=== PATIENT | male | born 1955 | race Caucasian/White ===

== ENCOUNTER 2019-04-15 09:45 | Outpatient (CLI) | payer MEDICARE, MEDICAID ==
--- NOTE | 2019-04-15 09:56 | RAD ---
XR Chest Pa Lat STANDARD HISTORY: COPD COMPARISON: 09/12/2016 FINDINGS: The heart size is normal. The lungs are well expanded without focal areas of consolidation, pneumothorax or pleural effusions. There are degenerative changes in spine.. IMPRESSION: No radiographic evidence of acute cardiopulmonary process.
== END 2019-04-15 09:46 | disposition home or self-care (01) ==
LOC: BICRAD 09:45
PROVIDERS: ATTEND Internal Medicine
DX: J44.9 Chronic obstructive pulmonary disease, unspecified (principal)
CPT/HCPCS: 71046

== ENCOUNTER 2019-10-28 10:36 | Outpatient (CLI) | payer MEDICARE, MEDICAID ==
[2019-10-28] MEDS ORDERED: Iopamidol-370 76% 500 ML 1 ML ONE (10:37)
--- NOTE | 2019-10-28 11:21 | CT ---
CT Abdomen W Con HISTORY: Abdominal pain COMPARISON: None. FINDINGS: There are dependent changes at the lung bases. No calcified gallstones is noted. The liver, spleen, p ancreas, adrenal glands and left kidney are normal. There are small cysts in the right kidney. No free air, free fluid or lymphadenopathy seen in the abdomen. There are vascular calcifications withou t evidence of aneurysmal dilatation of the abdominal aorta. There are degenerative changes spine. IMPRESSION: No acute process.
== END 2019-10-28 10:37 | disposition home or self-care (01) ==
LOC: BICCT 10:36
PROVIDERS: ATTEND Nurse Practitioner Family
DX: R14.0 Abdominal distension (gaseous) (principal)
CPT/HCPCS: 74160; 82565

== ENCOUNTER 2019-12-02 20:44 | Inpatient (IN) | payer MEDICARE, MEDICAID, OTHER ==
[2019-12-02 21:12] LABS: #Eosinphils 0.2 thou/uL (0.0-0.7); #Monocytes 0.6 thou/uL (0.11-0.59); #Neutrophils 11.8 thou/uL (1.40-6.50); %Basophils 0.1 % (0.0-1.0); %Eosinophils 1.3 % (0.0-10.0); %Lymphocytes 7.2 % (21.0-51.0); %Monocytes 4.6 % (0.0-10.0); %Neutrophils 86.7 % (42.0-75.0); Hemoglobin 13.8 g/dL (14.0-18.0); Mean Corpuscular HGB CONC 33.7 g/dL (32.0-36.0); Mean Corpuscular Hemoglobin 33.3 pg (27.0-31.0); Mean Corpuscular Volume 98.9 fL (78.0-98.0); Mean Platelet Volume 6.7 fL (7.4-10.4); Platelet Count 184 thou/uL (130-400); RBC Distribution Width 11.9 % (11.5-14.5); Red Blood Cell (RBC) Count 4.12 mill/uL (4.70-6.10); White Blood Cell (WBC) Count 13.6 thou/uL (4.8-10.8)
[2019-12-02 21:18] LABS: Prothrombin Time 13.2 sec (12.0-14.7)
[2019-12-02 21:40] LABS: PTT 124.9 sec (22.9-36.1)
--- NOTE | 2019-12-02 21:41 | RAD ---
PORTABLE CHEST: History: Chest pain FINDINGS: Lungs appear clear. No infiltrate. Heart and mediastinum unremarkable. Vasculature normal. IMPRESSION: No acute finding. POS: AGW
[2019-12-02 21:55] LABS: ALT (SGPT) 23 U/L (8-55); AST (SGOT) 23 U/L (5-34); Albumin 3.3 g/dL (3.4-4.8); Alkaline Phosphatase 75 U/L (40-110); Anion Gap 11 mmol/L (10-20); BUN (Urea Nitrogen) 19 mg/dL (8.4-25.7); Bilirubin, Total 0.5 mg/dL (0.2-1.2); Calc. Creatinine Clearance 0 mL/min (70-130); Calcium 7.8 mg/dL (7.8-10.44); Carbon Dioxide 27 mmol/L (23-31); Chloride 106 mmol/L (98-107); Estimated GFR-MDRD 49; Globulin 2.1 g/dL (2.4-3.5); Glucose 111 mg/dL (80-115); Potassium 4.2 mmol/L (3.5-5.1); Protein, Total 5.4 g/dL (5.8-8.1); Sodium 140 mmol/L (136-145)
[2019-12-02 22:04] LABS: CKMB 13.9 ng/mL (0-6.6)
[2019-12-02] MEDS ORDERED: Heparin 25,000 units/D5W 500 ML ONE (22:20)
[2019-12-02] MEDS ORDERED: Ondansetron ODT 4 MG TAB PO PRN (23:00)
[2019-12-02] MEDS ORDERED: Ondansetron PF 4 MG/2 ML Vial IVP PRN (23:00)
[2019-12-02] MEDS ORDERED: Morphine 2 MG/ML VIAL SLOW IVP PRN (23:00)
[2019-12-02] MEDS ORDERED: Heparin 25,000 units/D5W 500 ML IVPB SCH (23:00)
[2019-12-02] MEDS ORDERED: Heparin 10,000 UNITS/ 10 ML VIAL SLOW IVP SCH (23:00)
[2019-12-02] MEDS ORDERED: Nitroglycerin 0.4 MG TAB (25 Tab Bottle) SL PRN (23:00)
[2019-12-02 23:29] LABS: Hemoglobin 14.3 g/dL (14.0-18.0); Platelet Count 172 thou/uL (130-400)
--- NOTE | 2019-12-03 00:03 | PDOC.HHP ---
Hospitalist HPI - History of Present Illness chest pain History of Present Illness: Case of an 64y/o male with pmhx of copd, ckd stage 3, and hypertension who comes to hospital due to chest pain. patient refers he was on his usual state of health until today when while watching tv he started with epigastric pain and vomiting. pain kept progressing and pain moved to the chest 10/10 radiating to both arm with associated sob. patient denies any palpitation or diaphoresis. patient refers he had chest pain until reaching the ED and been treated with nitro drip. initial ekg showed ST elevatation on lateral leads. after tx with heparin and nitro ekg was repeated and showed normalization of the st changes. Dr sanchez was called and cancel the st protocol. during my evaluation patient was chest pain free w/o nitro drip with stable v/s Hospitalist ROS - Review of Systems All other systems reviewed; all pertinent +/- noted in HPI/Subj Hospitalist History - Past Surgical History Past Surgical History: reports: no pertinent history - Social History Smoking Status: Current some day smoker Alcohol: reports: Occassional Drugs: reports: none Living Situation: With Family - Exam General Appearance: NAD, awake alert Eye: PERRL, anicteric sclera ENT: normocephalic atraumatic, no oropharyngeal lesions Neck: supple, symmetric, no JVD Heart: RRR, no murmur, no gallops Respiratory: CTAB, no wheezes, no rales Gastrointestinal: soft, non-tender, non-distended Extremities: no cyanosis, no clubbing, no edema Skin: normal turgor, no lesions, no rashes Neurological: cranial nerve grossly intact, normal sensation to touch Musculoskeletal: normal tone, normal strength Psychiatric: normal affect, normal behavior, A&O x 3 Hospitalist Results - Labs Result Diagrams: 12/02/19 23:22 12/02/19 21:03 Lab results: WBC 13.6 thou/uL (4.8-10.8) H 12/02/19 21:03 Hgb 14.3 g/dL (14.0-18.0) 12/02/19 23:22 Hct 42.1 % (42.0-52.0) 12/02/19 23:22 MCV 98.9 fL (78.0-98.0) H 12/02/19 21:03 Plt Count 172 thou/uL (130-400) 12/02/19 23:22 Neutrophils % 86.7 % (42.0-75.0) H 12/02/19 21:03 Sodium 140 mmol/L (136-145) 12/02/19 21:03 Potassium 4.2 mmol/L (3.5-5.1) 12/02/19 21:03 Chloride 106 mmol/L (98-107) 12/02/19 21:03 Carbon Dioxide 27 mmol/L (23-31) 12/02/19 21:03 BUN 19 mg/dL (8.4-25.7) 12/02/19 21:03 Creatinine 1.44 mg/dL (0.7-1.3) H 12/02/19 21:03 Glucose 111 mg/dL (80-115) 12/02/19 21:03 Calcium 7.8 mg/dL (7.8-10.44) 12/02/19 21:03 Total Bilirubin 0.5 mg/dL (0.2-1.2) 12/02/19 21:03 AST 23 U/L (5-34) 12/02/19 21:03 ALT 23 U/L (8-55) 12/02/19 21:03 Alkaline Phosphatase 75 U/L (40-110) 12/02/19 21:03 CK-MB (CK-2) 13.9 ng/mL (0-6.6) H* 12/02/19 21:03 Troponin I 0.651 ng/mL (< 0.028) H* 12/02/19 21:03 B-Natriuretic Peptide 15.3 pg/mL (0-100) 12/02/19 21:03 Serum Total Protein 5.4 g/dL (5.8-8.1) L 12/02/19 21:03 Albumin 3.3 g/dL (3.4-4.8) L 12/02/19 21:03 Hospitalist H&P A/P - Problem (1) NSTEMI (non-ST elevated myocardial infarction) Code(s): I21.4 - NON-ST ELEVATION (NSTEMI) MYOCARDIAL INFARCTION Status: Acute (2) CKD (chronic kidney disease) stage 3, GFR 30-59 ml/min Code(s): N18.30 - CHRONIC KIDNEY DISEASE, STAGE 3 UNSPECIFIED Status: Acute (3) Hypertension Code(s): I10 - ESSENTIAL (PRIMARY) HYPERTENSION Status: Acute (4) Tobacco use Code(s): Z72.0 - TOBACCO USE Status: Acute (5) COPD (chronic obstructive pulmonary disease) Status: Chronic - Plan Plan: 64y/o male that arrived with st elevation that improved after nitro and heparin administration, Dr sanchez consulted nstemi - cxr w/o cardiomegaly or vascular congestion - started on heart protective medication with beta milvia, statin, asa and heparin drip. 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
[2019-12-03] MEDS ORDERED: Ipratropium Bromide 2.5 ml Neb NEB PRN (00:14)
[2019-12-03] MEDS: Sodium Chloride 0.9% 1,000 ML IV SCH ×3 (01:48→16:00)
[2019-12-03 04:36] LABS: Anion Gap 13 mmol/L (10-20); BUN (Urea Nitrogen) 18 mg/dL (8.4-25.7); Calc. Creatinine Clearance 62 mL/min (70-130); Calcium 8.5 mg/dL (7.8-10.44); Carbon Dioxide 22 mmol/L (23-31); Chloride 109 mmol/L (98-107); Cholesterol 143 mg/dl (< 200 Desired); Estimated GFR-MDRD 54; Glucose 101 mg/dL (80-115); HDL Cholesterol 47 mg/dL (>60 Neg Risk); LDL Cholesterol, Calculated 85 mg/dL; Magnesium 2.1 mg/dL (1.6-2.6); Potassium 4.5 mmol/L (3.5-5.1); Sodium 139 mmol/L (136-145); Triglycerides 54 mg/dL (Less than 150)
[2019-12-03 05:08] LABS: Band 10 % (5-11); Eosinophils 3 % (0-10); Lymphocytes 17 % (21-51); MDiff Complete? YES; Mean Corpuscular Hemoglobin 33.3 pg (27.0-31.0); Mean Corpuscular Volume 98.1 fL (78.0-98.0); Mean Platelet Volume 7.1 fL (7.4-10.4); Monocytes 3 % (0-10); Neutrophil 67 % (42-75); Platelet Count 183 thou/uL (130-400); Red Blood Cell (RBC) Count 4.21 mill/uL (4.70-6.10)
[2019-12-03 05:38] LABS: Troponin I 29.499 ng/mL (< 0.028)
[2019-12-03] MEDS: Metoprolol Tartrate 25 MG TAB PO SCH ×2 (09:29→20:23)
[2019-12-03] MEDS: Aspirin 325 mg Enteric Coated Tablet PO SCH (09:29)
[2019-12-03] MEDS ORDERED: Iopamidol 370 76% 100 ML VIAL ONE (09:38)
--- NOTE | 2019-12-03 09:49 | PDOC.HOSPP ---
- Subjective Encounter Date: 12/03/19 Encounter Time: 09:47 Subjective: Mr. Quintana was seen today in follow-up of NSTEMI. He says he feels fine now. He denies chest pain or epigastric pain. He denies any nausea or vomiting. - Objective Vital Signs & Weight: Vital Signs (12 hours) Temp Pulse Ox 12/03/19 08:19 98 12/03/19 08:00 98 12/03/19 07:43 99.0 F 12/03/19 05:44 98.1 F 12/02/19 23:29 97.8 F 100 Weight Weight 173 lb 6.4 oz Most Recent Monitor Data Heart Rate from ECG 66 NIBP 129/70 NIBP BP-Mean 89 Respiration from ECG 17 SpO2 99 I&O: 12/02/19 12/03/19 12/04/19 06:59 06:59 06:59 Intake Total 623 Output Total 750 Balance -127 Result Diagrams: 12/03/19 03:08 12/03/19 03:08 Hospitalist ROS - Medication Medications: Active Medications Generic Name Dose Route Start Last Admin Trade Name Freq PRN Reason Stop Dose Admin Sodium Chloride 1,000 mls @ 80 mls/hr 12/02/19 23:00 12/03/19 01:48 Normal Saline 0.9% IV 1,000 mls .[id number] RENZO Administration - Exam Eye: PERRL, anicteric sclera Heart: RRR (Widely split S1), no murmur, no gallops, no rubs, normal peripheral pulses Respiratory: CTAB, no wheezes, no rales, no ronchi, normal chest expansion Gastrointestinal: soft, non-tender, non-distended, normal bowel sounds, no palpable masses, no hepatomegaly Extremities: no cyanosis, no edema Skin: normal turgor Skin - other findings: + raised pearly area on the left upper chest approx. 2 cm irregular borders Hosp A/P (1) Hypertension Code(s): I10 - ESSENTIAL (PRIMARY) HYPERTENSION Status: Acute (2) NSTEMI (non-ST elevated myocardial infarction) Code(s): I21.4 - NON-ST ELEVATION (NSTEMI) MYOCARDIAL INFARCTION Status: Acute (3) Tobacco use Code(s): Z72.0 - TOBACCO USE Status: Acute (4) COPD (chronic obstructive pulmonary disease) Status: Chronic - Plan * NSTEMI- continue Nitrates, aspirin, and Heparin drip, Metoprolol, and Lipitor * Await Cardiology evaluation * HTN- blood pressure is marginal * COPD- stable- continue Duonebs as needed
[2019-12-03] MEDS ORDERED: Nitroglycerin 100MG/250ML BOT 250 ML ONE (14:51)
[2019-12-03] MEDS ORDERED: Verapamil 5 MG/2 ML VIAL ONE (14:51)
[2019-12-03] MEDS ORDERED: Heparin 10,000 UNITS/ 10 ML VIAL ONE (14:51)
--- NOTE | 2019-12-03 15:19 | CON ---
DATE OF CONSULTATION: REASON FOR CONSULTATION: Non-Q-wave myocardial infarction. PRIMARY FRUIT PEELER: None. HISTORY OF PRESENT ILLNESS: Mr. Whitten is a 64-year-old gentleman, who recently was transferred for a chest pain. It began yesterday evening. It was continued for several hours. Once he proceeded to the emergency room and received therapy, his symptoms improved. Initially did have ST-segment elevation that resolved. He has been chest pain-free since arrival to the emergency room. He has no previous history of underlying coronary artery disease. PAST MEDICAL HISTORY: 1. COPD. 2. Chronic kidney disease. 3. Hypertension. 4. Tobacco abuse. PAST SURGICAL HISTORY: None. SOCIAL HISTORY: Positive tobacco use. Occasional alcohol use. HOME MEDICATIONS: Include; 1. Symbicort. 2. Zestril. 3. Gabapentin. 4. Ventolin inhaler. 5. Flomax. REVIEW OF SYSTEMS: A 10-point review of systems is reviewed as above, otherwise negative. PHYSICAL EXAMINATION: VITAL SIGNS: Blood pressure 115/65, pulse 58, temperature afebrile. GENERAL: Patient is a pleasant male, who is in no acute distress. The patient appears older than stated age. NEUROLOGIC: The patient is alert and oriented x3 with no focal neurologic deficits. HEENT: Sclerae without icterus. Mouth has moist mucous membranes with normal pallor. NECK: No JVD. Carotid upstroke brisk. No bruits bilaterally. LUNGS: Clear to auscultation with unlabored respirations. BACK: No scoliosis or kyphosis. CARDIAC: Regular rate and rhythm with normal S1 and S2. No S3 or S4 noted. No significant rubs, murmurs, thrills, or gallops noted throughout the precordium. PMI is not displaced. There is no parasternal heave. ABDOMEN: Soft, nontender, nondistended. No peritoneal signs present. No hepatosplenomegaly. No abnormal striae. EXTREMITIES: 2+ femoral and 2+ dorsalis pedis pulses. No cyanosis, clubbing, or edema. SKIN: No gross abnormalities. PERTINENT LABORATORY DATA: Hemoglobin 14.0, hematocrit 41.3. Creatinine 1.33 this morning, peak troponin 29. EKG, normal sinus rhythm with nonspecific ST-T wave changes. IMPRESSION: 1. Non-Q-wave myocardial infarction. 2. Tobacco abuse. 3. Chronic kidney disease. RECOMMENDATIONS: Mr. Whitten's troponin is markedly elevated at 29. The patient has been pain free. He has received fluids since arrival to the emergency room. At this point, I discussed coronary angiography versus medical therapy. We would recommend coronary angiography given his presentation. I discussed procedure in full detail with Mr. Whitten. Risks included, not limited to the following: I discussed the procedure in full detail with the patient. The risks of the procedure were also discussed. The risks of the procedure include but are not limited to the following: , stroke, [place], need for emergency surgery, loss of limb, bleeding, and infection, as well as a reaction to the dye causing kidney failure and needing long-term dialysis. I also discussed the risks of PCI to include all of the above including coronary dissection and perforation in addition to acute stent thrombosis and restenosis. All questions about the procedure were answered. Given the above, the patient agreed to proceed with coronary angiography and possible PCI. All questions were answered. Given the above, the patient agreed to proceed with above procedure. Also, discussed drug coated with nondrug coated stent placement. There were no contraindications. We will proceed if needed. Further recommendations pending the above. Job ID: [id number]
[2019-12-03] MEDS ORDERED: Adenosine 6 MG/2 ML VIAL ONE (15:25)
[2019-12-03] MEDS ORDERED: Nitroglycerin 0.4 MG TAB (25 Tab Bottle) SL PRN (15:31)
[2019-12-03] MEDS ORDERED: Acetaminophen/Codeine 30-300mg Tablet PO PRN (15:31)
[2019-12-03] MEDS ORDERED: Sodium Chloride 0.9% 200 ML IV PRN (15:31)
[2019-12-03] MEDS ORDERED: Communication Order-Pharmacy FS SCH (17:18)
[2019-12-03] MEDS ORDERED: Diazepam 5 MG TAB PO PRN (17:18)
[2019-12-03] MEDS: Budesonide 0.5 MG/2 ML NEB NEB SCH (18:46)
[2019-12-03] MEDS: Atorvastatin Calcium 40 MG TAB PO SCH (20:23)
[2019-12-03] MEDS: Acetaminophen/Codeine 30-300mg Tablet PO PRN (20:27)
[2019-12-03] MEDS ORDERED: Heparin 10,000 UNITS/ 10 ML VIAL SLOW IVP SCH (20:30)
[2019-12-03] MEDS ORDERED: Heparin 25,000 units/D5W 500 ML IVPB SCH (20:30)
--- NOTE | 2019-12-03 23:44 | CON ---
DATE OF CONSULTATION: 12/03/2019 REASON FOR CONSULTATION: Evaluate the patient for coronary artery bypass grafting. HISTORY OF PRESENT ILLNESS: Mr. Whitten is a 64-year-old gentleman, who presented with chest pain and shortness of breath. He has a long tobacco abuse history, smoking up to two packs of cigarettes a day. He has diagnosis of COPD and uses two separate inhalers at home. He was brought into the hospital, was found to have positive troponins. 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 The LAD and diagonal were both exceedingly small and will require on-pump revascularization. PAST MEDICAL HISTORY: 1. Hypertension. 2. COPD. 3. Chronic renal insufficiency. 4. Tobacco abuse. 5. Coronary artery disease. PAST SURGICAL HISTORY: 1. Appendectomy. 2. Knee surgery. SOCIAL HISTORY: He smokes up to two packs of cigarettes a day. He does not use alcohol, he quit 10 years ago. ALLERGIES: NONE. HOME MEDICATIONS: 1. Lisinopril 2.5 mg daily. 2. Gabapentin 600 mg t.i.d. 3. Flomax 0.4 mg daily. 4. Symbicort 160/4.5 two puffs q.4 p.r.n. 5. Ventolin 2 puffs b.i.d. REVIEW OF SYSTEMS: A 10-point review of systems is performed, is negative except as above. PHYSICAL EXAMINATION: GENERAL: This is a well-developed, well-nourished male, resting comfortably in bed. VITAL SIGNS: Height 5 feet 8 inches and weight is 173 pounds. BSA is 1.94. Heart rate is 60 and regular. Blood pressure is 140/72. HEENT: Sclerae nonicteric. Pupils are equal and round bilaterally. NECK: Supple without adenopathy. He has no carotid bruits. CHEST: Clear to auscultation and percussion bilaterally. HEART: Rhythm is regular without murmur. ABDOMEN: Soft and nontender. There are no masses. EXTREMITIES: No cyanosis, clubbing, or edema. VASCULAR: He has palpable carotid, radial, femoral, dorsalis pedis, and posterior tibial pulses bilaterally. VENOUS: There are no venous varicosities or venous stasis changes. PSYCHIATRIC: He is awake, alert, and oriented to person, place, and time. LABORATORY DATA: Of note, his hemoglobin is 14.0, platelet count is 183,000. Creatinine is 1.33. Peak troponin is 29.5. ASSESSMENT AND PLAN: This is a very pleasant 64-year-old gentleman with long-standing tobacco abuse, chronic obstructive pulmonary disease. He does not use oxygen at home, but he does use two separate inhalers. He has presented with unstable angina. He is undergoing cardiac catheterization revealing LAD-diagonal bifurcation disease. Both these should be bypassable, although small. Risks, benefits, and options to bypass have been discussed with the patient. We will make plans for for surgery. Job ID: [id number]
[2019-12-04] MEDS: Sodium Chloride 0.9% 1,000 ML IV SCH ×6 (02:57→22:44)
[2019-12-04] MEDS: Acetaminophen/Codeine 30-300mg Tablet PO PRN ×2 (05:25→09:50)
[2019-12-04] MEDS: Budesonide 0.5 MG/2 ML NEB NEB SCH ×2 (08:28→18:43)
[2019-12-04] MEDS ORDERED: Tamsulosin HCl 0.4 MG CAP PO SCH (09:00)
--- NOTE | 2019-12-04 09:35 | PDOC.HOSPP ---
- Subjective Encounter Date: 12/04/19 Encounter Time: 09:34 Subjective: Mr. Quintana was seen today in follow-up of NSTEMI. He denies any abdominal pain. He has decided to proceed with Bypass surgery. - Objective Vital Signs & Weight: Vital Signs (12 hours) Temp Pulse Ox 12/04/19 07:00 98.4 F 12/04/19 03:38 98.0 F 12/04/19 01:50 98 12/03/19 23:44 97.8 F Weight Weight 173 lb 6.4 oz Most Recent Monitor Data Heart Rate from ECG 61 NIBP 129/85 NIBP BP-Mean 99 Respiration from ECG 15 SpO2 96 I&O: 12/03/19 12/04/19 12/05/19 06:59 06:59 06:59 Intake Total 623 2946 Output Total 750 2170 Balance -127 776 Result Diagrams: 12/03/19 03:08 12/03/19 03:08 Hospitalist ROS - Medication Medications: Active Medications Generic Name Dose Route Start Last Admin Trade Name Freq PRN Reason Stop Dose Admin Acetaminophen/Codeine Phosphate 2 tab 12/03/19 15:31 12/04/19 05:25 Acetaminophen/Codeine 30-300mg Tablet PO 12/05/19 08:00 2 tab Q4H PRN Administration Moderate Pain (4-6) Albuterol/Ipratropium 3 ml 12/03/19 19:00 12/04/19 08:28 Ipratropium/Albuterol Sulfate 3 Ml Neb IPPB 12/05/19 08:00 Not Given [id number] RENZO Aspirin 325 mg 12/03/19 09:00 12/03/19 09:29 Aspirin 325 Mg Enteric Coated Tablet PO 12/05/19 08:00 325 mg DAILY RENZO Administration Atorvastatin Calcium 40 mg 12/03/19 21:00 12/03/19 20:23 Atorvastatin Calcium 40 Mg Tab PO 12/05/19 08:00 40 mg HS RENZO Administration Budesonide 0.5 mg 12/03/19 18:30 12/04/19 08:28 Budesonide 0.5 Mg/2 Ml Neb NEB 12/05/19 08:00 Not Given BID-RT RENZO Sodium Chloride 1,000 mls @ 80 mls/hr 12/02/19 23:00 12/04/19 02:57 Normal Saline 0.9% IV 12/05/19 08:00 1,000 mls .[id number] RENZO Administration Sodium Chloride 1,000 mls @ 100 mls/hr 12/03/19 15:45 12/04/19 03:04 Normal Saline 0.9% IV 12/05/19 08:00 Not Given .Q10H RENZO Heparin Sodium/Dextrose 500 mls @ 0 mls/hr 12/03/19 20:30 12/04/19 02:58 Heparin 25,000 Units/D5w IVPB 12/05/19 00:05 500 mls INF RENZO Administration Protocol Per Protocol Metoprolol Tartrate 12.5 mg 12/03/19 09:00 12/03/19 20:23 Metoprolol Tartrate 25 Mg Tab PO 12.5 mg BID RENZO Administration Morphine Sulfate 2 mg 12/02/19 23:00 12/03/19 09:30 Morphine 2 Mg/Ml Vial SLOW IVP 12/05/19 08:00 2 mg Q5MIN PRN Administration Chest Pain - Exam Eye: PERRL, anicteric sclera Heart: RRR, no murmur, no gallops, no rubs, normal peripheral pulses Respiratory: CTAB, no wheezes, no rales, normal chest expansion Gastrointestinal: soft, non-tender, non-distended, normal bowel sounds, no pal pable masses, no hepatomegaly Extremities: no cyanosis, no edema Hosp A/P (1) Hypertension Code(s): I10 - ESSENTIAL (PRIMARY) HYPERTENSION Status: Acute (2) NSTEMI (non-ST elevated myocardial infarction) Code(s): I21.4 - NON-ST ELEVATION (NSTEMI) MYOCARDIAL INFARCTION Status: Acute (3) Tobacco use Code(s): Z72.0 - TOBACCO USE Status: Acute (4) COPD (chronic obstructive pulmonary disease) Status: Chronic - Plan * NSTEMI- continue Nitrates, aspirin, and Heparin drip, Metoprolol, and Lipitor * Case discussed with Cardiology- He has 2 vessel CAD. He initially said he did not want surgery, but now he has changed his mind. * HTN- blood pressure isstable * COPD- stable- continue Duonebs as needed
[2019-12-04] MEDS: Aspirin 325 mg Enteric Coated Tablet PO SCH (09:44)
[2019-12-04] MEDS: Metoprolol Tartrate 25 MG TAB PO SCH ×2 (09:45→20:14)
[2019-12-04] MEDS: Gabapentin 300 MG CAP PO SCH ×2 (18:06→20:13)
[2019-12-04] MEDS: Mometasone 200 MCG/Formoterol 5 MCG 120 PUFF INHALER INH SCH (18:44)
--- NOTE | 2019-12-04 18:49 | PRG ---
DATE OF SERVICE: 12/04/2019 SUBJECTIVE: Mr. Whitten is doing well. No current complaints. No recurrent episodes of chest pain. OBJECTIVE: VITAL SIGNS: Blood pressure 120/70, pulse 80, and respirations 20. LUNGS: Clear to auscultation. HEART: Regular rate and rhythm. ABDOMEN: Soft, nontender, and nondistended. EXTREMITIES: No edema. LABORATORY DATA: Echo Doppler shows LVEF 30% to 35%, hypokinesis along the lateral wall and apex in addition to the mid and distal anterior wall, apex and distal inferior wall. IMPRESSION: 1. Non-Q-wave myocardial infarction. 2. Tobacco abuse. RECOMMENDATIONS: Patient is planning on proceeding with bypass surgery tomorrow. He is currently doing well from a clinical standpoint. No further recommendations. Job ID: [id number]
[2019-12-04 19:16] LABS: SARS-CoV-2 NAA Rapid Test Not Detected (NotDetected)
[2019-12-04] MEDS: Atorvastatin Calcium 40 MG TAB PO SCH (20:14)
[2019-12-04 23:28] LABS: Platelet Count 165 thou/uL (130-400)
[2019-12-05] MEDS: Metoprolol Tartrate 25 MG TAB PO SCH (06:04)
[2019-12-05] MEDS ORDERED: Midazolam HCl 5 mg/5 ml Vial ONE (06:24)
[2019-12-05] MEDS ORDERED: Midazolam HCl 2 mg/2 ml Vial ONE (06:24)
[2019-12-05] MEDS ORDERED: Fentanyl 100 MCG/2 ML VIAL ONE (06:24)
[2019-12-05] MEDS ORDERED: Vecuronium 10 MG VIAL ONE ×3 (06:25→11:41)
[2019-12-05] MEDS ORDERED: Dexmedetomidine 200 MCG/2 ML VIAL ONE (06:25)
[2019-12-05] MEDS ORDERED: Bupivacaine/Epinephrine 0.25% 30 ML VIAL ONE (06:31)
[2019-12-05] MEDS ORDERED: Albumin 5% 500 ML ONE ×2 (06:31→10:34)
[2019-12-05] MEDS ORDERED: Dexamethasone 4 mg/ml Vial ONE (06:31)
[2019-12-05] MEDS ORDERED: Heparin 10,000 UNITS/1 ML VIAL 30,000 UNITS in Sodium Chloride 0.9% 1,000 ML FS SCH (06:45)
[2019-12-05] MEDS ORDERED: CEFAZOLIN 2 GM in Premix Bag 1 BAG IVPB SCH (07:30)
[2019-12-05] MEDS: Budesonide 0.5 MG/2 ML NEB NEB SCH (07:38)
[2019-12-05] MEDS: Mometasone 200 MCG/Formoterol 5 MCG 120 PUFF INHALER INH SCH ×2 (07:39→18:46)
[2019-12-05] MEDS ORDERED: Hetastarch 6% 500 ML 500 ML IVPB PRN (10:16)
[2019-12-05] MEDS ORDERED: Fentanyl 100 MCG/2 ML VIAL SLOW IVP PRN (10:16)
[2019-12-05] MEDS ORDERED: Magnesium 2 GM/50 ML 2 GM in Premix Bag 1 BAG IVPB SCH (10:16)
[2019-12-05] MEDS ORDERED: Guaifenesin DM 100-10/5 ML UDCUP PO PRN (10:16)
[2019-12-05] MEDS ORDERED: Morphine 2 MG/ML VIAL SLOW IVP PRN (10:16)
[2019-12-05] MEDS ORDERED: D5 1/2 NS w/20 mEq KCL 1,000 ML IV SCH (10:16)
[2019-12-05] MEDS ORDERED: Bisacodyl 10 MG SUPP PR PRN (10:16)
[2019-12-05] MEDS ORDERED: Potassium Chloride 20 MEQ/100 ML PREMIX BAG IVPB PRN (10:16)
[2019-12-05] MEDS ORDERED: Mag-Al 1200 mg/1200 mg/30 ML UDCUP PO PRN (10:16)
[2019-12-05] MEDS ORDERED: niCARdipine 25 MG in Sodium Chloride 0.9% 250 ML 240 ML IVPB PRN (10:16)
[2019-12-05] MEDS ORDERED: Bisacodyl 5 MG TAB PO PRN (10:16)
[2019-12-05] MEDS ORDERED: Phenylephrine 40 MG in Sodium Chloride 0.9% 250 ML 250 ML IVPB PRN (10:16)
[2019-12-05] MEDS ORDERED: Ondansetron PF 4 MG/2 ML Vial IVP PRN (10:16)
[2019-12-05] MEDS ORDERED: Nitroglycerin 50 MG/250 ML BOT 250 ML IVPB PRN (10:16)
[2019-12-05 10:53] LABS: Hemoglobin 11.8 g/dL (14.0-18.0); Mean Corpuscular HGB CONC 34.2 g/dL (32.0-36.0); Mean Corpuscular Hemoglobin 33.6 pg (27.0-31.0); Mean Corpuscular Volume 98.2 fL (78.0-98.0); Mean Platelet Volume 6.8 fL (7.4-10.4); Platelet Count 121 thou/uL (130-400); RBC Distribution Width 11.6 % (11.5-14.5); Red Blood Cell (RBC) Count 3.51 mill/uL (4.70-6.10); White Blood Cell (WBC) Count 28.2 thou/uL (4.8-10.8)
[2019-12-05 10:59] LABS: INR-International Normal Ratio 1.2; Prothrombin Time 15.9 sec (12.0-14.7)
[2019-12-05 11:00] LABS: PTT 35.2 sec (22.9-36.1)
--- NOTE | 2019-12-05 11:13 | OP ---
DATE OF PROCEDURE: 12/05/2019 PREOPERATIVE DIAGNOSIS: Coronary artery disease/status post [id number] myocardial infarction/hypertension. POSTOPERATIVE DIAGNOSIS: Coronary artery disease/status post [id number] myocardial infarction/hypertension. PROCEDURES PERFORMED: 1. Coronary artery bypass grafting x2 - left internal mammary artery to 1.0 mm mid LAD - good conduit, small target. 2. Reverse saphenous vein to 1.5 mm diagonal - good conduit and target. DIGITAL PRODUCER: Dr. Gamal Badillo. ANESTHESIA: General endotracheal - Dr. Flavio Reed. PUMP TIME: 36 minutes. CROSSCLAMP TIME: 23 minutes. LOW-CORE TEMPERATURE: 34 degrees Celsius. DOWEL PIN MAN: Moni Bolanos. DRAINS: 24-[place] chest tubes x2. DRIPS: None. TRANSFUSIONS: None. DESCRIPTION OF PROCEDURE: After consent was obtained, the patient was brought to the operating room and placed in supine position on the operating table. Appropriate central line was placed and general endotracheal anesthesia was induced. Chest, abdomen, and legs were prepped and draped in usual sterile fashion. Greater saphenous vein was harvested from left thigh. Wounds were irrigated and closed in layers. Median sternotomy was performed. Left internal mammary artery was harvested as a pedicle graft. The patient was systemically heparinized. Distal pedicle was divided and infused with papaverine. Thymic fat and pericardium were divided with electrocautery. Pericardial stay sutures were placed. Aortic and atrial cannulation were performed. After adequate heparinization, retrograde prime was performed. The patient was placed on cardiopulmonary bypass. Distal targets were marked. Aortic cross-clamp was applied and antegrade sanguineous cardioplegic arrest was obtained. 1 L of antegrade cold [place] cardioplegia was given. Topical cold solution was used. Reverse saphenous vein was anastomosed to diagonal in end-to-side fashion with running 7-0 Prolene suture. Anastomosis was tested and was hemostatic. Mammary artery was brought through a window in the pericardium and anastomosed to LAD in end-to-side fashion with running 7-0 Prolene suture. On release of mammary clamps, good hooding of the anastomosis and good distal flow. Pedicle was secured with interrupted 6-0 Prolene suture. Cross-clamp was removed and partial occluding clamp placed. Saphenous vein was anastomosed to a punch site in the aorta with running 6-0 Prolene suture. Partial occluding clamp was removed and graft was deaired. Anastomoses were inspected for hemostasis, which was good. The patient was warmed and weaned from cardiopulmonary bypass. After resumption of sinus rhythm, good hemodynamics, temperature greater than 36.5, bypass was discontinued. Transfusions were given. Protamine was administered. Decannulation was performed and pursestring suture secured. A 24-[place] chest tubes were placed in mediastinum. Vancomycin paste was placed on the sternal edges. After good hemostasis been obtained, the sternum was closed with #7 wire. Sternum was treated with platelet rich plasma. Wires were buried. Presternal blocks performed with 0.5% Marcaine mixed with Decadron. Wounds were irrigated and treated with platelet-poor plasma and closed in multiple layers. Needle, sponge, and instrument counts were all reported as correct at the end of the procedure. The patient tolerated the procedure well, was awakened, extubated, and transferred to the intensive care unit in stable condition. Job ID: [id number]
[2019-12-05 11:14] LABS: Anion Gap 10 mmol/L (10-20); BUN (Urea Nitrogen) 19 mg/dL (8.4-25.7); Calc. Creatinine Clearance 65 mL/min (70-130); Calcium 7.7 mg/dL (7.8-10.44); Carbon Dioxide 22 mmol/L (23-31); Chloride 113 mmol/L (98-107); Estimated GFR-MDRD 57; Glucose 172 mg/dL (80-115); Potassium 4.8 mmol/L (3.5-5.1); Sodium 140 mmol/L (136-145)
[2019-12-05 11:18] LABS: Band 29 % (5-11); Lymphocytes 1 % (21-51); MDiff Complete? YES; Monocytes 1 % (0-10); Neutrophil 69 % (42-75); Platelet Morphology Comment Appears Decreased; RBC Morphology Normal
--- NOTE | 2019-12-05 11:24 | RAD ---
Chest AP view INDICATION: Status post open-heart surgery COMPARISON: December 02, 2019 FINDINGS: Lungs: There is increasing hazy opacity mass within the right middle lobe which may reflect some sub segmental volume loss from poor inspiration. No carly consolidation is evident. Cardiac silhouette: There is mild cardiomegaly is stable. Pulmonary vasculature: Normal Pleural spaces: No pleural effusion or pneumothorax is demonstrated. Upper abdomen: No abnormality seen. Osseous structures: No acute osseous abnormality. Additional findings: There is been interval postsurgical change of a prior CABG. There is a right jacques bclavian central venous catheter. There is a left-sided thoracostomy tube in place. There is a midline mediastinal drain. IMPRESSION: Postoperative chest. Mild subsegmental volume loss in the right lung base.
[2019-12-05] MEDS ORDERED: Lidocaine 2% PF 100 mg/5 ml Syringe ONE (11:41)
[2019-12-05] MEDS ORDERED: Potassium Chloride 60 MEQ/30 ML VIAL ONE (11:41)
[2019-12-05] MEDS ORDERED: Papaverine 60 MG/2 ML VIAL ONE (11:41)
[2019-12-05] MEDS ORDERED: Thrombin 5000 UNITS/5 ML VIAL ONE (11:41)
[2019-12-05] MEDS ORDERED: Ondansetron PF 4 MG/2 ML Vial ONE (11:41)
[2019-12-05] MEDS ORDERED: Heparin 5,000 UNITS/ML VIAL ONE (11:41)
[2019-12-05] MEDS ORDERED: Sodium Bicarb 50 MEQ/50 ML Abboject 8.4% SYRINGE ONE (11:41)
[2019-12-05] MEDS ORDERED: Lidocaine 1% PF 5 ML VIAL ONE (11:41)
[2019-12-05] MEDS ORDERED: Ketorolac Tromethamine 30 MG/ML VIAL ONE (11:41)
[2019-12-05] MEDS ORDERED: Glycopyrrolate 0.2 MG/ML 5 ML SYRINGE ONE (11:41)
[2019-12-05] MEDS ORDERED: EPHEDRINE 25 MG/5 ML SYRINGE ONE (11:41)
[2019-12-05] MEDS ORDERED: Calcium Chloride 1 GM/10 ML Abboject SYRINGE ONE (11:41)
[2019-12-05] MEDS ORDERED: PHENYLEPHRINE-NS 100 MCG/ML 10 ML SYRINGE ONE (11:41)
[2019-12-05] MEDS ORDERED: Dextrose 50% Abboject 50 ML SYRINGE ONE (11:41)
[2019-12-05] MEDS ORDERED: Magnesium Sulfate 1 GM/2 ML VIAL ONE (11:41)
[2019-12-05] MEDS ORDERED: Dexamethasone 20 MG/5 ML VIAL ONE (11:41)
[2019-12-05] MEDS ORDERED: Cardioplegic Soln 1,000 ML BAG ONE (11:41)
[2019-12-05] MEDS ORDERED: Nitroglycerin 50 MG/250 ML BOT ONE (11:41)
[2019-12-05] MEDS ORDERED: Aminocaproic Acid 5 GM/20 ML VIAL ONE (11:41)
[2019-12-05] MEDS ORDERED: Heparin 30,000 units/30 ml VIAL ONE (11:41)
[2019-12-05] MEDS ORDERED: Mannitol 12.5 GM/50 ML ONE (11:41)
[2019-12-05] MEDS: Ketorolac Tromethamine 30 MG/ML VIAL IVP SCH ×3 (12:15→23:55)
[2019-12-05] MEDS: Sodium Chloride 0.9% 1,000 ML IV SCH (12:15)
[2019-12-05] MEDS: Gabapentin 300 MG CAP PO SCH (12:16)
[2019-12-05] MEDS: CEFAZOLIN 2 GM in Premix Bag 1 BAG IVPB SCH ×2 (13:34→21:27)
--- NOTE | 2019-12-05 14:05 | PDOC.HOSPP ---
- Subjective Encounter Date: 12/05/19 Encounter Time: 14:03 Subjective: Mr. Quintana was seen today in follow-up of CAD post CABG. He notes a little chest pain. He denies dyspnea. He is confused, and did not know he was in the hospital, and does not remember having surgery. - Objective Vital Signs & Weight: Vital Signs (12 hours) Temp Pulse Resp Pulse Ox 12/05/19 13:19 93 L 12/05/19 13:15 73 20 92 L 12/05/19 13:00 97.2 F L 12/05/19 10:40 95 12/05/19 04:01 97.8 F Weight Weight 173 lb 6.4 oz Most Recent Monitor Data Heart Rate from ECG 73 NIBP 95/49 NIBP BP-Mean 64 Respiration from ECG 19 SpO2 95 I&O: 12/04/19 12/05/19 12/06/19 06:59 06:59 06:59 Intake Total 2946 600 Output Total 1690 671 850 Balance 821 -476 -555 Result Diagrams: 12/05/19 10:38 12/05/19 10:38 Hospitalist ROS - Medication Medications: Active Medications Generic Name Dose Route Start Last Admin Trade Name Freq PRN Reason Stop Dose Admin Albumin Human 25 gm 12/05/19 10:16 12/05/19 10:40 Albumin 5% 12.5 Gm/250 Ml Bot IVPB 12/06/19 10:17 25 gm Q6H PRN Administration To Maintain SBP > 90 mmHG Albuterol/Ipratropium 3 ml 12/05/19 13:00 12/05/19 13:15 Ipratropium/Albuterol Sulfate 3 Ml Neb NEB 3 ml [id number] RENZO Administration Fentanyl 25 mcg 12/05/19 10:16 12/05/19 13:48 Fentanyl 100 Mcg/2 Ml Vial SLOW IVP 12/07/19 10:09 25 mcg Q2H PRN Administration Moderate Pain (4-6) Hetastarch/Sodium Chloride 500 mls @ 0 mls/hr 12/05/19 10:16 12/05/19 13:26 Hespan IVPB 12/06/19 10:09 500 mls PRN PRN Administration To Maintain SBP > 90mmHg As Directed Potassium Chloride/Dextrose/Sod Cl 1,000 mls @ 40 mls/hr 12/05/19 10:16 12/05/19 11:09 D5 1/2 Ns W/20 Meq Kcl IV 1,000 mls .Q24H RENZO Administration Cefazolin Sodium/Dextrose 2 gm 50 mls @ 100 mls/hr 12/05/19 14:00 12/05/19 13:34 / Device IVPB 12/06/19 06:29 50 mls Q8HR RENZO Administration Magnesium Sulfate 2 gm/ Device 50 mls @ 50 mls/hr 12/05/19 10:16 12/05/19 11:08 IVPB 12/05/19 15:00 50 mls NOW RENZO Administration Ketorolac Tromethamine 30 mg 12/05/19 12:00 12/05/19 12:15 Ketorolac Tromethamine 30 Mg/Ml Vial IVP 12/08/19 12:01 Not Given Q6HR RENZO Mometasone Furoate/Formoterol Fumar 2 puff 12/04/19 18:30 12/05/19 07:39 Mometasone 200 Mcg/Formoterol 5 Mcg 120 Puff Inhaler INH Not Given BID-RT RENZO - Exam Eye: PERRL, anicteric sclera Heart: RRR, no murmur Respiratory: CTAB, no wheezes, no rales, no ronchi, normal chest expansion, no tachypnea Gastrointestinal: soft, non-tender, non-distended, normal bowel sounds, no palpable masses, no hepatomegaly Extremities: no cyanosis, no edema Hosp A/P (1) Hypertension Code(s): I10 - ESSENTIAL (PRIMARY) HYPERTENSION Status: Acute (2) NSTEMI (non-ST elevated myocardial infarction) Code(s): I21.4 - NON-ST ELEVATION (NSTEMI) MYOCARDIAL INFARCTION Status: Acute (3) Tobacco use Code(s): Z72.0 - TOBACCO USE Status: Acute (4) COPD (chronic obstructive pulmonary disease) Status: Chronic - Plan * NSTEMI- He is s/p 2 vessel CABG * Post-op- delirium- likely due to anesthesia - will monitor- hopefully this will improve over the course of the next day or 2 * Will re-start Gabapentin in a stepwise fashion * Re-start Flomax * Blood pressure is stable * COPD- stable- continue Duonebs as needed
[2019-12-05] MEDS: Fentanyl 100 MCG/2 ML VIAL SLOW IVP PRN ×2 (15:43→18:31)
[2019-12-05] MEDS: Gabapentin 100 MG CAP PO SCH ×2 (16:30→21:24)
[2019-12-05 16:38] LABS: Hemoglobin 11.4 g/dL (14.0-18.0)
[2019-12-05 16:49] LABS: Potassium 4.8 mmol/L (3.5-5.1)
[2019-12-05] MEDS ORDERED: Famotidine/PF 20 mg/2ml Vial SLOW IVP SCH (21:00)
[2019-12-05] MEDS: Acetaminophen 325 MG TAB PO PRN (21:24)
[2019-12-05] MEDS: traMADol HCl 50 MG TAB PO PRN (21:25)
[2019-12-05] MEDS: Tamsulosin HCl 0.4 MG CAP PO SCH (21:25)
[2019-12-06 04:50] LABS: #Lymphocytes 0.6 thou/uL (1.20-3.40); #Monocytes 0.5 thou/uL (0.11-0.59); #Neutrophils 15.2 thou/uL (1.40-6.50); %Basophils 0.1 % (0.0-1.0); %Eosinophils 0.1 % (0.0-10.0); %Lymphocytes 3.6 % (21.0-51.0); %Monocytes 2.8 % (0.0-10.0); %Neutrophils 93.5 % (42.0-75.0); Hemoglobin 10.1 g/dL (14.0-18.0); Mean Corpuscular HGB CONC 34.5 g/dL (32.0-36.0); Mean Corpuscular Hemoglobin 33.8 pg (27.0-31.0); Mean Corpuscular Volume 97.9 fL (78.0-98.0); Mean Platelet Volume 7.4 fL (7.4-10.4); Platelet Count 125 thou/uL (130-400); RBC Distribution Width 11.6 % (11.5-14.5); Red Blood Cell (RBC) Count 2.98 mill/uL (4.70-6.10); White Blood Cell (WBC) Count 16.2 thou/uL (4.8-10.8)
[2019-12-06 05:05] LABS: Anion Gap 11 mmol/L (10-20); BUN (Urea Nitrogen) 23 mg/dL (8.4-25.7); Calc. Creatinine Clearance 53 mL/min (70-130); Calcium 7.5 mg/dL (7.8-10.44); Carbon Dioxide 18 mmol/L (23-31); Chloride 111 mmol/L (98-107); Estimated GFR-MDRD 46; Glucose 167 mg/dL (80-115); Potassium 4.6 mmol/L (3.5-5.1); Sodium 135 mmol/L (136-145)
[2019-12-06] MEDS: Ketorolac Tromethamine 30 MG/ML VIAL IVP SCH (06:22)
[2019-12-06] MEDS: CEFAZOLIN 2 GM in Premix Bag 1 BAG IVPB SCH (06:23)
[2019-12-06] MEDS: Mometasone 200 MCG/Formoterol 5 MCG 120 PUFF INHALER INH SCH ×3 (07:26→19:54)
[2019-12-06] MEDS ORDERED: Nitroglycerin 0.4 MG TAB (25 Tab Bottle) SL PRN (07:34)
[2019-12-06] MEDS ORDERED: Bisacodyl 10 MG SUPP PR PRN (07:34)
[2019-12-06] MEDS ORDERED: Mineral Oil ENEMA PR PRN (07:34)
[2019-12-06] MEDS ORDERED: Mag-Al 1200 mg/1200 mg/30 ML UDCUP PO PRN (07:34)
[2019-12-06] MEDS ORDERED: Milk Of Magnesia 30 ML UDCUP PO PRN (07:34)
[2019-12-06] MEDS ORDERED: Guaifenesin DM 100-10/5 ML UDCUP PO PRN (07:34)
--- NOTE | 2019-12-06 07:49 | RAD ---
XR Chest 1 View Portable History: Open-heart surgery Comparison: Radiograph prior day Findings: Right subclavian central venous catheter tip projects over the inferior SVC. Heart size is enlarged. Small effusions. No pneumothorax. Chest tube is similar. Multiple midline sternotomy wires. No acute osseous abnormality. Impression: No acute intrathoracic abnormality. Expected postoperative changes.
--- NOTE | 2019-12-06 08:57 | PRG ---
DATE OF SERVICE: 12/06/2019 SUBJECTIVE: Mr. Whitten is complaining of hallucinations. This began this morning. He states he had about 1 hour of sleep last evening. He underwent bypass surgery yesterday. Otherwise, no chest pain or pressure. He does appear to be alert and oriented. OBJECTIVE: VITAL SIGNS: Blood pressure 109/57, pulse 84, respirations 20. LUNGS: Clear to auscultation. HEART: Regular rate and rhythm. ABDOMEN: Soft, nontender, nondistended. EXTREMITIES: No edema. IMPRESSION: 1. Non-Q-wave myocardial infarction. 2. Delirium. 3. Tobacco abuse. RECOMMENDATIONS: I will continue to monitor closely. Delirium likely related to lack of sleep in addition to recent surgery and anesthesia. There are no focal deficits present. I will hold off on beta-milvia therapy until tomorrow. Blood pressure continued to be marginal. Blood pressure currently is 109 systolic but has been as low as 96 systolic. I would recommend adding a statin therapy. Job ID: [id number]
[2019-12-06] MEDS ORDERED: Aspirin 325 MG TAB PO SCH (09:00)
[2019-12-06] MEDS ORDERED: Aspirin 325 mg Enteric Coated Tablet PO SCH (09:00)
[2019-12-06] MEDS ORDERED: Aspirin 81 mg Enteric Coated Tablet PO SCH (09:00)
[2019-12-06] MEDS: Magnesium 2 GM/50 ML 2 GM in Premix Bag 1 BAG IVPB SCH (09:51)
[2019-12-06] MEDS: Furosemide 20 MG TAB PO SCH (09:52)
[2019-12-06] MEDS: Gabapentin 100 MG CAP PO SCH ×3 (09:52→21:05)
[2019-12-06] MEDS: Aspirin 81 mg Enteric Coated Tablet PO SCH (09:52)
[2019-12-06] MEDS: Clopidogrel Bisulfate 75 MG TAB PO SCH (09:52)
[2019-12-06] MEDS: traMADol HCl 50 MG TAB PO PRN (14:44)
--- NOTE | 2019-12-06 17:14 | PDOC.HOSPP ---
- Subjective Encounter Date: 12/06/19 Encounter Time: 17:12 Subjective: Mr. Quintana was seen today in follow-up post CABG. He does not have any complaints. He is much more oriented today, however he had some confusion last night. He denies chest pain. - Objective Vital Signs & Weight: Vital Signs (12 hours) Temp Pulse Pulse Pulse Resp BP BP 12/06/19 16:25 97.7 F 88 20 12/06/19 13:02 87 85 130/68 99/52 L 12/06/19 12:43 94 19 12/06/19 09:52 97 F L 12/06/19 09:47 94 92 105/85 112/69 12/06/19 08:00 79 20 12/06/19 07:26 77 18 12/06/19 07:00 97.7 F Pulse Ox Pulse Ox Pulse Ox 12/06/19 16:25 12/06/19 13:02 95 96 12/06/19 12:43 96 12/06/19 09:52 12/06/19 09:47 96 96 12/06/19 08:00 95 12/06/19 07:26 98 12/06/19 07:00 Weight Weight 182 lb 12.211 oz Most Recent Monitor Data Heart Rate from ECG 89 NIBP 116/72 NIBP BP-Mean 86 Respiration from ECG 21 SpO2 94 I&O: 12/05/19 12/06/19 12/07/19 06:59 06:59 06:59 Intake Total 3585 1463 Output Total 450 2265 1125 Balance -450 1320 338 Result Diagrams: 12/06/19 04:10 12/06/19 04:10 Hospitalist ROS - Medication Medications: Active Medications Generic Name Dose Route Start Last Admin Trade Name Freq PRN Reason Stop Dose Admin Acetaminophen 650 mg 12/05/19 10:16 12/05/19 21:24 Acetaminophen 325 Mg Tab PO 650 mg Q6H PRN Administration Headache/Fever Or Mild Pain Albuterol/Ipratropium 3 ml 12/05/19 13:00 12/06/19 12:43 Ipratropium/Albuterol Sulfate 3 Ml Neb NEB 3 ml [id number] RENZO Administration Aspirin 81 mg 12/06/19 09:00 12/06/19 09:52 Aspirin 81 Mg Enteric Coated Tablet PO 81 mg DAILY RENZO Administration Clopidogrel Bisulfate 75 mg 12/06/19 09:00 12/06/19 09:52 Clopidogrel Bisulfate 75 Mg Tab PO 75 mg DAILY RENZO Administration Fentanyl 25 mcg 12/05/19 10:16 12/05/19 13:48 Fentanyl 100 Mcg/2 Ml Vial SLOW IVP 12/07/19 10:09 25 mcg Q2H PRN Administration Moderate Pain (4-6) Fentanyl 50 mcg 12/05/19 10:16 12/05/19 18:31 Fentanyl 100 Mcg/2 Ml Vial SLOW IVP 12/07/19 10:09 50 mcg Q2H PRN Administration Severe Pain (7-10) Furosemide 20 mg 12/06/19 09:00 12/06/19 09:52 Furosemide 20 Mg Tab PO 20 mg DAILY RENZO Administration Gabapentin 200 mg 12/05/19 15:00 12/06/19 16:19 Gabapentin 100 Mg Cap PO 200 mg TID RENZO Administration Magnesium Sulfate 2 gm/ Device 50 mls @ 50 mls/hr 12/06/19 09:00 12/06/19 09:51 IVPB 12/07/19 09:59 50 mls QAM RENZO Administration Mometasone Furoate/Formoterol Fumar 2 puff 12/04/19 18:30 12/06/19 07:26 Mometasone 200 Mcg/Formoterol 5 Mcg 120 Puff Inhaler INH 2 puff BID-RT RENZO Administration Pantoprazole Sodium 40 mg 12/06/19 09:00 12/06/19 09:53 Pantoprazole 40 Mg Tab PO 40 mg DAILY RENZO Administration Tamsulosin HCl 0.4 mg 12/05/19 21:00 12/05/19 21:25 Tamsulosin Hcl 0.4 Mg Cap PO 0.4 mg HS RENZO Administration Tramadol HCl 50 mg 12/05/19 10:16 12/05/19 21:25 Tramadol Hcl 50 Mg Tab PO 50 mg Q12H PRN Administration Pain Tramadol HCl 100 mg 12/05/19 10:16 12/06/19 14:44 Tramadol Hcl 50 Mg Tab PO 100 mg Q12H PRN Administration Pain - Exam Eye: PERRL, anicteric sclera Heart: RRR, no murmur, no gallops, no rubs, normal peripheral pulses Respiratory: CTAB, no wheezes, no rales, no ronchi, normal chest expansion, no tachypnea Gastrointestinal: soft, non-tender, non-distended, normal bowel sounds, no palpable masses, no hepatomegaly Extremities: no cyanosis, no edema Hosp A/P (1) Hypertension Code(s): I10 - ESSENTIAL (PRIMARY) HYPERTENSION Status: Acute (2) NSTEMI (non-ST elevated myocardial infarction) Code(s): I21.4 - NON-ST ELEVATION (NSTEMI) MYOCARDIAL INFARCTION Status: Acute (3) Tobacco use Code(s): Z72.0 - TOBACCO USE Status: Acute (4) COPD (chronic obstructive pulmonary disease) Status: Chronic - Plan * NSTEMI- He is s/p 2 vessel CABG * Post-op- delirium- due to anesthesia- improving * Continue Gabapentin at 200mg TID and slowly titrate back to his home dose over the next few days * BPH- continue Flomax * HTN- Blood pressure is stable * COPD- stable- continue Duonebs as needed * Continue management as per Cardiology and CV surgery
[2019-12-06] MEDS: Fentanyl 100 MCG/2 ML VIAL SLOW IVP PRN (19:56)
[2019-12-06] MEDS: Atorvastatin Calcium 40 MG TAB PO SCH (21:05)
[2019-12-06] MEDS: Tamsulosin HCl 0.4 MG CAP PO SCH (21:06)
[2019-12-07] MEDS ORDERED: Sodium Chloride 0.9% 250 ML IV SCH ×2 (05:15→06:30)
[2019-12-07 05:20] LABS: Anion Gap 12 mmol/L (10-20); BUN (Urea Nitrogen) 28 mg/dL (8.4-25.7); Calc. Creatinine Clearance 46 mL/min (70-130); Calcium 7.7 mg/dL (7.8-10.44); Carbon Dioxide 22 mmol/L (23-31); Chloride 110 mmol/L (98-107); Estimated GFR-MDRD 36; Glucose 101 mg/dL (80-115); Potassium 4.7 mmol/L (3.5-5.1); Sodium 139 mmol/L (136-145)
--- NOTE | 2019-12-07 06:42 | PRG ---
DATE OF SERVICE: 12/07/2019 SUBJECTIVE: Patient postop day #2 from coronary artery bypass grafting x2. OBJECTIVE: VITAL SIGNS: The patient has had low-grade fever about 99.5. His blood pressure dipped to about 82 systolic this morning, asymptomatic, and he did receive an order for a fluid bolus, which is ongoing at the present time. He complains of some back and right leg pain during the day yesterday, but otherwise no complaints. On examination, he has bilateral rhonchi and expiratory wheezes when listening to his lungs. He has a small amount of spotting on his gown from probably the lower part of his sternal incision, although the incision looks intact. Dressings are dry on the left thigh. LABORATORY VALUES: This morning show a potassium of 4.7. His creatinine has increased slightly to 1.89, compared to 1.5 yesterday. PLAN: At this time is to continue his inhalers and nebulizer treatments. Resume his cardiac rehab, and in regard to his ventricular tachycardia, decision will have to be made regarding the need for a LifeVest as an outpatient since his ejection fraction is diminished. Job ID: [id number]
[2019-12-07] MEDS: Mometasone 200 MCG/Formoterol 5 MCG 120 PUFF INHALER INH SCH ×2 (08:15→18:26)
[2019-12-07] MEDS: Acetaminophen 325 MG TAB PO PRN (08:42)
[2019-12-07] MEDS: Gabapentin 100 MG CAP PO SCH ×3 (08:42→20:32)
[2019-12-07] MEDS: Furosemide 20 MG TAB PO SCH (08:42)
[2019-12-07] MEDS: Clopidogrel Bisulfate 75 MG TAB PO SCH (08:42)
[2019-12-07] MEDS: Aspirin 81 mg Enteric Coated Tablet PO SCH (08:42)
[2019-12-07] MEDS: traMADol HCl 50 MG TAB PO PRN (08:43)
[2019-12-07] MEDS: Magnesium 2 GM/50 ML 2 GM in Premix Bag 1 BAG IVPB SCH (08:43)
[2019-12-07 09:30] LABS: #Eosinphils 0.1 thou/uL (0.0-0.7); #Lymphocytes 1.2 thou/uL (1.20-3.40); #Monocytes 0.7 thou/uL (0.11-0.59); #Neutrophils 11.9 thou/uL (1.40-6.50); %Basophils 0.1 % (0.0-1.0); %Eosinophils 0.6 % (0.0-10.0); %Lymphocytes 8.4 % (21.0-51.0); %Monocytes 5.1 % (0.0-10.0); %Neutrophils 85.9 % (42.0-75.0); Hemoglobin 10.8 g/dL (14.0-18.0); Mean Corpuscular HGB CONC 34.4 g/dL (32.0-36.0); Mean Corpuscular Volume 98.8 fL (78.0-98.0); Mean Platelet Volume 7.3 fL (7.4-10.4); Platelet Count 113 thou/uL (130-400); RBC Distribution Width 11.9 % (11.5-14.5); Red Blood Cell (RBC) Count 3.17 mill/uL (4.70-6.10); White Blood Cell (WBC) Count 13.9 thou/uL (4.8-10.8)
[2019-12-07] MEDS: Amiodarone 450 MG, Admixture Fee 1 EACH in Dextrose 5% in Water 250 ML IVPB SCH (10:25)
[2019-12-07] MEDS: Tamsulosin HCl 0.4 MG CAP PO SCH (20:32)
[2019-12-07] MEDS: Atorvastatin Calcium 40 MG TAB PO SCH (20:33)
[2019-12-08] MEDS: traMADol HCl 50 MG TAB PO PRN (04:17)
[2019-12-08] MEDS: Amiodarone 450 MG, Admixture Fee 1 EACH in Dextrose 5% in Water 250 ML IVPB SCH (04:20)
[2019-12-08 05:11] LABS: Anion Gap 12 mmol/L (10-20); BUN (Urea Nitrogen) 22 mg/dL (8.4-25.7); Calc. Creatinine Clearance 55 mL/min (70-130); Calcium 8.1 mg/dL (7.8-10.44); Carbon Dioxide 22 mmol/L (23-31); Chloride 106 mmol/L (98-107); Estimated GFR-MDRD 45; Glucose 99 mg/dL (80-115); Potassium 4.7 mmol/L (3.5-5.1); Sodium 135 mmol/L (136-145)
[2019-12-08] MEDS: Mometasone 200 MCG/Formoterol 5 MCG 120 PUFF INHALER INH SCH ×2 (07:03→19:08)
[2019-12-08] MEDS ORDERED: Furosemide 40 MG/4 ML VIAL SLOW IVP SCH (08:15)
[2019-12-08] MEDS: Aspirin 81 mg Enteric Coated Tablet PO SCH (09:22)
[2019-12-08] MEDS: Clopidogrel Bisulfate 75 MG TAB PO SCH (09:22)
[2019-12-08] MEDS: Furosemide 20 MG TAB PO SCH (09:22)
[2019-12-08] MEDS: Gabapentin 100 MG CAP PO SCH ×3 (09:22→20:36)
--- NOTE | 2019-12-08 09:44 | PDOC.HOSPP ---
- Subjective Encounter Date: 12/07/19 - Objective Vital Signs & Weight: Vital Signs (12 hours) Temp Pulse Resp BP Pulse Ox 12/08/19 07:30 98.3 F 90 19 115/60 96 12/08/19 06:57 96 12/08/19 06:56 91 23 H 12/08/19 04:13 99.1 F 91 18 122/63 96 12/07/19 23:57 95 24 H 97 Weight Weight 184 lb Most Recent Monitor Data Heart Rate from ECG 89 NIBP 116/72 NIBP BP-Mean 86 Respiration from ECG 21 SpO2 94 I&O: 12/07/19 12/08/19 12/09/19 07:59 06:59 06:59 Intake Total Output Total Balance Result Diagrams: 12/07/19 09:08 12/08/19 04:30 Hospitalist ROS - Medication Medications: Active Medications Generic Name Dose Route Start Last Admin Trade Name Freq PRN Reason Stop Dose Admin Acetaminophen 650 mg 12/05/19 10:16 12/07/19 08:42 Acetaminophen 325 Mg Tab PO 650 mg Q6H PRN Administration Headache/Fever Or Mild Pain Albuterol/Ipratropium 3 ml 12/05/19 13:00 12/08/19 06:56 Ipratropium/Albuterol Sulfate 3 Ml Neb NEB 3 ml [id number] RENZO Administration Aspirin 81 mg 12/06/19 09:00 12/08/19 09:22 Aspirin 81 Mg Enteric Coated Tablet PO 81 mg DAILY RENZO Administration Atorvastatin Calcium 40 mg 12/06/19 21:00 12/07/19 20:33 Atorvastatin Calcium 40 Mg Tab PO 40 mg HS RENZO Administration Clopidogrel Bisulfate 75 mg 12/06/19 09:00 12/08/19 09:22 Clopidogrel Bisulfate 75 Mg Tab PO 75 mg DAILY RENZO Administration Furosemide 20 mg 12/06/19 09:00 12/08/19 09:22 Furosemide 20 Mg Tab PO 20 mg DAILY RENZO Administration Furosemide 40 mg 12/08/19 08:15 12/08/19 09:23 Furosemide 40 Mg/4 Ml Vial SLOW IVP 12/08/19 11:15 40 mg NOW RENZO Administration Gabapentin 200 mg 12/05/19 15:00 12/08/19 09:22 Gabapentin 100 Mg Cap PO 200 mg TID RENZO Administration Amiodarone HCl 450 mg/ 259 mls @ 0 mls/hr 12/07/19 10:00 12/08/19 04:20 Miscellaneous Medication 1 IVPB 259 mls each/ Dextrose/Water INF RENZO Administration Protocol As Directed Mometasone Furoate/Formoterol Fumar 2 puff 12/04/19 18:30 12/08/19 07:03 Mometasone 200 Mcg/Formoterol 5 Mcg 120 Puff Inhaler INH 2 puff BID-RT RENZO Administration Pantoprazole Sodium 40 mg 12/06/19 09:00 12/08/19 09:23 Pantoprazole 40 Mg Tab PO 40 mg DAILY RENZO Administration Tamsulosin HCl 0.4 mg 12/05/19 21:00 12/07/19 20:32 Tamsulosin Hcl 0.4 Mg Cap PO 0.4 mg HS RENZO Administration Tramadol HCl 50 mg 12/05/19 10:16 12/05/19 21:25 Tramadol Hcl 50 Mg Tab PO 50 mg Q12H PRN Administration Pain Tramadol HCl 100 mg 12/05/19 10:16 12/08/19 04:17 Tramadol Hcl 50 Mg Tab PO 100 mg Q12H PRN Administration Pain - Exam General Appearance: awake alert ENT: normocephalic atraumatic Neck: supple, no JVD Heart: RRR Respiratory: normal chest expansion, no tachypnea Gastrointestinal: soft Neurological: cranial nerve grossly intact, no focal deficits Hosp A/P - Plan Hosp A/P (1) Hypertension Code(s): I10 - ESSENTIAL (PRIMARY) HYPERTENSION Status: Acute (2) NSTEMI (non-ST elevated myocardial infarction) Code(s): I21.4 - NON-ST ELEVATION (NSTEMI) MYOCARDIAL INFARCTION Status: Acute (3) Tobacco use Code(s): Z72.0 - TOBACCO USE Status: Acute (4) COPD (chronic obstructive pulmonary disease) Status: Chronic - Plan NSTEMI- He is s/p 2 vessel CABG Continue current medical management with dual antiplatelet therapy. Post-op- delirium- due to anesthesia- improving Continue Gabapentin at 200mg TID and slowly titrate back to his home dose over the next few days BPH- continue Flomax HTN- Blood pressure is stable COPD- stable- continue Duonebs as needed Continue management as per Cardiology and CV surgery
--- NOTE | 2019-12-08 09:59 | PDOC.HOSPP ---
- Subjective Encounter Date: 12/08/19 Subjective: The patient is complaining of shortness of breath today - Objective Vital Signs & Weight: Vital Signs (12 hours) Temp Pulse Resp BP Pulse Ox 12/08/19 07:30 98.3 F 90 19 115/60 96 12/08/19 06:57 96 12/08/19 06:56 91 23 H 12/08/19 04:13 99.1 F 91 18 122/63 96 12/07/19 23:57 95 24 H 97 Weight Weight 184 lb Most Recent Monitor Data Heart Rate from ECG 89 NIBP 116/72 NIBP BP-Mean 86 Respiration from ECG 21 SpO2 94 I&O: 12/07/19 12/08/19 12/09/19 07:59 06:59 06:59 Intake Total Output Total Balance Result Diagrams: 12/07/19 09:08 12/08/19 04:30 Hospitalist ROS - Medication Medications: Active Medications Generic Name Dose Route Start Last Admin Trade Name Freq PRN Reason Stop Dose Admin Acetaminophen 650 mg 12/05/19 10:16 12/07/19 08:42 Acetaminophen 325 Mg Tab PO 650 mg Q6H PRN Administration Headache/Fever Or Mild Pain Albuterol/Ipratropium 3 ml 12/05/19 13:00 12/08/19 06:56 Ipratropium/Albuterol Sulfate 3 Ml Neb NEB 3 ml [id number] RENZO Administration Aspirin 81 mg 12/06/19 09:00 12/08/19 09:22 Aspirin 81 Mg Enteric Coated Tablet PO 81 mg DAILY RENZO Administration Atorvastatin Calcium 40 mg 12/06/19 21:00 12/07/19 20:33 Atorvastatin Calcium 40 Mg Tab PO 40 mg HS RENZO Administration Clopidogrel Bisulfate 75 mg 12/06/19 09:00 12/08/19 09:22 Clopidogrel Bisulfate 75 Mg Tab PO 75 mg DAILY RENZO Administration Furosemide 20 mg 12/06/19 09:00 12/08/19 09:22 Furosemide 20 Mg Tab PO 20 mg DAILY RENZO Administration Furosemide 40 mg 12/08/19 08:15 12/08/19 09:23 Furosemide 40 Mg/4 Ml Vial SLOW IVP 12/08/19 11:15 40 mg NOW RENZO Administration Gabapentin 200 mg 12/05/19 15:00 12/08/19 09:22 Gabapentin 100 Mg Cap PO 200 mg TID RENZO Administration Amiodarone HCl 450 mg/ 259 mls @ 0 mls/hr 12/07/19 10:00 12/08/19 04:20 Miscellaneous Medication 1 IVPB 259 mls each/ Dextrose/Water INF RENZO Administration Protocol As Directed Mometasone Furoate/Formoterol Fumar 2 puff 12/04/19 18:30 12/08/19 07:03 Mometasone 200 Mcg/Formoterol 5 Mcg 120 Puff Inhaler INH 2 puff BID-RT RENZO Administration Pantoprazole Sodium 40 mg 12/06/19 09:00 12/08/19 09:23 Pantoprazole 40 Mg Tab PO 40 mg DAILY RENZO Administration Tamsulosin HCl 0.4 mg 12/05/19 21:00 12/07/19 20:32 Tamsulosin Hcl 0.4 Mg Cap PO 0.4 mg HS RENZO Administration Tramadol HCl 50 mg 12/05/19 10:16 12/05/19 21:25 Tramadol Hcl 50 Mg Tab PO 50 mg Q12H PRN Administration Pain Tramadol HCl 100 mg 12/05/19 10:16 12/08/19 04:17 Tramadol Hcl 50 Mg Tab PO 100 mg Q12H PRN Administration Pain - Exam General Appearance: awake alert ENT: normocephalic atraumatic Neck: supple, no JVD Heart: RRR Respiratory: normal chest expansion, rhonchi, tachypneic Neurological: cranial nerve grossly intact, no focal deficits Hosp A/P (1) NSTEMI (non-ST elevated myocardial infarction) Code(s): I21.4 - NON-ST ELEVATION (NSTEMI) MYOCARDIAL INFARCTION Status: Acute (2) Acute on chronic HFrEF (heart failure with reduced ejection fraction) Code(s): I50.23 - ACUTE ON CHRONIC SYSTOLIC (CONGESTIVE) HEART FAILURE Status: Acute (3) Ventricular tachycardia Code(s): I47.2 - VENTRICULAR TACHYCARDIA Status: Acute (4) CKD (chronic kidney disease) stage 3, GFR 30-59 ml/min Code(s): N18.30 - CHRONIC KIDNEY DISEASE, STAGE 3 UNSPECIFIED Status: Acute (5) Hypertension Code(s): I10 - ESSENTIAL (PRIMARY) HYPERTENSION Status: Acute (6) COPD (chronic obstructive pulmonary disease) Status: Chronic - Plan NSTEMI- He is s/p 2 vessel CABG Continue current medical management with dual antiplatelets and atorvastatin. An extra dose of Lasix was given today. Monitor his intake and output. Amiodarone drip being transitioned to oral amiodarone. Post-op- delirium- due to anesthesia-resolved Continue Gabapentin at 200mg TID and slowly titrate back to his home dose over the next few days continue Flomax COPD- stable- continue Duonebs as needed Continue management as per Cardiology and CV surgery
--- NOTE | 2019-12-08 10:28 | PRG ---
DATE OF SERVICE: 12/08/2019 The patient is afebrile. His blood pressure is satisfactory at 120. He did have some atrial fibrillation/flutter yesterday and was begun on amiodarone by Dr. Combs. He has weight of 184 compared with 171 on admission. His lungs sound much clearer today anteriorly, but he still is breathless when talking. His chest incision is clean and dry, but he does have some bloody spotting on his gown suggesting that he has a little bit of spotting coming either from his chest tubes or his sternal incision, although they are dry currently. His legs are without edema. We will give an additional dose of p.o. Lasix today since his creatinine is trending down and his weight is remaining about 12 pounds over preop levels. His chest x-ray from two days ago was reviewed and was clear and will not be repeated at this time. Job ID: [id number]
[2019-12-08] MEDS ORDERED: Furosemide 20 MG TAB PO SCH (14:00)
[2019-12-08] MEDS: Atorvastatin Calcium 40 MG TAB PO SCH (20:36)
[2019-12-08] MEDS: Amiodarone 200 MG TAB PO SCH (20:36)
[2019-12-08] MEDS: Tamsulosin HCl 0.4 MG CAP PO SCH (20:36)
[2019-12-09] MEDS: Mometasone 200 MCG/Formoterol 5 MCG 120 PUFF INHALER INH SCH ×2 (06:42→18:37)
[2019-12-09] MEDS ORDERED: Amiodarone 150 MG, Admixture Fee 1 EACH in Dextrose 5% in Water 100 ML IVPB SCH (09:00)
[2019-12-09] MEDS: Amiodarone 450 MG, Admixture Fee 1 EACH in Dextrose 5% in Water 250 ML IVPB SCH ×2 (09:16→19:13)
[2019-12-09] MEDS: Clopidogrel Bisulfate 75 MG TAB PO SCH (09:18)
[2019-12-09] MEDS: Aspirin 81 mg Enteric Coated Tablet PO SCH (09:18)
[2019-12-09] MEDS: Gabapentin 100 MG CAP PO SCH ×3 (09:18→21:05)
[2019-12-09] MEDS: Furosemide 40 MG TAB PO SCH (09:18)
[2019-12-09] MEDS: Amiodarone 200 MG TAB PO SCH (09:23)
[2019-12-09] MEDS ORDERED: ALPRAZolam 0.25 MG TAB PO PRN (09:53)
[2019-12-09] MEDS ORDERED: Metoprolol Tartrate 5 MG/5 ML VIAL IVP SCH (10:00)
--- NOTE | 2019-12-09 13:21 | PDOC.HOSPP ---
- Subjective Encounter Date: 12/09/19 Subjective: The patient's rhythm changed to A. fib with RVR this morning. He has also been hypotensive. He stated that his back pain has been worsening since yesterday. No signs of respiratory distress. - Objective Vital Signs & Weight: Vital Signs (12 hours) Temp Pulse Resp BP Pulse Ox 12/09/19 12:56 75 20 96 12/09/19 12:13 98.5 F 76 17 96/50 L 94 L 12/09/19 08:59 118 H 18 102/59 L 95 12/09/19 07:12 98.0 F 91 16 99/54 L 92 L 12/09/19 06:43 88 L 12/09/19 06:42 86 20 88 L 12/09/19 03:15 98.2 F 81 22 H 100/59 L 93 L Weight Weight 180 lb Most Recent Monitor Data Heart Rate from ECG 89 NIBP 116/72 NIBP BP-Mean 86 Respiration from ECG 21 SpO2 94 I&O: 12/08/19 12/09/19 12/10/19 06:59 06:59 06:59 Intake Total 1702 Output Total 2525 Balance -823 Result Diagrams: 12/07/19 09:08 12/08/19 04:30 Hospitalist ROS - Medication Medications: Active Medications Generic Name Dose Route Start Last Admin Trade Name Freq PRN Reason Stop Dose Admin Acetaminophen 650 mg 12/05/19 10:16 12/07/19 08:42 Acetaminophen 325 Mg Tab PO 650 mg Q6H PRN Administration Headache/Fever Or Mild Pain Albumin Human 25 gm 12/09/19 11:45 12/09/19 12:52 Albumin 5% 25 Gm/500 Ml Bot IVPB 12/09/19 14:00 25 gm NOW RENZO Administration Albuterol/Ipratropium 3 ml 12/05/19 13:00 12/09/19 12:56 Ipratropium/Albuterol Sulfate 3 Ml Neb NEB 3 ml [id number] RENZO Administration Alprazolam 0.25 mg 12/09/19 09:53 12/09/19 09:59 Alprazolam 0.25 Mg Tab PO 0.25 mg TIDPRN PRN Administration Anxiety Aspirin 81 mg 12/06/19 09:00 12/09/19 09:18 Aspirin 81 Mg Enteric Coated Tablet PO 81 mg DAILY RENZO Administration Atorvastatin Calcium 40 mg 12/06/19 21:00 12/08/19 20:36 Atorvastatin Calcium 40 Mg Tab PO 40 mg HS RENZO Administration Clopidogrel Bisulfate 75 mg 12/06/19 09:00 12/09/19 09:18 Clopidogrel Bisulfate 75 Mg Tab PO 75 mg DAILY RENZO Administration Furosemide 40 mg 12/09/19 09:00 12/09/19 09:18 Furosemide 40 Mg Tab PO 40 mg DAILY RENZO Administration Gabapentin 200 mg 12/05/19 15:00 12/09/19 09:18 Gabapentin 100 Mg Cap PO 200 mg TID RENZO Administration Amiodarone HCl 450 mg/ 259 mls @ 0 mls/hr 12/09/19 09:00 12/09/19 09:16 Miscellaneous Medication 1 IVPB 259 mls each/ Dextrose/Water INF RENZO Administration Protocol As Directed Mometasone Furoate/Formoterol Fumar 2 puff 12/04/19 18:30 12/09/19 06:42 Mometasone 200 Mcg/Formoterol 5 Mcg 120 Puff Inhaler INH 2 puff BID-RT RENZO Administration Pantoprazole Sodium 40 mg 12/06/19 09:00 12/09/19 09:18 Pantoprazole 40 Mg Tab PO 40 mg DAILY RENZO Administration Tamsulosin HCl 0.4 mg 12/05/19 21:00 12/08/19 20:36 Tamsulosin Hcl 0.4 Mg Cap PO 0.4 mg HS RENZO Administration Tramadol HCl 50 mg 12/05/19 10:16 12/05/19 21:25 Tramadol Hcl 50 Mg Tab PO 50 mg Q12H PRN Administration Moderate Pain (4-6) Tramadol HCl 100 mg 12/05/19 10:16 12/08/19 04:17 Tramadol Hcl 50 Mg Tab PO 100 mg Q12H PRN Administration Severe Pain (7-10) - Exam General Appearance: awake alert ENT: normocephalic atraumatic Neck: supple, no JVD Heart: RRR Respiratory: normal chest expansion, no tachypnea Neurological: no weakness, no focal deficits Hosp A/P (1) NSTEMI (non-ST elevated myocardial infarction) Code(s): I21.4 - NON-ST ELEVATION (NSTEMI) MYOCARDIAL INFARCTION Status: Acute (2) Acute on chronic HFrEF (heart failure with reduced ejection fraction) Code(s): I50.23 - ACUTE ON CHRONIC SYSTOLIC (CONGESTIVE) HEART FAILURE Status: Acute (3) Ventricular tachycardia Code(s): I47.2 - VENTRICULAR TACHYCARDIA Status: Acute (4) CKD (chronic kidney disease) stage 3, GFR 30-59 ml/min Code(s): N18.30 - CHRONIC KIDNEY DISEASE, STAGE 3 UNSPECIFIED Status: Acute (5) Hypertension Code(s): I10 - ESSENTIAL (PRIMARY) HYPERTENSION Status: Acute (6) COPD (chronic obstructive pulmonary disease) Status: Chronic - Plan NSTEMI- He is s/p 2 vessel CABG Continue current medical management with dual antiplatelets and atorvastatin. Negative fluid balance over the past 24 hours. His weight is decreasing. Lasix increased to 40 mg orally daily Monitor his intake and output. He converted into atrial fibrillation with a ventricular response after t ransitioning from IV amiodarone. Amiodarone drip was recently initiated and the patient has since returned to sinus rhythm. Continue Gabapentin at 200mg TID and slowly titrate back to his home dose over the next few days continue Flomax COPD- stable- continue Duonebs as needed Continue management as per Cardiology and CV surgery
[2019-12-09] MEDS: Tamsulosin HCl 0.4 MG CAP PO SCH (21:06)
[2019-12-09] MEDS: Atorvastatin Calcium 40 MG TAB PO SCH (21:06)
[2019-12-10] MEDS: Mometasone 200 MCG/Formoterol 5 MCG 120 PUFF INHALER INH SCH ×2 (06:50→19:37)
--- NOTE | 2019-12-10 07:24 | PRG ---
DATE OF SERVICE: 12/10/2019 Mr. Whitten had multiple episodes of atrial fibrillation yesterday, which has eventually been controlled and converted with an amiodarone drip again. He is currently in sinus rhythm with a heart rate in the 100s. His blood pressure is 107/56. Oxygen saturations are 92% on 3 L nasal cannula. Incisions are clean and dry. It would be nice to diurese him, but yesterday, he required a fluid bolus when he was having hypotension with his atrial fibrillation. We will gently diurese him today and as he continues to recover, then hopefully be able to be more vigorously diuresed. Otherwise, continue rehab and treating his atrial fibrillation as above. Job ID: [id number]
[2019-12-10] MEDS: Furosemide 40 MG TAB PO SCH (08:50)
[2019-12-10] MEDS: Gabapentin 100 MG CAP PO SCH ×3 (08:50→20:20)
[2019-12-10] MEDS: Clopidogrel Bisulfate 75 MG TAB PO SCH (08:50)
[2019-12-10] MEDS: Aspirin 81 mg Enteric Coated Tablet PO SCH (08:50)
[2019-12-10] MEDS: Bisacodyl 5 MG TAB PO PRN (08:51)
--- NOTE | 2019-12-10 13:29 | PDOC.CPN ---
- Subjective Date: 12/10/19 Time: 13:27 Interval history: No current complaints except for weakness No CP pressure noted Pt with PAF noted and is on amiodaroe PO - Objective Allergies/Adverse Reactions: Allergies Allergy/AdvReac Type Severity Reaction Status Date / Time No Known Drug Allergies Allergy Verified 04/29/19 06:16 Visit Medications: Current Medications Acetaminophen (Acetaminophen 325 Mg Tab) 650 mg PO Q6H PRN PRN Reason: Headache/Fever Or Mild Pain Last Admin: 12/07/19 08:42 Dose: 650 mg Documented by: Al Hydroxide/Mg Hydroxide (Mag-Al 1200 Mg/1200 Mg/30 Ml Udcup) 30 ml PO Q4H PRN PRN Reason: Indigestion Albuterol/Ipratropium (Ipratropium/Albuterol Sulfate 3 Ml Neb) 3 ml NEB [id number] [facility] Last Admin: 12/10/19 12:31 Dose: 3 ml Documented by: Alprazolam (Alprazolam 0.25 Mg Tab) 0.25 mg PO TIDPRN PRN PRN Reason: Anxiety Last Admin: 12/09/19 09:59 Dose: 0.25 mg Documented by: Aspirin (Aspirin 81 Mg Enteric Coated Tablet) 81 mg PO DAILY [facility] Last Admin: 12/10/19 08:50 Dose: 81 mg Documented by: Atorvastatin Calcium (Atorvastatin Calcium 40 Mg Tab) 40 mg PO HS [facility] Last Admin: 12/09/19 21:06 Dose: 40 mg Documented by: Bisacodyl (Bisacodyl 5 Mg Tab) 10 mg PO Q12H PRN PRN Reason: Constipation Last Admin: 12/10/19 08:51 Dose: 10 mg Documented by: Bisacodyl (Bisacodyl 10 Mg Supp) 10 mg OK Q12H PRN PRN Reason: Constipation Clopidogrel Bisulfate (Clopidogrel Bisulfate 75 Mg Tab) 75 mg PO DAILY [facility] Last Admin: 12/10/19 08:50 Dose: 75 mg Documented by: Digoxin (Digoxin 0.25 Mg Tab) 0.25 mg PO Q6H [facility] Stop: 12/11/19 08:01 Diphenhydramine HCl (Diphenhydramine 25 Mg Cap) 25 mg PO Q6H PRN PRN Reason: Itching & Insomnia or Neri Ludin Furosemide (Furosemide 40 Mg Tab) 40 mg PO DAILY [facility] Last Admin: 12/10/19 08:50 Dose: 40 mg Documented by: Gabapentin (Gabapentin 100 Mg Cap) 200 mg PO TID [facility] Last Admin: 12/10/19 08:50 Dose: 200 mg Documented by: Guaifenesin/Dextromethorphan (Guaifenesin Dm 100-10/5 Ml Udcup) 15 ml PO Q4H PRN PRN Reason: Cough Amiodarone HCl 450 mg/Miscellaneous Medication 1 each/ Dextrose/Water 259 mls @ 0 mls/hr IVPB INF [facility]; Protocol Last Admin: 12/09/19 19:13 Dose: 259 mls Documented by: Magnesium Hydroxide (Milk Of Magnesia 30 Ml Udcup) 30 ml PO Q12H PRN PRN Reason: Constipation Metoprolol Tartrate (Metoprolol Tartrate 25 Mg Tab) 25 mg PO BID [facility] Mineral Oil (Mineral Oil Enema) 133 ml OK DAILYPRN PRN PRN Reason: Constipation Mometasone Furoate/Formoterol Fumar (Mometasone 200 Mcg/Formoterol 5 Mcg 120 Puff Inhaler) 2 puff INH BID-RT [facility] Last Admin: 12/10/19 06:50 Dose: 2 puff Documented by: Nitroglycerin (Nitroglycerin 0.4 Mg Tab (25 Tab Bottle)) 0.4 mg SL Q5MIN PRN PRN Reason: Chest Pain Ondansetron HCl (Ondansetron Pf 4 Mg/2 Ml Vial) 4 mg IVP Q6H PRN PRN Reason: Nausea/Vomiting Pantoprazole Sodium (Pantoprazole 40 Mg Tab) 40 mg PO DAILY [facility] Last Admin: 12/10/19 08:51 Dose: 40 mg Documented by: Sodium Chloride (Flush - Normal Saline 10 Ml Syringe) 10 ml IVF PRN PRN PRN Reason: Saline Flush Tamsulosin HCl (Tamsulosin Hcl 0.4 Mg Cap) 0.4 mg PO HS [facility] Last Admin: 12/09/19 21:06 Dose: 0.4 mg Documented by: Tramadol HCl (Tramadol Hcl 50 Mg Tab) 50 mg PO Q12H PRN PRN Reason: Moderate Pain (4-6) Last Admin: 12/05/19 21:25 Dose: 50 mg Documented by: Tramadol HCl (Tramadol Hcl 50 Mg Tab) 100 mg PO Q12H PRN PRN Reason: Severe Pain (7-10) Last Admin: 12/08/19 04:17 Dose: 100 mg Documented by: Zolpidem Tartrate (Zolpidem Tartrate 5 Mg Tab) 5 mg PO HSPRN PRN PRN Reason: Insomnia Vital Signs & Weight: Vital Signs Temp Pulse Pulse Pulse Resp BP BP 12/10/19 12:31 113 H 20 12/10/19 11:28 97.8 F 113 H 18 12/10/19 08:16 130 H 117 H 137/85 113/52 L 12/10/19 07:27 98.9 F 123 H 22 H 12/10/19 06:52 100 20 12/10/19 06:50 100 20 12/10/19 03:15 98.1 F 84 18 BP Pulse Ox Pulse Ox 12/10/19 12:31 92 L 12/10/19 11:28 125/62 99 12/10/19 08:16 94 L 12/10/19 07:27 107/61 92 L 12/10/19 06:52 92 L 12/10/19 06:50 92 L 12/10/19 03:15 107/56 L 93 L Weight 178 lb 6.4 oz - Physical Exam General: alert & oriented x3 Neck: supple neck Cardiac: irregularly regular, tachycardia Lungs: clear to auscultation Neuro: cranial nerve 2-12 intact - Labs Result Diagrams: 12/07/19 09:08 12/08/19 04:30 Troponin/CKMB CK-MB (CK-2) 13.9 ng/mL (0-6.6) H* 12/02/19 21:03 Troponin I 14.470 ng/mL (< 0.028) H* 12/03/19 01:08 Troponin I 29.499 ng/mL (< 0.028) H* 12/03/19 01:08 - Assessment/Plan Assessment/Plan: 12/09 A/P Post op afib CAD NQWMI s/p CABG Agree with inpatient cardiac rehab if he qualifies Spoke with son today and we both agree including pt he would benefit Add PO digoxin (with loading) and BB) PT Add ACT when ok with CV surgery Add PO amiodarone tomorrow
[2019-12-10] MEDS: Digoxin 0.25 MG TAB PO SCH ×2 (13:44→20:19)
--- NOTE | 2019-12-10 13:44 | PDOC.HOSPP ---
- Subjective Encounter Date: 12/10/19 Subjective: The patient stated that he feels tired and did not participate with physical therapy. - Objective Vital Signs & Weight: Vital Signs (12 hours) Temp Pulse Pulse Pulse Resp BP BP 12/10/19 12:31 113 H 20 12/10/19 11:28 97.8 F 113 H 18 12/10/19 08:16 130 H 117 H 137/85 113/52 L 12/10/19 07:27 98.9 F 123 H 22 H 12/10/19 06:52 100 20 12/10/19 06:50 100 20 12/10/19 03:15 98.1 F 84 18 BP Pulse Ox Pulse Ox 12/10/19 12:31 92 L 12/10/19 11:28 125/62 99 12/10/19 08:16 94 L 12/10/19 07:27 107/61 92 L 12/10/19 06:52 92 L 12/10/19 06:50 92 L 12/10/19 03:15 107/56 L 93 L Weight Weight 178 lb 6.4 oz Most Recent Monitor Data Heart Rate from ECG 89 NIBP 116/72 NIBP BP-Mean 86 Respiration from ECG 21 SpO2 94 I&O: 12/09/19 12/10/19 12/11/19 06:59 06:59 06:59 Intake Total 1702 2036 Output Total 8363 3125 Balance -823 -0490 Result Diagrams: 12/07/19 09:08 12/08/19 04:30 Hospitalist ROS - Medication Medications: Active Medications Generic Name Dose Route Start Last Admin Trade Name Freq PRN Reason Stop Dose Admin Acetaminophen 650 mg 12/05/19 10:16 12/07/19 08:42 Acetaminophen 325 Mg Tab PO 650 mg Q6H PRN Administration Headache/Fever Or Mild Pain Albuterol/Ipratropium 3 ml 12/05/19 13:00 12/10/19 12:31 Ipratropium/Albuterol Sulfate 3 Ml Neb NEB 3 ml [id number] RENZO Administration Alprazolam 0.25 mg 12/09/19 09:53 12/09/19 09:59 Alprazolam 0.25 Mg Tab PO 0.25 mg TIDPRN PRN Administration Anxiety Aspirin 81 mg 12/06/19 09:00 12/10/19 08:50 Aspirin 81 Mg Enteric Coated Tablet PO 81 mg DAILY RENZO Administration Atorvastatin Calcium 40 mg 12/06/19 21:00 12/09/19 21:06 Atorvastatin Calcium 40 Mg Tab PO 40 mg HS RENZO Administration Bisacodyl 10 mg 12/06/19 07:34 12/10/19 08:51 Bisacodyl 5 Mg Tab PO 10 mg Q12H PRN Administration Constipation Clopidogrel Bisulfate 75 mg 12/06/19 09:00 12/10/19 08:50 Clopidogrel Bisulfate 75 Mg Tab PO 75 mg DAILY [facility] Administration Furosemide 40 mg 12/09/19 09:00 12/10/19 08:50 Furosemide 40 Mg Tab PO 40 mg DAILY RENZO Administration Gabapentin 200 mg 12/05/19 15:00 12/10/19 08:50 Gabapentin 100 Mg Cap PO 200 mg TID RENZO Administration Amiodarone HCl 450 mg/ 259 mls @ 0 mls/hr 12/09/19 09:00 12/09/19 19:13 Miscellaneous Medication 1 IVPB 259 mls each/ Dextrose/Water INF RENZO Administration Protocol As Directed Mometasone Furoate/Formoterol Fumar 2 puff 12/04/19 18:30 12/10/19 06:50 Mometasone 200 Mcg/Formoterol 5 Mcg 120 Puff Inhaler INH 2 puff BID-RT RENZO Administration Pantoprazole Sodium 40 mg 12/06/19 09:00 12/10/19 08:51 Pantoprazole 40 Mg Tab PO 40 mg DAILY REN[facility] Administration Tamsulosin HCl 0.4 mg 12/05/19 21:00 12/09/19 21:06 Tamsulosin Hcl 0.4 Mg Cap PO 0.4 mg HS RENZO Administration Tramadol HCl 50 mg 12/05/19 10:16 12/05/19 21:25 Tramadol Hcl 50 Mg Tab PO 50 mg Q12H PRN Administration Moderate Pain (4-6) Tramadol HCl 100 mg 12/05/19 10:16 12/08/19 04:17 Tramadol Hcl 50 Mg Tab PO 100 mg Q12H PRN Administration Severe Pain (7-10) - Exam Neck: supple, no JVD Heart: irregular Respiratory: normal chest expansion, no tachypnea Extremities: no cyanosis, no clubbing Neurological: cranial nerve grossly intact, no focal deficits Hosp A/P (1) NSTEMI (non-ST elevated myocardial infarction) Code(s): I21.4 - NON-ST ELEVATION (NSTEMI) MYOCARDIAL INFARCTION Status: Acute (2) Acute on chronic HFrEF (heart failure with reduced ejection fraction) Code(s): I50.23 - ACUTE ON CHRONIC SYSTOLIC (CONGESTIVE) HEART FAILURE Status: Acute (3) Ventricular tachycardia Code(s): I47.2 - VENTRICULAR TACHYCARDIA Status: Acute (4) CKD (chronic kidney disease) stage 3, GFR 30-59 ml/min Code(s): N18.30 - CHRONIC KIDNEY DISEASE, STAGE 3 UNSPECIFIED Status: Acute (5) Hypertension Code(s): I10 - ESSENTIAL (PRIMARY) HYPERTENSION Status: Acute (6) COPD (chronic obstructive pulmonary disease) Status: Chronic - Plan NSTEMI- He is s/p 2 vessel CABG Continue current medical management with dual antiplatelets and atorvastatin. Fluid balance continues to be negative. Continue Lasix 40 mg daily. Monitor his intake and output. On amiodarone drip for atrial fibrillation. This will be converted to oral amiodarone tomorrow. Digoxin and beta-blockers will also be used for rate control. Continue physical therapy as tolerated. continue Flomax COPD- stable- continue Duonebs as needed Continue management as per Cardiology and CV surgery
[2019-12-10] MEDS: Tamsulosin HCl 0.4 MG CAP PO SCH (20:20)
[2019-12-10] MEDS: Atorvastatin Calcium 40 MG TAB PO SCH (20:20)
[2019-12-10] MEDS ORDERED: Metoprolol Tartrate 25 MG TAB PO SCH (21:00)
[2019-12-11] MEDS: traMADol HCl 50 MG TAB PO PRN (00:30)
[2019-12-11] MEDS: Digoxin 0.25 MG TAB PO SCH ×2 (01:05→08:12)
[2019-12-11] MEDS: Amiodarone 450 MG, Admixture Fee 1 EACH in Dextrose 5% in Water 250 ML IVPB SCH ×2 (01:08→23:29)
[2019-12-11] MEDS ORDERED: Metoprolol Tartrate 25 MG TAB PO SCH (06:45)
[2019-12-11] MEDS: Mometasone 200 MCG/Formoterol 5 MCG 120 PUFF INHALER INH SCH ×2 (07:00→19:04)
[2019-12-11] MEDS: Aspirin 81 mg Enteric Coated Tablet PO SCH (08:12)
[2019-12-11] MEDS: Clopidogrel Bisulfate 75 MG TAB PO SCH (08:12)
[2019-12-11] MEDS: Gabapentin 100 MG CAP PO SCH ×3 (08:12→20:16)
[2019-12-11] MEDS: Metoprolol Tartrate 25 MG TAB PO SCH ×2 (08:13→20:16)
[2019-12-11 10:35] LABS: #Basophils 0.1 thou/uL (0.0-0.2); #Eosinphils 0.3 thou/uL (0.0-0.7); #Lymphocytes 1.2 thou/uL (1.20-3.40); #Monocytes 0.7 thou/uL (0.11-0.59); #Neutrophils 9.4 thou/uL (1.40-6.50); %Basophils 0.7 % (0.0-1.0); %Eosinophils 2.6 % (0.0-10.0); %Lymphocytes 10.6 % (21.0-51.0); %Monocytes 5.6 % (0.0-10.0); %Neutrophils 80.6 % (42.0-75.0); Hemoglobin 11.9 g/dL (14.0-18.0); Mean Corpuscular HGB CONC 33.7 g/dL (32.0-36.0); Mean Corpuscular Hemoglobin 33.2 pg (27.0-31.0); Mean Corpuscular Volume 98.4 fL (78.0-98.0); Platelet Count 239 thou/uL (130-400); RBC Distribution Width 11.7 % (11.5-14.5); White Blood Cell (WBC) Count 11.6 thou/uL (4.8-10.8)
[2019-12-11 11:13] LABS: Anion Gap 15 mmol/L (10-20); BUN (Urea Nitrogen) 33 mg/dL (8.4-25.7); Calc. Creatinine Clearance 39 mL/min (70-130); Carbon Dioxide 25 mmol/L (23-31); Chloride 104 mmol/L (98-107); Estimated GFR-MDRD 32; Glucose 125 mg/dL (80-115); Potassium 4.9 mmol/L (3.5-5.1); Sodium 139 mmol/L (136-145)
--- NOTE | 2019-12-11 13:40 | PDOC.HOSPP ---
- Subjective Encounter Date: 12/11/19 Subjective: The patient denies any chest pain or shortness of breath. - Objective Vital Signs & Weight: Vital Signs (12 hours) Temp Pulse Resp BP Pulse Ox 12/11/19 11:07 97.7 F 75 18 96/55 L 100 12/11/19 08:12 92 12/11/19 07:25 98.4 F 97 18 94/53 L 97 12/11/19 06:59 91 16 95 12/11/19 03:20 98.6 F 70 18 98/54 L 98 12/11/19 01:33 93 L Weight Weight 174 lb 12.8 oz Most Recent Monitor Data Heart Rate from ECG 89 NIBP 116/72 NIBP BP-Mean 86 Respiration from ECG 21 SpO2 94 I&O: 12/10/19 12/11/19 12/12/19 06:59 06:59 06:59 Intake Total 6 1740 Output Total 3125 1230 Balance -1089 510 Result Diagrams: 12/11/19 10:14 12/11/19 10:14 Hospitalist ROS - Medication Medications: Active Medications Generic Name Dose Route Start Last Admin Trade Name Freq PRN Reason Stop Dose Admin Acetaminophen 650 mg 12/05/19 10:16 12/07/19 08:42 Acetaminophen 325 Mg Tab PO 650 mg Q6H PRN Administration Headache/Fever Or Mild Pain Albuterol/Ipratropium 3 ml 12/05/19 13:00 12/11/19 06:59 Ipratropium/Albuterol Sulfate 3 Ml Neb NEB 3 ml [id number] RENZO Administration Alprazolam 0.25 mg 12/09/19 09:53 12/09/19 09:59 Alprazolam 0.25 Mg Tab PO 0.25 mg TIDPRN PRN Administration Anxiety Aspirin 81 mg 12/06/19 09:00 12/11/19 08:12 Aspirin 81 Mg Enteric Coated Tablet PO 81 mg DAILY [facility] Administration Atorvastatin Calcium 40 mg 12/06/19 21:00 12/10/19 20:20 Atorvastatin Calcium 40 Mg Tab PO 40 mg HS RENZO Administration Bisacodyl 10 mg 12/06/19 07:34 12/10/19 08:51 Bisacodyl 5 Mg Tab PO 10 mg Q12H PRN Administration Constipation Clopidogrel Bisulfate 75 mg 12/06/19 09:00 12/11/19 08:12 Clopidogrel Bisulfate 75 Mg Tab PO 75 mg DAILY [facility] Administration Gabapentin 200 mg 12/05/19 15:00 12/11/19 08:12 Gabapentin 100 Mg Cap PO 200 mg TID RENZO Administration Amiodarone HCl 450 mg/ 259 mls @ 0 mls/hr 12/09/19 09:00 12/11/19 01:08 Miscellaneous Medication 1 IVPB 259 mls each/ Dextrose/Water INF RENZO Administration Protocol As Directed Metoprolol Tartrate 12.5 mg 12/11/19 09:00 12/11/19 08:13 Metoprolol Tartrate 25 Mg Tab PO 12.5 mg BID RENZO Administration Mometasone Furoate/Formoterol Fumar 2 puff 12/04/19 18:30 12/11/19 07:00 Mometasone 200 Mcg/Formoterol 5 Mcg 120 Puff Inhaler INH 2 puff BID-RT RENZO Administration Pantoprazole Sodium 40 mg 12/06/19 09:00 12/11/19 08:14 Pantoprazole 40 Mg Tab PO 40 mg DAILY RENZO Administration Tamsulosin HCl 0.4 mg 12/05/19 21:00 12/10/19 20:20 Tamsulosin Hcl 0.4 Mg Cap PO 0.4 mg HS RENZO Administration Tramadol HCl 50 mg 12/05/19 10:16 12/11/19 00:30 Tramadol Hcl 50 Mg Tab PO 50 mg Q12H PRN Administration Moderate Pain (4-6) Tramadol HCl 100 mg 12/05/19 10:16 12/08/19 04:17 Tramadol Hcl 50 Mg Tab PO 100 mg Q12H PRN Administration Severe Pain (7-10) - Exam ENT: normocephalic atraumatic Neck: supple, no JVD Heart: RRR Respiratory: normal chest expansion, no tachypnea Neurological: cranial nerve grossly intact Hosp A/P (1) NSTEMI (non-ST elevated myocardial infarction) Code(s): I21.4 - NON-ST ELEVATION (NSTEMI) MYOCARDIAL INFARCTION Status: Acute (2) Acute on chronic HFrEF (heart failure with reduced ejection fraction) Code(s): I50.23 - ACUTE ON CHRONIC SYSTOLIC (CONGESTIVE) HEART FAILURE Status: Acute (3) Ventricular tachycardia Code(s): I47.2 - VENTRICULAR TACHYCARDIA Status: Acute (4) CKD (chronic kidney disease) stage 3, GFR 30-59 ml/min Code(s): N18.30 - CHRONIC KIDNEY DISEASE, STAGE 3 UNSPECIFIED Status: Acute (5) Hypertension Code(s): I10 - ESSENTIAL (PRIMARY) HYPERTENSION Status: Acute (6) COPD (chronic obstructive pulmonary disease) Status: Chronic - Plan NSTEMI- He is s/p 2 vessel CABG Continue current medical management with dual antiplatelets and atorvastatin. Fluid balance continues to be negative. Continue Lasix 40 mg daily. Currently in sinus rhythm. He is on amiodarone, metoprolol, and digoxin. Continue physical therapy as tolerated. Awaiting rehab placement. continue Flomax COPD- stable- continue Duonebs as needed Continue management as per Cardiology and CV surgery
--- NOTE | 2019-12-11 15:46 | PRG ---
DATE OF SERVICE: 12/11/2019 SUBJECTIVE: Mr. Whitten is doing well. He states he would feel stronger today than yesterday. Initially, he was turned down cardiac rehab, but now he is open to it. OBJECTIVE: VITAL SIGNS: Blood pressure 96/55, pulse 75, temperature 97.7. LUNGS: Clear to auscultation. HEART: Regular rate and rhythm. ABDOMEN: Soft, nontender, nondistended. EXTREMITIES: No edema. PERTINENT LABORATORY DATA: Hemoglobin 11.9, hematocrit 35.4, white blood cell count 11.6, platelet count 239. IMPRESSION AND PLAN: 1. Non-Q-wave myocardial infarction. 2. Coronary artery disease. 3. Status post bypass surgery. 4. Postop atrial fibrillation. Mr. Whitten is currently in sinus rhythm. We will add p.o. amiodarone 400 mg p.o. q.a.m. We will discontinue IV amiodarone. We will also decrease p.o. metoprolol and change to Toprol-XL 25 at bedtime. We will strongly consider anticoagulation therapy and we will discuss with Dr. Candelaria. Again, Mr. Whitten is open to cardiac rehab. Job ID: [id number]
--- NOTE | 2019-12-11 19:20 | EKG ---
Test Reason : POST CABG Blood Pressure : / mmHG Vent. Rate : 076 BPM Atrial Rate : 076 BPM P-R Int : 144 ms QRS Dur : 084 ms QT Int : 476 ms P-R-T Axes : 075 076 167 degrees QTc Int : 535 ms Normal sinus rhythm Low voltage QRS T wave abnormality, consider anterolateral ischemia Prolonged QT Abnormal ECG When compared with ECG of 02-DEC-2019 20:54, (Unconfirmed) Criteria for Septal infarct are no longer Present Nonspecific T wave abnormality now evident in Inferior leads T wave inversion now evident in Anterolateral leads QT has lengthened Confirmed by RADHAMES MOON, DR. Velarde ([id number]) on 12/11/2019 7:20:49 PM Referred By: RUBINA Confirmed By:DR. Syd RICCI MD
[2019-12-11] MEDS: Atorvastatin Calcium 40 MG TAB PO SCH (20:16)
[2019-12-11] MEDS: Apixaban 5 MG TAB PO SCH (20:16)
[2019-12-11] MEDS: Tamsulosin HCl 0.4 MG CAP PO SCH (20:17)
[2019-12-12] MEDS: Mometasone 200 MCG/Formoterol 5 MCG 120 PUFF INHALER INH SCH ×2 (07:27→19:19)
[2019-12-12] MEDS: Aspirin 81 mg Enteric Coated Tablet PO SCH (08:53)
[2019-12-12] MEDS: Gabapentin 100 MG CAP PO SCH ×3 (08:53→20:12)
[2019-12-12] MEDS: traMADol HCl 50 MG TAB PO PRN (08:55)
[2019-12-12] MEDS: Apixaban 5 MG TAB PO SCH ×2 (08:56→20:12)
[2019-12-12] MEDS: Clopidogrel Bisulfate 75 MG TAB PO SCH (08:56)
[2019-12-12] MEDS: Metoprolol Tartrate 25 MG TAB PO SCH ×2 (08:56→20:12)
[2019-12-12] MEDS: Amiodarone 200 MG TAB PO SCH (08:57)
--- NOTE | 2019-12-12 15:42 | PDOC.HOSPP ---
- Subjective Encounter Date: 12/12/19 Subjective: The patient has no new complaints. He is wearing his LifeVest was delivered today. - Objective Vital Signs & Weight: Vital Signs (12 hours) Temp Pulse Pulse Pulse Resp BP BP 12/12/19 14:52 74 18 12/12/19 13:44 112/56 L 95/51 L 12/12/19 12:42 97.5 F L 65 16 12/12/19 09:30 68 73 123/62 110/72 12/12/19 08:07 75 73 118/50 L 103/50 L 12/12/19 07:56 97.4 F L 74 14 12/12/19 07:26 74 16 12/12/19 05:43 BP Pulse Ox Pulse Ox Pulse Ox 12/12/19 14:52 95 12/12/19 13:44 12/12/19 12:42 108/59 L 95 12/12/19 09:30 12/12/19 08:07 95 95 95 12/12/19 07:56 112/60 94 L 12/12/19 07:26 94 L 12/12/19 05:43 94 L Weight Admit Weight 173 lb 6.4 oz Weight 172 lb 3.2 oz Most Recent Monitor Data Heart Rate from ECG 89 NIBP 116/72 NIBP BP-Mean 86 Respiration from ECG 21 SpO2 94 I&O: 12/11/19 12/12/19 12/13/19 06:59 06:59 06:59 Intake Total 1740 1200 Output Total 1230 1075 200 Balance 510 125 -200 Result Diagrams: 12/11/19 10:14 12/11/19 10:14 Hospitalist ROS - Medication Medications: Active Medications Generic Name Dose Route Start Last Admin Trade Name Freq PRN Reason Stop Dose Admin Acetaminophen 650 mg 12/05/19 10:16 12/07/19 08:42 Acetaminophen 325 Mg Tab PO 650 mg Q6H PRN Administration Headache/Fever Or Mild Pain Albuterol/Ipratropium 3 ml 12/05/19 13:00 12/12/19 14:52 Ipratropium/Albuterol Sulfate 3 Ml Neb NEB 3 ml [id number] RENZO Administration Alprazolam 0.25 mg 12/09/19 09:53 12/09/19 09:59 Alprazolam 0.25 Mg Tab PO 0.25 mg TIDPRN PRN Administration Anxiety Amiodarone HCl 400 mg 12/12/19 09:00 12/12/19 08:57 Amiodarone 200 Mg Tab PO 400 mg DAILY RENZO Administration Apixaban 5 mg 12/11/19 21:00 12/12/19 08:56 Apixaban 5 Mg Tab PO 5 mg BID RENZO Administration Aspirin 81 mg 12/06/19 09:00 12/12/19 08:53 Aspirin 81 Mg Enteric Coated Tablet PO 81 mg DAILY RENZO Administration Atorvastatin Calcium 40 mg 12/06/19 21:00 12/11/19 20:16 Atorvastatin Calcium 40 Mg Tab PO 40 mg HS RENZO Administration Bisacodyl 10 mg 12/06/19 07:34 12/10/19 08:51 Bisacodyl 5 Mg Tab PO 10 mg Q12H PRN Administration Constipation Clopidogrel Bisulfate 75 mg 12/06/19 09:00 12/12/19 08:56 Clopidogrel Bisulfate 75 Mg Tab PO 75 mg DAILY RENZO Administration Gabapentin 200 mg 12/05/19 15:00 12/12/19 15:16 Gabapentin 100 Mg Cap PO 200 mg TID RENZO Administration Metoprolol Tartrate 12.5 mg 12/11/19 09:00 12/12/19 08:56 Metoprolol Tartrate 25 Mg Tab PO 12.5 mg BID RENZO Administration Mometasone Furoate/Formoterol Fumar 2 puff 12/04/19 18:30 12/12/19 07:27 Mometasone 200 Mcg/Formoterol 5 Mcg 120 Puff Inhaler INH 2 puff BID-RT RENZO Administration Pantoprazole Sodium 40 mg 12/06/19 09:00 12/12/19 08:56 Pantoprazole 40 Mg Tab PO 40 mg DAILY RENZO Administration Tamsulosin HCl 0.4 mg 12/05/19 21:00 12/11/19 20:17 Tamsulosin Hcl 0.4 Mg Cap PO 0.4 mg HS RENZO Administration Tramadol HCl 50 mg 12/05/19 10:16 12/12/19 08:55 Tramadol Hcl 50 Mg Tab PO 50 mg Q12H PRN Administration Moderate Pain (4-6) Tramadol HCl 100 mg 12/05/19 10:16 12/08/19 04:17 Tramadol Hcl 50 Mg Tab PO 100 mg Q12H PRN Administration Severe Pain (7-10) - Exam General Appearance: awake alert ENT: normocephalic atraumatic Neck: supple, no JVD Heart: RRR Respiratory: normal chest expansion, no tachypnea Gastrointestinal: soft, non-tender, non-distended, normal bowel sounds Neurological: cranial nerve grossly intact, no focal deficits Hosp A/P (1) NSTEMI (non-ST elevated myocardial infarction) Code(s): I21.4 - NON-ST ELEVATION (NSTEMI) MYOCARDIAL INFARCTION Status: Acute (2) Acute on chronic HFrEF (heart failure with reduced ejection fraction) Code(s): I50.23 - ACUTE ON CHRONIC SYSTOLIC (CONGESTIVE) HEART FAILURE Status: Acute (3) Ventricular tachycardia Code(s): I47.2 - VENTRICULAR TACHYCARDIA Status: Acute (4) CKD (chronic kidney disease) stage 3, GFR 30-59 ml/min Code(s): N18.30 - CHRONIC KIDNEY DISEASE, STAGE 3 UNSPECIFIED Status: Acute (5) Hypertension Code(s): I10 - ESSENTIAL (PRIMARY) HYPERTENSION Status: Acute (6) COPD (chronic obstructive pulmonary disease) Status: Chronic - Plan NSTEMI- He is s/p 2 vessel CABG Continue current medical management with dual antiplatelets and atorvastatin. Continue Lasix 40 mg daily. Currently in sinus rhythm. He is on amiodarone, metoprolol, and digoxin. Continue physical therapy as tolerated. continue Flomax COPD- stable- continue Duonebs as needed Continue management as per Cardiology and CV surgery. LifeVest was delivered today. Pending placement.
[2019-12-12] MEDS: Tamsulosin HCl 0.4 MG CAP PO SCH (20:12)
[2019-12-12] MEDS: Atorvastatin Calcium 40 MG TAB PO SCH (20:12)
[2019-12-13 05:08] LABS: #Eosinphils 0.3 thou/uL (0.0-0.7); #Lymphocytes 1.4 thou/uL (1.20-3.40); #Monocytes 0.6 thou/uL (0.11-0.59); #Neutrophils 7.5 thou/uL (1.40-6.50); %Basophils 0.3 % (0.0-1.0); %Eosinophils 3.3 % (0.0-10.0); %Lymphocytes 14.3 % (21.0-51.0); %Monocytes 6.4 % (0.0-10.0); %Neutrophils 75.7 % (42.0-75.0); Hemoglobin 11.1 g/dL (14.0-18.0); Mean Corpuscular HGB CONC 34.6 g/dL (32.0-36.0); Mean Corpuscular Hemoglobin 33.8 pg (27.0-31.0); Mean Corpuscular Volume 97.7 fL (78.0-98.0); Mean Platelet Volume 6.8 fL (7.4-10.4); Platelet Count 291 thou/uL (130-400); RBC Distribution Width 11.5 % (11.5-14.5); Red Blood Cell (RBC) Count 3.27 mill/uL (4.70-6.10); White Blood Cell (WBC) Count 9.9 thou/uL (4.8-10.8)
[2019-12-13 05:31] LABS: Anion Gap 13 mmol/L (10-20); BUN (Urea Nitrogen) 36 mg/dL (8.4-25.7); Calc. Creatinine Clearance 39 mL/min (70-130); Calcium 8.3 mg/dL (7.8-10.44); Carbon Dioxide 23 mmol/L (23-31); Chloride 103 mmol/L (98-107); Estimated GFR-MDRD 33; Glucose 105 mg/dL (80-115); Potassium 3.8 mmol/L (3.5-5.1); Sodium 135 mmol/L (136-145)
[2019-12-13] MEDS: Mometasone 200 MCG/Formoterol 5 MCG 120 PUFF INHALER INH SCH ×2 (08:13→18:15)
[2019-12-13] MEDS: Apixaban 5 MG TAB PO SCH ×2 (08:48→20:56)
[2019-12-13] MEDS: Aspirin 81 mg Enteric Coated Tablet PO SCH (08:48)
[2019-12-13] MEDS: Amiodarone 200 MG TAB PO SCH (08:48)
[2019-12-13] MEDS: Clopidogrel Bisulfate 75 MG TAB PO SCH (08:48)
[2019-12-13] MEDS: Gabapentin 100 MG CAP PO SCH ×3 (08:49→20:58)
[2019-12-13] MEDS: Metoprolol Tartrate 25 MG TAB PO SCH ×2 (08:52→20:56)
--- NOTE | 2019-12-13 15:58 | PDOC.HOSPP ---
- Subjective Encounter Date: 12/13/19 Subjective: The patient is saturating well on room air. His complaining of exercise intolerance. - Objective Vital Signs & Weight: Vital Signs (12 hours) Temp Pulse Resp BP Pulse Ox 12/13/19 13:26 83 20 12/13/19 12:35 97.6 F 80 20 102/59 L 95 12/13/19 08:07 72 12 12/13/19 07:23 97.9 F 91 17 103/61 92 L Weight Admit Weight 173 lb 6.4 oz Weight 170 lb 3 oz Most Recent Monitor Data Heart Rate from ECG 89 NIBP 116/72 NIBP BP-Mean 86 Respiration from ECG 21 SpO2 94 I&O: 12/12/19 12/13/19 12/14/19 06:59 06:59 06:59 Intake Total 1200 670 360 Output Total 1075 600 400 Balance 125 70 -40 Result Diagrams: 12/13/19 04:48 12/13/19 04:48 Hospitalist ROS - Medication Medications: Active Medications Generic Name Dose Route Start Last Admin Trade Name Freq PRN Reason Stop Dose Admin Acetaminophen 650 mg 12/05/19 10:16 12/07/19 08:42 Acetaminophen 325 Mg Tab PO 650 mg Q6H PRN Administration Headache/Fever Or Mild Pain Albuterol/Ipratropium 3 ml 12/05/19 13:00 12/13/19 13:26 Ipratropium/Albuterol Sulfate 3 Ml Neb NEB 3 ml [id number] RENZO Administration Alprazolam 0.25 mg 12/09/19 09:53 12/09/19 09:59 Alprazolam 0.25 Mg Tab PO 0.25 mg TIDPRN PRN Administration Anxiety Amiodarone HCl 400 mg 12/12/19 09:00 12/13/19 08:48 Amiodarone 200 Mg Tab PO 400 mg DAILY RENZO Administration Apixaban 5 mg 12/11/19 21:00 12/13/19 08:48 Apixaban 5 Mg Tab PO 5 mg BID RENZO Administration Aspirin 81 mg 12/06/19 09:00 12/13/19 08:48 Aspirin 81 Mg Enteric Coated Tablet PO 81 mg DAILY RENZO Administration Atorvastatin Calcium 40 mg 12/06/19 21:00 12/12/19 20:12 Atorvastatin Calcium 40 Mg Tab PO 40 mg HS RENZO Administration Bisacodyl 10 mg 12/06/19 07:34 12/10/19 08:51 Bisacodyl 5 Mg Tab PO 10 mg Q12H PRN Administration Constipation Clopidogrel Bisulfate 75 mg 12/06/19 09:00 12/13/19 08:48 Clopidogrel Bisulfate 75 Mg Tab PO 75 mg DAILY RENZO Administration Gabapentin 200 mg 12/05/19 15:00 12/13/19 08:49 Gabapentin 100 Mg Cap PO 200 mg TID RENZO Administration Metoprolol Tartrate 12.5 mg 12/11/19 09:00 12/13/19 08:52 Metoprolol Tartrate 25 Mg Tab PO 12.5 mg BID RENZO Administration Mometasone Furoate/Formoterol Fumar 2 puff 12/04/19 18:30 12/13/19 08:13 Mometasone 200 Mcg/Formoterol 5 Mcg 120 Puff Inhaler INH 2 puff BID-RT RENZO Administration Pantoprazole Sodium 40 mg 12/06/19 09:00 12/13/19 08:52 Pantoprazole 40 Mg Tab PO 40 mg DAILY RENZO Administration Tamsulosin HCl 0.4 mg 12/05/19 21:00 12/12/19 20:12 Tamsulosin Hcl 0.4 Mg Cap PO 0.4 mg HS RENZO Administration Tramadol HCl 50 mg 12/05/19 10:16 12/12/19 08:55 Tramadol Hcl 50 Mg Tab PO 50 mg Q12H PRN Administration Moderate Pain (4-6) Tramadol HCl 100 mg 12/05/19 10:16 12/08/19 04:17 Tramadol Hcl 50 Mg Tab PO 100 mg Q12H PRN Administration Severe Pain (7-10) - Exam General Appearance: awake alert ENT: normocephalic atraumatic Neck: supple, no JVD Heart: RRR Respiratory: normal chest expansion, no tachypnea, rhonchi Gastrointestinal: soft, non-tender, non-distended, normal bowel sounds Neurological: cranial nerve grossly intact, no focal deficits Hosp A/P (1) NSTEMI (non-ST elevated myocardial infarction) Code(s): I21.4 - NON-ST ELEVATION (NSTEMI) MYOCARDIAL INFARCTION Status: Acute (2) Acute on chronic HFrEF (heart failure with reduced ejection fraction) Code(s): I50.23 - ACUTE ON CHRONIC SYSTOLIC (CONGESTIVE) HEART FAILURE Status: Acute (3) Ventricular tachycardia Code(s): I47.2 - VENTRICULAR TACHYCARDIA Status: Acute (4) CKD (chronic kidney disease) stage 3, GFR 30-59 ml/min Code(s): N18.30 - CHRONIC KIDNEY DISEASE, STAGE 3 UNSPECIFIED Status: Acute (5) Hypertension Code(s): I10 - ESSENTIAL (PRIMARY) HYPERTENSION Status: Acute (6) COPD (chronic obstructive pulmonary disease) Status: Chronic - Plan NSTEMI- He is s/p 2 vessel CABG Continue current medical management with dual antiplatelets and atorvastatin. Continue diuresis. The patient is complaining of feeling tired and unable to work with physical therapy. Currently in sinus rhythm. He is on amiodarone, metoprolol, and digoxin. Continue physical therapy as tolerated. continue Flomax COPD- stable- continue Duonebs as needed Continue management as per Cardiology and CV surgery. LifeVest was delivered. Pending placement.
[2019-12-13] MEDS: Tamsulosin HCl 0.4 MG CAP PO SCH (20:56)
[2019-12-13] MEDS: Atorvastatin Calcium 40 MG TAB PO SCH (20:57)
[2019-12-13] MEDS: Zolpidem Tartrate 5 MG TAB PO PRN (21:05)
[2019-12-14 04:16] LABS: #Eosinphils 0.2 thou/uL (0.0-0.7); #Lymphocytes 1.2 thou/uL (1.20-3.40); #Monocytes 0.6 thou/uL (0.11-0.59); %Basophils 0.1 % (0.0-1.0); %Eosinophils 2.1 % (0.0-10.0); %Lymphocytes 11.6 % (21.0-51.0); %Monocytes 5.9 % (0.0-10.0); %Neutrophils 80.3 % (42.0-75.0); Hemoglobin 11.2 g/dL (14.0-18.0); Mean Corpuscular Hemoglobin 34.1 pg (27.0-31.0); Mean Corpuscular Volume 97.5 fL (78.0-98.0); Mean Platelet Volume 6.2 fL (7.4-10.4); Platelet Count 319 thou/uL (130-400); RBC Distribution Width 11.5 % (11.5-14.5); Red Blood Cell (RBC) Count 3.28 mill/uL (4.70-6.10)
[2019-12-14 04:39] LABS: Anion Gap 14 mmol/L (10-20); BUN (Urea Nitrogen) 33 mg/dL (8.4-25.7); Calc. Creatinine Clearance 41 mL/min (70-130); Calcium 8.6 mg/dL (7.8-10.44); Carbon Dioxide 23 mmol/L (23-31); Chloride 104 mmol/L (98-107); Estimated GFR-MDRD 34; Glucose 97 mg/dL (80-115); Sodium 137 mmol/L (136-145)
[2019-12-14] MEDS: Mometasone 200 MCG/Formoterol 5 MCG 120 PUFF INHALER INH SCH ×2 (07:17→18:00)
[2019-12-14] MEDS: Amiodarone 200 MG TAB PO SCH (09:38)
[2019-12-14] MEDS: Clopidogrel Bisulfate 75 MG TAB PO SCH (09:38)
[2019-12-14] MEDS: Apixaban 5 MG TAB PO SCH ×2 (09:38→20:39)
[2019-12-14] MEDS: Aspirin 81 mg Enteric Coated Tablet PO SCH (09:38)
[2019-12-14] MEDS: Gabapentin 100 MG CAP PO SCH ×3 (09:38→20:37)
[2019-12-14] MEDS: Metoprolol Tartrate 25 MG TAB PO SCH ×2 (09:38→20:38)
[2019-12-14] MEDS: traMADol HCl 50 MG TAB PO PRN ×2 (12:53→19:19)
--- NOTE | 2019-12-14 15:28 | PDOC.HOSPP ---
- Subjective Subjective: denies any chest pain, ambulating around. - Objective Vital Signs & Weight: Vital Signs (12 hours) Temp Pulse Pulse Pulse Resp BP BP 12/14/19 12:44 98.0 F 74 17 12/14/19 09:45 97.9 F 82 18 12/14/19 09:30 85 84 126/74 127/61 12/14/19 08:15 12/14/19 07:07 84 20 12/14/19 04:00 98.4 F 74 15 BP Pulse Ox Pulse Ox Pulse Ox 12/14/19 12:44 114/59 L 95 12/14/19 09:45 127/61 95 12/14/19 09:30 95 93 L 12/14/19 08:15 95 12/14/19 07:07 12/14/19 04:00 109/55 L 93 L Weight Admit Weight 173 lb 6.4 oz Weight 172 lb 9.6 oz Most Recent Monitor Data Heart Rate from ECG 89 NIBP 116/72 NIBP BP-Mean 86 Respiration from ECG 21 SpO2 94 I&O: 12/13/19 12/14/19 12/15/19 06:59 06:59 06:59 Intake Total 670 960 Output Total 600 1000 Balance 70 -40 Result Diagrams: 12/14/19 04:07 12/14/19 04:07 Additional Labs: Accuchecks 12/14/19 12/13/19 12:45 16:54 POC Glucose 132 H 108 H Radiology Reviewed by me: Yes EKG Reviewed by me: Yes Hospitalist ROS - Medication Medications: Active Medications Generic Name Dose Route Start Last Admin Trade Name Freq PRN Reason Stop Dose Admin Acetaminophen 650 mg 12/05/19 10:16 12/07/19 08:42 Acetaminophen 325 Mg Tab PO 650 mg Q6H PRN Administration Headache/Fever Or Mild Pain Albuterol/Ipratropium 3 ml 12/05/19 13:00 12/14/19 13:04 Ipratropium/Albuterol Sulfate 3 Ml Neb NEB Not Given [id number] Alprazolam 0.25 mg 12/09/19 09:53 12/09/19 09:59 Alprazolam 0.25 Mg Tab PO 0.25 mg TIDPRN PRN Administration Anxiety Amiodarone HCl 400 mg 12/12/19 09:00 12/14/19 09:38 Amiodarone 200 Mg Tab PO 400 mg DAILY RENZO Administration Apixaban 5 mg 12/11/19 21:00 12/14/19 09:38 Apixaban 5 Mg Tab PO 5 mg BID RENZO Administration Aspirin 81 mg 12/06/19 09:00 12/14/19 09:38 Aspirin 81 Mg Enteric Coated Tablet PO 81 mg DAILY RENZO Administration Atorvastatin Calcium 40 mg 12/06/19 21:00 12/13/19 20:57 Atorvastatin Calcium 40 Mg Tab PO 40 mg HS RENZO Administration Bisacodyl 10 mg 12/06/19 07:34 12/10/19 08:51 Bisacodyl 5 Mg Tab PO 10 mg Q12H PRN Administration Constipation Clopidogrel Bisulfate 75 mg 12/06/19 09:00 12/14/19 09:38 Clopidogrel Bisulfate 75 Mg Tab PO 75 mg DAILY RENZO Administration Gabapentin 200 mg 12/05/19 15:00 12/14/19 09:38 Gabapentin 100 Mg Cap PO 200 mg TID RENZO Administration Metoprolol Tartrate 12.5 mg 12/11/19 09:00 12/14/19 09:38 Metoprolol Tartrate 25 Mg Tab PO 12.5 mg BID RENZO Administration Mometasone Furoate/Formoterol Fumar 2 puff 12/04/19 18:30 12/14/19 07:17 Mometasone 200 Mcg/Formoterol 5 Mcg 120 Puff Inhaler INH 2 puff BID-RT RENZO Administration Pantoprazole Sodium 40 mg 12/06/19 09:00 12/14/19 09:38 Pantoprazole 40 Mg Tab PO 40 mg DAILY RENZO Administration Sodium Chloride 10 ml 12/06/19 07:34 12/13/19 20:56 Flush - Normal Saline 10 Ml Syringe IVF 10 ml PRN PRN Administration Saline Flush Tamsulosin HCl 0.4 mg 12/05/19 21:00 12/13/19 20:56 Tamsulosin Hcl 0.4 Mg Cap PO 0.4 mg HS RENZO Administration Tramadol HCl 50 mg 12/05/19 10:16 12/14/19 12:53 Tramadol Hcl 50 Mg Tab PO 50 mg Q12H PRN Administration Moderate Pain (4-6) Tramadol HCl 100 mg 12/05/19 10:16 12/08/19 04:17 Tramadol Hcl 50 Mg Tab PO 100 mg Q12H PRN Administration Severe Pain (7-10) Zolpidem Tartrate 5 mg 12/06/19 07:34 12/13/19 21:05 Zolpidem Tartrate 5 Mg Tab PO 5 mg HSPRN PRN Administration Insomnia - Exam General Appearance: NAD Eye: PERRL ENT: normocephalic atraumatic Neck: supple Heart: RRR Respiratory: CTAB Gastrointestinal: soft Extremities: no cyanosis Skin: normal turgor Neurological: cranial nerve grossly intact Psychiatric: normal affect, normal behavior, A&O x 3 Hosp A/P - Plan (1) NSTEMI (non-ST elevated myocardial infarction) Code(s): I21.4 - NON-ST ELEVATION (NSTEMI) MYOCARDIAL INFARCTION Status: Acute (2) Acute on chronic HFrEF (heart failure with reduced ejection fraction) Code(s): I50.23 - ACUTE ON CHRONIC SYSTOLIC (CONGESTIVE) HEART FAILURE Status: Acute (3) Ventricular tachycardia Code(s): I47.2 - VENTRICULAR TACHYCARDIA Status: Acute (4) CKD (chronic kidney disease) stage 3, GFR 30-59 ml/min Code(s): N18.30 - CHRONIC KIDNEY DISEASE, STAGE 3 UNSPECIFIED Status: Acute (5) Hypertension Code(s): I10 - ESSENTIAL (PRIMARY) HYPERTENSION Status: Acute (6) COPD (chronic obstructive pulmonary disease) Status: Chronic - Plan NSTEMI- He is s/p 2 vessel CABG Continue current medical management with dual antiplatelets and atorvastatin. Currently in sinus rhythm. He is on amiodarone, metoprolol, digoxin, and Eliquis for stroke prophylaxis Continue physical therapy as tolerated. continue Flomax COPD- stable- continue Duonebs as needed Continue management as per Cardiology and CV surgery. LifeVest was delivered. Pending placement.
--- NOTE | 2019-12-14 17:16 | EKG ---
Test Reason : Blood Pressure : / mmHG Vent. Rate : 093 BPM Atrial Rate : 093 BPM P-R Int : 138 ms QRS Dur : 078 ms QT Int : 344 ms P-R-T Axes : 061 060 070 degrees QTc Int : 427 ms Poor data quality, interpretation may be adversely affected Normal sinus rhythm Low voltage QRS Septal infarct , age undetermined Abnormal ECG Confirmed by MEGGAN MOON, LOGAN Wilde ([id number]), science editor JULIAN PAUL ([id number]) on 12/14/2019 5:16:24 PM Referred By: Confirmed By:LOGAN BRODERICK MD
[2019-12-14] MEDS: Atorvastatin Calcium 40 MG TAB PO SCH (20:39)
[2019-12-14] MEDS: Tamsulosin HCl 0.4 MG CAP PO SCH (20:39)
[2019-12-14] MEDS: Zolpidem Tartrate 5 MG TAB PO PRN (22:12)
[2019-12-15 04:16] LABS: #Eosinphils 0.3 thou/uL (0.0-0.7); #Lymphocytes 1.5 thou/uL (1.20-3.40); #Monocytes 0.7 thou/uL (0.11-0.59); %Basophils 0.3 % (0.0-1.0); %Eosinophils 3.1 % (0.0-10.0); %Lymphocytes 13.9 % (21.0-51.0); %Monocytes 6.3 % (0.0-10.0); %Neutrophils 76.4 % (42.0-75.0); Hemoglobin 10.8 g/dL (14.0-18.0); Mean Corpuscular HGB CONC 33.3 g/dL (32.0-36.0); Mean Corpuscular Hemoglobin 33.2 pg (27.0-31.0); Mean Corpuscular Volume 99.6 fL (78.0-98.0); Mean Platelet Volume 6.5 fL (7.4-10.4); Platelet Count 364 thou/uL (130-400); RBC Distribution Width 11.6 % (11.5-14.5); Red Blood Cell (RBC) Count 3.25 mill/uL (4.70-6.10); White Blood Cell (WBC) Count 10.5 thou/uL (4.8-10.8)
[2019-12-15 04:44] LABS: Anion Gap 13 mmol/L (10-20); BUN (Urea Nitrogen) 32 mg/dL (8.4-25.7); Calc. Creatinine Clearance 40 mL/min (70-130); Calcium 8.7 mg/dL (7.8-10.44); Carbon Dioxide 22 mmol/L (23-31); Chloride 107 mmol/L (98-107); Estimated GFR-MDRD 33; Glucose 102 mg/dL (80-115); Potassium 4.7 mmol/L (3.5-5.1); Sodium 137 mmol/L (136-145)
[2019-12-15] MEDS: Mometasone 200 MCG/Formoterol 5 MCG 120 PUFF INHALER INH SCH ×2 (07:22→17:55)
[2019-12-15] MEDS: Amiodarone 200 MG TAB PO SCH (09:25)
[2019-12-15] MEDS: Gabapentin 100 MG CAP PO SCH ×3 (09:25→19:49)
[2019-12-15] MEDS: Clopidogrel Bisulfate 75 MG TAB PO SCH (09:25)
[2019-12-15] MEDS: Apixaban 5 MG TAB PO SCH ×2 (09:25→19:50)
[2019-12-15] MEDS: Aspirin 81 mg Enteric Coated Tablet PO SCH (09:25)
[2019-12-15] MEDS: Metoprolol Tartrate 25 MG TAB PO SCH ×2 (11:45→19:50)
--- NOTE | 2019-12-15 12:43 | PDOC.HOSPP ---
- Subjective Subjective: still feeling weak, but willing to work with PT. remains in sinus. denies of CP - Objective Vital Signs & Weight: Vital Signs (12 hours) Temp Pulse Resp BP Pulse Ox 12/15/19 11:43 98.4 F 82 20 118/67 96 12/15/19 07:20 92 16 93 L 12/15/19 07:18 98.1 F 79 16 92/60 93 L 12/15/19 04:58 98.4 F 74 20 107/57 L 96 Weight Admit Weight 173 lb 6.4 oz Weight 174 lb 9.6 oz Most Recent Monitor Data Heart Rate from ECG 89 NIBP 116/72 NIBP BP-Mean 86 Respiration from ECG 21 SpO2 94 I&O: 12/14/19 12/15/19 12/16/19 06:59 06:59 06:59 Intake Total 960 1380 Output Total 1000 1100 Balance -40 280 Result Diagrams: 12/15/19 04:06 12/15/19 04:06 Additional Labs: Accuchecks 12/14/19 12:45 POC Glucose 132 H Radiology Reviewed by me: Yes EKG Reviewed by me: Yes Hospitalist ROS - Medication Medications: Active Medications Generic Name Dose Route Start Last Admin Trade Name Freq PRN Reason Stop Dose Admin Acetaminophen 650 mg 12/05/19 10:16 12/07/19 08:42 Acetaminophen 325 Mg Tab PO 650 mg Q6H PRN Administration Headache/Fever Or Mild Pain Albuterol/Ipratropium 3 ml 12/05/19 13:00 12/15/19 07:20 Ipratropium/Albuterol Sulfate 3 Ml Neb NEB 3 ml [id number] RENZO Administration Alprazolam 0.25 mg 12/09/19 09:53 12/09/19 09:59 Alprazolam 0.25 Mg Tab PO 0.25 mg TIDPRN PRN Administration Anxiety Amiodarone HCl 400 mg 12/12/19 09:00 12/15/19 09:25 Amiodarone 200 Mg Tab PO 400 mg DAILY RENZO Administration Apixaban 5 mg 12/11/19 21:00 12/15/19 09:25 Apixaban 5 Mg Tab PO 5 mg BID RENZO Administration Aspirin 81 mg 12/06/19 09:00 12/15/19 09:25 Aspirin 81 Mg Enteric Coated Tablet PO 81 mg DAILY RENZO Administration Atorvastatin Calcium 40 mg 10/30/20 21:00 12/14/19 20:39 Atorvastatin Calcium 40 Mg Tab PO 40 mg HS RENZO Administration Bisacodyl 10 mg 12/06/19 07:34 12/10/19 08:51 Bisacodyl 5 Mg Tab PO 10 mg Q12H PRN Administration Constipation Clopidogrel Bisulfate 75 mg 12/06/19 09:00 12/15/19 09:25 Clopidogrel Bisulfate 75 Mg Tab PO 75 mg DAILY RENZO Administration Gabapentin 200 mg 12/05/19 15:00 12/15/19 09:25 Gabapentin 100 Mg Cap PO 200 mg TID RENZO Administration Metoprolol Tartrate 12.5 mg 12/11/19 09:00 12/15/19 11:45 Metoprolol Tartrate 25 Mg Tab PO 12.5 mg BID RENZO Administration Mometasone Furoate/Formoterol Fumar 2 puff 12/04/19 18:30 12/15/19 07:22 Mometasone 200 Mcg/Formoterol 5 Mcg 120 Puff Inhaler INH 2 puff BID-RT RENZO Administration Pantoprazole Sodium 40 mg 12/06/19 09:00 12/15/19 09:25 Pantoprazole 40 Mg Tab PO 40 mg DAILY RENZO Administration Sodium Chloride 10 ml 12/06/19 07:34 12/13/19 20:56 Flush - Normal Saline 10 Ml Syringe IVF 10 ml PRN PRN Administration Saline Flush Tamsulosin HCl 0.4 mg 12/05/19 21:00 12/14/19 20:39 Tamsulosin Hcl 0.4 Mg Cap PO 0.4 mg HS RENZO Administration Zolpidem Tartrate 5 mg 12/06/19 07:34 12/14/19 22:12 Zolpidem Tartrate 5 Mg Tab PO 5 mg HSPRN PRN Administration Insomnia - Exam General Appearance: NAD Eye: PERRL ENT: normocephalic atraumatic Neck: supple Heart: RRR Respiratory: CTAB Gastrointestinal: soft Skin: normal turgor Neurological: cranial nerve grossly intact Psychiatric: normal affect, normal behavior Hosp A/P - Plan (1) NSTEMI (non-ST elevated myocardial infarction) Code(s): I21.4 - NON-ST ELEVATION (NSTEMI) MYOCARDIAL INFARCTION Status: Acute (2) Acute on chronic HFrEF (heart failure with reduced ejection fraction) Code(s): I50.23 - ACUTE ON CHRONIC SYSTOLIC (CONGESTIVE) HEART FAILURE Status: Acute (3) Ventricular tachycardia Code(s): I47.2 - VENTRICULAR TACHYCARDIA Status: Acute (4) CKD (chronic kidney disease) stage 3, GFR 30-59 ml/min Code(s): N18.30 - CHRONIC KIDNEY DISEASE, STAGE 3 UNSPECIFIED Status: Acute (5) Hypertension Code(s): I10 - ESSENTIAL (PRIMARY) HYPERTENSION Status: Acute (6) COPD (chronic obstructive pulmonary disease) Status: Chronic - Plan NSTEMI- He is s/p 2 vessel CABG Continue current medical management with dual antiplatelets and atorvastatin. Currently in sinus rhythm. He is on amiodarone, metoprolol, digoxin, and Eliquis for stroke prophylaxis Continue physical therapy as tolerated. continue Flomax COPD- stable- continue Duonebs as needed Continue management as per Cardiology and CV surgery. LifeVest was delivered. Pending placement. cont supportive cares. Pt is medically stable to transition to SNF/Rehab when approved.
[2019-12-15] MEDS ORDERED: Amiodarone 200 MG TAB PO SCH (17:30)
[2019-12-15] MEDS: Atorvastatin Calcium 40 MG TAB PO SCH (19:50)
[2019-12-15] MEDS: Tamsulosin HCl 0.4 MG CAP PO SCH (19:50)
[2019-12-15 20:40] LABS: ALT (SGPT) 33 U/L (8-55); AST (SGOT) 24 U/L (5-34); Albumin 3.5 g/dL (3.4-4.8); Alkaline Phosphatase 80 U/L (40-110); Bilirubin, Direct 0.5 mg/dL (0.1-0.3); Bilirubin, Total 0.7 mg/dL (0.2-1.2); Magnesium 2.2 mg/dL (1.6-2.6); Protein, Total 6.2 g/dL (5.8-8.1)
[2019-12-15] MEDS: Amiodarone 450 MG, Admixture Fee 1 EACH in Dextrose 5% in Water 250 ML IVPB SCH (21:30)
[2019-12-15] MEDS ORDERED: Sodium Chloride 0.9% 500 ML IVPB SCH (22:45)
[2019-12-15] MEDS: Zolpidem Tartrate 5 MG TAB PO PRN (22:50)
[2019-12-16 04:47] LABS: #Eosinphils 0.2 thou/uL (0.0-0.7); #Monocytes 0.7 thou/uL (0.11-0.59); #Neutrophils 14.3 thou/uL (1.40-6.50); %Basophils 0.1 % (0.0-1.0); %Eosinophils 0.9 % (0.0-10.0); %Lymphocytes 6.4 % (21.0-51.0); %Monocytes 4.3 % (0.0-10.0); %Neutrophils 88.3 % (42.0-75.0); Hemoglobin 10.2 g/dL (14.0-18.0); Mean Corpuscular HGB CONC 34.3 g/dL (32.0-36.0); Mean Corpuscular Hemoglobin 33.4 pg (27.0-31.0); Mean Corpuscular Volume 97.4 fL (78.0-98.0); Mean Platelet Volume 6.9 fL (7.4-10.4); Platelet Count 401 thou/uL (130-400); RBC Distribution Width 11.6 % (11.5-14.5); Red Blood Cell (RBC) Count 3.07 mill/uL (4.70-6.10); White Blood Cell (WBC) Count 16.1 thou/uL (4.8-10.8)
[2019-12-16 05:05] LABS: Anion Gap 15 mmol/L (10-20); BUN (Urea Nitrogen) 32 mg/dL (8.4-25.7); Calc. Creatinine Clearance 42 mL/min (70-130); Calcium 8.3 mg/dL (7.8-10.44); Carbon Dioxide 18 mmol/L (23-31); Chloride 107 mmol/L (98-107); Estimated GFR-MDRD 34; Glucose 121 mg/dL (80-115); Potassium 4.1 mmol/L (3.5-5.1); Sodium 136 mmol/L (136-145)
[2019-12-16] MEDS: Amiodarone 450 MG, Admixture Fee 1 EACH in Dextrose 5% in Water 250 ML IVPB SCH (05:59)
[2019-12-16] MEDS: Mometasone 200 MCG/Formoterol 5 MCG 120 PUFF INHALER INH SCH ×2 (07:39→18:53)
[2019-12-16] MEDS: Gabapentin 100 MG CAP PO SCH ×3 (08:14→21:01)
[2019-12-16] MEDS: Clopidogrel Bisulfate 75 MG TAB PO SCH (08:14)
[2019-12-16] MEDS: Metoprolol Tartrate 25 MG TAB PO SCH ×2 (08:14→21:01)
[2019-12-16] MEDS: Aspirin 81 mg Enteric Coated Tablet PO SCH (08:15)
[2019-12-16] MEDS: Apixaban 5 MG TAB PO SCH ×2 (08:15→21:01)
[2019-12-16] MEDS: Acetaminophen 325 MG TAB PO PRN (08:15)
[2019-12-16] MEDS ORDERED: Amiodarone 200 MG TAB PO SCH ×2 (09:00→15:45)
[2019-12-16] MEDS ORDERED: Sodium Chloride 0.9% 500 ML IV SCH (10:30)
[2019-12-16] MEDS: Bisacodyl 5 MG TAB PO PRN (10:47)
--- NOTE | 2019-12-16 13:25 | RAD ---
XR Abdomen 1 View/KUB History: Abdominal pain Comparison: Abdomen pelvis CT October 28, 2019 Findings: External defibrillator device projects over the left hemithorax. It uptake material could b e ingested, outside the patient or suture in the left upper quadrant of the abdomen. Multiple bridging osteophytes of the lumbar spine. Lumbosacral transitional vertebra. No abnormal calcifications project over the renal shadows. No dilated loops of large or small bowel. Impression: 1. No evidence for bowel obstruction or acute intra-abdominal abnormality. 2. Curvilinear radiopaque material projecting over the left upper quadrant of the abdomen may reflect ingested radiopaque debris versus suture or extrinsic to patient. If there has been no recent radiopaque material ingestion or surgery, a follow-up CT abdomen pelvis with recommended.
--- NOTE | 2019-12-16 16:44 | PDOC.HOSPP ---
- Subjective Subjective: pt converted back to NSR, cardiology switched to PO amio. He was hypotensive and symptomatic this AM. He was given 500 cc fluid bolus. - Objective Vital Signs & Weight: Vital Signs (12 hours) Temp Pulse Pulse Pulse Resp BP BP 12/16/19 15:19 97.9 F 71 19 12/16/19 14:05 72 69 114/59 L 101/58 L 12/16/19 13:47 76 18 12/16/19 11:11 98.2 F 68 22 H 12/16/19 10:15 12/16/19 07:38 77 16 12/16/19 07:16 98.0 F 80 18 BP Pulse Ox 12/16/19 15:19 114/65 98 12/16/19 14:05 12/16/19 13:47 95 12/16/19 11:11 101/61 97 12/16/19 10:15 91/55 L 12/16/19 07:38 96 12/16/19 07:16 104/62 96 Weight Admit Weight 173 lb 6.4 oz Weight 175 lb Most Recent Monitor Data Heart Rate from ECG 89 NIBP 116/72 NIBP BP-Mean 86 Respiration from ECG 21 SpO2 94 I&O: 12/15/19 12/16/19 12/17/19 06:59 06:59 06:59 Intake Total 1380 1810 Output Total 1100 950 Balance 280 860 Result Diagrams: 12/16/19 04:16 12/16/19 04:16 Radiology Reviewed by me: Yes EKG Reviewed by me: Yes Hospitalist ROS - Medication Medications: Active Medications Generic Name Dose Route Start Last Admin Trade Name Freq PRN Reason Stop Dose Admin Acetaminophen 650 mg 12/05/19 10:16 12/16/19 08:15 Acetaminophen 325 Mg Tab PO 650 mg Q6H PRN Administration Headache/Fever Or Mild Pain Albuterol/Ipratropium 3 ml 12/05/19 13:00 12/16/19 13:47 Ipratropium/Albuterol Sulfate 3 Ml Neb NEB 3 ml [id number] RENZO Administration Alprazolam 0.25 mg 12/09/19 09:53 12/09/19 09:59 Alprazolam 0.25 Mg Tab PO 0.25 mg TIDPRN PRN Administration Anxiety Amiodarone HCl 400 mg 12/16/19 15:45 12/16/19 16:29 Amiodarone 200 Mg Tab PO 12/16/19 17:45 400 mg NOW RENZO Administration Apixaban 5 mg 12/11/19 21:00 12/16/19 08:15 Apixaban 5 Mg Tab PO 5 mg BID RENZO Administration Aspirin 81 mg 12/06/19 09:00 12/16/19 08:15 Aspirin 81 Mg Enteric Coated Tablet PO 81 mg DAILY RENZO Administration Atorvastatin Calcium 40 mg 12/06/19 21:00 12/15/19 19:50 Atorvastatin Calcium 40 Mg Tab PO 40 mg HS RENZO Administration Bisacodyl 10 mg 12/06/19 07:34 12/16/19 10:47 Bisacodyl 5 Mg Tab PO 10 mg Q12H PRN Administration Constipation Clopidogrel Bisulfate 75 mg 12/06/19 09:00 12/16/19 08:14 Clopidogrel Bisulfate 75 Mg Tab PO 75 mg DAILY RENZO Administration Gabapentin 200 mg 12/05/19 15:00 12/16/19 15:23 Gabapentin 100 Mg Cap PO 200 mg TID RENZO Administration Metoprolol Tartrate 12.5 mg 12/11/19 09:00 12/16/19 08:14 Metoprolol Tartrate 25 Mg Tab PO 12.5 mg BID RENZO Administration Mometasone Furoate/Formoterol Fumar 2 puff 12/04/19 18:30 12/16/19 07:39 Mometasone 200 Mcg/Formoterol 5 Mcg 120 Puff Inhaler INH 2 puff BID-RT RENZO Administration Pantoprazole Sodium 40 mg 12/06/19 09:00 12/16/19 08:14 Pantoprazole 40 Mg Tab PO 40 mg DAILY RENZO Administration Sodium Chloride 10 ml 12/06/19 07:34 12/13/19 20:56 Flush - Normal Saline 10 Ml Syringe IVF 10 ml PRN PRN Administration Saline Flush Tamsulosin HCl 0.4 mg 12/05/19 21:00 12/15/19 19:50 Tamsulosin Hcl 0.4 Mg Cap PO 0.4 mg HS RENZO Administration Zolpidem Tartrate 5 mg 12/06/19 07:34 12/15/19 22:50 Zolpidem Tartrate 5 Mg Tab PO 5 mg HSPRN PRN Administration Insomnia - Exam General Appearance: NAD Eye: PERRL ENT: normocephalic atraumatic Neck: supple Heart: RRR Respiratory: CTAB Gastrointestinal: soft Extremities: no cyanosis Skin: normal turgor Neurological: cranial nerve grossly intact Musculoskeletal: normal tone Psychiatric: normal affect, normal behavior, A&O x 3 Hosp A/P - Plan (1) NSTEMI (non-ST elevated myocardial infarction) Code(s): I21.4 - NON-ST ELEVATION (NSTEMI) MYOCARDIAL INFARCTION Status: Acute (2) Acute on chronic HFrEF (heart failure with reduced ejection fraction) Code(s): I50.23 - ACUTE ON CHRONIC SYSTOLIC (CONGESTIVE) HEART FAILURE Status: Acute (3) Ventricular tachycardia Code(s): I47.2 - VENTRICULAR TACHYCARDIA Status: Acute (4) CKD (chronic kidney disease) stage 3, GFR 30-59 ml/min Code(s): N18.30 - CHRONIC KIDNEY DISEASE, STAGE 3 UNSPECIFIED Status: Acute (5) Hypertension Code(s): I10 - ESSENTIAL (PRIMARY) HYPERTENSION Status: Acute (6) COPD (chronic obstructive pulmonary disease) Status: Chronic - Plan NSTEMI- He is s/p 2 vessel CABG Continue current medical management with dual antiplatelets and atorvastatin. Converted back to NSR, cardiology transition amio to PO, metoprolol, digoxin, and Eliquis for stroke prophylaxis Continue physical therapy as tolerated. continue Flomax COPD- stable- continue Duonebs as needed Continue management as per Cardiology and CV surgery. LifeVest was delivered. BP improved with IV fluid bolus. Monitor Pending placement
--- NOTE | 2019-12-16 17:46 | CON ---
DATE OF CONSULTATION: 12/16/2019 REASON FOR CONSULTATION: Cardiomyopathy, atrial fibrillation. HISTORY OF PRESENT ILLNESS: Mr. Whitten is a 64-year-old gentleman, who presented to the hospital with chest pain and shortness of breath. He was found to have a [id number] CA and was taken to the candlemaking laborer by Dr. Soto. He was found to have disease at the LAD/diagonal bifurcation and bypass was recommended. This was performed on 12/05/[address] Candelaria. SULLIVAN to LAD and reverse saphenous graft to diagonal. Both were small caliber vessels. Postoperatively, he has been seen to have paroxysmal atrial fibrillation and was started initially on IV amiodarone, but has since been transitioned to an oral loading taper. He has gone back into atrial fibrillation yesterday evening and was placed on IV amiodarone in addition to his oral 400 mg b.i.d., converting back to sinus rhythm shortly after midnight. He is on Eliquis for oral anticoagulation. Echocardiogram in this stay revealed LVEF of 30% to 35% and he is already wearing a LifeVest in anticipation of potential discharge. Mr. Whitten is feeling well. He is currently denying any heart racing, palpitations, passing out, or near passing out. He does have expected postoperative pain at the sternal incision, otherwise he is voicing no complaints today. REVIEW OF SYSTEMS: A 12-point review of systems is negative except that listed above in HPI. PROBLEM LIST: 1. Chest pain with [id number] CA. a. Left heart catheterization on 12/03/2019, found LAD/diagonal bifurcation disease, recommended bypass. 2. Coronary artery disease, status post coronary artery bypass grafting x2 vessel on 12/05/2019. a. SULLIVAN to LAD, saphenous graft to diagonal. 3. History of COPD. 4. Postoperative atrial fibrillation, prompting amiodarone initiation and oral anticoagulation with Eliquis. 5. Ischemic cardiomyopathy. a. LVEF 30% to 35% per echo on 12/04/2019. 6. Chronic kidney disease. 7. Hypertension. 8. Tobacco habituation. PAST SURGICAL HISTORY: Coronary artery bypass grafting on 12/05/2019. SOCIAL HISTORY: Positive for ongoing tobacco use and occasional alcohol use. Denies illicit drug use. ALLERGIES: NO KNOWN DRUG ALLERGIES. HOME MEDICATIONS: 1. Symbicort as needed. 2. Gabapentin 600 mg p.o. t.i.d. 3. Ventolin b.i.d. 4. Flomax daily 0.4 mg. 5. Tramadol as needed. 6. Lopressor 12.5 mg b.i.d. 7. Plavix 75 mg daily. 8. Lipitor 40 mg at bedtime. 9. Aspirin 81 mg daily. FAMILY HISTORY: Noncontributory, but poor recall. OBJECTIVE: VITAL SIGNS: Temperature 97.9, pulse 71, blood pressure 114/65, respirations 19, oxygen is 98% on room air. GENERAL: The patient is alert and oriented. Speech is clear. Affect is appropriate. No apparent distress at the time of the exam. NEUROLOGIC: Grossly intact and nonfocal. Gait was not assessed. HEENT: Normocephalic and atraumatic. Sclerae are anicteric. EOMs are intact. Oral mucosa is moist and pink with adequate dentition. NECK: Supple without jugular venous distention. HEART: Regular with a normalS1 and S2. There is a midsternal incision that is healing with his recent bypass. LUNGS: Clear to auscultation bilaterally without wheezes, crackles, or rhonchi. EXTREMITIES: Warm and dry to touch. Well perfused without clubbing or cyanosis. Trace edema. ABDOMEN: Benign. No palpable masses. Positive bowel sounds are noted throughout. Hepatojugular reflux is negative. DATABASE: Laboratory: WBC 16.1, hemoglobin 10.2, platelet count is 401. Chemistry; potassium 4.1, creatinine 1.99, magnesium 2.2. TSH 2.6. AST 24, ALT 33, alkaline phosphatase 80. Echocardiogram on 12/04/2019, LVEF 35% to 40%, hypokinetic mid to distal anterior wall apex and mid to distal inferior wall. Mitral regurg present and mild TR. Telemetry and EKG show paroxysmal atrial fibrillation, currently in sinus rhythm. IMPRESSION: 1. Coronary artery disease with recent [id number] myocardial infarction and coronary artery bypass grafting on 12/05/2019. 2. Ischemic cardiomyopathy, LVEF 30% to 35%, newly diagnosed on 12/04/2019. 3. Atrial fibrillation, postop, on amiodarone. 4. CHADS-VASc score of greater than or equal to 4 on the basis of advancing age, hypertension, cardiomyopathy, and vascular disease, on Eliquis 5 mg b.i.d. PLAN AND RECOMMENDATIONS: Mr. Whitten is a 64-year-old gentleman, who presented with chest pain and was found to have significant coronary artery disease that required CABG, which was performed on this admit. His EF is severely depressed at 30% to 35% and he has been fitted for a LifeVest. In regard to this, he will require guideline directed medication therapy for at least 3 months. At which point, repeat echocardiogram is recommended. If his LVEF remains severely depressed or less than or equal to 35%, prophylactic ICD implant is a consideration at that time. He is also seen to have post bypass atrial fibrillation/atypical flutter. He has been started on amiodarone, but has had some early breakthrough recurrence as his amiodarone loading continues. We would recommend amiodarone 400 mg t.i.d. while in the hospital and can likely stop the amiodarone drip. Upon discharge, this could be lowered to 400 mg p.o. b.i.d. and continue on amiodarone taper to a goal dose of 200 mg daily in 3 weeks' time. So, continue amiodarone for at least 2 to 3 months post bypass, and if there are no recurrences after that time, could consider stopping it and checking for recurrence after he is recovered from this recent surgery. I would recommend continuing Eliquis 5 mg b.i.d. as long as CV Surgery feels this does not pose a significant bleeding risk and is in agreement with this therapy. Thank you for allowing me to participate in the care of this patient. Job ID: [id number] MTDD
[2019-12-16] MEDS: Atorvastatin Calcium 40 MG TAB PO SCH (21:00)
[2019-12-16] MEDS: Amiodarone 200 MG TAB PO SCH (21:00)
[2019-12-16] MEDS: Tamsulosin HCl 0.4 MG CAP PO SCH (21:01)
[2019-12-16] MEDS: Zolpidem Tartrate 5 MG TAB PO PRN (21:05)
[2019-12-17 00:49] LABS: Hemoglobin 9.8 g/dL (14.0-18.0); Mean Corpuscular HGB CONC 34.4 g/dL (32.0-36.0); Mean Corpuscular Hemoglobin 33.7 pg (27.0-31.0); Mean Platelet Volume 7.1 fL (7.4-10.4); Platelet Count 472 thou/uL (130-400); RBC Distribution Width 11.7 % (11.5-14.5); Red Blood Cell (RBC) Count 2.92 mill/uL (4.70-6.10); White Blood Cell (WBC) Count 22.8 thou/uL (4.8-10.8)
--- NOTE | 2019-12-17 00:57 | PDOC.EVN ---
Event Note - Event Note Event Note: At approximately 1230 AM nohemi brenner was called. Patient fell after using the restroom. By the time nursing staff entered room patient was back in bed. Patient reports he felt lightheaded and dizzy just before falling and hitting his head. Patient ANO x4, BP 120 over 80s. On telemetry patient mildly bradycardic to 50s, but quickly recovered to heart rate of the 70s. EKG done at bedside with flattened T waves consistent with prior EKG. QTC prolonged compared to prior. Patient is on amiodarone for atrial fibrillation postop CABG. Chest x-ray showed no acute findings and patient is maintaining O2 sat at 100% on room air. Will obtain CT head since patient is on Eliquis, as well as CBC, BMP, BNP, magnesium, ABG, lactic acid. Lactic acid elevated to 5, WBC 22. Will start on broad-spectrum antibiotics. Blood cultures, pull and culture central line, UA. Case discussed with attending physician Dr. Segal who is in agreement with assessment and plan.
[2019-12-17 01:05] LABS: Anion Gap 20 mmol/L (10-20); BUN (Urea Nitrogen) 35 mg/dL (8.4-25.7); Band 2 % (5-11); Calc. Creatinine Clearance 36 mL/min (70-130); Calcium 8.8 mg/dL (7.8-10.44); Carbon Dioxide 14 mmol/L (23-31); Chloride 107 mmol/L (98-107); Estimated GFR-MDRD 29; Glucose 163 mg/dL (80-115); Lymphocytes 7 % (21-51); MDiff Complete? YES; Magnesium 2.3 mg/dL (1.6-2.6); Monocytes 4 % (0-10); Neutrophil 87 % (42-75); Potassium 4.3 mmol/L (3.5-5.1); Sodium 137 mmol/L (136-145)
[2019-12-17] MEDS ORDERED: Vancomycin 1 GM in Premix Bag 1 BAG IVPB SCH (01:15)
[2019-12-17 02:17] LABS: #Eosinphils 0.1 thou/uL (0.0-0.7); #Lymphocytes 0.9 thou/uL (1.20-3.40); #Monocytes 0.5 thou/uL (0.11-0.59); #Neutrophils 16.1 thou/uL (1.40-6.50); %Eosinophils 0.3 % (0.0-10.0); %Lymphocytes 5.3 % (21.0-51.0); %Neutrophils 91.4 % (42.0-75.0); Hemoglobin 10.1 g/dL (14.0-18.0); Mean Corpuscular HGB CONC 34.8 g/dL (32.0-36.0); Mean Corpuscular Hemoglobin 33.8 pg (27.0-31.0); Mean Corpuscular Volume 97.2 fL (78.0-98.0); Mean Platelet Volume 7.1 fL (7.4-10.4); Platelet Count 440 thou/uL (130-400); RBC Distribution Width 11.7 % (11.5-14.5); Red Blood Cell (RBC) Count 2.99 mill/uL (4.70-6.10); White Blood Cell (WBC) Count 17.6 thou/uL (4.8-10.8)
[2019-12-17 02:21] LABS: Anion Gap 15 mmol/L (10-20); BUN (Urea Nitrogen) 35 mg/dL (8.4-25.7); Calc. Creatinine Clearance 37 mL/min (70-130); Calcium 8.9 mg/dL (7.8-10.44); Carbon Dioxide 19 mmol/L (23-31); Chloride 106 mmol/L (98-107); Estimated GFR-MDRD 30; Glucose 129 mg/dL (80-115); Potassium 4.5 mmol/L (3.5-5.1); Sodium 135 mmol/L (136-145)
[2019-12-17] MEDS: Cefepime 2 GM in Sodium Chloride 0.9% 100 ML IVPB SCH ×2 (02:47→14:26)
[2019-12-17 03:02] LABS: Actual Bicarbonate (HCO3v) 19 mEq/L (22-28); Base Excess -4.3 mEq/L (-2.0 to +3.0); Calcium, Ionized (venous) 1.17 mmol/L (1.16-1.32); Chloride (VBG) 107 mmol/L (98-106); Hemoglobin (Hb) 18.1 g/dL (12.6-17.4); Potassium (VBG) 4.51 mmol/L (3.70-5.30)
[2019-12-17 04:56] LABS: Lactic Acid 1.5 mmol/L (0.5-2.2)
[2019-12-17 06:22] LABS: Bacteria/HPF None Seen HPF (None Seen); Bilirubin Negative (Negative); Blood, Urine 3+ (Negative); Clarity Clear (Clear); Glucose, Urine (Dipstick) Normal (Negative); Ketone, Urine Trace mg/dL (Negative); Leukocyte Negative Leu/uL (Negative); Nitrite Negative (Negative); Protein, Urine (Dipstick) 20 mg/dL (Neg-Trace); Specific Gravity, Urine 1.024 (1.002-1.036); Squamous Epithelial None Seen HPF (0-3); Urobilinogen Normal mg/dL (Less than 2); WBC/HPF 0-3 HPF (0-3)
[2019-12-17 06:23] LABS: Urine Culture Reflex No No
[2019-12-17] MEDS: Gabapentin 100 MG CAP PO SCH ×3 (08:04→20:28)
[2019-12-17] MEDS: Acetaminophen 325 MG TAB PO PRN (08:05)
[2019-12-17] MEDS: Aspirin 81 mg Enteric Coated Tablet PO SCH (08:06)
[2019-12-17] MEDS: Metoprolol Tartrate 25 MG TAB PO SCH ×2 (08:06→20:28)
[2019-12-17] MEDS: Amiodarone 200 MG TAB PO SCH ×3 (08:06→20:27)
[2019-12-17] MEDS: Apixaban 5 MG TAB PO SCH ×2 (08:06→20:28)
[2019-12-17] MEDS: Clopidogrel Bisulfate 75 MG TAB PO SCH (08:06)
[2019-12-17] MEDS: Mometasone 200 MCG/Formoterol 5 MCG 120 PUFF INHALER INH SCH ×2 (08:09→19:40)
--- NOTE | 2019-12-17 08:24 | RAD ---
Exam: Chest one view HISTORY:Fall. Pain. Comparison: 12/06/2019, 09/12/2016 FINDINGS: Cardiac silhouette:Cardiomegaly. Lines and tubes: There is a right-sided subclavian vascular catheter, unchanged in position. There ar e sternotomy wires. Aorta: Unremarkable Pulmonary vessels: Normal Costophrenic angles: Clear LUNGS: No masses or consolidation. Pneumothorax: None Osseous abnormalities: Stable periosteal reaction along the posterior right fifth rib. IMPRESSION: No acute cardiopulmonary process.
--- NOTE | 2019-12-17 08:29 | CT ---
PRELIMINARY REPORT/[facility]/EMERGENCY AFTER HOURS PROCEDURE EXAM: CT Chest Without Intravenous Contrast. CT Abdomen and Pelvis Without Intravenous Contrast CLINICAL HISTORY: SOB S/P CABG TECHNIQUE: Axial computed tomography images of the chest, abdomen and pelvis without intravenous contrast. CONTRAST: Without COMPARISON: None provided. FINDINGS: CHEST: LUNGS: Slight atelectasis identified in both lower lungs. Mild bilateral effusions. PLEURAL SPACES: Mild bilateral effusions. No pneumothorax. HEART AND MEDIASTINUM: Heart size slightly pronounced. No large pericardial effusion. There has been previous midline ster notomy. Multiple sternal wires are present. There is a left central catheter ending in the SVC. LYMPH NODES: No lymphadenopathy. ABDOMEN AND PELVIS: LIVER: Unremarkable. No focal lesions. GALLBLADDER AND BILE DUCTS: Unremarkable. No calcified stone. No ductal dilation. PANCREAS: Unremarkable. SPLEEN: Unremarkable. ADRENAL GLANDS: Unremarkable. KIDNEYS, URETERS, AND BLADDER: Kidneys are slightly small and atrophic. No hydronephrosis. No renal stones or masses. The partial ly filled urinary bladder is not remarkable. STOMACH AND BOWEL: No obstruction. No wall thickening. No CT evidence of colitis or acute diverticulitis. APPENDIX: No CT evidence for appendicitis. PERITONEUM: No free fluid. No free air. LYMPH NODES: No lymphadenopathy. REPRODUCTIVE: Unremarkable as visualized. VASCULATURE: No aortic aneurysm. BONES AND SOFT TISSUES: No acute osseous abnormality. The soft tissues are unremarkable. IMPRESSION: Mild atelectasis bilateral lower lungs. Mild bilateral effusions. No evidence of consolidation. No pneumothorax. Mild cardiomegaly. There is no evidence of intestinal or urinary tract obstruction. Both kidneys are slightly small and atrophic. ELECTRONICALLY SIGNED BY: Susannah Cruz DO Dec 17, 2019 2:31:53 AM [employer] This report is intended for review by the ordering physician only, in accordance of law. If you recei ve this report in error, please call [facility] at [phone]. FINAL REPORT Exam: Chest CT contrast Abdomen CT without contrast Pelvic CT without contrast HISTORY: Status post CABG. Shortness of breath. Correlation: None. COMPARISON: None. FINDINGS: Chest CT: Mediastinum: Postsurgical changes in the anterior mediastinum. Aorta: Limited evaluation by the lack of IV contrast. Overall, the aorta has a normal caliber. Minima l atherosclerosis. No periaortic fat stranding. Heart: Enlarged heart size. There is evidence of pericardial fluid with a possible anterior pericardi al hematoma measuring 3.0 x 1.4 cm. Trachea and central bronchi: Patent. Pleural spaces: Small bilateral pleural effusions. Right lung: No masses or consolidation. There are dependent atelectatic changes and scarring. Left lung:No masses or consolidation. There are dependent atelectatic changes and scarring. Pneumothorax: None. Lines and tubes: Right-sided subclavian vascular catheter terminates in the right atrium. There are m edian sternotomy wires. Abdomen CT: Gallbladder: Unremarkable Limited evaluation of the solid organs by the lack of IV contrast. Grossly no solid organ abnormality . Lymphadenopathy: No gastrohepatic, retrocrural or periportal lymphadenopathy Kidneys: Bilaterally no obstructive uropathy. Bilateral renal atrophy. Mesentery: No mass, lymphadenopathy, free air or free fluid Alimentary canal: Limited evaluation by the lack of oral contrast. No evidence of a bowel obstruction . Normal ileocecal junction. Colon is decompressed. Minimal scattered fecal material. Pelvis CT: No mass, lymphadenopathy, free air or free fluid. Presacral fat is preserved. Normal-appearing urinar y bladder. Osseous structures:No lytic or blastic lesions in the osseous structures. There is pseudoarthrosis of the inferiormost lumbar vertebra with the sacrum. There is evidence of partial sacralization. IMPRESSION: 1. This report is in agreement with initial report by [facility]. 2. Postoperative changes compatible with recent CABG. Small anterior pericardial hematoma. 3. Bilateral pleural effusion with bibasilar atelectasis. No pneumothorax. Transcribed Date/Time: 12/17/2019 8:55 AM
--- NOTE | 2019-12-17 08:57 | CT ---
PRELIMINARY REPORT/[facility]/EMERGENCY AFTER HOURS PROCEDURE: EXAM: CT Head Without Intravenous Contrast. CLINICAL HISTORY: Fall head strike on AC TECHNIQUE: Axial computed tomography images of the head/brain without intravenous contrast. COMPARISON: None provided. FINDINGS: BRAIN: No acute intraparenchymal hemorrhage. No mass lesion. No CT evidence for acute territorial infarct. N o midline shift or extra-axial collection. Mild age-related atrophy. Old lacunar infarctions of the left basal ganglia. VENTRICLES: No hydrocephalus. ORBITS: The orbits are unremarkable. SINUSES AND MASTOIDS: The paranasal sinuses and mastoid air cells are clear. SOFT TISSUES: No significant facial or scalp soft tissue swelling evident. No radiopaque foreign body is seen. BONES: No acute skull fracture. IMPRESSION: No acute intracranial abnormality. Minimal age-related atrophy. Old lacunar infarction of the left basal ganglia. 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 If you recei ve this report in error, please call [facility] at [phone]. FINAL REPORT CT OF THE BRAIN WITHOUT CONTRAST: COMPARISON: 10/02/2019. FINDINGS/IMPRESSION: I agree with the findings and impression given in the preliminary report per [facility] physici an. No evidence of acute intracranial abnormality. POS: CORBIN
[2019-12-17 10:23] LABS: SARS-CoV-2 NAA Rapid Test Not Detected (NotDetected)
--- NOTE | 2019-12-17 15:07 | PDOC.HOSPP ---
- Subjective Subjective: overnight event note. CT abd/pel reviewed, no acute process. Leukocytosis has improved. pt was started on empiric IV abx by night team. pt report loss sense of smell/taste about a week ago. rpt COVID PCR negative. no respiratory symptoms or fever. - Objective Vital Signs & Weight: Vital Signs (12 hours) Temp Pulse Resp BP BP BP Pulse Ox 12/17/19 14:04 73 18 94 L 12/17/19 12:16 98.6 F 65 22 H 109/65 98 12/17/19 11:16 103/59 L 12/17/19 08:02 98.2 F 74 18 114/66 96 12/17/19 03:45 98.4 F 74 24 H 112/68 95 Pulse Ox 12/17/19 14:04 12/17/19 12:16 12/17/19 11:16 98 12/17/19 08:02 12/17/19 03:45 Weight Admit Weight 173 lb 6.4 oz Weight 174 lb 3.2 oz Most Recent Monitor Data Heart Rate from ECG 89 NIBP 116/72 NIBP BP-Mean 86 Respiration from ECG 21 SpO2 94 I&O: 12/16/19 12/17/19 12/18/19 06:59 06:59 06:59 Intake Total 1810 1920 Output Total 950 700 Balance 860 1220 Result Diagrams: 12/17/19 01:40 12/17/19 01:40 Additional Labs: Accuchecks 12/17/19 00:24 POC Glucose 135 H Radiology Reviewed by me: Yes EKG Reviewed by me: Yes Hospitalist ROS - Medication Medications: Active Medications Generic Name Dose Route Start Last Admin Trade Name Freq PRN Reason Stop Dose Admin Acetaminophen 650 mg 12/05/19 10:16 12/17/19 08:05 Acetaminophen 325 Mg Tab PO 650 mg Q6H PRN Administration Headache/Fever Or Mild Pain Albuterol/Ipratropium 3 ml 12/05/19 13:00 12/17/19 14:04 Ipratropium/Albuterol Sulfate 3 Ml Neb NEB 3 ml [id number] RENZO Administration Alprazolam 0.25 mg 12/09/19 09:53 12/09/19 09:59 Alprazolam 0.25 Mg Tab PO 0.25 mg TIDPRN PRN Administration Anxiety Amiodarone HCl 400 mg 12/16/19 21:00 12/17/19 14:27 Amiodarone 200 Mg Tab PO 400 mg TID RENZO Administration Apixaban 5 mg 12/11/19 21:00 12/17/19 08:06 Apixaban 5 Mg Tab PO 5 mg BID RENZO Administration Aspirin 81 mg 12/06/19 09:00 12/17/19 08:06 Aspirin 81 Mg Enteric Coated Tablet PO 81 mg DAILY RENZO Administration Atorvastatin Calcium 40 mg 12/06/19 21:00 12/16/19 21:00 Atorvastatin Calcium 40 Mg Tab PO 40 mg HS RENZO Administration Bisacodyl 10 mg 12/06/19 07:34 12/16/19 10:47 Bisacodyl 5 Mg Tab PO 10 mg Q12H PRN Administration Constipation Clopidogrel Bisulfate 75 mg 12/06/19 09:00 12/17/19 08:06 Clopidogrel Bisulfate 75 Mg Tab PO 75 mg DAILY RENZO Administration Gabapentin 200 mg 12/05/19 15:00 12/17/19 14:26 Gabapentin 100 Mg Cap PO 200 mg TID RENZO Administration Cefepime HCl 2 gm/ Sodium 100 mls @ 200 mls/hr 12/17/19 03:00 12/17/19 14:26 Chloride IVPB 100 mls 0300,1500 RENZO Administration Metoprolol Tartrate 12.5 mg 12/11/19 09:00 12/17/19 08:06 Metoprolol Tartrate 25 Mg Tab PO 12.5 mg BID RENZO Administration Mometasone Furoate/Formoterol Fumar 2 puff 12/04/19 18:30 12/17/19 08:09 Mometasone 200 Mcg/Formoterol 5 Mcg 120 Puff Inhaler INH 2 puff BID-RT RENZO Administration Pantoprazole Sodium 40 mg 12/06/19 09:00 12/17/19 08:06 Pantoprazole 40 Mg Tab PO 40 mg DAILY RENZO Administration Sodium Chloride 10 ml 12/06/19 07:34 12/13/19 20:56 Flush - Normal Saline 10 Ml Syringe IVF 10 ml PRN PRN Administration Saline Flush Tamsulosin HCl 0.4 mg 12/05/19 21:00 12/16/19 21:01 Tamsulosin Hcl 0.4 Mg Cap PO 0.4 mg HS RENZO Administration Zolpidem Tartrate 5 mg 12/06/19 07:34 12/16/19 21:05 Zolpidem Tartrate 5 Mg Tab PO 5 mg HSPRN PRN Administration Insomnia - Exam General Appearance: NAD Eye: PERRL ENT: normocephalic atraumatic Neck: supple Heart: irregular Respiratory: CTAB, normal percussion Gastrointestinal: soft, non-tender Extremities: no cyanosis Skin: normal turgor Neurological: cranial nerve grossly intact Musculoskeletal: normal tone Psychiatric: normal affect, normal behavior, A&O x 3 Hosp A/P - Plan (1) NSTEMI (non-ST elevated myocardial infarction) Code(s): I21.4 - NON-ST ELEVATION (NSTEMI) MYOCARDIAL INFARCTION Status: Acute (2) Acute on chronic HFrEF (heart failure with reduced ejection fraction) Code(s): I50.23 - ACUTE ON CHRONIC SYSTOLIC (CONGESTIVE) HEART FAILURE Status: Acute (3) Ventricular tachycardia Code(s): I47.2 - VENTRICULAR TACHYCARDIA Status: Acute (4) CKD (chronic kidney disease) stage 3, GFR 30-59 ml/min Code(s): N18.30 - CHRONIC KIDNEY DISEASE, STAGE 3 UNSPECIFIED Status: Acute (5) Hypertension Code(s): I10 - ESSENTIAL (PRIMARY) HYPERTENSION Status: Acute (6) COPD (chronic obstructive pulmonary disease) Status: Chronic - Plan NSTEMI- He is s/p 2 vessel CABG Continue current medical management with dual antiplatelets and atorvastatin. Converted back to NSR, cardiology transitioned amio to PO, metoprolol, digoxin, and Eliquis for stroke prophylaxis Continue physical therapy as tolerated. continue Flomax COPD- stable- continue Duonebs as needed Continue management as per Cardiology and CV surgery. LifeVest was delivered. BP stable today CT abd/pel reviewed - no acute process Leukocytosis trending down - pt was started on empiric abx. CT/CXR/UA all unremarkable. Will consider d/c abx tomorrow if leukocytosis cont to [facility] - pending approval
--- NOTE | 2019-12-17 17:10 | PDOC.EP ---
- Subjective Date: 12/17/19 Time: 08:00 Interval History: no new events overnight. He is somewhat restless in bed during this exam. he denies any heart racing, palpitations, chest pain, syncope, stroke or stroke- like symptoms - Review of Systems Constitutional: denies: chills, sweats, weakness Respiratory: denies: cough, dry, hemoptysis, shortness of breath, wheezing Cardiology: denies: chest pain, edema, heart racing, light headedness, palpitations, passing out Gastrointestinal: denies: abdominal pain, nausea, vomitting - Objective Allergies/Adverse Reactions: Allergies Allergy/AdvReac Type Severity Reaction Status Date / Time No Known Drug Allergies Allergy Verified 04/29/19 06:16 Current Medications Acetaminophen (Acetaminophen 325 Mg Tab) 650 mg PO Q6H PRN PRN Reason: Headache/Fever Or Mild Pain Last Admin: 12/17/19 08:05 Dose: 650 mg Documented by: Al Hydroxide/Mg Hydroxide (Mag-Al 1200 Mg/1200 Mg/30 Ml Udcup) 30 ml PO Q4H PRN PRN Reason: Indigestion Albuterol/Ipratropium (Ipratropium/Albuterol Sulfate 3 Ml Neb) 3 ml NEB [id number] [facility] Last Admin: 12/17/19 14:04 Dose: 3 ml Documented by: Alprazolam (Alprazolam 0.25 Mg Tab) 0.25 mg PO TIDPRN PRN PRN Reason: Anxiety Last Admin: 12/09/19 09:59 Dose: 0.25 mg Documented by: Amiodarone HCl (Amiodarone 200 Mg Tab) 400 mg PO TID [facility] Last Admin: 12/17/19 14:27 Dose: 400 mg Documented by: Apixaban (Apixaban 5 Mg Tab) 5 mg PO BID [facility] Last Admin: 12/17/19 08:06 Dose: 5 mg Documented by: Aspirin (Aspirin 81 Mg Enteric Coated Tablet) 81 mg PO DAILY [facility] Last Admin: 12/17/19 08:06 Dose: 81 mg Documented by: Atorvastatin Calcium (Atorvastatin Calcium 40 Mg Tab) 40 mg PO HS [facility] Last Admin: 12/16/19 21:00 Dose: 40 mg Documented by: Bisacodyl (Bisacodyl 5 Mg Tab) 10 mg PO Q12H PRN PRN Reason: Constipation Last Admin: 12/16/19 10:47 Dose: 10 mg Documented by: Bisacodyl (Bisacodyl 10 Mg Supp) 10 mg DC Q12H PRN PRN Reason: Constipation Clopidogrel Bisulfate (Clopidogrel Bisulfate 75 Mg Tab) 75 mg PO DAILY [facility] Last Admin: 12/17/19 08:06 Dose: 75 mg Documented by: Diphenhydramine HCl (Diphenhydramine 25 Mg Cap) 25 mg PO Q6H PRN PRN Reason: Itching & Insomnia or Neri Ludin Gabapentin (Gabapentin 100 Mg Cap) 200 mg PO TID [facility] Last Admin: 12/17/19 14:26 Dose: 200 mg Documented by: Guaifenesin/Dextromethorphan (Guaifenesin Dm 100-10/5 Ml Udcup) 15 ml PO Q4H PRN PRN Reason: Cough Cefepime HCl 2 gm/ Sodium (Chloride) 100 mls @ 200 mls/hr IVPB 0300,1500 [facility] Last Admin: 12/17/19 14:26 Dose: 100 mls Documented by: Vancomycin HCl 1 gm/ Device 200 mls @ 200 mls/hr IVPB 0200 [facility] Magnesium Hydroxide (Milk Of Magnesia 30 Ml Udcup) 30 ml PO Q12H PRN PRN Reason: Constipation Metoprolol Tartrate (Metoprolol Tartrate 25 Mg Tab) 12.5 mg PO BID [facility] Last Admin: 12/17/19 08:06 Dose: 12.5 mg Documented by: Mineral Oil (Mineral Oil Enema) 133 ml DC DAILYPRN PRN PRN Reason: Constipation Miscellaneous Medication (Pharmacy To Dose : Vanc) 1 each IVPB PRN PRN PRN Reason: Pharmacy to dose Mometasone Furoate/Formoterol Fumar (Mometasone 200 Mcg/Formoterol 5 Mcg 120 Puff Inhaler) 2 puff INH BID-RT [facility] Last Admin: 12/17/19 08:09 Dose: 2 puff Documented by: Nitroglycerin (Nitroglycerin 0.4 Mg Tab (25 Tab Bottle)) 0.4 mg SL Q5MIN PRN PRN Reason: Chest Pain Ondansetron HCl (Ondansetron Pf 4 Mg/2 Ml Vial) 4 mg IVP Q6H PRN PRN Reason: Nausea/Vomiting Pantoprazole Sodium (Pantoprazole 40 Mg Tab) 40 mg PO DAILY RENZO Last Admin: 12/17/19 08:06 Dose: 40 mg Documented by: Sodium Chloride (Flush - Normal Saline 10 Ml Syringe) 10 ml IVF PRN PRN PRN Reason: Saline Flush Last Admin: 12/13/19 20:56 Dose: 10 ml Documented by: Tamsulosin HCl (Tamsulosin Hcl 0.4 Mg Cap) 0.4 mg PO HS RENZO Last Admin: 12/16/19 21:01 Dose: 0.4 mg Documented by: Zolpidem Tartrate (Zolpidem Tartrate 5 Mg Tab) 5 mg PO HSPRN PRN PRN Reason: Insomnia Last Admin: 12/16/19 21:05 Dose: 5 mg Documented by: Vital Signs & Weight: Vital Signs Temp Pulse Resp BP BP Pulse Ox Pulse Ox 12/17/19 14:04 73 18 94 L 12/17/19 12:16 98.6 F 65 22 H 109/65 98 12/17/19 11:16 103/59 L 98 12/17/19 08:02 98.2 F 74 18 114/66 96 Admit Weight 173 lb 6.4 oz Weight 174 lb 3.2 oz I/O: I/O 12/16/19 12/17/19 12/18/19 06:59 06:59 06:59 Intake Total 1810 1920 Output Total 950 700 Balance 860 1220 - Physical Exam General: alert & oriented x3, appears well, no apparent distress, speech clear, affect appropriate HEENT: mucus membranes moist, normocephaly Neck: supple neck, midline trachea, no JVD/HJR, no masses, no bruit, no lymphadenopathy, no thromegaly Cardiology: regular rate and rhythm, no murmur, regular rate, regular rhythm, PMI nondisplaced Lungs: clear to auscultation, normal breath sounds, no wheeze, rales, rhonchi Neurology: cranial nerve 2-12 intact, grossly intact, no lateralizing findings - Labs Result Diagrams: 12/17/19 01:40 12/17/19 01:40 - EKG Interpretation EKG Method: Telemetry EKG shows: Sinus rhythm - Assessment/Plan Assessment/Plan: 1. Chest pain with [id number] [place]. a. Left heart catheterization on 12/03/2019, found LAD/diagonal bifurcation disease, recommended bypass. 2. Coronary artery disease, status post coronary artery bypass grafting x2 vessel on 12/05/2019. a. SULLIVAN to LAD, saphenous graft to diagonal. 3. History of COPD. 4. Postoperative atrial fibrillation, prompting amiodarone initiation and oral anticoagulation with Eliquis. 5. Ischemic cardiomyopathy. a. LVEF 30% to 35% per echo on 12/04/2019. 6. Chronic kidney disease. 7. Hypertension. 8. Tobacco habituation. life vest in place. Recommend repeat echocardiogram in 3 months time and continued GDMT. consider ICD if LVEF less than 35% after 3 months maintaining sinus rhythm since 12/15 at 12:30 a.m. continue oral amiodarone taper, 400 mg p.o. t.i.d. while in hospital. upon discharge: amiodarone 400 mg b.i.d. x7 days then 200mg TID x 7 days, then 200mg BID x 7 days, then 200mg daily thereafter
[2019-12-17] MEDS: Atorvastatin Calcium 40 MG TAB PO SCH (20:28)
[2019-12-17] MEDS: Tamsulosin HCl 0.4 MG CAP PO SCH (20:29)
[2019-12-17] MEDS: diphenhydrAMINE 25 MG CAP PO PRN (20:33)
[2019-12-18] MEDS ORDERED: Vancomycin 1 GM in Premix Bag 1 BAG IVPB SCH (02:00)
[2019-12-18] MEDS: Cefepime 2 GM in Sodium Chloride 0.9% 100 ML IVPB SCH (04:04)
[2019-12-18 04:36] LABS: #Eosinphils 0.1 thou/uL (0.0-0.7); #Lymphocytes 1.5 thou/uL (1.20-3.40); #Monocytes 0.9 thou/uL (0.11-0.59); #Neutrophils 15.1 thou/uL (1.40-6.50); %Basophils 0.2 % (0.0-1.0); %Eosinophils 0.7 % (0.0-10.0); %Lymphocytes 8.4 % (21.0-51.0); %Monocytes 5.3 % (0.0-10.0); %Neutrophils 85.5 % (42.0-75.0); Hemoglobin 8.7 g/dL (14.0-18.0); Mean Corpuscular HGB CONC 32.9 g/dL (32.0-36.0); Mean Corpuscular Hemoglobin 33.5 pg (27.0-31.0); Mean Platelet Volume 7.4 fL (7.4-10.4); Platelet Count 402 thou/uL (130-400); Red Blood Cell (RBC) Count 2.59 mill/uL (4.70-6.10); White Blood Cell (WBC) Count 17.7 thou/uL (4.8-10.8)
[2019-12-18 05:01] LABS: Anion Gap 12 mmol/L (10-20); BUN (Urea Nitrogen) 43 mg/dL (8.4-25.7); Calc. Creatinine Clearance 36 mL/min (70-130); Calcium 8.6 mg/dL (7.8-10.44); Carbon Dioxide 17 mmol/L (23-31); Chloride 110 mmol/L (98-107); Estimated GFR-MDRD 30; Glucose 123 mg/dL (80-115); Potassium 4.4 mmol/L (3.5-5.1); Sodium 135 mmol/L (136-145)
[2019-12-18] MEDS: Mometasone 200 MCG/Formoterol 5 MCG 120 PUFF INHALER INH SCH ×2 (07:16→19:25)
--- NOTE | 2019-12-18 10:29 | PDOC.EP ---
- Subjective Date: 12/18/19 Time: 10:25 Interval History: no new events overnight - Review of Systems Constitutional: denies: chills, malaise, weakness Respiratory: denies: cough, dry, hemoptysis, pleuritic pain, shortness of breath Cardiology: denies: chest pain, edema, heart racing, light headedness, passing out Gastrointestinal: denies: abdominal pain, constipation, diarrhea Musculoskeletal: denies: unstable gait, falls, neck pain - Objective Allergies/Adverse Reactions: Allergies Allergy/AdvReac Type Severity Reaction Status Date / Time No Known Drug Allergies Allergy Verified 04/29/19 06:16 Current Medications Acetaminophen (Acetaminophen 325 Mg Tab) 650 mg PO Q6H PRN PRN Reason: Headache/Fever Or Mild Pain Last Admin: 12/17/19 08:05 Dose: 650 mg Documented by: Al Hydroxide/Mg Hydroxide (Mag-Al 1200 Mg/1200 Mg/30 Ml Udcup) 30 ml PO Q4H PRN PRN Reason: Indigestion Albuterol/Ipratropium (Ipratropium/Albuterol Sulfate 3 Ml Neb) 3 ml NEB [id number] [facility] Last Admin: 12/18/19 07:16 Dose: 3 ml Documented by: Alprazolam (Alprazolam 0.25 Mg Tab) 0.25 mg PO TIDPRN PRN PRN Reason: Anxiety Last Admin: 12/09/19 09:59 Dose: 0.25 mg Documented by: Amiodarone HCl (Amiodarone 200 Mg Tab) 400 mg PO TID [facility] Last Admin: 12/17/19 20:27 Dose: 400 mg Documented by: Apixaban (Apixaban 5 Mg Tab) 5 mg PO BID [facility] Last Admin: 12/17/19 20:28 Dose: 5 mg Documented by: Aspirin (Aspirin 81 Mg Enteric Coated Tablet) 81 mg PO DAILY [facility] Last Admin: 12/17/19 08:06 Dose: 81 mg Documented by: Atorvastatin Calcium (Atorvastatin Calcium 40 Mg Tab) 40 mg PO HS [facility] Last Admin: 12/17/19 20:28 Dose: 40 mg Documented by: Bisacodyl (Bisacodyl 5 Mg Tab) 10 mg PO Q12H PRN PRN Reason: Constipation Last Admin: 12/16/19 10:47 Dose: 10 mg Documented by: Bisacodyl (Bisacodyl 10 Mg Supp) 10 mg [place] Q12H PRN PRN Reason: Constipation Clopidogrel Bisulfate (Clopidogrel Bisulfate 75 Mg Tab) 75 mg PO DAILY [facility] Last Admin: 12/17/19 08:06 Dose: 75 mg Documented by: Diphenhydramine HCl (Diphenhydramine 25 Mg Cap) 25 mg PO Q6H PRN PRN Reason: Itching & Insomnia or Neri Ludin Last Admin: 12/17/19 20:33 Dose: 25 mg Documented by: Gabapentin (Gabapentin 100 Mg Cap) 200 mg PO TID [facility] Last Admin: 12/17/19 20:28 Dose: 200 mg Documented by: Guaifenesin/Dextromethorphan (Guaifenesin Dm 100-10/5 Ml Udcup) 15 ml PO Q4H PRN PRN Reason: Cough Cefepime HCl 2 gm/ Sodium (Chloride) 100 mls @ 200 mls/hr IVPB 0300,1500 [facility] Last Admin: 12/18/19 04:04 Dose: 100 mls Documented by: Vancomycin HCl 1 gm/ Device 200 mls @ 200 mls/hr IVPB 0200 [facility] Last Admin: 12/18/19 02:06 Dose: 200 mls Documented by: Magnesium Hydroxide (Milk Of Magnesia 30 Ml Udcup) 30 ml PO Q12H PRN PRN Reason: Constipation Metoprolol Tartrate (Metoprolol Tartrate 25 Mg Tab) 12.5 mg PO BID [facility] Last Admin: 12/17/19 20:28 Dose: 12.5 mg Documented by: Mineral Oil (Mineral Oil Enema) 133 ml [place] DAILYPRN PRN PRN Reason: Constipation Miscellaneous Medication (Pharmacy To Dose : Vanc) 1 each IVPB PRN PRN PRN Reason: Pharmacy to dose Mometasone Furoate/Formoterol Fumar (Mometasone 200 Mcg/Formoterol 5 Mcg 120 Puff Inhaler) 2 puff INH BID-RT [facility] Last Admin: 12/18/19 07:16 Dose: 2 puff Documented by: Nitroglycerin (Nitroglycerin 0.4 Mg Tab (25 Tab Bottle)) 0.4 mg SL Q5MIN PRN PRN Reason: Chest Pain Ondansetron HCl (Ondansetron Pf 4 Mg/2 Ml Vial) 4 mg IVP Q6H PRN PRN Reason: Nausea/Vomiting Pantoprazole Sodium (Pantoprazole 40 Mg Tab) 40 mg PO DAILY [facility] Last Admin: 12/17/19 08:06 Dose: 40 mg Documented by: Sodium Chloride (Flush - Normal Saline 10 Ml Syringe) 10 ml IVF PRN PRN PRN Reason: Saline Flush Last Admin: 12/13/19 20:56 Dose: 10 ml Documented by: Tamsulosin HCl (Tamsulosin Hcl 0.4 Mg Cap) 0.4 mg PO HS [facility] Last Admin: 12/17/19 20:29 Dose: 0.4 mg Documented by: Zolpidem Tartrate (Zolpidem Tartrate 5 Mg Tab) 5 mg PO HSPRN PRN PRN Reason: Insomnia Last Admin: 12/16/19 21:05 Dose: 5 mg Documented by: Vital Signs & Weight: Vital Signs Temp Pulse Resp BP Pulse Ox 12/18/19 07:16 78 14 12/18/19 04:00 98.5 F 75 15 100/65 99 12/18/19 03:20 97 12/17/19 23:34 96 Admit Weight 173 lb 6.4 oz Weight 173 lb 12.8 oz I/O: I/O 12/17/19 12/18/19 12/19/19 06:59 06:59 06:59 Intake Total 1920 1040 Output Total 700 930 Balance 1220 110 - Quality Measures Condition: Atrial Fibrillation/Flutter (hx or current) CV meds: Aspirin: Yes, Eliquis: Yes - Chadsvasc Risk factors Congestive heart failure: 1 Hypertension: 1 Age 65-74: 1 Vascular disease: 1 Risk Score: 4 - Labs Result Diagrams: 12/18/19 04:25 12/18/19 04:25 - EKG Interpretation EKG Method: Telemetry EKG shows: Sinus rhythm - Assessment/Plan Assessment/Plan: 1. Chest pain with [id number] [place]. a. Left heart catheterization on 12/03/2019, found LAD/diagonal bifurcation disease, recommended bypass. 2. Coronary artery disease, status post coronary artery bypass grafting x2 vessel on 12/05/2019. a. SULLIVAN to LAD, saphenous graft to diagonal. 3. History of COPD. 4. Postoperative atrial fibrillation, prompting amiodarone initiation and oral anticoagulation with Eliquis. 5. Ischemic cardiomyopathy. a. LVEF 30% to 35% per echo on 12/04/2019. 6. Chronic kidney disease. 7. Hypertension. 8. Tobacco habituation. life vest in place. Recommend repeat echocardiogram in 3 months time and continued GDMT. consider ICD if LVEF less than 35% after 3 months ~6hr Afib last night. Spontaneous conversion to SR. continue oral amiodarone taper, 400 mg p.o. t.i.d. while in hospital. On eliquis, Plavix, and ASA. To prevent bleeding complications, consider stopping plavix or ASA if possible now that he's on eliquis. upon discharge: amiodarone 400 mg b.i.d. x7 days then 200mg TID x 7 days, then 200mg BID x 7 days, then 200mg daily thereafter
[2019-12-18] MEDS: Aspirin 81 mg Enteric Coated Tablet PO SCH (10:36)
[2019-12-18] MEDS: Amiodarone 200 MG TAB PO SCH ×3 (10:36→20:42)
[2019-12-18] MEDS: Gabapentin 100 MG CAP PO SCH ×3 (10:36→20:43)
[2019-12-18] MEDS: Apixaban 5 MG TAB PO SCH ×2 (10:37→20:43)
[2019-12-18] MEDS: Metoprolol Tartrate 25 MG TAB PO SCH ×2 (10:37→20:44)
[2019-12-18] MEDS: Clopidogrel Bisulfate 75 MG TAB PO SCH (10:38)
[2019-12-18] MEDS ORDERED: Lorazepam 2 MG/ML VIAL SLOW IVP SCH (12:15)
--- NOTE | 2019-12-18 17:23 | PDOC.HOSPP ---
- Subjective Subjective: Patient was seen examined at bedside. Patient had an episode of panic attack this morning. He was given a dose of IV Ativan, he calm down. I also discussed with his son at bedside. We still waiting for insurance approval. Appreciate input from EP - Objective Vital Signs & Weight: Vital Signs (12 hours) Temp Pulse Pulse Pulse Resp BP BP 12/18/19 16:05 98.0 F 79 18 12/18/19 11:45 98.1 F 76 16 12/18/19 09:28 82 79 109/58 L 108/65 12/18/19 07:35 97.5 F L 80 16 12/18/19 07:16 78 14 BP BP Pulse Ox 12/18/19 16:05 94/62 96 12/18/19 11:45 90/57 L 98 12/18/19 09:28 12/18/19 07:35 101/65 97 12/18/19 07:16 Weight Admit Weight 173 lb 6.4 oz Weight 173 lb 12.8 oz Most Recent Monitor Data Heart Rate from ECG 89 NIBP 116/72 NIBP BP-Mean 86 Respiration from ECG 21 SpO2 94 I&O: 12/17/19 12/18/19 12/19/19 06:59 06:59 06:59 Intake Total 1920 1040 Output Total 700 930 Balance 1220 110 Result Diagrams: 12/18/19 04:25 12/18/19 04:25 Radiology Reviewed by me: Yes EKG Reviewed by me: Yes Hospitalist ROS - Medication Medications: Active Medications Generic Name Dose Route Start Last Admin Trade Name Freq PRN Reason Stop Dose Admin Acetaminophen 650 mg 12/05/19 10:16 12/17/19 08:05 Acetaminophen 325 Mg Tab PO 650 mg Q6H PRN Administration Headache/Fever Or Mild Pain Amiodarone HCl 400 mg 12/16/19 21:00 12/18/19 16:10 Amiodarone 200 Mg Tab PO 400 mg TID RENZO Administration Apixaban 5 mg 12/11/19 21:00 12/18/19 10:37 Apixaban 5 Mg Tab PO 5 mg BID RENZO Administration Aspirin 81 mg 12/06/19 09:00 12/18/19 10:36 Aspirin 81 Mg Enteric Coated Tablet PO 81 mg DAILY RENZO Administration Atorvastatin Calcium 40 mg 12/06/19 21:00 12/17/19 20:28 Atorvastatin Calcium 40 Mg Tab PO 40 mg HS RENZO Administration Bisacodyl 10 mg 12/06/19 07:34 12/16/19 10:47 Bisacodyl 5 Mg Tab PO 10 mg Q12H PRN Administration Constipation Diphenhydramine HCl 25 mg 12/06/19 07:34 12/17/19 20:33 Diphenhydramine 25 Mg Cap PO 25 mg Q6H PRN Administration Itching & Insomnia or Neri Ludin Gabapentin 200 mg 12/05/19 15:00 12/18/19 16:09 Gabapentin 100 Mg Cap PO 200 mg TID RENZO Administration Metoprolol Tartrate 12.5 mg 12/11/19 09:00 12/18/19 10:37 Metoprolol Tartrate 25 Mg Tab PO 12.5 mg BID RENZO Administration Mometasone Furoate/Formoterol Fumar 2 puff 12/04/19 18:30 12/18/19 07:16 Mometasone 200 Mcg/Formoterol 5 Mcg 120 Puff Inhaler INH 2 puff BID-RT RENZO Administration Pantoprazole Sodium 40 mg 12/06/19 09:00 12/18/19 10:36 Pantoprazole 40 Mg Tab PO 40 mg DAILY RENZO Administration Sodium Chloride 10 ml 12/06/19 07:34 12/13/19 20:56 Flush - Normal Saline 10 Ml Syringe IVF 10 ml PRN PRN Administration Saline Flush Tamsulosin HCl 0.4 mg 12/05/19 21:00 12/17/19 20:29 Tamsulosin Hcl 0.4 Mg Cap PO 0.4 mg HS RENZO Administration Zolpidem Tartrate 5 mg 12/06/19 07:34 12/16/19 21:05 Zolpidem Tartrate 5 Mg Tab PO 5 mg HSPRN PRN Administration Insomnia - Exam General Appearance: NAD Eye: PERRL ENT: normocephalic atraumatic Neck: supple Heart: RRR Respiratory: CTAB Gastrointestinal: soft Neurological - other findings: anxious Psychiatric: normal affect Hosp A/P - Plan (1) NSTEMI (non-ST elevated myocardial infarction) Code(s): I21.4 - NON-ST ELEVATION (NSTEMI) MYOCARDIAL INFARCTION Status: Acute (2) Acute on chronic HFrEF (heart failure with reduced ejection fraction) Code(s): I50.23 - ACUTE ON CHRONIC SYSTOLIC (CONGESTIVE) HEART FAILURE Status: Acute (3) Ventricular tachycardia Code(s): I47.2 - VENTRICULAR TACHYCARDIA Status: Acute (4) CKD (chronic kidney disease) stage 3, GFR 30-59 ml/min Code(s): N18.30 - CHRONIC KIDNEY DISEASE, STAGE 3 UNSPECIFIED Status: Acute (5) Hypertension Code(s): I10 - ESSENTIAL (PRIMARY) HYPERTENSION Status: Acute (6) COPD (chronic obstructive pulmonary disease) Status: Chronic - Plan NSTEMI- He is s/p 2 vessel CABG Continue current medical management with dual antiplatelets and atorvastatin. Converted back to NSR, cardiology transitioned amio to PO, metoprolol, digoxin, and Eliquis for stroke prophylaxis Continue physical therapy as tolerated. continue Flomax COPD- stable- continue Duonebs as needed Continue management as per Cardiology and CV surgery. LifeVest was delivered. BP stable today CT abd/pel reviewed - no acute process Leukocytosis trending down - pt was started on empiric abx. CT/CXR/UA all unremarkable. d/c empiric IV abx [facility] - pending insurance approval add anxiolytic for panic attack/anxiety disorder appreciate input from EP
[2019-12-18] MEDS: Atorvastatin Calcium 40 MG TAB PO SCH (20:43)
[2019-12-18] MEDS: Tamsulosin HCl 0.4 MG CAP PO SCH (20:44)
[2019-12-19 02:00] LABS: Lactic Acid 1.7 mmol/L (0.5-2.2)
[2019-12-19 04:45] LABS: #Eosinphils 0.1 thou/uL (0.0-0.7); #Lymphocytes 1.5 thou/uL (1.20-3.40); #Neutrophils 16.4 thou/uL (1.40-6.50); %Basophils 0.1 % (0.0-1.0); %Eosinophils 0.5 % (0.0-10.0); %Lymphocytes 7.7 % (21.0-51.0); %Monocytes 5.3 % (0.0-10.0); %Neutrophils 86.4 % (42.0-75.0); Hemoglobin 8.6 g/dL (14.0-18.0); Mean Corpuscular HGB CONC 33.3 g/dL (32.0-36.0); Mean Corpuscular Hemoglobin 33.3 pg (27.0-31.0); Mean Platelet Volume 7.8 fL (7.4-10.4); Platelet Count 412 thou/uL (130-400); RBC Distribution Width 12.3 % (11.5-14.5); Red Blood Cell (RBC) Count 2.59 mill/uL (4.70-6.10)
[2019-12-19 04:51] LABS: Anion Gap 18 mmol/L (10-20); BUN (Urea Nitrogen) 57 mg/dL (8.4-25.7); Calc. Creatinine Clearance 30 mL/min (70-130); Calcium 8.6 mg/dL (7.8-10.44); Carbon Dioxide 15 mmol/L (23-31); Chloride 107 mmol/L (98-107); Estimated GFR-MDRD 23; Glucose 116 mg/dL (80-115); Sodium 135 mmol/L (136-145)
[2019-12-19] MEDS: Mometasone 200 MCG/Formoterol 5 MCG 120 PUFF INHALER INH SCH ×2 (07:17→19:03)
[2019-12-19] MEDS: Apixaban 5 MG TAB PO SCH (09:50)
[2019-12-19] MEDS: Gabapentin 100 MG CAP PO SCH (09:50)
[2019-12-19] MEDS: Metoprolol Tartrate 25 MG TAB PO SCH (09:50)
[2019-12-19] MEDS: Amiodarone 200 MG TAB PO SCH (09:50)
[2019-12-19] MEDS: Aspirin 81 mg Enteric Coated Tablet PO SCH (09:50)
[2019-12-19] MEDS ORDERED: Sodium Chloride 0.9% 500 ML IV SCH (11:45)
[2019-12-19] MEDS ORDERED: Midodrine HCl 5 MG TAB PO SCH ×2 (12:00)
[2019-12-19] MEDS ORDERED: Fludrocortisone Acetate 0.1 MG TAB PO SCH (12:15)
--- NOTE | 2019-12-19 12:20 | RAD ---
EXAM: Single view of the chest HISTORY: Hypotension COMPARISON: 12/17/2019 FINDINGS: Single view of the chest shows an enlarged but stable cardiomediastinal silhouette. The pa tient is status post sternotomy. Multiple overlying hemodynamic leads are unchanged in position. There is no evidence of consolidation, mass, or pleural effusion. No acute osseous abnormality. The c entral venous catheter has been removed. IMPRESSION: Stable cardiomegaly
[2019-12-19] MEDS ORDERED: Furosemide 40 MG/4 ML VIAL SLOW IVP SCH (12:45)
[2019-12-19 12:58] LABS: Reticulocyte Count 5.9 % (0.5-1.5)
[2019-12-19 12:59] LABS: Hemoglobin 8.2 g/dL (14.0-18.0); Mean Corpuscular HGB CONC 33.6 g/dL (32.0-36.0); Mean Corpuscular Hemoglobin 33.2 pg (27.0-31.0); Mean Corpuscular Volume 98.8 fL (78.0-98.0); Mean Platelet Volume 7.9 fL (7.4-10.4); Platelet Count 451 thou/uL (130-400); RBC Distribution Width 12.3 % (11.5-14.5); Red Blood Cell (RBC) Count 2.48 mill/uL (4.70-6.10); White Blood Cell (WBC) Count 24.5 thou/uL (4.8-10.8)
[2019-12-19 13:17] LABS: Lactic Acid 2.8 mmol/L (0.5-2.2)
[2019-12-19 13:20] LABS: Actual Bicarbonate (HCO3a) 11.4 mEq/L (22-28); Analyzer IN Cardio ER; Base Excess (BEa) -12.2 mEq/L (-2.0 to +3.0); Carboxyhemoglobin (COHb) 0.3 gm% (0.0-3.0); Hemoglobin (Hb) 8.9 g/dL (14.0-18.0); O2 Tension (PaO2), arterial 79.1 mmHg (> 80.0); Potassium - ABG Lab 5.01 mmol/L (3.70-5.30); pH, Arterial 7.38 (7.35-7.45)
[2019-12-19 13:21] LABS: Band 4 % (5-11); Lymphocytes 5 % (21-51); MDiff Complete? YES; Monocytes 2 % (0-10); Neutrophil 89 % (42-75); Ovalocytes SLIGHT = 2-5 cells (100X) (0-1/hpf); Platelet Morphology Comment Appears Increased; Polychromasia MODERATE = 3-4 cells (100X) (0-2/hpf)
[2019-12-19 13:24] LABS: CKMB 1.9 ng/mL (0-6.6)
[2019-12-19] MEDS ORDERED: Sodium Bicarb 50 MEQ/50 ML Abboject 8.4% SYRINGE ONE ×3 (13:26→13:28)
[2019-12-19 13:28] LABS: ALT (SGPT) 348 U/L (8-55); AST (SGOT) 268 U/L (5-34); Albumin 3.3 g/dL (3.4-4.8); Alkaline Phosphatase 97 U/L (40-110); Anion Gap 17 mmol/L (10-20); BUN (Urea Nitrogen) 66 mg/dL (8.4-25.7); Bilirubin, Total 1.4 mg/dL (0.2-1.2); Calc. Creatinine Clearance 25 mL/min (70-130); Calcium 8.4 mg/dL (7.8-10.44); Carbon Dioxide 16 mmol/L (23-31); Chloride 105 mmol/L (98-107); Estimated GFR-MDRD 19; Globulin 2.6 g/dL (2.4-3.5); Glucose 134 mg/dL (80-115); Iron 36 ug/dL (65-175); Iron Binding Capacity, Total 198 mcg/dL (261-462); Potassium 5.4 mmol/L (3.5-5.1); Protein, Total 5.9 g/dL (5.8-8.1); Sodium 133 mmol/L (136-145)
[2019-12-19] MEDS ORDERED: Sodium Chloride 0.9% 1,000 ML IV SCH (13:30)
[2019-12-19] MEDS ORDERED: Sodium Bicarb 50 MEQ/50 ML Abboject 8.4% SYRINGE IVP SCH (13:30)
[2019-12-19 13:39] LABS: CO2 Tension 19.8 mmHg (35.0-45.0)
[2019-12-19 13:40] LABS: Puncture Site RBA
[2019-12-19] MEDS: Midodrine HCl 5 MG TAB PO SCH ×2 (14:42→20:56)
[2019-12-19] MEDS: Cefepime 1 GM in Sodium Chloride 0.9% 100 ML IVPB SCH (14:42)
[2019-12-19] MEDS ORDERED: Vancomycin 1 GM in Premix Bag 1 BAG IVPB SCH ×2 (15:00→16:00)
--- NOTE | 2019-12-19 15:45 | PRG ---
DATE OF SERVICE: 12/19/2019 SUBJECTIVE: Mr. Whitten today appeared weak. He developed significant hypotension. His creatinine continues to increase. He has been on Lasix. He was transferred to intermediate care for close observation. OBJECTIVE: VITAL SIGNS: Current blood pressure 110/70, pulse 80, respirations 20. LUNGS: Clear to auscultation. HEART: Regular rate and rhythm. ABDOMEN: Soft, nontender, nondistended. EXTREMITIES: No edema. PERTINENT LABORATORY DATA: Hemoglobin 8.2. Creatinine 3.24, sodium 133. IMPRESSION: 1. Hypotension. 2. Coronary artery disease. 3. Status post bypass surgery. 4. Postoperative atrial fibrillation. RECOMMENDATIONS: Agree with IV fluids. Recommend repeating his echo to assess LV function in addition to assess for pericardial effusion. Based on his creatinine, he is likely prerenal. His AST and ALT are also elevated. May consider GI consultation. On the 14 of December, his AST was within normal limits. Job ID: [id number]
--- NOTE | 2019-12-19 16:01 | ULT ---
EXAM: Bilateral lower extremity venous Doppler US HISTORY: bilateral lower extremity edema and pain FINDINGS: Grayscale, color-flow, Doppler evaluation, spectral analysis of the bilateral lower extremities venou s structures is performed with 2-D imaging. The bilateral common femoral, superficial femoral, popliteal, posterior tibial, proximal greater saphenous and profunda femoral veins are imaged. There is normal luminal compressibility, flow, and augmentation in the visualized deep venous structu res of the bilateral lower extremities. IMPRESSION: No evidence of a deep vein thrombosis in either lower extremity.
--- NOTE | 2019-12-19 16:17 | PDOC.EP ---
- Subjective Date: 12/19/19 Time: 08:00 Interval History: Weak today. he is alert making eye contact, but does not seem well oriented - Review of Systems ROS unobtainable: due to mental status - Objective Allergies/Adverse Reactions: Allergies Allergy/AdvReac Type Severity Reaction Status Date / Time No Known Drug Allergies Allergy Verified 04/29/19 06:16 Current Medications Acetaminophen (Acetaminophen 325 Mg Tab) 650 mg PO Q6H PRN PRN Reason: Headache/Fever Or Mild Pain Last Admin: 12/17/19 08:05 Dose: 650 mg Documented by: Al Hydroxide/Mg Hydroxide (Mag-Al 1200 Mg/1200 Mg/30 Ml Udcup) 30 ml PO Q4H PRN PRN Reason: Indigestion Albuterol/Ipratropium (Ipratropium/Albuterol Sulfate 3 Ml Neb) 3 ml NEB Q6H PRN PRN Reason: Wheezing Last Admin: 12/19/19 01:06 Dose: 3 ml Documented by: Alprazolam (Alprazolam 0.25 Mg Tab) 0.5 mg PO TIDPRN PRN PRN Reason: Anxiety Aspirin (Aspirin 81 Mg Enteric Coated Tablet) 81 mg PO DAILY [facility] Last Admin: 12/19/19 09:50 Dose: 81 mg Documented by: Atorvastatin Calcium (Atorvastatin Calcium 40 Mg Tab) 40 mg PO HS [facility] Last Admin: 12/18/19 20:43 Dose: 40 mg Documented by: Bisacodyl (Bisacodyl 5 Mg Tab) 10 mg PO Q12H PRN PRN Reason: Constipation Last Admin: 12/16/19 10:47 Dose: 10 mg Documented by: Bisacodyl (Bisacodyl 10 Mg Supp) 10 mg NC Q12H PRN PRN Reason: Constipation Diphenhydramine HCl (Diphenhydramine 25 Mg Cap) 25 mg PO Q6H PRN PRN Reason: Itching & Insomnia or Neri Ludin Last Admin: 12/17/19 20:33 Dose: 25 mg Documented by: Enoxaparin Sodium (Enoxaparin Sodium 30 Mg/0.3 Ml Syringe) 30 mg SC 0900 [facility] Fludrocortisone Acetate (Fludrocortisone Acetate 0.1 Mg Tab) 0.1 mg PO DAILY [facility] Guaifenesin/Dextromethorphan (Guaifenesin Dm 100-10/5 Ml Udcup) 15 ml PO Q4H PRN PRN Reason: Cough Sodium Bicarbonate 75 meq/ (Sodium Chloride) 1,075 mls @ 100 mls/hr IV .[id number] [facility] Last Admin: 12/19/19 14:42 Dose: 1,075 mls Documented by: Vancomycin HCl 1 gm/ Device 200 mls @ 200 mls/hr IVPB .PENDING LEVEL [facility] Cefepime HCl 1 gm/ Sodium (Chloride) 100 mls @ 200 mls/hr IVPB 0200,1400 [facility] Last Admin: 12/19/19 14:42 Dose: 100 mls Documented by: Vancomycin HCl 1 gm/ Device 200 mls @ 200 mls/hr IVPB 1500 [facility] Stop: 12/19/19 16:59 Magnesium Hydroxide (Milk Of Magnesia 30 Ml Udcup) 30 ml PO Q12H PRN PRN Reason: Constipation Midodrine (Midodrine Hcl 5 Mg Tab) 10 mg PO TID [facility] Last Admin: 12/19/19 14:42 Dose: 10 mg Documented by: Mineral Oil (Mineral Oil Enema) 133 ml NC DAILYPRN PRN PRN Reason: Constipation Mometasone Furoate/Formoterol Fumar (Mometasone 200 Mcg/Formoterol 5 Mcg 120 Puff Inhaler) 2 puff INH BID-RT [facility] Last Admin: 12/19/19 07:17 Dose: 2 puff Documented by: Nitroglycerin (Nitroglycerin 0.4 Mg Tab (25 Tab Bottle)) 0.4 mg SL Q5MIN PRN PRN Reason: Chest Pain Ondansetron HCl (Ondansetron Pf 4 Mg/2 Ml Vial) 4 mg IVP Q6H PRN PRN Reason: Nausea/Vomiting Last Admin: 12/19/19 06:00 Dose: 4 mg Documented by: Pantoprazole Sodium (Pantoprazole 40 Mg Tab) 40 mg PO DAILY [facility] Last Admin: 12/19/19 09:50 Dose: 40 mg Documented by: Sodium Chloride (Flush - Normal Saline 10 Ml Syringe) 10 ml IVF PRN PRN PRN Reason: Saline Flush Last Admin: 12/19/19 06:00 Dose: 10 ml Documented by: Tamsulosin HCl (Tamsulosin Hcl 0.4 Mg Cap) 0.4 mg PO HS [facility] Last Admin: 12/18/19 20:44 Dose: 0.4 mg Documented by: Vital Signs & Weight: Vital Signs Temp Pulse Resp BP Pulse Ox 12/19/19 15:13 96.9 F L 12/19/19 14:55 96 12/19/19 11:15 97.7 F 70 20 84/54 L 98 12/19/19 07:25 97.4 F L 77 18 94/54 L 96 Admit Weight 173 lb 6.4 oz Weight 173 lb I/O: I/O 12/18/19 12/19/19 12/20/19 06:59 06:59 06:59 Intake Total 1040 844 0 Output Total 930 0 Balance 110 844 0 - Quality Measures Condition: Atrial Fibrillation/Flutter (hx or current) CV meds: Eliquis: Yes (on hold) - Physical Exam General: no apparent distress, cachectic. negative: appears well, speech clear, affect appropriate HEENT: mucus membranes moist, normocephaly. negative: oral lesions Neck: supple neck, midline trachea, no lymphadenopathy Cardiology: regular rate and rhythm, no murmur, PMI nondisplaced Lungs: no wheeze, rales, rhonchi, decreased breath sounds Neurology: cranial nerve 2-12 intact, no lateralizing findings Abdomen: unremarkable, active bowel sounds, no pulsations/bruits - Chadsvasc Risk factors Congestive heart failure: 1 Age 65-74: 1 Vascular disease: 1 Risk Score: 3 - Labs Result Diagrams: 12/19/19 12:24 12/19/19 12:24 - EKG Interpretation EKG Method: Telemetry EKG shows: Sinus rhythm - Assessment/Plan Assessment/Plan: 1. Chest pain with [id number] GA. a. Left heart catheterization on 12/03/2019, found LAD/diagonal bifurcation d isease, recommended bypass. 2. Coronary artery disease, status post coronary artery bypass grafting x2 vessel on 12/05/2019. a. SULLIVAN to LAD, saphenous graft to diagonal. 3. History of COPD. 4. Postoperative atrial fibrillation, prompting amiodarone initiation and oral anticoagulation with Eliquis. 5. Ischemic cardiomyopathy. a. LVEF 30% to 35% per echo on 12/04/2019. b. life vest in place. Recommend repeat echocardiogram in 3 months time and continued GDMT. consider ICD if LVEF less than 35% after 3 months 6. Chronic kidney disease. 7. Hypertension. 8. Tobacco habituation. 9. Anemia 10. Transaminitis SR overnight but eliquis stopped due to anemia and amiodarone stopped due to ALT/AST elevation. He is weak and hypotensive and was transferred to [facility]. Rhythm stable overnight. Rhythm medication options are limited with severe cardiomyopathy and CAD to amiodarone and dofetilide. Amiodarone may be related with his transaminitis and his kidney function does not allow for dofetilide. Monitor rhythm for now. CV or rate control may be the only feasible options of recurrence is seen if he cannot resume amiodarone.
--- NOTE | 2019-12-19 16:56 | PDOC.HOSPP ---
- Subjective Subjective: Patient was found hypotensive this morning, lethargic. Decr level of responsiveness, nohemi elidia was called. He was given total of 2 IV fluid boluses for a total of 1.5 L. His blood pressure appeared to be responded with volume resuscitation. His hemoglobin dropped down to 8.2. Given his recent CABG, he was typed and crossed 1 unit. He was transferred to [facility] for higher level of care. 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 Stat labs drawn showed worsening renal function, likely d/t volume depletion. LFT found elevated, was normal on admission. He was recent started on statin era for his CAD - Objective Vital Signs & Weight: Vital Signs (12 hours) Temp Pulse Resp BP Pulse Ox 12/19/19 15:13 96.9 F L 12/19/19 14:55 96 12/19/19 11:15 97.7 F 70 20 84/54 L 98 12/19/19 07:25 97.4 F L 77 18 94/54 L 96 Weight Admit Weight 173 lb 6.4 oz Weight 173 lb Most Recent Monitor Data Heart Rate from ECG 89 NIBP 116/72 NIBP BP-Mean 86 Respiration from ECG 21 SpO2 94 I&O: 12/18/19 12/19/19 12/20/19 06:59 06:59 06:59 Intake Total 1040 844 0 Output Total 930 0 Balance 110 844 0 Result Diagrams: 12/19/19 12:24 12/19/19 12:24 Additional Labs: Accuchecks 12/19/19 13:01 POC Glucose 123 H Hospitalist ROS - Medication Medications: Active Medications Generic Name Dose Route Start Last Admin Trade Name Freq PRN Reason Stop Dose Admin Acetaminophen 650 mg 12/05/19 10:16 12/17/19 08:05 Acetaminophen 325 Mg Tab PO 650 mg Q6H PRN Administration Headache/Fever Or Mild Pain Albuterol/Ipratropium 3 ml 12/18/19 11:29 12/19/19 01:06 Ipratropium/Albuterol Sulfate 3 Ml Neb NEB 3 ml Q6H PRN Administration Wheezing Aspirin 81 mg 12/06/19 09:00 12/19/19 09:50 Aspirin 81 Mg Enteric Coated Tablet PO 81 mg DAILY RENZO Administration Atorvastatin Calcium 40 mg 12/06/19 21:00 12/18/19 20:43 Atorvastatin Calcium 40 Mg Tab PO 40 mg HS RENZO Administration Bisacodyl 10 mg 12/06/19 07:34 12/16/19 10:47 Bisacodyl 5 Mg Tab PO 10 mg Q12H PRN Administration Constipation Diphenhydramine HCl 25 mg 12/06/19 07:34 12/17/19 20:33 Diphenhydramine 25 Mg Cap PO 25 mg Q6H PRN Administration Itching & Insomnia or Neri Ludin Sodium Bicarbonate 75 meq/ 1,075 mls @ 100 mls/hr 12/19/19 13:45 12/19/19 14:42 Sodium Chloride IV 1,075 mls .[id number] RENZO Administration Cefepime HCl 1 gm/ Sodium 100 mls @ 200 mls/hr 12/19/19 14:00 12/19/19 14:42 Chloride IVPB 100 mls 0200,1400 RENZO Administration Midodrine 10 mg 12/19/19 15:00 12/19/19 14:42 Midodrine Hcl 5 Mg Tab PO 10 mg TID RENZO Administration Mometasone Furoate/Formoterol Fumar 2 puff 12/04/19 18:30 12/19/19 07:17 Mometasone 200 Mcg/Formoterol 5 Mcg 120 Puff Inhaler INH 2 puff BID-RT RENZO Administration Ondansetron HCl 4 mg 12/05/19 10:16 12/19/19 06:00 Ondansetron Pf 4 Mg/2 Ml Vial IVP 4 mg Q6H PRN Administration Nausea/Vomiting Pantoprazole Sodium 40 mg 12/06/19 09:00 12/19/19 09:50 Pantoprazole 40 Mg Tab PO 40 mg DAILY RENZO Administration Sodium Chloride 10 ml 12/06/19 07:34 12/19/19 06:00 Flush - Normal Saline 10 Ml Syringe IVF 10 ml PRN PRN Administration Saline Flush Tamsulosin HCl 0.4 mg 12/05/19 21:00 12/18/19 20:44 Tamsulosin Hcl 0.4 Mg Cap PO 0.4 mg HS RENZO Administration - Exam General Appearance: NAD Eye: PERRL ENT: normocephalic atraumatic Neck: supple Heart: RRR Respiratory: CTAB Gastrointestinal: soft Extremities: no cyanosis Skin: normal turgor Neurological: cranial nerve grossly intact Musculoskeletal: generalized weakness Psychiatric: somnolent, lethargic Hosp A/P - Plan Patient is a pleasant 64 years old gentleman, who has significant past medical history of COPD, CKD stage III, hypertension, who presented to ED with complaint of chest pain. He was found to have NSTEMI. Cardiology was consulted, subsequently had a left heart cath, showed two-vessel CAD. He ultimately underwent two-vessel bypass, and tolerated procedure well. However, postoperatively, patient developed atrial fib, and hypotension Hypotension - likely d/t volume depletion --BP responded to IV fluid resuscitation, and transfuse him 1U NSTEMI --s/p 2VD bypass --cont ASA. BB on hold d/t hypotension. Statin on hold d/t elevated LFT MICHELLE/CKD 3 --Cr worsened d/t vol depletion --cont volume expansion and consult nephrology for further recommendation Metabolic acidosis --d/t above, add sodium bicarb d/t IVF Anemia of CKD and acute blood loss from recent surgery --transfuse 1U to keep Hb>9, pt's also symptomatic AFib with RVR/NSVT --transitioned to PO Amio. Eliquis on hold for now, SQ for now d/t above acute changes. D/w cardiology. Hold BB d/t recurrent hypotension --EP is following Elevated LFT --? shock liver or ischemic event from episodes of hypotension; however, I would expect that his AST/ALT to be significantly elevated. --We will hold his statin for now, trend liver enzymes COPD - stable --cont prn nebs HTN --hold all antihypertensive meds for now. Leukocytosis --unclear etiology, UA/CXR/CT abd/pel unrevealing. --cont empiric IV abx for now and follow cultures. Afebrile. Anxiety disorder with episode of panic attacks --cont prn anxiolytics.
[2019-12-19] MEDS: Sodium Bicarbonate 75 MEQ in Sodium Chloride 0.45% 1,000 ML IV SCH (20:48)
[2019-12-19] MEDS: Tamsulosin HCl 0.4 MG CAP PO SCH (20:56)
[2019-12-19] MEDS: ALPRAZolam 0.25 MG TAB PO PRN (21:37)
[2019-12-19 22:06] LABS: Troponin I 0.111 ng/mL (< 0.028)
[2019-12-20] MEDS: Cefepime 1 GM in Sodium Chloride 0.9% 100 ML IVPB SCH ×2 (01:54→14:10)
[2019-12-20 03:51] LABS: Phosphorus 5.3 mg/dL (2.3-4.7)
[2019-12-20 03:57] LABS: Band 7 % (5-11); Hemoglobin 8.8 g/dL (14.0-18.0); Lymphocytes 11 % (21-51); MDiff Complete? YES; Mean Corpuscular HGB CONC 34.1 g/dL (32.0-36.0); Mean Corpuscular Hemoglobin 33.6 pg (27.0-31.0); Mean Corpuscular Volume 98.5 fL (78.0-98.0); Mean Platelet Volume 8.1 fL (7.4-10.4); Metamyelocyte 2 % (0-0); Monocytes 1 % (0-10); Neutrophil 79 % (42-75); Nucleated RBC 1 % (0); Platelet Count 320 thou/uL (130-400); Platelet Morphology Comment Appears Adequate; RBC Distribution Width 13.1 % (11.5-14.5); Red Blood Cell (RBC) Count 2.62 mill/uL (4.70-6.10); White Blood Cell (WBC) Count 20.6 thou/uL (4.8-10.8)
[2019-12-20 03:59] LABS: ALT (SGPT) 844 U/L (8-55); AST (SGOT) 690 U/L (5-34); Albumin 2.9 g/dL (3.4-4.8); Alkaline Phosphatase 95 U/L (40-110); Anion Gap 17 mmol/L (10-20); BUN (Urea Nitrogen) 73 mg/dL (8.4-25.7); CRP (Inflammatory) 6.68 mg/dL (= or < 0.5); Calc. Creatinine Clearance 23 mL/min (70-130); Calcium 7.3 mg/dL (7.8-10.44); Carbon Dioxide 15 mmol/L (23-31); Chloride 105 mmol/L (98-107); Estimated GFR-MDRD 18; Globulin 2.1 g/dL (2.4-3.5); Glucose 107 mg/dL (80-115); Magnesium 2.2 mg/dL (1.6-2.6); Potassium 4.8 mmol/L (3.5-5.1); Sodium 132 mmol/L (136-145)
[2019-12-20] MEDS: Sodium Bicarbonate 75 MEQ in Sodium Chloride 0.45% 1,000 ML IV SCH (06:21)
[2019-12-20] MEDS: Mometasone 200 MCG/Formoterol 5 MCG 120 PUFF INHALER INH SCH ×2 (07:23→18:51)
--- NOTE | 2019-12-20 08:05 | CON ---
DATE OF CONSULTATION: 12/20/2019 SUBJECTIVE: Mr. Whitten currently has no symptoms. He remains hypotensive during the night. His blood pressure currently is 93 systolic. He did dip down in the 70s. Again, he has been asymptomatic with heart rate stable. OBJECTIVE: VITAL SIGNS: Blood pressure 93/60, pulse 66, respirations 20. LUNGS: Clear to auscultation. HEART: Regular rate and rhythm. ABDOMEN: Soft, nontender, and nondistended. EXTREMITIES: No edema. PERTINENT LABORATORY DATA: Hemoglobin 8.8, up from 8.2. Creatinine is slightly elevated from 3.2 to 3.4. AST and ALT continues to increase at 690 and 840. Troponin 0.11. IMPRESSION: 1. Hypotension. 2. Coronary artery disease. 3. Status post bypass surgery. 4. Paroxysmal atrial fibrillation. RECOMMENDATIONS: 1. Etiology to hypotension is currently unknown. The patient has been on Eliquis over the last 10 days for paroxysmal atrial fibrillation. Mr. Whitten's weight has been unchanged since admission. 2. Differential diagnosis includes pericardial effusion in addition to pulmonary embolus. RV failure also should be considered. 3. Recommended echo this morning. It is unlikely he has had pulmonary embolism given anticoagulation therapy over the last 10 days, but certainly part of differential. If there is no significant pericardial effusion or tamponade, would then restart anticoagulation therapy. His AST and ALT are likely elevated from RV failure, which can be from pulmonary embolism or tamponade. We will give another 500 mL bolus of fluid. Hold any blood pressure medications. Have a low threshold for transferring to ICU if this continues. Job ID: [id number]
--- NOTE | 2019-12-20 08:18 | CON ---
DATE OF CONSULTATION: 12/19/2019 CONSULTING PHYSICIAN: Dr. Soto. REASON FOR CONSULTATION: Acute kidney injury. REASON FOR ADMISSION: Chest pain. HISTORY OF PRESENT ILLNESS: This is a 64-year-old male with history of CKD, hypertension, came to the hospital with chest pain and has been evaluated and was treated for congestive heart failure, but started noticing elevated creatinine. Nephrology was consulted, patient's creatinine today is 3.24, on admission it was around 1.3 to 1.4, which seems to be his baseline. The patient's diuretics were held and started on IV fluids. The patient complains of shortness of breath even on minimal exertion. No fever, no chills, no palpitation reported. PAST MEDICAL HISTORY: Positive for chronic kidney disease, COPD, hypertension, CHF. PAST SURGICAL HISTORY: None. HOME MEDICATIONS: Reviewed. ALLERGIES: NO KNOWN DRUG ALLERGIES. SOCIAL HISTORY: No smoking, alcohol, or illicit drug use. FAMILY HISTORY: No history of kidney disease. REVIEW OF SYSTEMS: The following complete review of systems was negative, unless otherwise mentioned in the HPI or below: Constitutional: Weight loss or gain, ability to conduct usual activities. Skin: Rash, itching. Eyes: Double vision, pain. ENT/Mouth: Nose bleeding, neck stiffness, pain, tenderness. Cardiovascular: Palpitations, dyspnea on exertion, orthopnea. Respiratory: Shortness of breath, wheezing, cough, hemoptysis, fever or night sweats. Gastrointestinal: Poor appetite, abdominal pain, heartburn, nausea, vomiting, constipation, or diarrhea. Genitourinary: Urgency, frequency, dysuria, nocturia. Musculoskeletal: Pain, swelling. Neurologic/Psychiatric: Anxiety, depression. Allergy/Immunologic: Skin rash, bleeding tendency. PHYSICAL EXAMINATION: GENERAL: This is a well-built male, in no apparent distress. VITAL SIGNS: Temperature 97.7, pulse 70, respiratory rate , blood pressure 84/54. HEENT: Atraumatic, normocephalic. Oral mucosa moist. NECK: Supple. CV: S1 and S2. Rate and rhythm regular. RESPIRATORY: Clear. MUSCULOSKELETAL: 1+ edema. DERMATOLOGIC: No skin rash. NEUROLOGIC: Alert and awake. PSYCHIATRIC: Normal mood and affect. LABORATORY DATA: Hemoglobin is 8.2, potassium is 5.4, BUN is 66, creatinine is 3.2. ASSESSMENT AND PLAN: 1. Acute kidney injury on chronic kidney disease, stage 3 with worsening labs, most likely from cardiorenal syndrome. I agree with holding diuretics and IV fluids. We will change it to half normal saline and 75 mEq bicarb and monitor. 2. Hyponatremia. Continue IV fluids. 3. Hyperkalemia, mild. Limit potassium intake. Agree with bicarb drip for acidosis. 4. Metabolic acidosis, on bicarb drip with half normal saline. 5. Cardiorenal syndrome. 6. Elevated liver enzymes. 7. Hypoalbuminemia, moderate. 8. Anemia of chronic disease. 9. History of hypertension. 10. Prognosis is poor with cardiorenal syndrome worsening and shortness of breath. 11. Electrolyte derangements noted. 12. Avoid nephrotoxins. 13. Continue supportive care. We will continue fluids. 14. Continue cardiac medications for optimization of cardiac medications and cardiac condition. 15. We will follow. Thank you for the consult. Job ID: [id number]
--- NOTE | 2019-12-20 08:37 | EKG ---
Test Reason : STAT Blood Pressure : / mmHG Vent. Rate : 076 BPM Atrial Rate : 076 BPM P-R Int : 168 ms QRS Dur : 088 ms QT Int : 488 ms P-R-T Axes : 064 080 016 degrees QTc Int : 549 ms Normal sinus rhythm Septal infarct , age undetermined Prolonged QT Abnormal ECG Confirmed by CINDY PORTILLO MD ([id number]) on 12/20/2019 8:37:04 AM Referred By: Confirmed By:CINDY PORTILLO MD
[2019-12-20] MEDS ORDERED: Sodium Bicarbonate 75 MEQ in Sodium Chloride 0.45% 1,000 ML IV SCH (08:58)
[2019-12-20] MEDS ORDERED: Enoxaparin Sodium 30 MG/0.3 ML SYRINGE SC SCH (09:00)
[2019-12-20] MEDS: Midodrine HCl 5 MG TAB PO SCH ×3 (09:31→20:43)
[2019-12-20] MEDS: Aspirin 81 mg Enteric Coated Tablet PO SCH (09:32)
[2019-12-20] MEDS: Fludrocortisone Acetate 0.1 MG TAB PO SCH (09:33)
--- NOTE | 2019-12-20 10:26 | CT ---
CT OF CHEST PERFORMED WITHOUT CONTRAST ENHANCEMENT: Date: 12/20/2019 HISTORY: Recent triple bypass surgery. Patient complaining of shortness of breath today. COMPARISON: 12/17/2019 exam. FINDINGS: There is worsening bilateral pleural effusions and bibasilar atelectasis lung changes. No infiltrativ e lung process seen. Centrilobular emphysema changes are noted. The soft tissue density in the anterior mediastinal which tracks beneath the sternum and appears to b e related to anterior margin of the pericardium is perhaps slightly larger as compared to the prior e xamination, although the difference is fairly minimal. Thoracic aorta is normal in caliber. Post ster notomy changes again noted. IMPRESSION: 1. Worsening bilateral pleural effusions and bibasilar lung changes. 2. The higher density fluid collection along the anterior mediastinum which tracks from the posterio r border of the sternum into the region of the pericardium and becomes more oblong in shape in the pe ricardial region is slightly more prominent on today's examination as compared to the prior study. Th e AP thickness of the pericardial component is slightly more prominent than it was on the prior exami nation. POS: DIOGO
[2019-12-20] MEDS ORDERED: Lidocaine 1% PF 5 ML VIAL ONE (10:43)
[2019-12-20] MEDS ORDERED: Glycopyrrolate 0.2 MG/ML 5 ML SYRINGE ONE (10:43)
[2019-12-20] MEDS ORDERED: Rocuronium Bromide 10 MG/ML (10ML VIAL) ONE (10:43)
--- NOTE | 2019-12-20 11:30 | ULT ---
EXAM: US Gallbladder RUQ CLINICAL HISTORY: Elevated liver function test. COMPARISON: None. FINDINGS: Pancreas: Obscured by bowel gas Liver:Increased echotexture liver which may be due to hepatic steatosis or hepatocellular disease. Campbell bsequent limited evaluation for hepatic masses and intrahepatic biliary dilatation. Right hepatic lobe: 15.1 cm Gallbladder: Appears be sludge within the lumen of gallbladder. Gallbladder wall is thickened measuri ng 0.9 cm. There is pericholecystic fluid. Suarez's sign:Cannot be assessed Portal Vein: Patent. Pulsatile flow Bile ducts: 0.6 cm common bile duct diameter Right kidney: No hydronephrosis. Right kidney measures 11.7 cm in length. Diffuse right renal cortica l thinning. There does appear to be a right-sided pleural effusion. IMPRESSION: 1. No sonographic evidence worrisome for cholecystitis.
--- NOTE | 2019-12-20 11:56 | PDOC.HOSPP ---
- Subjective Subjective: Patient was seen examined at bedside. He remains hypotensive after fluid resuscitation. He currently satting well on 3 L via nasal cannula. He still complains of shortness of breath. I have discussed with Dr. Soto this morning, who reviewed his 2D echo, said very difficult to interpret. For that reason, he ordered a CT chest, found bilateral pleural effusion, and also loculated fluid collection along the anterior mediastinum. Initially, I have discussed with radiologist, in attempt to do a thoracocentesis to help with his breathing; however, after review with the radiologist, the pleural effusions appear to be minimal. However, there is another lateral hematoma that appears to exert its mass-effect on the right ventricle. He will discuss with Dr. Candelaria, CV surgeon with regard to that new findings. No fever. - Objective Vital Signs & Weight: Vital Signs (12 hours) Temp 12/20/19 11:44 98.0 F 12/20/19 07:14 98.0 F Weight Admit Weight 173 lb 6.4 oz Weight 179 lb Most Recent Monitor Data Heart Rate from ECG 76 NIBP 93/57 NIBP BP-Mean 69 Respiration from ECG 31 SpO2 97 I&O: 12/19/19 12/20/19 12/21/19 06:59 06:59 06:59 Intake Total 844 3850 Output Total 0 400 Balance 844 3450 Result Diagrams: 12/20/19 03:11 12/20/19 03:11 Additional Labs: Accuchecks 12/19/19 13:01 POC Glucose 123 H Radiology Reviewed by me: Yes EKG Reviewed by me: Yes Hospitalist ROS - Medication Medications: Active Medications Generic Name Dose Route Start Last Admin Trade Name Freq PRN Reason Stop Dose Admin Acetaminophen 650 mg 12/05/19 10:16 12/17/19 08:05 Acetaminophen 325 Mg Tab PO 650 mg Q6H PRN Administration Headache/Fever Or Mild Pain Albuterol/Ipratropium 3 ml 12/18/19 11:29 12/19/19 01:06 Ipratropium/Albuterol Sulfate 3 Ml Neb NEB 3 ml Q6H PRN Administration Wheezing Alprazolam 0.5 mg 12/18/19 12:05 12/19/19 21:37 Alprazolam 0.25 Mg Tab PO 0.5 mg TIDPRN PRN Administration Anxiety Aspirin 81 mg 12/06/19 09:00 12/20/19 09:32 Aspirin 81 Mg Enteric Coated Tablet PO 81 mg DAILY RENZO Administration Atorvastatin Calcium 40 mg 12/06/19 21:00 12/18/19 20:43 Atorvastatin Calcium 40 Mg Tab PO 40 mg HS RENZO Administration Bisacodyl 10 mg 12/06/19 07:34 12/16/19 10:47 Bisacodyl 5 Mg Tab PO 10 mg Q12H PRN Administration Constipation Diphenhydramine HCl 25 mg 12/06/19 07:34 12/17/19 20:33 Diphenhydramine 25 Mg Cap PO 25 mg Q6H PRN Administration Itching & Insomnia or Neri Ludin Fludrocortisone Acetate 0.1 mg 12/20/19 09:00 12/20/19 09:33 Fludrocortisone Acetate 0.1 Mg Tab PO 0.1 mg DAILY RENZO Administration Cefepime HCl 1 gm/ Sodium 100 mls @ 200 mls/hr 12/19/19 14:00 12/20/19 01:54 Chloride IVPB 100 mls 0200,1400 RENZO Administration Sodium Bicarbonate 75 meq/ 1,075 mls @ 50 mls/hr 12/20/19 08:58 12/20/19 09:33 Sodium Chloride IV Not Given .[id number] RENZO Midodrine 10 mg 12/19/19 15:00 12/20/19 09:31 Midodrine Hcl 5 Mg Tab PO 10 mg TID RENZO Administration Mometasone Furoate/Formoterol Fumar 2 puff 12/04/19 18:30 12/20/19 07:23 Mometasone 200 Mcg/Formoterol 5 Mcg 120 Puff Inhaler INH 2 puff BID-RT RENZO Administration Ondansetron HCl 4 mg 12/05/19 10:16 12/19/19 06:00 Ondansetron Pf 4 Mg/2 Ml Vial IVP 4 mg Q6H PRN Administration Nausea/Vomiting Pantoprazole Sodium 40 mg 12/06/19 09:00 12/20/19 09:31 Pantoprazole 40 Mg Tab PO 40 mg DAILY RENZO Administration Sodium Chloride 10 ml 12/06/19 07:34 12/19/19 06:00 Flush - Normal Saline 10 Ml Syringe IVF 10 ml PRN PRN Administration Saline Flush Tamsulosin HCl 0.4 mg 12/05/19 21:00 12/19/19 20:56 Tamsulosin Hcl 0.4 Mg Cap PO 0.4 mg HS RENZO Administration - Exam General Appearance: NAD Eye: PERRL ENT: normocephalic atraumatic Neck: supple Heart: RRR Respiratory: rhonchi Gastrointestinal: soft, non-tender Extremities: no cyanosis Skin: normal turgor Neurological: cranial nerve grossly intact Musculoskeletal: normal tone Psychiatric: normal affect, normal behavior, A&O x 3 Hosp A/P - Plan Patient is a pleasant 64 years old gentleman, who has significant past medical history of COPD, CKD stage III, hypertension, who presented to ED with complaint of chest pain. He was found to have NSTEMI. Cardiology was consulted, subsequently had a left heart cath, showed two-vessel CAD. He ult imately underwent two-vessel bypass, and tolerated procedure well. However, postoperatively, patient developed atrial fib, and persistent hypotension Hematoma - in setting of recent CABG --chest CT showed fluid collections along the anterior mediastinum, and also on the lateral of pericardium that exerts its effects on the right ventricle --d/w radiology, who will communicates new findings with CT surgeon Hypotension - remains hypotensive despite volume expansion. --d/w cardiology, rpt Echo was difficult to interpret. --CT shows hematoma as mentioned above NSTEMI --s/p 2VD bypass --ASA on hold d/t above. BB on hold d/t hypotension. Statin on hold d/t elevated LFT B/L Pleural Effusion --reviewed with radiologist, small may not be enough to tap. He will d/w Dr Candelaria first before attempt --will consider diuretic if his BP and renal function tolerates MICHELLE/CKD 3 --Cr worsened hypotension, decr renal perfusion --Nephrology is following Metabolic acidosis --d/t above, cont sodium bicarb IVF Anemia of CKD and acute blood loss from recent surgery --transfuse 1U to keep Hb>9 AFib with RVR/NSVT --transitioned to PO Amio. Eliquis on hold for now, SQ for now d/t above acute changes. D/w cardiology. Hold BB d/t recurrent hypotension --EP is following Elevated LFT --? shock liver or ischemic event from episodes of hypotension; however, I would expect that his AST/ALT to be significantly elevated. --We will hold his statin for now, trend liver enzymes. Check Liver US and acute hep panel in AM COPD - stable --cont prn nebs HTN --hold all antihypertensive meds for now. Leukocytosis --could reactive from above hematomas, cont empiric IV abx. Follow up pending cultures. Anxiety disorder with episode of panic attacks --cont prn anxiolytics.
[2019-12-20] MEDS ORDERED: Albumin 25% 25 GM/100 ML BOT IVPB SCH (11:58)
[2019-12-20] MEDS ORDERED: Morphine 4 MG/ML VIAL ONE (13:54)
[2019-12-20] MEDS ORDERED: Morphine 2 MG/ML VIAL SLOW IVP PRN (13:54)
[2019-12-20] MEDS ORDERED: EPINEPHrine 1 MG/10 ML Abboject SYRINGE ONE (13:57)
[2019-12-20] MEDS ORDERED: EPINEPHrine 1 MG/ML AMP ONE (14:37)
[2019-12-20] MEDS ORDERED: Bupivacaine PF 0.5% 30 ML VIAL ONE (14:37)
[2019-12-20] MEDS ORDERED: Ketamine 50 MG/ML (10ML VIAL) ONE (14:41)
[2019-12-20] MEDS ORDERED: Vancomycin 1 GM in Premix Bag 1 BAG IVPB SCH (15:00)
--- NOTE | 2019-12-20 15:26 | PDOC.EP ---
- Subjective Date: 12/20/19 Time: 15:24 - Review of Systems Constitutional: reports: malaise Respiratory: reports: SOB with excertion Cardiology: reports: chest pain. denies: heart racing - Objective Allergies/Adverse Reactions: Allergies Allergy/AdvReac Type Severity Reaction Status Date / Time No Known Drug Allergies Allergy Verified 04/29/19 06:16 Current Medications Acetaminophen (Acetaminophen 325 Mg Tab) 650 mg PO Q6H PRN PRN Reason: Headache/Fever Or Mild Pain Last Admin: 12/17/19 08:05 Dose: 650 mg Documented by: Al Hydroxide/Mg Hydroxide (Mag-Al 1200 Mg/1200 Mg/30 Ml Udcup) 30 ml PO Q4H PRN PRN Reason: Indigestion Albuterol/Ipratropium (Ipratropium/Albuterol Sulfate 3 Ml Neb) 3 ml NEB Q6H PRN PRN Reason: Wheezing Last Admin: 12/19/19 01:06 Dose: 3 ml Documented by: Alprazolam (Alprazolam 0.25 Mg Tab) 0.5 mg PO TIDPRN PRN PRN Reason: Anxiety Last Admin: 12/19/19 21:37 Dose: 0.5 mg Documented by: Aspirin (Aspirin 81 Mg Enteric Coated Tablet) 81 mg PO DAILY [facility] Last Admin: 12/20/19 09:32 Dose: 81 mg Documented by: Atorvastatin Calcium (Atorvastatin Calcium 40 Mg Tab) 40 mg PO HS [facility] Last Admin: 12/18/19 20:43 Dose: 40 mg Documented by: Bisacodyl (Bisacodyl 5 Mg Tab) 10 mg PO Q12H PRN PRN Reason: Constipation Last Admin: 12/16/19 10:47 Dose: 10 mg Documented by: Bisacodyl (Bisacodyl 10 Mg Supp) 10 mg [place] Q12H PRN PRN Reason: Constipation Diphenhydramine HCl (Diphenhydramine 25 Mg Cap) 25 mg PO Q6H PRN PRN Reason: Itching & Insomnia or Neri Ludin Last Admin: 12/17/19 20:33 Dose: 25 mg Documented by: Fludrocortisone Acetate (Fludrocortisone Acetate 0.1 Mg Tab) 0.1 mg PO DAILY [facility] Last Admin: 12/20/19 09:33 Dose: 0.1 mg Documented by: Guaifenesin/Dextromethorphan (Guaifenesin Dm 100-10/5 Ml Udcup) 15 ml PO Q4H PRN PRN Reason: Cough Vancomycin HCl 1 gm/ Device 200 mls @ 200 mls/hr IVPB .PENDING LEVEL [facility] Cefepime HCl 1 gm/ Sodium (Chloride) 100 mls @ 200 mls/hr IVPB 0200,1400 [facility] Last Admin: 12/20/19 14:10 Dose: 100 mls Documented by: Sodium Bicarbonate 75 meq/ (Sodium Chloride) 1,075 mls @ 50 mls/hr IV .[id number] [facility] Last Admin: 12/20/19 09:33 Dose: Not Given Documented by: Magnesium Hydroxide (Milk Of Magnesia 30 Ml Udcup) 30 ml PO Q12H PRN PRN Reason: Constipation Midodrine (Midodrine Hcl 5 Mg Tab) 10 mg PO TID [facility] Last Admin: 12/20/19 09:31 Dose: 10 mg Documented by: Mineral Oil (Mineral Oil Enema) 133 ml [place] DAILYPRN PRN PRN Reason: Constipation Mometasone Furoate/Formoterol Fumar (Mometasone 200 Mcg/Formoterol 5 Mcg 120 Puff Inhaler) 2 puff INH BID-RT [facility] Last Admin: 12/20/19 07:23 Dose: 2 puff Documented by: Morphine Sulfate (Morphine 2 Mg/Ml Vial) 2 mg SLOW IVP Q4H PRN PRN Reason: Severe Pain (7-10) Nitroglycerin (Nitroglycerin 0.4 Mg Tab (25 Tab Bottle)) 0.4 mg SL Q5MIN PRN PRN Reason: Chest Pain Ondansetron HCl (Ondansetron Pf 4 Mg/2 Ml Vial) 4 mg IVP Q6H PRN PRN Reason: Nausea/Vomiting Last Admin: 12/19/19 06:00 Dose: 4 mg Documented by: Pantoprazole Sodium (Pantoprazole 40 Mg Tab) 40 mg PO DAILY [facility] Last Admin: 12/20/19 09:31 Dose: 40 mg Documented by: Sodium Chloride (Flush - Normal Saline 10 Ml Syringe) 10 ml IVF PRN PRN PRN Reason: Saline Flush Last Admin: 12/19/19 06:00 Dose: 10 ml Documented by: Tamsulosin HCl (Tamsulosin Hcl 0.4 Mg Cap) 0.4 mg PO HS [facility] Last Admin: 12/19/19 20:56 Dose: 0.4 mg Documented by: Vital Signs & Weight: Vital Signs Temp Pulse Ox 12/20/19 11:44 98.0 F 12/20/19 08:00 100 12/20/19 07:14 98.0 F Admit Weight 173 lb 6.4 oz Weight 179 lb I/O: I/O 12/19/19 12/20/19 12/21/19 06:59 06:59 06:59 Intake Total 844 3850 Output Total 0 400 Balance 844 3450 - Quality Measures Condition: Atrial Fibrillation/Flutter (hx or current) CV meds: Aspirin: Yes, Eliquis: Yes (on hold) - Physical Exam General: alert & oriented x3 HEENT: normocephaly Neck: no JVD/HJR Cardiology: no murmur Lungs: clear to auscultation, no wheezes Neurology: grossly intact Abdomen: unremarkable Extremities: warm - Labs Result Diagrams: 12/20/19 03:11 12/20/19 03:11 - EKG Interpretation EKG Method: Telemetry (SR.) - Assessment/Plan Assessment/Plan: 1. Chest pain with [id number] [place]. a. Left heart catheterization on 12/03/2019, found LAD/diagonal bifurcation disease, recommended bypass. 2. Coronary artery disease, status post coronary artery bypass grafting x2 vessel on 12/05/2019. a. SULLIVAN to LAD, saphenous graft to diagonal. 3. History of COPD. 4. Postoperative atrial fibrillation, prompting amiodarone initiation and oral anticoagulation with Eliquis. 5. Ischemic cardiomyopathy. a. LVEF 30% to 35% per echo on 12/04/2019. b. life vest in place. Recommend repeat echocardiogram in 3 months time and continued GDMT. consider ICD if LVEF less than 35% after 3 months 6. Chronic kidney disease. 7. Hypertension. 8. Tobacco habituation. 9. Anemia 10. Transaminitis 11. Pericardial effusion. SR overnight but eliquis stopped due to anemia and amiodarone stopped due to ALT/AST elevation. He is weak and hypotensive and was transferred to [facility]. Rhythm stable overnight. Rhythm medication options are limited with severe cardiomyopathy and CAD to amiodarone and dofetilide. Amiodarone may be related with his transaminitis and his kidney function does not allow for dofetilide. Monitor rhythm for now. CV or rate control may be the only feasible options of recurrence is seen if he cannot resume amiodarone. 12/20/19. Transfered to ICU hence borderline BP. CT chest with peric. effusion. OAC stopped 11/12 am. S/P Pericardial window placement this pm. Continues in SR on amiodarone. Continue. Will check again 12/22.
[2019-12-20] MEDS ORDERED: Promethazine HCl 25 MG/ML VIAL ONE (16:15)
--- NOTE | 2019-12-20 16:47 | RAD ---
EXAM: CHEST ONE VIEW HISTORY: Post pericardial window. COMPARISON: 12/19/2019 FINDINGS: Cardiac silhouette remains enlarged. Median sternotomy wires are present. There is a linear radiopaqu e density overlying the lower midline of the chest which may be related to overlying artifact or a drainage catheter. Patchy parenchymal density seen at the left lung base with evidence of left pleura l effusion. Parenchymal densities probably attributable to atelectasis. Atelectasis is also present at the right lung base. Vascular calcifications are seen in thoracic aorta. No other change. IMPRESSION: 1. Persistent cardiomegaly. Pulmonary vasculature is within normal limits. 2. Small left pleural effusion and atelectasis. 3. Atelectasis right lung base.
--- NOTE | 2019-12-20 17:08 | PRG ---
DATE OF SERVICE: 12/20/2019 SUBJECTIVE: Patient was seen and examined at bedside and overnight events noted. Patient denies any shortness of breath or chest pain or palpitation. No history of nausea or vomiting or diarrhea or fever or chills or cramps. OBJECTIVE: GENERAL: This is well-built male in no apparent distress. VITAL SIGNS: Temperature 98.0. Heart Rate 70. Respiratory rate 23. Blood pressure 82/51. HEENT: Atraumatic, normocephalic. NECK: Supple. CARDIOVASCULAR: S1, S2 heard. RESPIRATORY: Clear to auscultation. GASTROINTESTINAL: Abdomen is soft. MUSCULOSKELETAL: 1+ edema. DERMATOLOGIC: No skin rash. NEUROLOGIC: Alert and awake. LABORATORY DATA: Potassium 4.8, BUN is 73, creatinine is 3.4. ASSESSMENT AND PLAN: 1. Acute kidney injury, worsening chronic kidney disease, worsening labs, most likely secondary to cardiorenal syndrome and the patient is found to have pericardial effusion and pleural effusion. Recommend to stop IV fluids. Agree with pericardial window. We will monitor. 2. Hyponatremia. 3. Hyperkalemia. 4. Cardiorenal syndrome. 5. Hypoalbuminemia. 6. Anemia of chronic disease. Prognosis remains guarded due to pericardial window. We will monitor renal function. Avoid nephrotoxins. Stop IV fluids for now. Continue optimization of cardiac medications. Follow with Cardiology and cardiovascular surgeon. I will follow the case along with ortho specialist and the primary team. Job ID: [id number]
[2019-12-20 18:06] LABS: Vancomycin, Random 18.4 ug/mL (See Comment)
--- NOTE | 2019-12-20 20:22 | OP ---
DATE OF PROCEDURE: 12/20/2019 PREOPERATIVE DIAGNOSIS: Pericardial effusion. POSTOPERATIVE DIAGNOSIS: Pericardial effusion. PROCEDURES PERFORMED: 1. Ultrasound-guided left radial artery catheter placement. 2. Pericardial window. ANESTHESIA: General endotracheal, Dr. Jani Daigle. ESTIMATED BLOOD LOSS: Less than 100. DRAIN: 19-[place] Genaro. FINDINGS: 750 mL of blood in the pericardium. DESCRIPTION OF PROCEDURE: After operative consent was obtained, the patient was brought to the operating room, placed in supine position on the operating table. Using ultrasound guidance, a left radial arterial line was placed. The patient was placed under general anesthesia. The chest was prepped and draped in usual sterile fashion. The lower portion of the sternotomy was opened. The skin and subcutaneous tissues were spread. I was able to access the pericardium without much difficulty under the xiphoid. A 750 mL of blood was evacuated. There was no active bleeding and the blood was dark and there was old fibrinous debris within it. This is more than likely due to anticoagulation. A 19-[place] Genaro drain was placed and secured to the skin with silk suture. Wounds were then closed in layers and Dermabond applied to skin. The patient tolerated the procedure well, awakened, extubated, and transferred to recovery room in stable condition. Job ID: [id number]
[2019-12-20] MEDS: Atorvastatin Calcium 40 MG TAB PO SCH (20:43)
[2019-12-20] MEDS: Tamsulosin HCl 0.4 MG CAP PO SCH (20:43)
[2019-12-20] MEDS ORDERED: Vancomycin HCl 500 MG in Sodium Chloride 0.9% 100 ML IVPB SCH (21:30)
[2019-12-21] MEDS: Cefepime 1 GM in Sodium Chloride 0.9% 100 ML IVPB SCH ×2 (01:45→15:06)
[2019-12-21 04:00] LABS: ALT (SGPT) 663 U/L (8-55); AST (SGOT) 276 U/L (5-34); Albumin 2.8 g/dL (3.4-4.8); Alkaline Phosphatase 76 U/L (40-110); Anion Gap 14 mmol/L (10-20); BUN (Urea Nitrogen) 81 mg/dL (8.4-25.7); Bilirubin, Total 1.4 mg/dL (0.2-1.2); Calc. Creatinine Clearance 25 mL/min (70-130); Calcium 7.3 mg/dL (7.8-10.44); Carbon Dioxide 19 mmol/L (23-31); Chloride 105 mmol/L (98-107); Estimated GFR-MDRD 18; Globulin 1.8 g/dL (2.4-3.5); Glucose 89 mg/dL (80-115); Potassium 4.2 mmol/L (3.5-5.1); Protein, Total 4.6 g/dL (5.8-8.1); Sodium 134 mmol/L (136-145)
[2019-12-21 04:20] LABS: HBCM Index 0.07 S/CO (0-0.79); HBSAg Index 0.16 S/CO (0-0.99); Hep A IgM AB Non-Reactive (NonReactive); Hep A IgM S/CO 0.36 S/CO (0-0.79); Hep B Surf Ag Non-Reactive S/CO (NonReactive); Hep C IgG Ab Non-Reactive (NonReactive); Hep C Index 0.07 S/CO (0-0.79); Hepatitis B Core IgM Abs Non-Reactive (NonReactive)
[2019-12-21 04:34] LABS: Band 13 % (5-11); Hemoglobin 7.3 g/dL (14.0-18.0); Lymphocytes 9 % (21-51); MDiff Complete? YES; Mean Corpuscular HGB CONC 34.6 g/dL (32.0-36.0); Mean Corpuscular Hemoglobin 33.4 pg (27.0-31.0); Mean Corpuscular Volume 96.6 fL (78.0-98.0); Mean Platelet Volume 7.7 fL (7.4-10.4); Monocytes 4 % (0-10); Myelocyte 2 % (0-0); Neutrophil 72 % (42-75); Nucleated RBC 4 % (0); Platelet Count 275 thou/uL (130-400); RBC Distribution Width 13.1 % (11.5-14.5); Red Blood Cell (RBC) Count 2.17 mill/uL (4.70-6.10); White Blood Cell (WBC) Count 15.8 thou/uL (4.8-10.8)
[2019-12-21] MEDS: Mometasone 200 MCG/Formoterol 5 MCG 120 PUFF INHALER INH SCH ×2 (07:37→19:10)
[2019-12-21] MEDS: Fludrocortisone Acetate 0.1 MG TAB PO SCH (08:32)
[2019-12-21] MEDS: Aspirin 81 mg Enteric Coated Tablet PO SCH (08:33)
[2019-12-21] MEDS: Midodrine HCl 5 MG TAB PO SCH ×3 (08:33→19:52)
[2019-12-21] MEDS: Acetaminophen 325 MG TAB PO PRN (11:35)
--- NOTE | 2019-12-21 11:44 | PDOC.CPN ---
- Subjective Date: 12/21/19 Time: 13:41 Interval history: Doing much better overall BP more stable No current complaints states he feels better - Objective Allergies/Adverse Reactions: Allergies Allergy/AdvReac Type Severity Reaction Status Date / Time No Known Drug Allergies Allergy Verified 04/29/19 06:16 Visit Medications: Current Medications Acetaminophen (Acetaminophen 325 Mg Tab) 650 mg PO Q6H PRN PRN Reason: Headache/Fever Or Mild Pain Last Admin: 12/21/19 11:35 Dose: 650 mg Documented by: Al Hydroxide/Mg Hydroxide (Mag-Al 1200 Mg/1200 Mg/30 Ml Udcup) 30 ml PO Q4H PRN PRN Reason: Indigestion Albuterol/Ipratropium (Ipratropium/Albuterol Sulfate 3 Ml Neb) 3 ml NEB Q6H PRN PRN Reason: Wheezing Last Admin: 12/19/19 01:06 Dose: 3 ml Documented by: Alprazolam (Alprazolam 0.25 Mg Tab) 0.5 mg PO TIDPRN PRN PRN Reason: Anxiety Last Admin: 12/19/19 21:37 Dose: 0.5 mg Documented by: Aspirin (Aspirin 81 Mg Enteric Coated Tablet) 81 mg PO DAILY [facility] Last Admin: 12/21/19 08:33 Dose: 81 mg Documented by: Atorvastatin Calcium (Atorvastatin Calcium 40 Mg Tab) 40 mg PO [facility] Last Admin: 12/20/19 20:43 Dose: 40 mg Documented by: Bisacodyl (Bisacodyl 5 Mg Tab) 10 mg PO Q12H PRN PRN Reason: Constipation Last Admin: 12/16/19 10:47 Dose: 10 mg Documented by: Bisacodyl (Bisacodyl 10 Mg Supp) 10 mg [place] Q12H PRN PRN Reason: Constipation Diphenhydramine HCl (Diphenhydramine 25 Mg Cap) 25 mg PO Q6H PRN PRN Reason: Itching & Insomnia or Neri Ludin Last Admin: 12/17/19 20:33 Dose: 25 mg Documented by: Fludrocortisone Acetate (Fludrocortisone Acetate 0.1 Mg Tab) 0.1 mg PO DAILY [facility] Last Admin: 12/21/19 08:32 Dose: 0.1 mg Documented by: Guaifenesin/Dextromethorphan (Guaifenesin Dm 100-10/5 Ml Udcup) 15 ml PO Q4H PRN PRN Reason: Cough Vancomycin HCl 1 gm/ Device 200 mls @ 200 mls/hr IVPB .PENDING LEVEL [facility] Cefepime HCl 1 gm/ Sodium (Chloride) 100 mls @ 200 mls/hr IVPB 0200,1400 [facility] Last Admin: 12/21/19 01:45 Dose: 100 mls Documented by: Magnesium Hydroxide (Milk Of Magnesia 30 Ml Udcup) 30 ml PO Q12H PRN PRN Reason: Constipation Midodrine (Midodrine Hcl 5 Mg Tab) 10 mg PO TID [facility] Last Admin: 12/21/19 08:33 Dose: 10 mg Documented by: Mineral Oil (Mineral Oil Enema) 133 ml [place] DAILYPRN PRN PRN Reason: Constipation Miscellaneous Medication (Pharmacy To Dose Vancomycin) 1 each IVPB PRN PRN PRN Reason: Pharmacy to dose Mometasone Furoate/Formoterol Fumar (Mometasone 200 Mcg/Formoterol 5 Mcg 120 Puff Inhaler) 2 puff INH BID-RT [facility] Last Admin: 12/21/19 07:37 Dose: 2 puff Documented by: Morphine Sulfate (Morphine 2 Mg/Ml Vial) 2 mg SLOW IVP Q4H PRN PRN Reason: Severe Pain (7-10) Nitroglycerin (Nitroglycerin 0.4 Mg Tab (25 Tab Bottle)) 0.4 mg SL Q5MIN PRN PRN Reason: Chest Pain Ondansetron HCl (Ondansetron Pf 4 Mg/2 Ml Vial) 4 mg IVP Q6H PRN PRN Reason: Nausea/Vomiting Last Admin: 12/19/19 06:00 Dose: 4 mg Documented by: Pantoprazole Sodium (Pantoprazole 40 Mg Tab) 40 mg PO DAILY [facility] Last Admin: 12/21/19 08:32 Dose: 40 mg Documented by: Sodium Chloride (Flush - Normal Saline 10 Ml Syringe) 10 ml IVF PRN PRN PRN Reason: Saline Flush Last Admin: 12/19/19 06:00 Dose: 10 ml Documented by: Tamsulosin HCl (Tamsulosin Hcl 0.4 Mg Cap) 0.4 mg PO [facility] Last Admin: 12/20/19 20:43 Dose: 0.4 mg Documented by: Vital Signs & Weight: Vital Signs Temp 12/21/19 07:08 97.4 F L 12/21/19 03:37 98.8 F Admit Weight 173 lb 6.4 oz Weight 183 lb 6 oz - Physical Exam General: alert & oriented x3 Neck: supple neck Cardiac: no murmur, regular rate, regular rhythm Lungs: normal exam Neuro: grossly intact - Labs Result Diagrams: 12/21/19 03:05 12/21/19 03:05 Troponin/CKMB CK-MB (CK-2) 1.9 ng/mL (0-6.6) 12/19/19 12:24 Troponin I 0.111 ng/mL (< 0.028) H 12/19/19 21:34 - Assessment/Plan Assessment/Plan: Hypotension pericardial effusion s/p CABG CAD afib Anemia BP more stable after recent pericardial drainage (700ml) Avoid ACT knowing risk of CVA Continue amiodarone for now ASA, statin Hold BB or ACEI secondary to marginal BP Transfuse Creatinine appears to have plateaued R/B of ACT and afib discussed.
--- NOTE | 2019-12-21 14:12 | PDOC.HOSPP ---
- Subjective Encounter Date: 12/21/19 Encounter Time: 11:30 Subjective: Since he is status post pericardial window yesterday and 750 mL of blood removed from the pericardial area.Blood pressure on the low side. Patient is resting. He is afebrile. - Objective Vital Signs & Weight: Vital Signs (12 hours) Temp Pulse Pulse BP BP Pulse Ox Pulse Ox 12/21/19 11:46 71 68 104/55 L 102/54 L 96 12/21/19 08:00 97 12/21/19 07:08 97.4 F L 12/21/19 03:37 98.8 F Pulse Ox 12/21/19 11:46 94 L 12/21/19 08:00 12/21/19 07:08 12/21/19 03:37 Weight Admit Weight 173 lb 6.4 oz Weight 183 lb 6 oz Most Recent Monitor Data Heart Rate from ECG 65 NIBP 93/48 NIBP BP-Mean 63 Respiration from ECG 18 SpO2 99 I&O: 12/20/19 12/21/19 12/22/19 06:59 06:59 06:59 Intake Total 3850 770 120 Output Total 400 880 Balance 3450 -110 120 Result Diagrams: 12/21/19 03:05 12/21/19 03:05 Hospitalist ROS - Medication Medications: Active Medications Generic Name Dose Route Start Last Admin Trade Name Freq PRN Reason Stop Dose Admin Acetaminophen 650 mg 12/05/19 10:16 12/21/19 11:35 Acetaminophen 325 Mg Tab PO 650 mg Q6H PRN Administration Headache/Fever Or Mild Pain Albuterol/Ipratropium 3 ml 12/18/19 11:29 12/19/19 01:06 Ipratropium/Albuterol Sulfate 3 Ml Neb NEB 3 ml Q6H PRN Administration Wheezing Alprazolam 0.5 mg 12/18/19 12:05 12/19/19 21:37 Alprazolam 0.25 Mg Tab PO 0.5 mg TIDPRN PRN Administration Anxiety Aspirin 81 mg 12/06/19 09:00 12/21/19 08:33 Aspirin 81 Mg Enteric Coated Tablet PO 81 mg DAILY RENOZ Administration Atorvastatin Calcium 40 mg 12/06/19 21:00 12/20/19 20:43 Atorvastatin Calcium 40 Mg Tab PO 40 mg HS RENZO Administration Bisacodyl 10 mg 12/06/19 07:34 12/16/19 10:47 Bisacodyl 5 Mg Tab PO 10 mg Q12H PRN Administration Constipation Diphenhydramine HCl 25 mg 12/06/19 07:34 12/17/19 20:33 Diphenhydramine 25 Mg Cap PO 25 mg Q6H PRN Administration Itching & Insomnia or Neri Ludin Fludrocortisone Acetate 0.1 mg 12/20/19 09:00 12/21/19 08:32 Fludrocortisone Acetate 0.1 Mg Tab PO 0.1 mg DAILY RENZO Administration Cefepime HCl 1 gm/ Sodium 100 mls @ 200 mls/hr 12/19/19 14:00 12/21/19 01:45 Chloride IVPB 100 mls 0200,1400 RENZO Administration Midodrine 10 mg 12/19/19 15:00 12/21/19 08:33 Midodrine Hcl 5 Mg Tab PO 10 mg TID RENZO Administration Mometasone Furoate/Formoterol Fumar 2 puff 12/04/19 18:30 12/21/19 07:37 Mometasone 200 Mcg/Formoterol 5 Mcg 120 Puff Inhaler INH 2 puff BID-RT RENZO Administration Ondansetron HCl 4 mg 12/05/19 10:16 12/19/19 06:00 Ondansetron Pf 4 Mg/2 Ml Vial IVP 4 mg Q6H PRN Administration Nausea/Vomiting Pantoprazole Sodium 40 mg 12/06/19 09:00 12/21/19 08:32 Pantoprazole 40 Mg Tab PO 40 mg DAILY RENZO Administration Sodium Chloride 10 ml 12/06/19 07:34 12/19/19 06:00 Flush - Normal Saline 10 Ml Syringe IVF 10 ml PRN PRN Administration Saline Flush Tamsulosin HCl 0.4 mg 12/05/19 21:00 12/20/19 20:43 Tamsulosin Hcl 0.4 Mg Cap PO 0.4 mg HS RENZO Administration - Exam General Appearance: NAD, awake alert Eye: PERRL, anicteric sclera ENT: normocephalic atraumatic Neck: supple Heart: RRR Respiratory: CTAB, normal chest expansion Gastrointestinal: soft, normal bowel sounds Neurological: no focal deficits Psychiatric: A&O x 3 Hosp A/P - Plan 64 years old gentleman, who has significant past medical history of COPD, CKD stage III, hypertension, who presented to ED with complaint of chest pain. He was found to have NSTEMI. Cardiology was consulted, subsequently had a left heart cath, showed two-vessel CAD. He ultimately underwent two-vessel bypass, and tolerated procedure well. However, postoperatively, patient developed atrial fib, and persistent hypotension Hematoma - in setting of recent CABG --chest CT showed fluid collections along the anterior mediastinum, and also on the lateral of pericardium that exerts its effects on the right ventricle --Status post pericardial window placed yesterday. About 750 mL of serosanguineous fluid removed. Hypotension - remains hypotensive despite volume expansion. --d/w cardiology, rpt Echo was difficult to interpret. --MAC inhibitor is on hold due to low blood pressure. NSTEMI --s/p 2VD bypass --ASA on hold d/t above. BB on hold d/t hypotension. Statin on hold d/t elevated LFT B/L Pleural Effusion -Seems improved. Chest x-ray showed now only small left pleural effusion noted. Persistent cardiomegaly. MICHELLE/CKD 3 --Cr worsened hypotension, decr renal perfusion --Nephrology is following Metabolic acidosis --Status post sodium bicarb IVF Anemia of CKD and acute blood loss from recent surgery --transfuse 1U to keep Hb>9 AFib with RVR/NSVT --transitioned to PO Amio. Eliquis on hold for now, SQ for now d/t above acute changes. D/w cardiology. Hold BB d/t recurrent hypotension --EP is following Elevated LFT --? shock liver or ischemic event from episodes of hypotension; however, I would expect that his AST/ALT to be significantly elevated. -hold his statin for now, trend liver enzymes. -Liver ultrasound negative for acute cholecystitis -Transaminases trending down. Alkaline phosphatase in the normal range. - COPD - stable --cont prn nebs HTN --hold all antihypertensive meds for now. Leukocytosis --could reactive from above hematomas, cont empiric IV abx. Follow up pending cultures. Anxiety disorder with episode of panic attacks --cont prn anxiolytics.
--- NOTE | 2019-12-21 16:49 | PRG ---
DATE OF SERVICE: 12/21/2019 SUBJECTIVE: Patient was seen and examined at bedside and overnight events noted. Patient denies any shortness of breath or chest pain or palpitation. No history of nausea or vomiting or diarrhea or fever or chills or cramps. OBJECTIVE: GENERAL: This is well-built male, in no apparent distress. VITAL SIGNS: Temperature 97.4. Pulse 65. Respiratory rate 18. Blood pressure HEENT: Atraumatic, normocephalic. NECK: Supple. CARDIOVASCULAR: S1, S2 heard. Rate and rhythm regular. RESPIRATORY: Clear to auscultation. GASTROINTESTINAL: Abdomen is soft. MUSCULOSKELETAL: 1+ edema. DERMATOLOGIC: No skin rash. NEUROLOGIC: Alert and awake and oriented x3. No focal neurologic deficits. Moving all the extremities. PSYCHIATRIC: Mood and affect normal. LABORATORY DATA: Potassium 4.2, BUN is 81, creatinine is 3.4. ASSESSMENT AND PLAN: 1. Acute kidney injury on chronic kidney stage 3. Labs seems to be stable, most likely from cardiorenal syndrome. 2. Pericardial effusion. 3. Hyponatremia. 4. Hyperkalemia. 5. Cardiorenal syndrome. 6. Anemia of chronic disease. Monitor renal function. Avoid nephrotoxins. Job ID: [id number]
[2019-12-21] MEDS: Atorvastatin Calcium 40 MG TAB PO SCH (19:52)
[2019-12-21] MEDS: Tamsulosin HCl 0.4 MG CAP PO SCH (19:52)
[2019-12-21 21:03] LABS: Vancomycin, Random 15.5 ug/mL (See Comment)
[2019-12-21] MEDS ORDERED: Vancomycin HCl 750 MG in Sodium Chloride 0.9% 250 ML 250 ML IVPB SCH (21:30)
[2019-12-21] MEDS: ALPRAZolam 0.25 MG TAB PO PRN (22:49)
[2019-12-22] MEDS: Cefepime 1 GM in Sodium Chloride 0.9% 100 ML IVPB SCH ×2 (02:15→15:06)
[2019-12-22 05:51] LABS: #Eosinphils 0.2 thou/uL (0.0-0.7); #Monocytes 0.7 thou/uL (0.11-0.59); #Neutrophils 11.4 thou/uL (1.40-6.50); %Basophils 0.1 % (0.0-1.0); %Eosinophils 1.3 % (0.0-10.0); %Lymphocytes 7.7 % (21.0-51.0); %Monocytes 5.2 % (0.0-10.0); %Neutrophils 85.7 % (42.0-75.0); Hemoglobin 9.1 g/dL (14.0-18.0); Mean Corpuscular HGB CONC 34.3 g/dL (32.0-36.0); Mean Corpuscular Hemoglobin 33.7 pg (27.0-31.0); Mean Corpuscular Volume 98.3 fL (78.0-98.0); Mean Platelet Volume 7.3 fL (7.4-10.4); Platelet Count 267 thou/uL (130-400); RBC Distribution Width 13.3 % (11.5-14.5); Red Blood Cell (RBC) Count 2.69 mill/uL (4.70-6.10); White Blood Cell (WBC) Count 13.3 thou/uL (4.8-10.8)
[2019-12-22 06:02] LABS: Anion Gap 13 mmol/L (10-20); BUN (Urea Nitrogen) 59 mg/dL (8.4-25.7); Calc. Creatinine Clearance 38 mL/min (70-130); Calcium 7.5 mg/dL (7.8-10.44); Carbon Dioxide 18 mmol/L (23-31); Chloride 110 mmol/L (98-107); Estimated GFR-MDRD 30; Glucose 87 mg/dL (80-115); Sodium 137 mmol/L (136-145)
[2019-12-22] MEDS: Mometasone 200 MCG/Formoterol 5 MCG 120 PUFF INHALER INH SCH ×2 (07:58→19:41)
[2019-12-22 09:15] LABS: ALT (SGPT) 509 U/L (8-55); AST (SGOT) 156 U/L (5-34); Albumin 2.7 g/dL (3.4-4.8); Alkaline Phosphatase 79 U/L (40-110); Bilirubin, Direct 0.9 mg/dL (0.1-0.3); Bilirubin, Total 1.2 mg/dL (0.2-1.2); Protein, Total 4.6 g/dL (5.8-8.1)
[2019-12-22 09:43] LABS: HBCM Index 0.06 S/CO (0-0.79); HBSAg Index 0.21 S/CO (0-0.99); Hep A IgM AB Non-Reactive (NonReactive); Hep A IgM S/CO 0.41 S/CO (0-0.79); Hep B Surf Ag Non-Reactive S/CO (NonReactive); Hep C IgG Ab Non-Reactive (NonReactive); Hep C Index 0.08 S/CO (0-0.79); Hepatitis B Core IgM Abs Non-Reactive (NonReactive)
[2019-12-22] MEDS: Aspirin 81 mg Enteric Coated Tablet PO SCH (09:44)
[2019-12-22] MEDS: Midodrine HCl 5 MG TAB PO SCH ×3 (09:44→20:30)
[2019-12-22] MEDS: Fludrocortisone Acetate 0.1 MG TAB PO SCH (09:44)
--- NOTE | 2019-12-22 14:19 | PDOC.CPN ---
- Subjective Date: 12/22/19 Time: 14:17 Interval history: Overall is weak No specific complaints noted BP overall has stabilized - Objective Allergies/Adverse Reactions: Allergies Allergy/AdvReac Type Severity Reaction Status Date / Time No Known Drug Allergies Allergy Verified 04/29/19 06:16 Visit Medications: Current Medications Acetaminophen (Acetaminophen 325 Mg Tab) 650 mg PO Q6H PRN PRN Reason: Headache/Fever Or Mild Pain Last Admin: 12/21/19 11:35 Dose: 650 mg Documented by: Al Hydroxide/Mg Hydroxide (Mag-Al 1200 Mg/1200 Mg/30 Ml Udcup) 30 ml PO Q4H PRN PRN Reason: Indigestion Albuterol/Ipratropium (Ipratropium/Albuterol Sulfate 3 Ml Neb) 3 ml NEB Q6H PRN PRN Reason: Wheezing Last Admin: 12/21/19 19:11 Dose: 3 ml Documented by: Alprazolam (Alprazolam 0.25 Mg Tab) 0.5 mg PO TIDPRN PRN PRN Reason: Anxiety Last Admin: 12/21/19 22:49 Dose: 0.5 mg Documented by: Aspirin (Aspirin 81 Mg Enteric Coated Tablet) 81 mg PO DAILY [facility] Last Admin: 12/22/19 09:44 Dose: 81 mg Documented by: Atorvastatin Calcium (Atorvastatin Calcium 40 Mg Tab) 40 mg PO HS [facility] Last Admin: 12/21/19 19:52 Dose: 40 mg Documented by: Bisacodyl (Bisacodyl 5 Mg Tab) 10 mg PO Q12H PRN PRN Reason: Constipation Last Admin: 12/16/19 10:47 Dose: 10 mg Documented by: Bisacodyl (Bisacodyl 10 Mg Supp) 10 mg FL Q12H PRN PRN Reason: Constipation Diphenhydramine HCl (Diphenhydramine 25 Mg Cap) 25 mg PO Q6H PRN PRN Reason: Itching & Insomnia or Neri Ludin Last Admin: 12/17/19 20:33 Dose: 25 mg Documented by: Fludrocortisone Acetate (Fludrocortisone Acetate 0.1 Mg Tab) 0.1 mg PO DAILY [facility] Last Admin: 12/22/19 09:44 Dose: 0.1 mg Documented by: Guaifenesin/Dextromethorphan (Guaifenesin Dm 100-10/5 Ml Udcup) 15 ml PO Q4H PRN PRN Reason: Cough Vancomycin HCl 1 gm/ Device 200 mls @ 200 mls/hr IVPB .PENDING LEVEL [facility] Cefepime HCl 1 gm/ Sodium (Chloride) 100 mls @ 200 mls/hr IVPB 0200,1400 [facility] Last Admin: 12/22/19 02:15 Dose: 100 mls Documented by: Magnesium Hydroxide (Milk Of Magnesia 30 Ml Udcup) 30 ml PO Q12H PRN PRN Reason: Constipation Midodrine (Midodrine Hcl 5 Mg Tab) 10 mg PO TID [facility] Last Admin: 12/22/19 09:44 Dose: 10 mg Documented by: Mineral Oil (Mineral Oil Enema) 133 ml FL DAILYPRN PRN PRN Reason: Constipation Miscellaneous Medication (Pharmacy To Dose Vancomycin) 1 each IVPB PRN PRN PRN Reason: Pharmacy to dose Mometasone Furoate/Formoterol Fumar (Mometasone 200 Mcg/Formoterol 5 Mcg 120 Puff Inhaler) 2 puff INH BID-RT [facility] Last Admin: 12/22/19 07:58 Dose: 2 puff Documented by: Morphine Sulfate (Morphine 2 Mg/Ml Vial) 2 mg SLOW IVP Q4H PRN PRN Reason: Severe Pain (7-10) Nitroglycerin (Nitroglycerin 0.4 Mg Tab (25 Tab Bottle)) 0.4 mg SL Q5MIN PRN PRN Reason: Chest Pain Ondansetron HCl (Ondansetron Pf 4 Mg/2 Ml Vial) 4 mg IVP Q6H PRN PRN Reason: Nausea/Vomiting Last Admin: 12/19/19 06:00 Dose: 4 mg Documented by: Pantoprazole Sodium (Pantoprazole 40 Mg Tab) 40 mg PO DAILY [facility] Last Admin: 12/22/19 09:44 Dose: 40 mg Documented by: Sodium Chloride (Flush - Normal Saline 10 Ml Syringe) 10 ml IVF PRN PRN PRN Reason: Saline Flush Last Admin: 12/19/19 06:00 Dose: 10 ml Documented by: Tamsulosin HCl (Tamsulosin Hcl 0.4 Mg Cap) 0.4 mg PO HS [facility] Last Admin: 12/21/19 19:52 Dose: 0.4 mg Documented by: Vital Signs & Weight: Vital Signs Temp Pulse Pulse BP BP Pulse Ox Pulse Ox 12/22/19 11:12 98.0 F 12/22/19 09:13 74 73 121/56 L 111/56 L 95 12/22/19 07:50 97 12/22/19 07:09 98.7 F 12/22/19 04:05 98.0 F Pulse Ox 12/22/19 11:12 12/22/19 09:13 98 12/22/19 07:50 12/22/19 07:09 12/22/19 04:05 Admit Weight 173 lb 6.4 oz Weight 182 lb 3 oz - Physical Exam General: alert & oriented x3 Neck: no JVD/HJR, no masses Cardiac: no murmur, regular rate, regular rhythm Lungs: normal exam Neuro: grossly intact - Labs Result Diagrams: 12/22/19 04:38 12/22/19 04:38 Troponin/CKMB CK-MB (CK-2) 1.9 ng/mL (0-6.6) 12/19/19 12:24 Troponin I 0.111 ng/mL (< 0.028) H 12/19/19 21:34 - Assessment/Plan Assessment/Plan: Hypotension pericardial effusion s/p CABG CAD afib Anemia Doing much better overall AST/ALT and creatinine have all seen dramatic improvment after recent pericardial drainage No further apisodes of afib noted Pt need PT and continued IS Ok to transfer to [facility] and await swing bed No ACT recommended
--- NOTE | 2019-12-22 14:19 | PDOC.HOSPP ---
- Subjective Encounter Date: 12/22/19 Encounter Time: 11:00 Subjective: Patient seen this morning he appears a little lethargic. He denies any chest pain this morning. White count and creatinine is improving. - Objective Vital Signs & Weight: Vital Signs (12 hours) Temp Pulse Pulse BP BP Pulse Ox Pulse Ox 12/22/19 11:12 98.0 F 12/22/19 09:13 74 73 121/56 L 111/56 L 95 12/22/19 07:50 97 12/22/19 07:09 98.7 F 12/22/19 04:05 98.0 F Pulse Ox 12/22/19 11:12 12/22/19 09:13 98 12/22/19 07:50 12/22/19 07:09 12/22/19 04:05 Weight Admit Weight 173 lb 6.4 oz Weight 182 lb 3 oz Most Recent Monitor Data Heart Rate from ECG 68 NIBP 94/40 NIBP BP-Mean 58 Respiration from ECG 26 SpO2 94 I&O: 12/21/19 12/22/19 12/23/19 06:59 06:59 06:59 Intake Total 770 1310 Output Total 920 2225 400 Balance -150 -915 -400 Result Diagrams: 12/22/19 04:38 12/22/19 04:38 Hospitalist ROS - Medication Medications: Active Medications Generic Name Dose Route Start Last Admin Trade Name Freq PRN Reason Stop Dose Admin Acetaminophen 650 mg 12/05/19 10:16 12/21/19 11:35 Acetaminophen 325 Mg Tab PO 650 mg Q6H PRN Administration Headache/Fever Or Mild Pain Albuterol/Ipratropium 3 ml 12/18/19 11:29 12/21/19 19:11 Ipratropium/Albuterol Sulfate 3 Ml Neb NEB 3 ml Q6H PRN Administration Wheezing Alprazolam 0.5 mg 12/18/19 12:05 12/21/19 22:49 Alprazolam 0.25 Mg Tab PO 0.5 mg TIDPRN PRN Administration Anxiety Aspirin 81 mg 12/06/19 09:00 12/22/19 09:44 Aspirin 81 Mg Enteric Coated Tablet PO 81 mg DAILY RENZO Administration Atorvastatin Calcium 40 mg 12/06/19 21:00 12/21/19 19:52 Atorvastatin Calcium 40 Mg Tab PO 40 mg HS RENZO Administration Bisacodyl 10 mg 12/06/19 07:34 12/16/19 10:47 Bisacodyl 5 Mg Tab PO 10 mg Q12H PRN Administration Constipation Diphenhydramine HCl 25 mg 12/06/19 07:34 12/17/19 20:33 Diphenhydramine 25 Mg Cap PO 25 mg Q6H PRN Administration Itching & Insomnia or Neri Ludin Fludrocortisone Acetate 0.1 mg 12/20/19 09:00 12/22/19 09:44 Fludrocortisone Acetate 0.1 Mg Tab PO 0.1 mg DAILY RENZO Administration Cefepime HCl 1 gm/ Sodium 100 mls @ 200 mls/hr 12/19/19 14:00 12/22/19 02:15 Chloride IVPB 100 mls 0200,1400 RENZO Administration Midodrine 10 mg 12/19/19 15:00 12/22/19 09:44 Midodrine Hcl 5 Mg Tab PO 10 mg TID RENZO Administration Mometasone Furoate/Formoterol Fumar 2 puff 12/04/19 18:30 12/22/19 07:58 Mometasone 200 Mcg/Formoterol 5 Mcg 120 Puff Inhaler INH 2 puff BID-RT RENZO Administration Ondansetron HCl 4 mg 12/05/19 10:16 12/19/19 06:00 Ondansetron Pf 4 Mg/2 Ml Vial IVP 4 mg Q6H PRN Administration Nausea/Vomiting Pantoprazole Sodium 40 mg 12/06/19 09:00 12/22/19 09:44 Pantoprazole 40 Mg Tab PO 40 mg DAILY RENZO Administration Sodium Chloride 10 ml 12/06/19 07:34 12/19/19 06:00 Flush - Normal Saline 10 Ml Syringe IVF 10 ml PRN PRN Administration Saline Flush Tamsulosin HCl 0.4 mg 12/05/19 21:00 12/21/19 19:52 Tamsulosin Hcl 0.4 Mg Cap PO 0.4 mg HS RENZO Administration - Exam General Appearance: NAD, awake alert Eye: PERRL ENT: normocephalic atraumatic Neck: supple Heart: RRR Respiratory: CTAB, normal chest expansion Gastrointestinal: soft, normal bowel sounds Neurological: no focal deficits Psychiatric: A&O x 3 Hosp A/P - Plan 64 years old gentleman, who has significant past medical history of COPD, CKD stage III, hypertension, who presented to ED with complaint of chest pain. He was found to have NSTEMI. Cardiology was consulted, subsequently had a left heart cath, showed two-vessel CAD. He ultimately underwent two-vessel bypass, and tolerated procedure well. However, postoperatively, patient developed atrial fib, and persistent hypotension Hematoma - in setting of recent CABG --chest CT showed fluid collections along the anterior mediastinum, and also on the lateral of pericardium that exerts its effects on the right ventricle --Status post pericardial window placed yesterday. About 750 mL of serosan guineous fluid removed. Hypotension - remains hypotensive despite volume expansion. --d/w cardiology, rpt Echo was difficult to interpret. --MAC inhibitor is on hold due to low blood pressure. NSTEMI --s/p 2VD bypass --ASA on hold d/t above. BB on hold d/t hypotension. Statin on hold d/t elevated LFT B/L Pleural Effusion -Seems improved. Chest x-ray showed now only small left pleural effusion noted. Persistent cardiomegaly. MICHELLE/CKD 3 --Cr worsened hypotension, decr renal perfusion --Nephrology is following Metabolic acidosis --Status post sodium bicarb IVF Anemia of CKD and acute blood loss from recent surgery --transfuse 1U to keep Hb>9 AFib with RVR/NSVT --transitioned to PO Amio. Eliquis on hold for now, SQ for now d/t above acute changes. D/w cardiology. Hold BB d/t recurrent hypotension --EP is following Elevated LFT --? shock liver or ischemic event from episodes of hypotension; however, I would expect that his AST/ALT to be significantly elevated. -hold his statin for now, trend liver enzymes. -Liver ultrasound negative for acute cholecystitis -Transaminases trending down. Alkaline phosphatase in the normal range. - COPD - stable --cont prn nebs HTN --hold all antihypertensive meds for now. Leukocytosis --could reactive from above hematomas, cont empiric IV abx. Follow up pending cultures. Anxiety disorder with episode of panic attacks --cont prn anxiolytics. He appears well. White count and creatinine improving. 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 Will place physical therapy consult .
--- NOTE | 2019-12-22 14:31 | PRG ---
DATE OF SERVICE: 12/22/2019 SUBJECTIVE: The patient was seen and examined at the bedside. He is very lethargic today. He is not feeling good at all. He has some negative thoughts. No chest pain or palpitation reported to me, but very lethargic. OBJECTIVE: GENERAL: This is a well-built male, in [id number] distress and feeling lethargic. VITAL SIGNS: Temperature 98.0, pulse 68, respiratory rate 26, blood pressure 94/40. HEENT: Atraumatic, normocephalic. NECK: Supple. CARDIOVASCULAR: S1 and S2 heard. RESPIRATORY: Clear. GASTROINTESTINAL: Abdomen soft. MUSCULOSKELETAL: No tenderness. No edema. DERMATOLOGIC: No skin rash. NEUROLOGIC: Alert and awake. PSYCHIATRIC: Depressed. LABORATORY DATA: Hemoglobin 9.1. Potassium 4.0, BUN is 59, creatinine is 2.24. ASSESSMENT AND PLAN: 1. Acute kidney injury on chronic kidney disease secondary to cardiorenal syndrome and pericardial effusion, status post window and renal function seems to be better, which is encouraging. 2. Pericardial effusion. 3. Hyponatremia. 4. Hyperkalemia, better. 5. Cardiorenal syndrome. 6. Anemia of chronic disease. Overall, renal function seems to be better, but clinically he is not feeling better. His urine output is also improving. We will continue to monitor. Avoid nephrotoxins. Job ID: [id number]
[2019-12-22] MEDS: Atorvastatin Calcium 40 MG TAB PO SCH (20:30)
[2019-12-22] MEDS: Tamsulosin HCl 0.4 MG CAP PO SCH (20:30)
[2019-12-22] MEDS: diphenhydrAMINE 25 MG CAP PO PRN (20:32)
--- NOTE | 2019-12-22 20:50 | EKG ---
Test Reason : CP Blood Pressure : / mmHG Vent. Rate : 073 BPM Atrial Rate : 073 BPM P-R Int : 154 ms QRS Dur : 088 ms QT Int : 370 ms P-R-T Axes : 062 080 106 degrees QTc Int : 407 ms Normal sinus rhythm Nonspecific T wave abnormality Abnormal ECG Confirmed by Samantha DUNCAN ([id number]) on 12/22/2019 8:49:44 PM Referred By: NELSON Confirmed By:Samantha DUNCAN
[2019-12-22 20:55] LABS: Vancomycin, Random 13.9 ug/mL (See Comment)
[2019-12-22] MEDS ORDERED: Vancomycin 1 GM in Premix Bag 1 BAG IVPB SCH (21:30)
[2019-12-23] MEDS: diphenhydrAMINE 25 MG CAP PO PRN ×2 (02:11→21:18)
[2019-12-23] MEDS: Cefepime 1 GM in Sodium Chloride 0.9% 100 ML IVPB SCH (02:11)
[2019-12-23 03:08] LABS: #Eosinphils 0.2 thou/uL (0.0-0.7); #Lymphocytes 1.2 thou/uL (1.20-3.40); #Monocytes 0.8 thou/uL (0.11-0.59); #Neutrophils 8.8 thou/uL (1.40-6.50); %Lymphocytes 10.9 % (21.0-51.0); %Monocytes 7.4 % (0.0-10.0); %Neutrophils 79.6 % (42.0-75.0); Hemoglobin 9.5 g/dL (14.0-18.0); Mean Corpuscular HGB CONC 33.5 g/dL (32.0-36.0); Mean Corpuscular Hemoglobin 32.7 pg (27.0-31.0); Mean Corpuscular Volume 97.6 fL (78.0-98.0); Mean Platelet Volume 6.9 fL (7.4-10.4); Platelet Count 266 thou/uL (130-400); Red Blood Cell (RBC) Count 2.88 mill/uL (4.70-6.10)
[2019-12-23 03:30] LABS: ALT (SGPT) 490 U/L (8-55); AST (SGOT) 144 U/L (5-34); Albumin 2.7 g/dL (3.4-4.8); Alkaline Phosphatase 83 U/L (40-110); Bilirubin, Direct 0.9 mg/dL (0.1-0.3); Bilirubin, Total 1.3 mg/dL (0.2-1.2); Protein, Total 4.8 g/dL (5.8-8.1)
[2019-12-23 03:31] LABS: Anion Gap 10 mmol/L (10-20); BUN (Urea Nitrogen) 40 mg/dL (8.4-25.7); Calc. Creatinine Clearance 52 mL/min (70-130); Calcium 7.8 mg/dL (7.8-10.44); Carbon Dioxide 21 mmol/L (23-31); Chloride 112 mmol/L (98-107); Estimated GFR-MDRD 42; Glucose 93 mg/dL (80-115); Potassium 3.7 mmol/L (3.5-5.1); Sodium 139 mmol/L (136-145)
--- NOTE | 2019-12-23 07:24 | CT ---
CT OF CHEST PERFORMED WITHOUT CONTRAST ENHANCEMENT: HISTORY: Shortness of breath status post CABG. COMPARISON: 12/17/2019 exam. This examination was reviewed with Dr. Rondon. FINDINGS: There is increasing size to bilateral pleural effusions and worsening bibasilar atelectatic lung morrell ge. The hematoma along the anterior mediastinum extending as an oblong-shaped density in the anterio r pericardium is subtly increased in size as compared to the prior examination. There is a moderate amount of what is probably pericardial hematoma also present. This is difficult to appreciate, but t here does appear to be a subtle separation between this hematoma collection along the right side of t he heart border with compression on the right atrium but also moderate higher density pericardial jorden nges posteriorly and this does impress on the left ventricle. This area is also felt to be subtly la rger as compared to the prior exam, although the difference is minimal. IMPRESSION: 1. Worsening bilateral pleural effusions and bibasilar atelectatic lung changes. 2. Higher density somewhat loculated pericardial effusion compressing the right atrium but also some changes posteriorly which impress slightly on the left ventricle. Findings were reviewed with Dr. Rondon who will contact Dr. Soto concerning these findings. CODE CR POS: DIOGO
[2019-12-23] MEDS: Midodrine HCl 5 MG TAB PO SCH ×3 (08:46→21:13)
[2019-12-23] MEDS: Fludrocortisone Acetate 0.1 MG TAB PO SCH (08:46)
[2019-12-23] MEDS: Aspirin 81 mg Enteric Coated Tablet PO SCH (08:46)
[2019-12-23] MEDS: Mometasone 200 MCG/Formoterol 5 MCG 120 PUFF INHALER INH SCH ×2 (10:25→19:11)
--- NOTE | 2019-12-23 11:26 | PRG ---
DATE OF SERVICE: 12/23/2019 SUBJECTIVE: A 64-year-old gentleman, being seen for acute kidney injury. The patient denies nausea, vomiting, or chest pain. PHYSICAL EXAMINATION: General: The patient is awake and alert. Vital Signs: Afebrile, pulse 85, breathing at 16, blood pressure 130/75. HEENT: Head normocephalic and atraumatic. Eyes intact, no ulcers. Nose intact, no ulcers. Ears intact, no ulcers. Neck: Supple. No JVD. Chest: Symmetrical and clear. Cardiovascular: Shows S1 and S2, no rub, no murmur. Gastrointestinal: Abdomen is soft, bowel sounds positive. Extremities: Show no edema or ulcers. Skin: Shows no rash or petechiae. Musculoskeletal: Shows no joint swelling or stiffness. Genitourinary: Shows no S[place] or CVA tenderness. Neurologic: Motor intact. Cranial nerves intact. LABORATORY DATA: Reviewed. IMPRESSION AND PLAN: 1. Chronic kidney disease, stage 3, with acute kidney injury, improved. 2. Hypertension, stable. 3. Anemia, stable. 4. Medication based on GFR, appropriate. No indication for dialysis. I will sign off on this patient. Please reconsult as needed. Job ID: [id number]
--- NOTE | 2019-12-23 11:33 | PDOC.EP ---
- Subjective Date: 12/23/19 Time: 11:31 Interval History: Feels tired. Not motivated. no specific complaints this AM. No heart racing, palpitation, or chest pain with AF. - Review of Systems Constitutional: reports: weakness. denies: chills, fever Respiratory: denies: cough, shortness of breath, SOB with excertion Cardiology: denies: chest pain, edema, heart racing, light headedness, palpitations, passing out Gastrointestinal: denies: abdominal pain, constipation, nausea, vomitting - Objective Allergies/Adverse Reactions: Allergies Allergy/AdvReac Type Severity Reaction Status Date / Time No Known Drug Allergies Allergy Verified 04/29/19 06:16 Current Medications Acetaminophen (Acetaminophen 325 Mg Tab) 650 mg PO Q6H PRN PRN Reason: Headache/Fever Or Mild Pain Last Admin: 12/21/19 11:35 Dose: 650 mg Documented by: Al Hydroxide/Mg Hydroxide (Mag-Al 1200 Mg/1200 Mg/30 Ml Udcup) 30 ml PO Q4H PRN PRN Reason: Indigestion Albuterol/Ipratropium (Ipratropium/Albuterol Sulfate 3 Ml Neb) 3 ml NEB Q6H PRN PRN Reason: Wheezing Last Admin: 12/21/19 19:11 Dose: 3 ml Documented by: Alprazolam (Alprazolam 0.25 Mg Tab) 0.5 mg PO TIDPRN PRN PRN Reason: Anxiety Last Admin: 12/21/19 22:49 Dose: 0.5 mg Documented by: Aspirin (Aspirin 81 Mg Enteric Coated Tablet) 81 mg PO DAILY [facility] Last Admin: 12/23/19 08:46 Dose: 81 mg Documented by: Atorvastatin Calcium (Atorvastatin Calcium 40 Mg Tab) 40 mg PO HS [facility] Last Admin: 12/22/19 20:30 Dose: 40 mg Documented by: Bisacodyl (Bisacodyl 5 Mg Tab) 10 mg PO Q12H PRN PRN Reason: Constipation Last Admin: 12/16/19 10:47 Dose: 10 mg Documented by: Bisacodyl (Bisacodyl 10 Mg Supp) 10 mg UT Q12H PRN PRN Reason: Constipation Diphenhydramine HCl (Diphenhydramine 25 Mg Cap) 25 mg PO Q6H PRN PRN Reason: Itching & Insomnia or Neri Ludin Last Admin: 12/23/19 02:11 Dose: 25 mg Documented by: Fludrocortisone Acetate (Fludrocortisone Acetate 0.1 Mg Tab) 0.1 mg PO DAILY [facility] Last Admin: 12/23/19 08:46 Dose: 0.1 mg Documented by: Guaifenesin/Dextromethorphan (Guaifenesin Dm 100-10/5 Ml Udcup) 15 ml PO Q4H PRN PRN Reason: Cough Vancomycin HCl 1 gm/ Device 200 mls @ 200 mls/hr IVPB .PENDING LEVEL [facility] Cefepime HCl 1 gm/ Sodium (Chloride) 100 mls @ 200 mls/hr IVPB 0200,1400 [facility] Last Admin: 12/23/19 02:11 Dose: 100 mls Documented by: Magnesium Hydroxide (Milk Of Magnesia 30 Ml Udcup) 30 ml PO Q12H PRN PRN Reason: Constipation Midodrine (Midodrine Hcl 5 Mg Tab) 10 mg PO TID [facility] Last Admin: 12/23/19 08:46 Dose: 10 mg Documented by: Mineral Oil (Mineral Oil Enema) 133 ml UT DAILYPRN PRN PRN Reason: Constipation Miscellaneous Medication (Pharmacy To Dose Vancomycin) 1 each IVPB PRN PRN PRN Reason: Pharmacy to dose Mometasone Furoate/Formoterol Fumar (Mometasone 200 Mcg/Formoterol 5 Mcg 120 Puff Inhaler) 2 puff INH BID-RT [facility] Last Admin: 12/23/19 10:25 Dose: Not Given Documented by: Morphine Sulfate (Morphine 2 Mg/Ml Vial) 2 mg SLOW IVP Q4H PRN PRN Reason: Severe Pain (7-10) Nitroglycerin (Nitroglycerin 0.4 Mg Tab (25 Tab Bottle)) 0.4 mg SL Q5MIN PRN PRN Reason: Chest Pain Ondansetron HCl (Ondansetron Pf 4 Mg/2 Ml Vial) 4 mg IVP Q6H PRN PRN Reason: Nausea/Vomiting Last Admin: 12/19/19 06:00 Dose: 4 mg Documented by: Pantoprazole Sodium (Pantoprazole 40 Mg Tab) 40 mg PO DAILY [facility] Last Admin: 12/23/19 08:46 Dose: 40 mg Documented by: Sodium Chloride (Flush - Normal Saline 10 Ml Syringe) 10 ml IVF PRN PRN PRN Reason: Saline Flush Last Admin: 12/19/19 06:00 Dose: 10 ml Documented by: Tamsulosin HCl (Tamsulosin Hcl 0.4 Mg Cap) 0.4 mg PO HS [facility] Last Admin: 12/22/19 20:30 Dose: 0.4 mg Documented by: Vital Signs & Weight: Vital Signs Temp Pulse Ox 12/23/19 08:00 96 12/23/19 07:00 99.4 F 12/23/19 03:34 98.2 F 12/23/19 03:18 94 L 12/23/19 00:01 99.2 F Admit Weight 173 lb 6.4 oz Weight 178 lb 14.4 oz I/O: I/O 12/22/19 12/23/19 12/24/19 06:59 06:59 06:59 Intake Total 1310 1450 50 Output Total 2225 1940 Balance -919 -930 50 - Quality Measures Condition: Atrial Fibrillation/Flutter (hx or current) CV meds: Aspirin: Yes - Medication Contraindications No Anticoagulant reason: Anticoagulant not tolerated - Physical Exam General: alert & oriented x3, no apparent distress, speech clear, affect appropriate. negative: appears well HEENT: mucus membranes moist, normocephaly, EOMI Neck: supple neck, midline trachea, no JVD/HJR, no lymphadenopathy Cardiology: regular rate and rhythm, no murmur, PMI nondisplaced Lungs: clear to auscultation, normal breath sounds, no wheeze, rales, rhonchi Neurology: cranial nerve 2-12 intact, grossly intact, no lateralizing findings - Chadsvasc Risk factors Congestive heart failure: 1 Age 65-74: 1 Vascular disease: 1 Risk Score: 3 - Labs Result Diagrams: 12/23/19 02:48 12/23/19 02:48 - EKG Interpretation EKG Method: Telemetry EKG shows: Sinus rhythm - Assessment/Plan Assessment/Plan: 1. Chest pain with [id number] ND. a. Left heart catheterization on 12/03/2019, found LAD/diagonal bifurcation disease 2. Coronary artery disease, a. status post coronary artery bypass grafting x2 vessel on 12/05/2019. - SULLIVAN to LAD, saphenous graft to diagonal. 3. History of COPD. 4. Postoperative atrial fibrillation, -prompting amiodarone initiation and oral anticoagulation with Eliquis. - Eliquis stopped 12/18 d/t anemia effusion - amiodarone stopped 11 d/t elevated LFTs. 5. Ischemic cardiomyopathy. a. LVEF 30% to 35% per echo on 12/04/2019. b. life vest in place. Recommend repeat echocardiogram in 3 months time and continued GDMT. consider ICD if LVEF less than 35% after 3 months 6. Chronic kidney disease. 7. Hypotension 8. Tobacco habituation. 9. Anemia 10. Transaminitis -more likely secondary to pericardial effusion than amiodarone. 11. Pericardial effusion. -s/p pericardial window 12/19 ~750mL blood Parosxysmal AF episodes continue to occur. AF x 8 hrs overnight that spontaneously terminated. Rate controlled and asymtomatic. Back in SR. [facility] discourages OAC, CHADS Vasc 3 on Aspirin. On midodrine and would not likely t olerated BB or CCB. Starting low dose dig for rhythm management.
--- NOTE | 2019-12-23 13:15 | PRG ---
DATE OF SERVICE: 12/23/2019 SUBJECTIVE: Mr. Whitten is doing much better. Blood pressure is much more stable. He continues to be very weak. He has had difficulty with physical therapy. OBJECTIVE: VITAL SIGNS: Blood pressure 110/61, pulse 65, and temperature afebrile. LUNGS: Clear to auscultation. HEART: Regular rate and rhythm. ABDOMEN: Soft, nontender, and nondistended. EXTREMITIES: No edema. LABORATORY DATA: Hemoglobin 9.5, platelet count 266. Creatinine 1.64 down from 2.24. AST and ALT continued to downtrend at 144 and 490. IMPRESSION: 1. Non-Q-wave myocardial infarction. 2. Coronary artery disease. 3. Status post bypass surgery. 4. Pericardial effusion, status post drainage. RECOMMENDATIONS: 1. Physical therapy will be of utmost importance for Mr. Whitten. 2. Avoid anticoagulation therapy given recent bleeding complications from anticoagulation treatment. The patient does understand the risk of stroke, although low. He denies any further episodes of atrial fibrillation. The patient will need to be transferred to rehab when accepted. Job ID: [id number]
--- NOTE | 2019-12-23 13:45 | PDOC.HOSPP ---
- Subjective Encounter Date: 12/23/19 Encounter Time: 01:40 Subjective: Patient is participating in the physical therapy his chest tube is removed. He is stable to be transferred to the telemetry floor. - Objective Vital Signs & Weight: Vital Signs (12 hours) Temp Pulse Pulse BP BP BP Pulse Ox 12/23/19 12:18 98.6 F 12/23/19 10:39 71 74 92/57 L 132/63 110/60 12/23/19 08:00 96 12/23/19 07:00 99.4 F 12/23/19 03:34 98.2 F 12/23/19 03:18 94 L Pulse Ox Pulse Ox 12/23/19 12:18 12/23/19 10:39 98 100 12/23/19 08:00 12/23/19 07:00 12/23/19 03:34 12/23/19 03:18 Weight Admit Weight 173 lb 6.4 oz Weight 178 lb 14.4 oz Most Recent Monitor Data Heart Rate from ECG 65 NIBP 112/63 NIBP BP-Mean 79 Respiration from ECG 14 SpO2 99 I&O: 12/22/19 12/23/19 12/24/19 06:59 06:59 06:59 Intake Total 1310 1450 50 Output Total 2225 1940 Balance -915 -490 50 Result Diagrams: 12/23/19 02:48 12/23/19 02:48 Hospitalist ROS - Medication Medications: Active Medications Generic Name Dose Route Start Last Admin Trade Name Freq PRN Reason Stop Dose Admin Acetaminophen 650 mg 12/05/19 10:16 12/21/19 11:35 Acetaminophen 325 Mg Tab PO 650 mg Q6H PRN Administration Headache/Fever Or Mild Pain Albuterol/Ipratropium 3 ml 12/18/19 11:29 12/21/19 19:11 Ipratropium/Albuterol Sulfate 3 Ml Neb NEB 3 ml Q6H PRN Administration Wheezing Alprazolam 0.5 mg 12/18/19 12:05 12/21/19 22:49 Alprazolam 0.25 Mg Tab PO 0.5 mg TIDPRN PRN Administration Anxiety Aspirin 81 mg 12/06/19 09:00 12/23/19 08:46 Aspirin 81 Mg Enteric Coated Tablet PO 81 mg DAILY [facility] Administration Atorvastatin Calcium 40 mg 12/06/19 21:00 12/22/19 20:30 Atorvastatin Calcium 40 Mg Tab PO 40 mg HS [facility] Administration Bisacodyl 10 mg 12/06/19 07:34 12/16/19 10:47 Bisacodyl 5 Mg Tab PO 10 mg Q12H PRN Administration Constipation Diphenhydramine HCl 25 mg 12/06/19 07:34 12/23/19 02:11 Diphenhydramine 25 Mg Cap PO 25 mg Q6H PRN Administration Itching & Insomnia or Neri Ludin Fludrocortisone Acetate 0.1 mg 12/20/19 09:00 12/23/19 08:46 Fludrocortisone Acetate 0.1 Mg Tab PO 0.1 mg DAILY [facility] Administration Cefepime HCl 1 gm/ Sodium 100 mls @ 200 mls/hr 12/19/19 14:00 12/23/19 02:11 Chloride IVPB 100 mls 0200,1400 [facility] Administration Midodrine 10 mg 12/19/19 15:00 12/23/19 08:46 Midodrine Hcl 5 Mg Tab PO 10 mg TID [facility] Administration Mometasone Furoate/Formoterol Fumar 2 puff 12/04/19 18:30 12/23/19 10:25 Mometasone 200 Mcg/Formoterol 5 Mcg 120 Puff Inhaler INH Not Given BID-RT [facility] Ondansetron HCl 4 mg 12/05/19 10:16 12/19/19 06:00 Ondansetron Pf 4 Mg/2 Ml Vial IVP 4 mg Q6H PRN Administration Nausea/Vomiting Pantoprazole Sodium 40 mg 12/06/19 09:00 12/23/19 08:46 Pantoprazole 40 Mg Tab PO 40 mg DAILY [facility] Administration Sodium Chloride 10 ml 12/06/19 07:34 12/19/19 06:00 Flush - Normal Saline 10 Ml Syringe IVF 10 ml PRN PRN Administration Saline Flush Tamsulosin HCl 0.4 mg 12/05/19 21:00 12/22/19 20:30 Tamsulosin Hcl 0.4 Mg Cap PO 0.4 mg HS [facility] Administration - Exam General Appearance: NAD, awake alert Eye: PERRL ENT: normocephalic atraumatic Neck: supple Heart: RRR Respiratory: CTAB, normal chest expansion Gastrointestinal: soft, normal bowel sounds Neurological: no focal deficits Psychiatric: A&O x 3 Hosp A/P - Plan 64 years old gentleman, who has significant past medical history of COPD, CKD stage III, hypertension, who presented to ED with complaint of chest pain. He was found to have NSTEMI. Cardiology was consulted, subsequently had a left heart cath, showed two-vessel CAD. He ultimately underwent two-vessel bypass, and tolerated procedure well. However, postoperatively, patient developed atrial fib, and persistent hypotension. Initial presentation of chest pain with NSTEMI coronary artery disease status post two-vessel CABG on December 04 with SULLIVAN to LAD and saphenous graft to diagonal. Ischemic cardiomyopathy with EF of 35% based on the echo of . -LifeVest in place follow-up with the echo in 3 months. Hematoma - in setting of recent CABG --chest CT showed fluid collections along the anterior mediastinum, and also on the lateral of pericardium that exerts its effects on the right ventricle --Status post pericardial window placed - . About 750 mL of serosanguineous fluid removed. Hypotension -secondary to pericardial effusion Pericardial effusion -Status post pericardial window on and removal of about 750 mL of blood. NSTEMI --s/p 2VD bypass --ASA on hold d/t above. BB on hold d/t hypotension. Statin on hold d/t elevated LFT B/L Pleural Effusion -Most likely secondary to pericardial effusion -Seems improved. Chest x-ray showed now only small left pleural effusion noted. Persistent cardiomegaly. MICHELLE/CKD 3 --Cr worsened hypotension, decr renal perfusion --Nephrology is following Metabolic acidosis --Status post sodium bicarb IVF Anemia of CKD and acute blood loss from recent surgery --transfuse 1U to keep Hb>9 AFib with RVR/NSVT Postoperatively A. fib --transitioned to PO Amio. Eliquis on hold for now, SQ for now d/t above acute changes. D/w cardiology. Hold BB d/t recurrent hypotension --EP is following Elevated LFT --? shock liver or ischemic event from episodes of hypotension; however, I would expect that his AST/ALT to be significantly elevated. -hold his statin for now, trend liver enzymes. -Liver ultrasound negative for acute cholecystitis -Transaminases trending down. Alkaline phosphatase in the normal range. - Chronic kidney disease followed by Dr. Spangler. Post operative A. fib -He is currently in sinus rhythm -No beta-milvia or calcium channel milvia,-on aspirin Lipitor Midodrine 3 times daily dose Digoxin added on . Blood culture off as well as showing no growth. Urine culture negative for any growth. --SC almost had 7 days of antibiotics I will discontinue the IV once. He is clinically improving. -Transaminitis trending down. Patient is participating in the physical therapy his chest tube is removed. He is stable to be transferred to the telemetry floor.
--- NOTE | 2019-12-23 15:10 | PDOC.PALCO ---
Palliative Care Consult - Consult Details Requesting Physician: Dr King Mohamud Reason for Consult: goals of care, advance directives assistance, complex decision-making - Pertinent HPI 64 year old male who resides in a private home setting with his son. December 01 he had a sudden onset of epigastric pain with vomiting. The pain progressed to a reported 10/10 and radiated to both arms paired onset of shortness of breath. Presentation to the emergency room and nitro drip was initiated. St elevation that resolved. Admitted for further evaluation and medical management. Heart cath identified two vessel CAD, subsequent bypass. Initially patient tolerated procedure, however post operatively developed afib with persistent hypotension. Echo on the 03 of December showing EF 35% with ischemic cardiomyopathy. S/P CABG CT identified fluid collection in pericardium, pericardial window 12/20/2019. - Pertinent PMH COPD, HTN, CKD III - Social History Smoking Status: Current every day smoker Smoking: cigarettes Alcohol Use: occasional Drug Use History: none Living Situation: other (Lives with son) - Medications MAR Reviewed: Yes - Allergies Allergies/Adverse Reactions: Allergies Allergy/AdvReac Type Severity Reaction Status Date / Time No Known Drug Allergies Allergy Verified 04/29/19 06:16 - Subjective Depressed, lack of energy. Denies specific complaints other than weakness. - ROS Constitutional: alert, weakness ENT: alteration in dentition, dry mouth Respiratory: shortness of breath with extertion Cardiology: other (Denies palpitations, chest pain) Gastrointestinal: other (Denies nausea, vomiting) Genitourinary: other (Denies hematuria) Musculoskeletal: arthritis/arthralgias Psychological: depression - Objective Vital Signs: Vital Signs - Most Recent Temp Pulse Resp BP Pulse Ox 98.6 F 71 20 92/57 L 98 12/23/19 12:18 12/23/19 10:39 12/21/19 19:58 12/23/19 10:39 12/23/19 10:39 Palliative Performance Scale: 40 - Physical Exam Constitutional: ill appearing HEENT: EOMI, moist MMs, poor dentition Respiratory: no wheezing, unlabored breathing Cardiovascular: RRR Gastrointestinal: soft, non-tender, positive bowel sounds Genitourinary: continent Musculoskeletal: no cyanosis, no clubbing, diffuse muscle atrophy Neurology: moves all 4 limbs, no focal deficits Skin: cap refill <2 seconds, no lesions, no rash Psychiatric: A&O x 3 Deviation from normal: Sleepy - Problem List (1) Palliative care encounter Code(s): Z51.5 - ENCOUNTER FOR PALLIATIVE CARE Current Visit: Yes Status: Acute (2) Acute on chronic HFrEF (heart failure with reduced ejection fraction) Code(s): I50.23 - ACUTE ON CHRONIC SYSTOLIC (CONGESTIVE) HEART FAILURE Current Visit: Yes Status: Acute (3) CKD (chronic kidney disease) stage 3, GFR 30-59 ml/min Code(s): N18.30 - CHRONIC KIDNEY DISEASE, STAGE 3 UNSPECIFIED Current Visit: Yes Status: Acute (4) Hypertension Code(s): I10 - ESSENTIAL (PRIMARY) HYPERTENSION Current Visit: Yes Status: Acute (5) NSTEMI (non-ST elevated myocardial infarction) Code(s): I21.4 - NON-ST ELEVATION (NSTEMI) MYOCARDIAL INFARCTION Current Visit: Yes Status: Acute (6) Tobacco use Code(s): Z72.0 - TOBACCO USE Current Visit: No Status: Acute (7) COPD (chronic obstructive pulmonary disease) Current Visit: No Status: Chronic - Plan/Recommendations Plan: Introduced Palliative Care. Patient expressed lack of understanding of prognosis and chronic disease processes. Discussion in relation to need to participate with PT and continue to attempt to have adequate intake (Lunch remained uneaten on bedside table) Introduced Directive to Physician, MPOA and Resuscitation status. He elected to complete MPOA and transition to DNAR. He also requested to complete a OOHDNAR. Will revisit Directive to Physician. Plan is for patient to transition to shelter in [place], with life vest. However, he states he wants to go home. Will communicate with patient son, then revisit Goal of Care with patient 12/24/2019 to discuss plan after transition to [facility]. Please refer to Palliative Care notes in note section. [50] minutes spent on this encounter with >50% of the time in counseling and coordination of care. Thank you for this very appropriate consult.
[2019-12-23] MEDS: Tamsulosin HCl 0.4 MG CAP PO SCH (21:13)
[2019-12-23] MEDS: Atorvastatin Calcium 40 MG TAB PO SCH (21:13)
[2019-12-24 04:31] LABS: #Eosinphils 0.3 thou/uL (0.0-0.7); #Lymphocytes 1.2 thou/uL (1.20-3.40); #Monocytes 0.6 thou/uL (0.11-0.59); %Basophils 0.3 % (0.0-1.0); %Eosinophils 3.5 % (0.0-10.0); %Monocytes 6.7 % (0.0-10.0); %Neutrophils 76.5 % (42.0-75.0); Hemoglobin 9.4 g/dL (14.0-18.0); Mean Corpuscular HGB CONC 33.3 g/dL (32.0-36.0); Mean Corpuscular Hemoglobin 32.7 pg (27.0-31.0); Mean Corpuscular Volume 98.3 fL (78.0-98.0); Mean Platelet Volume 6.9 fL (7.4-10.4); Platelet Count 264 thou/uL (130-400); RBC Distribution Width 13.6 % (11.5-14.5); Red Blood Cell (RBC) Count 2.87 mill/uL (4.70-6.10); White Blood Cell (WBC) Count 9.2 thou/uL (4.8-10.8)
[2019-12-24 04:52] LABS: Anion Gap 11 mmol/L (10-20); BUN (Urea Nitrogen) 28 mg/dL (8.4-25.7); Calc. Creatinine Clearance 60 mL/min (70-130); Calcium 7.8 mg/dL (7.8-10.44); Carbon Dioxide 22 mmol/L (23-31); Chloride 114 mmol/L (98-107); Estimated GFR-MDRD 50; Glucose 101 mg/dL (80-115); Potassium 3.7 mmol/L (3.5-5.1); Sodium 143 mmol/L (136-145)
[2019-12-24 04:56] LABS: ALT (SGPT) 377 U/L (8-55); AST (SGOT) 91 U/L (5-34); Albumin 2.7 g/dL (3.4-4.8); Alkaline Phosphatase 82 U/L (40-110); Bilirubin, Direct 0.8 mg/dL (0.1-0.3); Bilirubin, Total 1.2 mg/dL (0.2-1.2); Protein, Total 4.9 g/dL (5.8-8.1)
--- NOTE | 2019-12-24 06:55 | EKG ---
Test Reason : Blood Pressure : / mmHG Vent. Rate : 070 BPM Atrial Rate : 070 BPM P-R Int : 166 ms QRS Dur : 090 ms QT Int : 420 ms P-R-T Axes : 066 081 000 degrees QTc Int : 453 ms Normal sinus rhythm Low voltage QRS Nonspecific T wave abnormality Abnormal ECG Confirmed by CINDY PORTILLO MD ([id number]) on 12/24/2019 6:54:47 AM Referred By: NELSON Confirmed By:CINDY PORTILLO MD
--- NOTE | 2019-12-24 06:56 | EKG ---
Test Reason : STAT Blood Pressure : / mmHG Vent. Rate : 066 BPM Atrial Rate : 066 BPM P-R Int : 130 ms QRS Dur : 090 ms QT Int : 414 ms P-R-T Axes : 049 081 -71 degrees QTc Int : 434 ms Normal sinus rhythm Low voltage QRS Septal infarct , age undetermined Abnormal ECG When compared with ECG of 19-DEC-2019 13:39, (Unconfirmed) Septal infarct is now Present Confirmed by CINDY PORTILLO MD ([id number]) on 12/24/2019 6:55:36 AM Referred By: Confirmed By:CINDY PORTILLO MD
[2019-12-24] MEDS: Mometasone 200 MCG/Formoterol 5 MCG 120 PUFF INHALER INH SCH ×2 (07:46→19:35)
[2019-12-24] MEDS: Aspirin 81 mg Enteric Coated Tablet PO SCH (08:48)
[2019-12-24] MEDS: Digoxin 0.125 MG TAB PO SCH (08:48)
[2019-12-24] MEDS: Midodrine HCl 5 MG TAB PO SCH ×3 (08:53→21:18)
[2019-12-24] MEDS: Fludrocortisone Acetate 0.1 MG TAB PO SCH (08:58)
--- NOTE | 2019-12-24 10:38 | PDOC.FMACP ---
Advance Care Planning - Problem (1) Palliative care encounter Status: Acute Code(s): Z51.5 - ENCOUNTER FOR PALLIATIVE CARE (2) Acute on chronic HFrEF (heart failure with reduced ejection fraction) Status: Acute Code(s): I50.23 - ACUTE ON CHRONIC SYSTOLIC (CONGESTIVE) HEART FAILURE (3) CKD (chronic kidney disease) stage 3, GFR 30-59 ml/min Status: Acute Code(s): N18.30 - CHRONIC KIDNEY DISEASE, STAGE 3 UNSPECIFIED (4) Hypertension Status: Acute Code(s): I10 - ESSENTIAL (PRIMARY) HYPERTENSION (5) NSTEMI (non-ST elevated myocardial infarction) Status: Acute Code(s): I21.4 - NON-ST ELEVATION (NSTEMI) MYOCARDIAL INFARCTION (6) Tobacco use Status: Acute Code(s): Z72.0 - TOBACCO USE (7) COPD (chronic obstructive pulmonary disease) Status: Chronic - Note Participants: patient, palliative care Summary: Palliative Care continued discussion in relation to Advanced Care Planning. The diagnosis, prognosis and goals of care were discussed. Appropriate forms and documentation to accomplish the goals of care were discussed. All questions were answered. Confirmed DNAR status, and completed OOHDNAR. Patient also completed Directive to Physician today. Kaleb Perera notarized documents. Original and copy given to patient, copy also placed on chart for medical records. Mr Quintana agreeable to transition to [facility] for now for rehab as goal of care. Time Spent (mins): 20
--- NOTE | 2019-12-24 14:02 | PDOC.EP ---
- Subjective Date: 12/24/19 Time: 08:00 Interval History: chest tube was removed yesterday and patient was transferred to telemetry. he voices no new cardiac concerns or complaints - Review of Systems Constitutional: reports: weakness. denies: chills, fever, malaise Respiratory: reports: shortness of breath. denies: cough, dry, sputum Cardiology: reports: chest pain. denies: edema, heart racing, light headedness, passing out Gastrointestinal: denies: abdominal pain, constipation, nausea, vomitting Musculoskeletal: denies: unstable gait, falls, leg pain, foot pain - Objective Allergies/Adverse Reactions: Allergies Allergy/AdvReac Type Severity Reaction Status Date / Time No Known Drug Allergies Allergy Verified 04/29/19 06:16 Current Medications Acetaminophen (Acetaminophen 325 Mg Tab) 650 mg PO Q6H PRN PRN Reason: Headache/Fever Or Mild Pain Last Admin: 12/21/19 11:35 Dose: 650 mg Documented by: Al Hydroxide/Mg Hydroxide (Mag-Al 1200 Mg/1200 Mg/30 Ml Udcup) 30 ml PO Q4H PRN PRN Reason: Indigestion Albuterol/Ipratropium (Ipratropium/Albuterol Sulfate 3 Ml Neb) 3 ml NEB Q6H PRN PRN Reason: Wheezing Last Admin: 12/21/19 19:11 Dose: 3 ml Documented by: Alprazolam (Alprazolam 0.25 Mg Tab) 0.5 mg PO TIDPRN PRN PRN Reason: Anxiety Last Admin: 12/21/19 22:49 Dose: 0.5 mg Documented by: Aspirin (Aspirin 81 Mg Enteric Coated Tablet) [address] [facility] Last Admin: 12/24/19 08:48 Dose: 81 mg Documented by: Atorvastatin Calcium (Atorvastatin Calcium 40 Mg Tab) [address] [facility] Last Admin: 12/23/19 21:13 Dose: 40 mg Documented by: Bisacodyl (Bisacodyl 5 Mg Tab) 10 mg PO Q12H PRN PRN Reason: Constipation Last Admin: 12/16/19 10:47 Dose: 10 mg Documented by: Bisacodyl (Bisacodyl 10 Mg Supp) 10 mg [place] Q12H PRN PRN Reason: Constipation Digoxin (Digoxin 0.125 Mg Tab) 0.[address] [facility] Last Admin: 12/24/19 08:48 Dose: 0.125 mg Documented by: Diphenhydramine HCl (Diphenhydramine 25 Mg Cap) 25 mg PO Q6H PRN PRN Reason: Itching & Insomnia or Neri Ludin Last Admin: 12/23/19 21:18 Dose: 25 mg Documented by: Fludrocortisone Acetate (Fludrocortisone Acetate 0.1 Mg Tab) 0.[address] [facility] Last Admin: 12/24/19 08:58 Dose: 0.1 mg Documented by: Guaifenesin/Dextromethorphan (Guaifenesin Dm 100-10/5 Ml Udcup) 15 ml PO Q4H PRN PRN Reason: Cough Magnesium Hydroxide (Milk Of Magnesia 30 Ml Udcup) 30 ml PO Q12H PRN PRN Reason: Constipation Midodrine (Midodrine Hcl 5 Mg Tab) [address] [facility] Last Admin: 12/24/19 08:53 Dose: 10 mg Documented by: Mineral Oil (Mineral Oil Enema) 133 ml [place] DAILYPRN PRN PRN Reason: Constipation Mometasone Furoate/Formoterol Fumar (Mometasone 200 Mcg/Formoterol 5 Mcg 120 Puff Inhaler) 2 puff INH BID-RT [facility] Last Admin: 12/24/19 07:46 Dose: 2 puff Documented by: Morphine Sulfate (Morphine 2 Mg/Ml Vial) 2 mg SLOW IVP Q4H PRN PRN Reason: Severe Pain (7-10) Nitroglycerin (Nitroglycerin 0.4 Mg Tab (25 Tab Bottle)) 0.4 mg SL Q5MIN PRN PRN Reason: Chest Pain Ondansetron HCl (Ondansetron Pf 4 Mg/2 Ml Vial) 4 mg IVP Q6H PRN PRN Reason: Nausea/Vomiting Last Admin: 12/19/19 06:00 Dose: 4 mg Documented by: Pantoprazole Sodium (Pantoprazole 40 Mg Tab) [address] [facility] Last Admin: 12/24/19 08:48 Dose: 40 mg Documented by: Sodium Chloride (Flush - Normal Saline 10 Ml Syringe) 10 ml IVF PRN PRN PRN Reason: Saline Flush Last Admin: 12/19/19 06:00 Dose: 10 ml Documented by: Tamsulosin HCl (Tamsulosin Hcl 0.4 Mg Cap) 0.[address] [facility] Last Admin: 12/23/19 21:13 Dose: 0.4 mg Documented by: Vital Signs & Weight: Vital Signs Temp Pulse Resp BP Pulse Ox 12/24/19 11:32 97.8 F 69 18 119/62 92 L 12/24/19 08:48 75 12/24/19 07:29 97.7 F 72 17 128/60 94 L 12/24/19 04:05 97.6 F 68 20 136/67 95 Admit Weight 173 lb 6.4 oz Weight 175 lb 11.2 oz I/O: I/O 12/23/19 12/24/19 12/25/19 06:59 06:59 06:59 Intake Total 1450 350 Output Total 1940 1130 Balance -490 -780 - Quality Measures Condition: Atrial Fibrillation/Flutter (hx or current) CV meds: Aspirin: Yes, Eliquis: No - Medication Contraindications No Anticoagulant reason: Medical contraindication - Physical Exam General: no apparent distress, speech clear, affect appropriate. negative: appears well HEENT: mucus membranes moist, normocephaly, EOMI Neck: supple neck, midline trachea, no lymphadenopathy Cardiology: regular rate and rhythm, no murmur, PMI nondisplaced Lungs: clear to auscultation, normal breath sounds, no wheeze, rales, rhonchi Neurology: cranial nerve 2-12 intact, grossly intact, no lateralizing findings Abdomen: unremarkable, active bowel sounds, no pulsations/bruits Extremities: dry, strong pulses - Labs Result Diagrams: 12/25/19 04:07 12/25/19 04:07 - EKG Interpretation EKG Method: Telemetry EKG shows: Sinus rhythm - Assessment/Plan Assessment/Plan: 1. Chest pain with [id number] SD. a. Left heart catheterization on 12/03/2019, found LAD/diagonal bifurcation disease 2. Coronary artery disease, a. status post coronary artery bypass grafting x2 vessel on 12/05/2019. - SULLIVAN to LAD, saphenous graft to diagonal. 3. History of COPD. 4. Postoperative atrial fibrillation, -prompting amiodarone initiation and oral anticoagulation with Eliquis. - Eliquis stopped 11/12 d/t anemia effusion - amiodarone stopped 11/12 d/t elevated LFTs. 5. Ischemic cardiomyopathy. a. LVEF 30% to 35% per echo on 12/04/2019. b. life vest in place. Recommend repeat echocardiogram in 3 months time and continued GDMT. consider ICD if LVEF less than 35% after 3 months 6. Chronic kidney disease. 7. Hypotension 8. Tobacco habituation. 9. Anemia 10. Transaminitis -more likely secondary to pericardial effusion than amiodarone. 11. Pericardial effusion. -s/p pericardial window 12/19 ~750mL blood rhythm stable overnight. Started low-dose digoxin. not a candidate for oral anticoagulation. After seeing him this AM I see he is now DNR so tomorrow I will re-approach the purpose of a life vest to ensure he understands the purpose and see if he wishes to continue wearing it with his code status change. Resuming low dose amiodarone, not likely the cause of his elevated LFTs, which are resolving.
--- NOTE | 2019-12-24 14:47 | PDOC.HOSPP ---
- Subjective Encounter Date: 12/24/19 Encounter Time: 12:00 Subjective: Patient doing better and he ambulated. Palliative knee had by at bedside. He is quite anxious he is actually to go home. He says that at home he can have more activity than being here so with that in mind I told her that we can arrange for home health for physical therapy and possible discharge. However later I learned that he preferred to go to the inpatient rehab as he does not like outsiders coming to his house -he has a dog that may be a problem. - Objective Vital Signs & Weight: Vital Signs (12 hours) Temp Pulse Resp BP Pulse Ox 12/24/19 11:32 97.8 F 69 18 119/62 92 L 12/24/19 08:48 75 12/24/19 07:29 97.7 F 72 17 128/60 94 L 12/24/19 04:05 97.6 F 68 20 136/67 95 Weight Admit Weight 173 lb 6.4 oz Weight 175 lb 11.2 oz Most Recent Monitor Data Heart Rate from ECG 73 NIBP 117/59 NIBP BP-Mean 78 Respiration from ECG 20 SpO2 94 I&O: 12/23/19 12/24/19 12/25/19 06:59 06:59 06:59 Intake Total 1450 350 Output Total 1940 1130 Balance -490 -780 Result Diagrams: 12/24/19 04:10 12/24/19 04:10 Hospitalist ROS - Medication Medications: Active Medications Generic Name Dose Route Start Last Admin Trade Name Freq PRN Reason Stop Dose Admin Acetaminophen 650 mg 12/05/19 10:16 12/21/19 11:35 Acetaminophen 325 Mg Tab PO 650 mg Q6H PRN Administration Headache/Fever Or Mild Pain Albuterol/Ipratropium 3 ml 12/18/19 11:29 12/21/19 19:11 Ipratropium/Albuterol Sulfate 3 Ml Neb NEB 3 ml Q6H PRN Administration Wheezing Alprazolam 0.5 mg 12/18/19 12:05 12/21/19 22:49 Alprazolam 0.25 Mg Tab PO 0.5 mg TIDPRN PRN Administration Anxiety Aspirin 81 mg 12/06/19 09:00 12/24/19 08:48 Aspirin 81 Mg Enteric Coated Tablet PO 81 mg DAILY [facility] Administration Atorvastatin Calcium 40 mg 12/06/19 21:00 12/23/19 21:13 Atorvastatin Calcium 40 Mg Tab PO 40 mg HS [facility] Administration Bisacodyl 10 mg 12/06/19 07:34 12/16/19 10:47 Bisacodyl 5 Mg Tab PO 10 mg Q12H PRN Administration Constipation Digoxin 0.125 mg 12/24/19 09:00 12/24/19 08:48 Digoxin 0.125 Mg Tab PO 0.125 mg DAILY [facility] Administration Diphenhydramine HCl 25 mg 12/06/19 07:34 12/23/19 21:18 Diphenhydramine 25 Mg Cap PO 25 mg Q6H PRN Administration Itching & Insomnia or Neri Ludin Fludrocortisone Acetate 0.1 mg 12/20/19 09:00 12/24/19 08:58 Fludrocortisone Acetate 0.1 Mg Tab PO 0.1 mg DAILY [facility] Administration Midodrine 10 mg 12/19/19 15:00 12/24/19 08:53 Midodrine Hcl 5 Mg Tab PO 10 mg TID [facility] Administration Mometasone Furoate/Formoterol Fumar 2 puff 12/04/19 18:30 12/24/19 07:46 Mometasone 200 Mcg/Formoterol 5 Mcg 120 Puff Inhaler INH 2 puff BID-RT [facility] Administration Ondansetron HCl 4 mg 12/05/19 10:16 12/19/19 06:00 Ondansetron Pf 4 Mg/2 Ml Vial IVP 4 mg Q6H PRN Administration Nausea/Vomiting Pantoprazole Sodium 40 mg 12/06/19 09:00 12/24/19 08:48 Pantoprazole 40 Mg Tab PO 40 mg DAILY [facility] Administration Sodium Chloride 10 ml 12/06/19 07:34 12/19/19 06:00 Flush - Normal Saline 10 Ml Syringe IVF 10 ml PRN PRN Administration Saline Flush Tamsulosin HCl 0.4 mg 12/05/19 21:00 12/23/19 21:13 Tamsulosin Hcl 0.4 Mg Cap PO 0.4 mg HS [facility] Administration - Exam General Appearance: NAD, awake alert Eye: PERRL ENT: normocephalic atraumatic Neck: supple Heart: RRR, normal peripheral pulses Respiratory: CTAB, normal chest expansion Gastrointestinal: soft, normal bowel sounds Extremities: 1+ LE edema Neurological: cranial nerve grossly intact, no focal deficits Psychiatric: A&O x 3 Hosp A/P - Plan 64 years old gentleman, who has significant past medical history of COPD, CKD stage III, hypertension, who presented to ED with complaint of chest pain. He was found to have NSTEMI. Cardiology was consulted, subsequently had a left heart cath, showed two-vessel CAD. He ultimately underwent two-vessel bypass, and tolerated procedure well. However, postoperatively, patient developed atrial fib, and persistent hypotension. Initial presentation of chest pain with NSTEMI coronary artery disease status post two-vessel CABG on December 04 with SULLIVAN to LAD and saphenous graft to diagonal. Ischemic cardiomyopathy with EF of 35% based on the echo of . -LifeVest in place follow-up with the echo in 3 months. Hematoma - in setting of recent CABG --chest CT showed fluid collections along the anterior mediastinum, and also on the lateral of pericardium that exerts its effects on the right ventricle --Status post pericardial window placed - . About 750 mL of serosanguineous fluid removed. Hypotension -secondary to pericardial effusion Pericardial effusion -Status post pericardial window on and removal of about 750 mL of blood. NSTEMI --s/p 2VD bypass --ASA on hold d/t above. BB on hold d/t hypotension. Statin on hold d/t elevated LFT B/L Pleural Effusion -Most likely secondary to pericardial effusion -Seems improved. Chest x-ray showed now only small left pleural effusion noted. Persistent cardiomegaly. MICHELLE/CKD 3 --Cr worsened hypotension, decr renal perfusion --Nephrology is following Metabolic acidosis --Status post sodium bicarb IVF Anemia of CKD and acute blood loss from recent surgery --transfuse 1U to keep Hb>9 AFib with RVR/NSVT Postoperatively A. fib --transitioned to PO Amio. Eliquis on hold for now, SQ for now d/t above acute changes. D/w cardiology. Hold BB d/t recurrent hypotension --EP is following Elevated LFT --? shock liver or ischemic event from episodes of hypotension; however, I would expect that his AST/ALT to be significantly elevated. -hold his statin for now, trend liver enzymes. -Liver ultrasound negative for acute cholecystitis -Transaminases trending down. Alkaline phosphatase in the normal range. - Chronic kidney disease followed by Dr. Spangler. Post operative A. fib -He is currently in sinus rhythm -No beta-milvia or calcium channel milvia,-on aspirin Lipitor Midodrine 3 times daily dose Digoxin added on . Blood culture off as well as showing no growth. Urine culture negative for any growth. -- almost had 7 days of antibiotics I will discontinue the IV. He is clinically improving. -Transaminitis trending down. Patient is participating in the physical therapy his chest tube is removed. He is stable to be transferred to the telemetry floor. He says that at home he can have more activity than being here so with that in mind I told her that we can arrange for home health for physical therapy and possible discharge. However later I learned that he preferred to go to the inpatient rehab as he does not like outsiders coming to his house -he has a dog that may be a problem. He is started on digoxin. Life vest reevaluation Plan to send him to inpatient rehab when we are ready.
[2019-12-24] MEDS: Atorvastatin Calcium 40 MG TAB PO SCH (21:13)
[2019-12-24] MEDS: Tamsulosin HCl 0.4 MG CAP PO SCH (21:13)
[2019-12-24] MEDS: ALPRAZolam 0.25 MG TAB PO PRN (21:32)
[2019-12-24] MEDS: diphenhydrAMINE 25 MG CAP PO PRN (21:32)
[2019-12-25 04:28] LABS: #Basophils 0.1 thou/uL (0.0-0.2); #Eosinphils 0.3 thou/uL (0.0-0.7); #Lymphocytes 1.5 thou/uL (1.20-3.40); #Monocytes 0.6 thou/uL (0.11-0.59); #Neutrophils 7.3 thou/uL (1.40-6.50); %Basophils 0.6 % (0.0-1.0); %Eosinophils 3.4 % (0.0-10.0); %Lymphocytes 15.1 % (21.0-51.0); %Monocytes 5.7 % (0.0-10.0); %Neutrophils 75.2 % (42.0-75.0); Hemoglobin 9.8 g/dL (14.0-18.0); Mean Corpuscular Hemoglobin 32.4 pg (27.0-31.0); Mean Corpuscular Volume 98.1 fL (78.0-98.0); Mean Platelet Volume 6.7 fL (7.4-10.4); Platelet Count 241 thou/uL (130-400); RBC Distribution Width 13.5 % (11.5-14.5); Red Blood Cell (RBC) Count 3.02 mill/uL (4.70-6.10); White Blood Cell (WBC) Count 9.7 thou/uL (4.8-10.8)
[2019-12-25 04:51] LABS: ALT (SGPT) 266 U/L (8-55); AST (SGOT) 52 U/L (5-34); Albumin 2.7 g/dL (3.4-4.8); Alkaline Phosphatase 82 U/L (40-110); Bilirubin, Direct 0.8 mg/dL (0.1-0.3); Bilirubin, Total 1.3 mg/dL (0.2-1.2); Protein, Total 4.9 g/dL (5.8-8.1)
[2019-12-25 04:53] LABS: Anion Gap 12 mmol/L (10-20); BUN (Urea Nitrogen) 21 mg/dL (8.4-25.7); Calc. Creatinine Clearance 65 mL/min (70-130); Carbon Dioxide 20 mmol/L (23-31); Chloride 113 mmol/L (98-107); Estimated GFR-MDRD 57; Glucose 77 mg/dL (80-115); Potassium 3.9 mmol/L (3.5-5.1); Sodium 141 mmol/L (136-145)
--- NOTE | 2019-12-25 06:57 | EKG ---
Test Reason : Blood Pressure : / mmHG Vent. Rate : 072 BPM Atrial Rate : 072 BPM P-R Int : 172 ms QRS Dur : 090 ms QT Int : 368 ms P-R-T Axes : 069 073 -13 degrees QTc Int : 402 ms Normal sinus rhythm Low voltage QRS Septal infarct (cited on or before 19-DEC-2019) Abnormal ECG When compared with ECG of 19-DEC-2019 21:38, (Unconfirmed) No significant change was found Confirmed by CINDY PORTILLO MD ([id number]) on 12/25/2019 6:56:47 AM Referred By: NELSON Confirmed By:CINDY PORTILLO MD
[2019-12-25] MEDS: Mometasone 200 MCG/Formoterol 5 MCG 120 PUFF INHALER INH SCH ×2 (07:37→19:11)
[2019-12-25] MEDS: Amiodarone 200 MG TAB PO SCH (09:32)
[2019-12-25] MEDS: Aspirin 81 mg Enteric Coated Tablet PO SCH (09:32)
[2019-12-25] MEDS: Fludrocortisone Acetate 0.1 MG TAB PO SCH (09:32)
[2019-12-25] MEDS: Digoxin 0.125 MG TAB PO SCH (09:32)
[2019-12-25] MEDS: Midodrine HCl 5 MG TAB PO SCH ×3 (09:32→20:34)
--- NOTE | 2019-12-25 12:27 | PDOC.EP ---
- Subjective Date: 12/25/19 Time: 12:23 Interval History: possible DC later today. Not aware of AF. - Review of Systems Constitutional: reports: weakness. denies: chills, fever, malaise, sweats Respiratory: denies: cough, dry, hemoptysis, shortness of breath, wheezing Cardiology: denies: chest pain, edema, heart racing, light headedness, palpitations Gastrointestinal: denies: abdominal pain, constipation, nausea, vomitting Musculoskeletal: denies: unstable gait, falls, leg pain, foot pain - Objective Allergies/Adverse Reactions: Allergies Allergy/AdvReac Type Severity Reaction Status Date / Time No Known Drug Allergies Allergy Verified 04/29/19 06:16 Current Medications Acetaminophen (Acetaminophen 325 Mg Tab) 650 mg PO Q6H PRN PRN Reason: Headache/Fever Or Mild Pain Last Admin: 12/21/19 11:35 Dose: 650 mg Documented by: Al Hydroxide/Mg Hydroxide (Mag-Al 1200 Mg/1200 Mg/30 Ml Udcup) 30 ml PO Q4H PRN PRN Reason: Indigestion Albuterol/Ipratropium (Ipratropium/Albuterol Sulfate 3 Ml Neb) 3 ml NEB Q6H PRN PRN Reason: Wheezing Last Admin: 12/21/19 19:11 Dose: 3 ml Documented by: Alprazolam (Alprazolam 0.25 Mg Tab) 0.5 mg PO TIDPRN PRN PRN Reason: Anxiety Last Admin: 12/24/19 21:32 Dose: 0.5 mg Documented by: Amiodarone HCl (Amiodarone 200 Mg Tab) 200 mg PO DAILY [facility] Last Admin: 12/25/19 09:32 Dose: 200 mg Documented by: Aspirin (Aspirin 81 Mg Enteric Coated Tablet) 81 mg PO DAILY [facility] Last Admin: 12/25/19 09:32 Dose: 81 mg Documented by: Atorvastatin Calcium (Atorvastatin Calcium 40 Mg Tab) 40 mg PO HS [facility] Last Admin: 12/24/19 21:13 Dose: 40 mg Documented by: Bisacodyl (Bisacodyl 5 Mg Tab) 10 mg PO Q12H PRN PRN Reason: Constipation Last Admin: 12/16/19 10:47 Dose: 10 mg Documented by: Bisacodyl (Bisacodyl 10 Mg Supp) 10 mg RI Q12H PRN PRN Reason: Constipation Digoxin (Digoxin 0.125 Mg Tab) 0.125 mg PO DAILY [facility] Last Admin: 12/25/19 09:32 Dose: 0.125 mg Documented by: Diphenhydramine HCl (Diphenhydramine 25 Mg Cap) 25 mg PO Q6H PRN PRN Reason: Itching & Insomnia or Neri Ludin Last Admin: 12/24/19 21:32 Dose: 25 mg Documented by: Fludrocortisone Acetate (Fludrocortisone Acetate 0.1 Mg Tab) 0.1 mg PO DAILY [facility] Last Admin: 12/25/19 09:32 Dose: 0.1 mg Documented by: Guaifenesin/Dextromethorphan (Guaifenesin Dm 100-10/5 Ml Udcup) 15 ml PO Q4H PRN PRN Reason: Cough Magnesium Hydroxide (Milk Of Magnesia 30 Ml Udcup) 30 ml PO Q12H PRN PRN Reason: Constipation Midodrine (Midodrine Hcl 5 Mg Tab) 10 mg PO TID [facility] Last Admin: 12/25/19 09:32 Dose: 10 mg Documented by: Mineral Oil (Mineral Oil Enema) 133 ml RI DAILYPRN PRN PRN Reason: Constipation Mometasone Furoate/Formoterol Fumar (Mometasone 200 Mcg/Formoterol 5 Mcg 120 Puff Inhaler) 2 puff INH BID-RT [facility] Last Admin: 12/25/19 07:37 Dose: 2 puff Documented by: Morphine Sulfate (Morphine 2 Mg/Ml Vial) 2 mg SLOW IVP Q4H PRN PRN Reason: Severe Pain (7-10) Nitroglycerin (Nitroglycerin 0.4 Mg Tab (25 Tab Bottle)) 0.4 mg SL Q5MIN PRN PRN Reason: Chest Pain Ondansetron HCl (Ondansetron Pf 4 Mg/2 Ml Vial) 4 mg IVP Q6H PRN PRN Reason: Nausea/Vomiting Last Admin: 12/19/19 06:00 Dose: 4 mg Documented by: Pantoprazole Sodium (Pantoprazole 40 Mg Tab) 40 mg PO DAILY [facility] Last Admin: 12/25/19 09:33 Dose: 40 mg Documented by: Sodium Chloride (Flush - Normal Saline 10 Ml Syringe) 10 ml IVF PRN PRN PRN Reason: Saline Flush Last Admin: 12/19/19 06:00 Dose: 10 ml Documented by: Tamsulosin HCl (Tamsulosin Hcl 0.4 Mg Cap) 0.4 mg PO HS [facility] Last Admin: 12/24/19 21:13 Dose: 0.4 mg Documented by: Vital Signs & Weight: Vital Signs Temp Pulse Resp BP Pulse Ox 12/25/19 11:15 97.6 F 75 18 135/64 94 L 12/25/19 09:32 75 12/25/19 07:38 91 L 12/25/19 07:37 101 H 20 91 L 12/25/19 07:30 97.7 F 103 H 17 121/67 96 12/25/19 04:13 98.8 F 102 H 20 129/71 93 L Admit Weight 173 lb 6.4 oz Weight 173 lb I/O: I/O 12/24/19 12/25/19 12/26/19 06:59 06:59 06:59 Intake Total 350 420 Output Total 1130 1400 Balance -780 -980 - Quality Measures Condition: Atrial Fibrillation/Flutter (hx or current) CV meds: Aspirin: Yes - Medication Contraindications No Anticoagulant reason: Medical contraindication - Physical Exam General: alert & oriented x3, no apparent distress, speech clear, affect appropriate. negative: appears well HEENT: mucus membranes moist, normocephaly, EOMI Neck: supple neck, midline trachea, no JVD/HJR Cardiology: regular rate and rhythm, no murmur, PMI nondisplaced Lungs: clear to auscultation, normal breath sounds, no wheeze, rales, rhonchi Neurology: cranial nerve 2-12 intact, grossly intact, no lateralizing findings - Chadsvasc Risk factors Congestive heart failure: 1 Age 65-74: 1 Vascular disease: 1 Risk Score: 3 - Labs Result Diagrams: 12/25/19 04:07 12/25/19 04:07 - EKG Interpretation EKG Method: Telemetry EKG shows: Sinus rhythm - Assessment/Plan Assessment/Plan: 1. Chest pain with [id number] CO. a. Left heart catheterization on 12/03/2019, found LAD/diagonal bifurcation disease 2. Coronary artery disease, a. status post coronary artery bypass grafting x2 vessel on 12/05/2019. - SULLIVAN to LAD, saphenous graft to diagonal. 3. History of COPD. 4. Postoperative atrial fibrillation, -prompting amiodarone initiation and oral anticoagulation with Eliquis. - Eliquis stopped 12/18 d/t anemia effusion - amiodarone stopped 11/12 d/t elevated LFTs. 5. Ischemic cardiomyopathy. a. LVEF 30% to 35% per echo on 12/04/2019. b. life vest in place. Recommend repeat echocardiogram in 3 months time and continued GDMT. consider ICD if LVEF less than 35% after 3 months 6. Chronic kidney disease. 7. Hypotension 8. Tobacco habituation. 9. Anemia 10. Transaminitis -more likely secondary to congestion from pericardial effusion/tamponade process than amiodarone. 11. Pericardial effusion. -s/p pericardial window 12/19 ~750mL blood Paroxysmal AF overnight. Resumed low dose amiodarone this AM. OK for DC. While he does not want chest compressions or intubation efforts he does still w ant the protection of the Lifevest and possibly ICD in the future if EF remains severely depressed. 3 month follow up after repeat echo done by cardiology to discuss possible need for ICD and consider stopping amiodarone.
--- NOTE | 2019-12-25 13:12 | PDOC.EP ---
- Objective Allergies/Adverse Reactions: Allergies Allergy/AdvReac Type Severity Reaction Status Date / Time No Known Drug Allergies Allergy Verified 04/29/19 06:16 Current Medications Acetaminophen (Acetaminophen 325 Mg Tab) 650 mg PO Q6H PRN PRN Reason: Headache/Fever Or Mild Pain Last Admin: 12/21/19 11:35 Dose: 650 mg Documented by: Al Hydroxide/Mg Hydroxide (Mag-Al 1200 Mg/1200 Mg/30 Ml Udcup) 30 ml PO Q4H PRN PRN Reason: Indigestion Albuterol/Ipratropium (Ipratropium/Albuterol Sulfate 3 Ml Neb) 3 ml NEB Q6H PRN PRN Reason: Wheezing Last Admin: 12/21/19 19:11 Dose: 3 ml Documented by: Alprazolam (Alprazolam 0.25 Mg Tab) 0.5 mg PO TIDPRN PRN PRN Reason: Anxiety Last Admin: 12/24/19 21:32 Dose: 0.5 mg Documented by: Amiodarone HCl (Amiodarone 200 Mg Tab) 200 mg PO DAILY [facility] Last Admin: 12/25/19 09:32 Dose: 200 mg Documented by: Aspirin (Aspirin 81 Mg Enteric Coated Tablet) 81 mg PO DAILY [facility] Last Admin: 12/25/19 09:32 Dose: 81 mg Documented by: Atorvastatin Calcium (Atorvastatin Calcium 40 Mg Tab) 40 mg PO HS [facility] Last Admin: 12/24/19 21:13 Dose: 40 mg Documented by: Bisacodyl (Bisacodyl 5 Mg Tab) 10 mg PO Q12H PRN PRN Reason: Constipation Last Admin: 12/16/19 10:47 Dose: 10 mg Documented by: Bisacodyl (Bisacodyl 10 Mg Supp) 10 mg [place] Q12H PRN PRN Reason: Constipation Digoxin (Digoxin 0.125 Mg Tab) 0.125 mg PO DAILY [facility] Last Admin: 12/25/19 09:32 Dose: 0.125 mg Documented by: Diphenhydramine HCl (Diphenhydramine 25 Mg Cap) 25 mg PO Q6H PRN PRN Reason: Itching & Insomnia or Neri Ludin Last Admin: 12/24/19 21:32 Dose: 25 mg Documented by: Fludrocortisone Acetate (Fludrocortisone Acetate 0.1 Mg Tab) 0.1 mg PO DAILY [facility] Last Admin: 12/25/19 09:32 Dose: 0.1 mg Documented by: Guaifenesin/Dextromethorphan (Guaifenesin Dm 100-10/5 Ml Udcup) 15 ml PO Q4H PRN PRN Reason: Cough Magnesium Hydroxide (Milk Of Magnesia 30 Ml Udcup) 30 ml PO Q12H PRN PRN Reason: Constipation Midodrine (Midodrine Hcl 5 Mg Tab) 10 mg PO TID [facility] Last Admin: 12/25/19 09:32 Dose: 10 mg Documented by: Mineral Oil (Mineral Oil Enema) 133 ml [place] DAILYPRN PRN PRN Reason: Constipation Mometasone Furoate/Formoterol Fumar (Mometasone 200 Mcg/Formoterol 5 Mcg 120 Puff Inhaler) 2 puff INH BID-RT [facility] Last Admin: 12/25/19 07:37 Dose: 2 puff Documented by: Morphine Sulfate (Morphine 2 Mg/Ml Vial) 2 mg SLOW IVP Q4H PRN PRN Reason: Severe Pain (7-10) Nitroglycerin (Nitroglycerin 0.4 Mg Tab (25 Tab Bottle)) 0.4 mg SL Q5MIN PRN PRN Reason: Chest Pain Ondansetron HCl (Ondansetron Pf 4 Mg/2 Ml Vial) 4 mg IVP Q6H PRN PRN Reason: Nausea/Vomiting Last Admin: 12/19/19 06:00 Dose: 4 mg Documented by: Pantoprazole Sodium (Pantoprazole 40 Mg Tab) 40 mg PO DAILY [facility] Last Admin: 12/25/19 09:33 Dose: 40 mg Documented by: Sodium Chloride (Flush - Normal Saline 10 Ml Syringe) 10 ml IVF PRN PRN PRN Reason: Saline Flush Last Admin: 12/19/19 06:00 Dose: 10 ml Documented by: Tamsulosin HCl (Tamsulosin Hcl 0.4 Mg Cap) 0.4 mg PO [facility] Last Admin: 12/24/19 21:13 Dose: 0.4 mg Documented by: Vital Signs & Weight: Vital Signs Temp Pulse Pulse Pulse Resp BP BP 12/25/19 11:15 97.6 F 75 18 12/25/19 10:53 73 135/64 12/25/19 10:04 83 74 138/71 128/70 12/25/19 09:32 75 1118/20 07:38 12/25/19 07:37 101 H 20 12/25/19 07:30 97.7 F 103 H 17 12/25/19 04:13 98.8 F 102 H 20 BP Pulse Ox 12/25/19 11:15 135/64 94 L 12/25/19 10:53 12/25/19 10:04 12/25/19 09:32 12/25/19 07:38 91 L 12/25/19 07:37 91 L 12/25/19 07:30 121/67 96 12/25/19 04:13 129/71 93 L Admit Weight 173 lb 6.4 oz Weight 173 lb I/O: I/O 12/24/19 12/25/19 12/26/19 06:59 06:59 06:59 Intake Total 350 420 Output Total 1130 1400 Balance -780 980 - Quality Measures Condition: Atrial Fibrillation/Flutter (hx or current) CV meds: Aspirin: Yes, Eliquis: No - Medication Contraindications No Anticoagulant reason: Medical contraindication - Labs Result Diagrams: 12/25/19 04:07 12/25/19 04:07
--- NOTE | 2019-12-25 15:23 | PDOC.HOSPP ---
- Subjective Encounter Date: 12/25/19 Encounter Time: 09:45 Subjective: Patient is resting. He has no acute complaints. He is little apprehensive about the discharge plan of going to rehab versus home.. 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 - Objective Vital Signs & Weight: Vital Signs (12 hours) Temp Pulse Pulse Pulse Resp BP BP 12/25/19 11:15 97.6 F 75 18 12/25/19 10:53 73 135/64 12/25/19 10:04 83 74 138/71 128/70 12/25/19 09:32 75 12/25/19 07:38 12/25/19 07:37 101 H 20 12/25/19 07:30 97.7 F 103 H 17 12/25/19 04:13 98.8 F 102 H 20 BP Pulse Ox 12/25/19 11:15 135/64 94 L 12/25/19 10:53 12/25/19 10:04 12/25/19 09:32 12/25/19 07:38 91 L 12/25/19 07:37 91 L 12/25/19 07:30 121/67 96 12/25/19 04:13 129/71 93 L Weight Admit Weight 173 lb 6.4 oz Weight 173 lb Most Recent Monitor Data Heart Rate from ECG 73 NIBP 117/59 NIBP BP-Mean 78 Respiration from ECG 20 SpO2 94 I&O: 12/24/19 12/25/19 12/26/19 06:59 06:59 06:59 Intake Total 350 420 Output Total 1130 1400 Balance -780 -980 Result Diagrams: 12/25/19 04:07 12/25/19 04:07 Hospitalist ROS - Medication Medications: Active Medications Generic Name Dose Route Start Last Admin Trade Name Freq PRN Reason Stop Dose Admin Acetaminophen 650 mg 12/05/19 10:16 12/21/19 11:35 Acetaminophen 325 Mg Tab PO 650 mg Q6H PRN Administration Headache/Fever Or Mild Pain Albuterol/Ipratropium 3 ml 12/18/19 11:29 12/21/19 19:11 Ipratropium/Albuterol Sulfate 3 Ml Neb NEB 3 ml Q6H PRN Administration Wheezing Alprazolam 0.5 mg 12/18/19 12:05 12/24/19 21:32 Alprazolam 0.25 Mg Tab PO 0.5 mg TIDPRN PRN Administration Anxiety Amiodarone HCl 200 mg 12/25/19 09:00 12/25/19 09:32 Amiodarone 200 Mg Tab PO 200 mg DAILY RENZO Administration Aspirin 81 mg 12/06/19 09:00 12/25/19 09:32 Aspirin 81 Mg Enteric Coated Tablet PO 81 mg DAILY RENZO Administration Atorvastatin Calcium 40 mg 12/06/19 21:00 12/24/19 21:13 Atorvastatin Calcium 40 Mg Tab PO 40 mg HS RENZO Administration Bisacodyl 10 mg 12/06/19 07:34 12/16/19 10:47 Bisacodyl 5 Mg Tab PO 10 mg Q12H PRN Administration Constipation Digoxin 0.125 mg 12/24/19 09:00 12/25/19 09:32 Digoxin 0.125 Mg Tab PO 0.125 mg DAILY RENZO Administration Diphenhydramine HCl 25 mg 12/06/19 07:34 12/24/19 21:32 Diphenhydramine 25 Mg Cap PO 25 mg Q6H PRN Administration Itching & Insomnia or Neri Ludin Fludrocortisone Acetate 0.1 mg 12/20/19 09:00 12/25/19 09:32 Fludrocortisone Acetate 0.1 Mg Tab PO 0.1 mg DAILY RENZO Administration Midodrine 10 mg 12/19/19 15:00 12/25/19 09:32 Midodrine Hcl 5 Mg Tab PO 10 mg TID RENZO Administration Mometasone Furoate/Formoterol Fumar 2 puff 12/04/19 18:30 12/25/19 07:37 Mometasone 200 Mcg/Formoterol 5 Mcg 120 Puff Inhaler INH 2 puff BID-RT RENZO Administration Ondansetron HCl 4 mg 12/05/19 10:16 12/19/19 06:00 Ondansetron Pf 4 Mg/2 Ml Vial IVP 4 mg Q6H PRN Administration Nausea/Vomiting Pantoprazole Sodium 40 mg 12/06/19 09:00 12/25/19 09:33 Pantoprazole 40 Mg Tab PO 40 mg DAILY RENZO Administration Sodium Chloride 10 ml 12/06/19 07:34 12/19/19 06:00 Flush - Normal Saline 10 Ml Syringe IVF 10 ml PRN PRN Administration Saline Flush Tamsulosin HCl 0.4 mg 12/05/19 21:00 12/24/19 21:13 Tamsulosin Hcl 0.4 Mg Cap PO 0.4 mg HS RENZO Administration - Exam General Appearance: awake alert Eye: PERRL ENT: normocephalic atraumatic Neck: supple Heart: RRR Respiratory: CTAB, normal chest expansion Gastrointestinal: soft, normal bowel sounds Neurological: no weakness Psychiatric: A&O x 3 Hosp A/P - Plan 64 years old gentleman, who has significant past medical history of COPD, CKD stage III, hypertension, who presented to ED with complaint of chest pain. He was found to have NSTEMI. Cardiology was consulted, subsequently had a left heart cath, showed two-vessel CAD. He ultimately underwent two-vessel bypass, and tolerated procedure well. However, postoperatively, patient developed atrial fib, and persistent hypotension. Initial presentation of chest pain with NSTEMI coronary artery disease status post two-vessel CABG on December 04 with SULLIVAN to LAD and saphenous graft to diagonal. Ischemic cardiomyopathy with EF of 35% based on the echo of . -LifeVest in place follow-up with the echo in 3 months. Hematoma - in setting of recent CABG --chest CT showed fluid collections along the anterior mediastinum, and also on the lateral of pericardium that exerts its effects on the right ventricle --Status post pericardial window placed - . About 750 mL of serosanguineous fluid removed. Hypotension -secondary to pericardial effusion Pericardial effusion -Status post pericardial window on and removal of about 750 mL of blood. NSTEMI --s/p 2VD bypass --ASA on hold d/t above. BB on hold d/t hypotension. Statin on hold d/t elevated LFT B/L Pleural Effusion -Most likely secondary to pericardial effusion -Seems improved. Chest x-ray showed now only small left pleural effusion noted. Persistent cardiomegaly. MICHELLE/CKD 3 --Cr worsened hypotension, decr renal perfusion --Nephrology is following Metabolic acidosis --Status post sodium bicarb IVF Anemia of CKD and acute blood loss from recent surgery --transfuse 1U to keep Hb>9 AFib with RVR/NSVT Postoperatively A. fib --transitioned to PO Amio. Eliquis on hold for now, SQ for now d/t above acute changes. D/w cardiology. Hold BB d/t recurrent hypotension --EP is following Elevated LFT --? shock liver or ischemic event from episodes of hypotension; however, I would expect that his AST/ALT to be significantly elevated. -hold his statin for now, trend liver enzymes. -Liver ultrasound negative for acute cholecystitis -Transaminases trending down. Alkaline phosphatase in the normal range. - Chronic kidney disease followed by Dr. Spangler. Post operative A. fib -He is currently in sinus rhythm -No beta-milvia or calcium channel milvia,-on aspirin Lipitor Midodrine 3 times daily dose Digoxin added on . Blood culture off as well as showing no growth. Urine culture negative for any growth. -- almost had 7 days of antibiotics I will discontinue the IV. He is clinically improving. -Transaminitis trending down. Patient is participating in the physical therapy his chest tube is removed. He is stable to be transferred to the telemetry floor. He says that at home he can have more activity than being here so with that in mind I told her that we can arrange for home health for physical therapy and possible discharge. However later I learned that he preferred to go to the inpatient rehab as he does not like outsiders coming to his house -he has a dog that may be a problem. He is started on digoxin. Life vest reevaluation Plan to send him to inpatient rehab when we are ready. 18th Proximal atrial fibrillation Ischemic cardiomyopathy EF of 35% based on the echo of 28. -Is not give a LifeVest at this time per but to repeat the echo in 3 months and then evaluation for ICD if the EF remains low. -Now continue with amiodarone digoxin and midodrine -Holding the statin until liver function test improved- to almost back to normal range
--- NOTE | 2019-12-25 16:34 | PRG ---
DATE OF SERVICE: 12/25/2019 SUBJECTIVE: Mr. Whitten continues to be weak. He states he has mild shortness of breath. No other specific complaints. OBJECTIVE: VITAL SIGNS: Blood pressure 135/64, pulse 75, temperature is 97.6. LUNGS: Clear to auscultation. HEART: Regular rate and rhythm. ABDOMEN: Soft, nontender, and nondistended. EXTREMITIES: No edema. PERTINENT LABORATORY DATA: Hemoglobin 9.8. Creatinine 1.26. AST and ALT 52/266. IMPRESSION: 1. Coronary artery disease. 2. Status post bypass surgery. 3. Non-Q-wave myocardial infarction. 4. Pericardial effusion status post drainage. RECOMMENDATIONS: Mr. Whitten has no significant crackles or fluid noted on the physical exam. I would strongly encourage a bed to chair activity with physical therapy. Also strongly encouraged incentive spirometry. At this point, the patient is going to need placement. The patient was initially admitted on 12/02/2019. At this point, I have no further recommendations to add. The patient again will need placement. Continue aspirin in addition to atorvastatin. The patient has been on low-dose midodrine. We will add low-dose beta-milvia therapy. Otherwise, I have no recommendations. We will follow peripherally. Job ID: [id number]
[2019-12-25] MEDS: ALPRAZolam 0.25 MG TAB PO PRN (20:33)
[2019-12-25] MEDS: Tamsulosin HCl 0.4 MG CAP PO SCH (20:34)
[2019-12-25] MEDS: diphenhydrAMINE 25 MG CAP PO PRN (20:34)
[2019-12-26] MEDS: diphenhydrAMINE 25 MG CAP PO PRN ×2 (02:36→20:55)
[2019-12-26 04:34] LABS: ALT (SGPT) 197 U/L (8-55); AST (SGOT) 38 U/L (5-34); Albumin 2.7 g/dL (3.4-4.8); Alkaline Phosphatase 83 U/L (40-110); Anion Gap 13 mmol/L (10-20); BUN (Urea Nitrogen) 19 mg/dL (8.4-25.7); Bilirubin, Total 1.3 mg/dL (0.2-1.2); Calc. Creatinine Clearance 65 mL/min (70-130); Carbon Dioxide 20 mmol/L (23-31); Chloride 111 mmol/L (98-107); Estimated GFR-MDRD 58; Globulin 2.4 g/dL (2.4-3.5); Glucose 73 mg/dL (80-115); Potassium 3.7 mmol/L (3.5-5.1); Protein, Total 5.1 g/dL (5.8-8.1); Sodium 140 mmol/L (136-145)
[2019-12-26] MEDS: Mometasone 200 MCG/Formoterol 5 MCG 120 PUFF INHALER INH SCH ×2 (07:34→19:16)
[2019-12-26] MEDS: Digoxin 0.125 MG TAB PO SCH (08:51)
[2019-12-26] MEDS: Amiodarone 200 MG TAB PO SCH (08:51)
[2019-12-26] MEDS: Aspirin 81 mg Enteric Coated Tablet PO SCH (08:51)
[2019-12-26] MEDS: Fludrocortisone Acetate 0.1 MG TAB PO SCH (08:51)
[2019-12-26] MEDS: Midodrine HCl 5 MG TAB PO SCH ×3 (08:51→20:52)
--- NOTE | 2019-12-26 13:07 | PDOC.HOSPP ---
- Subjective Encounter Date: 12/26/19 Encounter Time: 11:00 Subjective: Patient doing well. He has no chest pain or short of breath. However he looks quite fatigued. - Objective Vital Signs & Weight: Vital Signs (12 hours) Temp Pulse Resp BP Pulse Ox 12/26/19 11:39 97.8 F 16 156/74 H 98 12/26/19 07:48 98.1 F 75 18 144/72 H 97 12/26/19 07:35 92 L 12/26/19 07:34 73 16 92 L 12/26/19 04:00 98.1 F 98 20 130/74 92 L Weight Admit Weight 173 lb 6.4 oz Weight 172 lb 9.6 oz Most Recent Monitor Data Heart Rate from ECG 73 NIBP 117/59 NIBP BP-Mean 78 Respiration from ECG 20 SpO2 94 I&O: 12/25/19 12/26/19 12/27/19 06:59 06:59 06:59 Intake Total 420 370 Output Total 1400 650 Balance -980 -280 Result Diagrams: 12/25/19 04:07 12/26/19 03:47 Hospitalist ROS - Medication Medications: Active Medications Generic Name Dose Route Start Last Admin Trade Name Freq PRN Reason Stop Dose Admin Acetaminophen 650 mg 12/05/19 10:16 12/21/19 11:35 Acetaminophen 325 Mg Tab PO 650 mg Q6H PRN Administration Headache/Fever Or Mild Pain Albuterol/Ipratropium 3 ml 12/18/19 11:29 12/21/19 19:11 Ipratropium/Albuterol Sulfate 3 Ml Neb NEB 3 ml Q6H PRN Administration Wheezing Alprazolam 0.5 mg 12/18/19 12:05 12/25/19 20:33 Alprazolam 0.25 Mg Tab PO 0.5 mg TIDPRN PRN Administration Anxiety Amiodarone HCl 200 mg 12/25/19 09:00 12/26/19 08:51 Amiodarone 200 Mg Tab PO 200 mg DAILY RENZO Administration Aspirin 81 mg 12/06/19 09:00 12/26/19 08:51 Aspirin 81 Mg Enteric Coated Tablet PO 81 mg DAILY RENZO Administration Bisacodyl 10 mg 12/06/19 07:34 12/16/19 10:47 Bisacodyl 5 Mg Tab PO 10 mg Q12H PRN Administration Constipation Digoxin 0.125 mg 12/24/19 09:00 12/26/19 08:51 Digoxin 0.125 Mg Tab PO 0.125 mg DAILY RENZO Administration Diphenhydramine HCl 25 mg 12/06/19 07:34 12/26/19 02:36 Diphenhydramine 25 Mg Cap PO 25 mg Q6H PRN Administration Itching & Insomnia or Neri Ludin Fludrocortisone Acetate 0.1 mg 12/20/19 09:00 12/26/19 08:51 Fludrocortisone Acetate 0.1 Mg Tab PO 0.1 mg DAILY RENZO Administration Midodrine 10 mg 12/19/19 15:00 12/26/19 08:51 Midodrine Hcl 5 Mg Tab PO 10 mg TID RENZO Administration Mometasone Furoate/Formoterol Fumar 2 puff 12/04/19 18:30 12/26/19 07:34 Mometasone 200 Mcg/Formoterol 5 Mcg 120 Puff Inhaler INH 2 puff BID-RT RENZO Administration Ondansetron HCl 4 mg 12/05/19 10:16 12/19/19 06:00 Ondansetron Pf 4 Mg/2 Ml Vial IVP 4 mg Q6H PRN Administration Nausea/Vomiting Pantoprazole Sodium 40 mg 12/06/19 09:00 12/26/19 08:51 Pantoprazole 40 Mg Tab PO 40 mg DAILY RENZO Administration Sodium Chloride 10 ml 12/06/19 07:34 12/19/19 06:00 Flush - Normal Saline 10 Ml Syringe IVF 10 ml PRN PRN Administration Saline Flush Tamsulosin HCl 0.4 mg 12/05/19 21:00 12/25/19 20:34 Tamsulosin Hcl 0.4 Mg Cap PO 0.4 mg HS RENZO Administration - Exam General Appearance: NAD, awake alert Eye: PERRL ENT: normocephalic atraumatic Neck: supple Heart: RRR Respiratory: CTAB, normal chest expansion Gastrointestinal: soft, normal bowel sounds Neurological: no focal deficits Psychiatric: A&O x 3 Hosp A/P - Plan 64 years old gentleman, who has significant past medical history of COPD, CKD stage III, hypertension, who presented to ED with complaint of chest pain. He was found to have NSTEMI. Cardiology was consulted, subsequently had a left heart cath, showed two-vessel CAD. He ultimately underwent two-vessel bypass, and tolerated procedure well. However, postoperatively, patient developed atrial fib, and persistent hypotension. Initial presentation of chest pain with NSTEMI coronary artery disease status post two-vessel CABG on December 04 with SULLIVAN to LAD and saphenous graft to diagonal. Ischemic cardiomyopathy with EF of 35% based on the echo of . -LifeVest in place follow-up with the echo in 3 months. Hematoma - in setting of recent CABG --chest CT showed fluid collections along the anterior mediastinum, and also on the lateral of pericardium that exerts its effects on the right ventricle --Status post pericardial window placed - . About 750 mL of serosanguineous fluid removed. Hypotension -secondary to pericardial effusion Pericardial effusion -Status post pericardial window on and removal of about 750 mL of blood. NSTEMI --s/p 2VD bypass --ASA on hold d/t above. BB on hold d/t hypotension. Statin on hold d/t elevated LFT B/L Pleural Effusion -Most likely secondary to pericardial effusion -Seems improved. Chest x-ray showed now only small left pleural effusion noted. Persistent cardiomegaly. MICHELLE/CKD 3 --Cr worsened hypotension, decr renal perfusion --Nephrology is following Metabolic acidosis --Status post sodium bicarb IVF Anemia of CKD and acute blood loss from recent surgery --transfuse 1U to keep Hb>9 AFib with RVR/NSVT Postoperatively A. fib --transitioned to PO Amio. Eliquis on hold for now, SQ for now d/t above acute changes. D/w cardiology. Hold BB d/t recurrent hypotension --EP is following Elevated LFT --? shock liver or ischemic event from episodes of hypotension; however, I would expect that his AST/ALT to be significantly elevated. -hold his statin for now, trend liver enzymes. -Liver ultrasound negative for acute cholecystitis -Transaminases trending down. Alkaline phosphatase in the normal range. - Chronic kidney disease followed by Dr. Spangler. Post operative A. fib -He is currently in sinus rhythm -No beta-milvia or calcium channel milvia,-on aspirin Lipitor Midodrine 3 times daily dose Digoxin added on . Blood culture off as well as showing no growth. Urine culture negative for any growth. -- almost had 7 days of antibiotics I will discontinue the IV. He is clinically improving. -Transaminitis trending down. Patient is participating in the physical therapy his chest tube is removed. He is stable to be transferred to the telemetry floor. 17 He says that at home he can have more activity than being here so with that in mind I told her that we can arrange for home health for physical therapy and possible discharge. However later I learned that he preferred to go to the inpatient rehab as he does not like outsiders coming to his house -he has a dog that may be a problem. He is started on digoxin. Life vest reevaluation Plan to send him to inpatient rehab when we are ready. 18 Proximal atrial fibrillation Ischemic cardiomyopathy EF of 35% based on the echo of 28. -Is not give a LifeVest at this time per but to repeat the echo in 3 months and then evaluation for ICD if the EF remains low. -Now continue with amiodarone digoxin and midodrine -Holding the statin until liver function test improved- to almost back to normal range 19 Continue with aspirin daily no Plavix or Eliquis. Pending placement.
--- NOTE | 2019-12-26 15:25 | PDOC.EP ---
- Subjective Date: 12/26/19 Time: 08:00 Interval History: no major events overnight. No change in clinical status. Pending rehab placement /SNF - Review of Systems Constitutional: reports: weakness. denies: chills, fever Respiratory: denies: cough, pleuritic pain, shortness of breath, wheezing Cardiology: denies: chest pain, edema, heart racing, light headedness, palpitations, passing out Gastrointestinal: denies: abdominal pain, constipation, nausea, vomitting - Objective Allergies/Adverse Reactions: Allergies Allergy/AdvReac Type Severity Reaction Status Date / Time No Known Drug Allergies Allergy Verified 04/29/19 06:16 Current Medications Acetaminophen (Acetaminophen 325 Mg Tab) 650 mg PO Q6H PRN PRN Reason: Headache/Fever Or Mild Pain Last Admin: 12/21/19 11:35 Dose: 650 mg Documented by: Al Hydroxide/Mg Hydroxide (Mag-Al 1200 Mg/1200 Mg/30 Ml Udcup) 30 ml PO Q4H PRN PRN Reason: Indigestion Albuterol/Ipratropium (Ipratropium/Albuterol Sulfate 3 Ml Neb) 3 ml NEB Q6H PRN PRN Reason: Wheezing Last Admin: 12/21/19 19:11 Dose: 3 ml Documented by: Alprazolam (Alprazolam 0.25 Mg Tab) 0.5 mg PO TIDPRN PRN PRN Reason: Anxiety Last Admin: 12/25/19 20:33 Dose: 0.5 mg Documented by: Amiodarone HCl (Amiodarone 200 Mg Tab) 200 mg PO DAILY [facility] Last Admin: 12/26/19 08:51 Dose: 200 mg Documented by: Aspirin (Aspirin 81 Mg Enteric Coated Tablet) 81 mg PO DAILY [facility] Last Admin: 12/26/19 08:51 Dose: 81 mg Documented by: Bisacodyl (Bisacodyl 5 Mg Tab) 10 mg PO Q12H PRN PRN Reason: Constipation Last Admin: 12/16/19 10:47 Dose: 10 mg Documented by: Bisacodyl (Bisacodyl 10 Mg Supp) 10 mg AR Q12H PRN PRN Reason: Constipation Digoxin (Digoxin 0.125 Mg Tab) 0.125 mg PO DAILY [facility] Last Admin: 12/26/19 08:51 Dose: 0.125 mg Documented by: Diphenhydramine HCl (Diphenhydramine 25 Mg Cap) 25 mg PO Q6H PRN PRN Reason: Itching & Insomnia or Neri Ludin Last Admin: 12/26/19 02:36 Dose: 25 mg Documented by: Fludrocortisone Acetate (Fludrocortisone Acetate 0.1 Mg Tab) 0.1 mg PO DAILY [facility] Last Admin: 12/26/19 08:51 Dose: 0.1 mg Documented by: Guaifenesin/Dextromethorphan (Guaifenesin Dm 100-10/5 Ml Udcup) 15 ml PO Q4H PRN PRN Reason: Cough Magnesium Hydroxide (Milk Of Magnesia 30 Ml Udcup) 30 ml PO Q12H PRN PRN Reason: Constipation Metoprolol Tartrate (Metoprolol Tartrate 25 Mg Tab) 6.25 mg PO BID [facility] Midodrine (Midodrine Hcl 5 Mg Tab) 10 mg PO TID [facility] Last Admin: 12/26/19 08:51 Dose: 10 mg Documented by: Mineral Oil (Mineral Oil Enema) 133 ml AR DAILYPRN PRN PRN Reason: Constipation Mometasone Furoate/Formoterol Fumar (Mometasone 200 Mcg/Formoterol 5 Mcg 120 Puff Inhaler) 2 puff INH BID-RT [facility] Last Admin: 12/26/19 07:34 Dose: 2 puff Documented by: Morphine Sulfate (Morphine 2 Mg/Ml Vial) 2 mg SLOW IVP Q4H PRN PRN Reason: Severe Pain (7-10) Nitroglycerin (Nitroglycerin 0.4 Mg Tab (25 Tab Bottle)) 0.4 mg SL Q5MIN PRN PRN Reason: Chest Pain Ondansetron HCl (Ondansetron Pf 4 Mg/2 Ml Vial) 4 mg IVP Q6H PRN PRN Reason: Nausea/Vomiting Last Admin: 12/19/19 06:00 Dose: 4 mg Documented by: Pantoprazole Sodium (Pantoprazole 40 Mg Tab) 40 mg PO DAILY [facility] Last Admin: 12/26/19 08:51 Dose: 40 mg Documented by: Sodium Chloride (Flush - Normal Saline 10 Ml Syringe) 10 ml IVF PRN PRN PRN Reason: Saline Flush Last Admin: 12/19/19 06:00 Dose: 10 ml Documented by: Tamsulosin HCl (Tamsulosin Hcl 0.4 Mg Cap) 0.4 mg PO HS [facility] Last Admin: 12/25/19 20:34 Dose: 0.4 mg Documented by: Vital Signs & Weight: Vital Signs Temp Pulse Resp BP Pulse Ox 12/26/19 11:39 97.8 F 16 156/74 H 98 12/26/19 07:48 98.1 F 75 18 144/72 H 97 12/26/19 07:35 92 L 12/26/19 07:34 73 16 92 L 12/26/19 04:00 98.1 F 98 20 130/74 92 L Admit Weight 173 lb 6.4 oz Weight 172 lb 9.6 oz I/O: I/O 12/25/19 12/26/19 12/27/19 06:59 06:59 06:59 Intake Total 420 370 Output Total 1400 650 Balance -980 -280 - Quality Measures Condition: Atrial Fibrillation/Flutter (hx or current) CV meds: Aspirin: Yes, Eliquis: No - Medication Contraindications No Anticoagulant reason: Medical contraindication - Physical Exam General: alert & oriented x3, no apparent distress, speech clear. negative: appears well, affect appropriate ( flat) HEENT: mucus membranes moist, normocephaly, EOMI Neck: supple neck, midline trachea, no JVD/HJR Cardiology: regular rate and rhythm, no murmur, PMI nondisplaced Lungs: clear to auscultation, normal breath sounds, no wheeze, rales, rhonchi Neurology: cranial nerve 2-12 intact, grossly intact, no lateralizing findings - Chadsvasc Risk factors Congestive heart failure: 1 Age 65-74: 1 Vascular disease: 1 Risk Score: 3 - Labs Result Diagrams: 12/25/19 04:07 12/26/19 03:47 - EKG Interpretation EKG Method: Telemetry EKG shows: Sinus rhythm - Assessment/Plan Assessment/Plan: 1. Chest pain with [id number] NV. a. Left heart catheterization on 12/03/2019, found LAD/diagonal bifurcation disease 2. Coronary artery disease, a. status post coronary artery bypass grafting x2 vessel on 12/05/2019. - SULLIVAN to LAD, saphenous graft to diagonal. 3. History of COPD. 4. Postoperative atrial fibrillation, -prompting amiodarone initiation and oral anticoagulation with Eliquis. - Eliquis stopped 12/18 d/t anemia effusion - amiodarone stopped 12/18 d/t elevated LFTs. 5. Ischemic cardiomyopathy. a. LVEF 30% to 35% per echo on 12/04/2019. b. life vest in place. Recommend repeat echocardiogram in 3 months time and continued GDMT. consider ICD if LVEF less than 35% after 3 months 6. Chronic kidney disease. 7. Hypotension 8. Tobacco habituation. 9. Anemia 10. Transaminitis -more likely secondary to congestion from pericardial effusion/tamponade process than amiodarone. 11. Pericardial effusion. -s/p pericardial window 12/19 ~750mL blood Paroxysmal AF overnight again. continue amiodarone 2 mg daily on discharge. OK for DC. 3 month follow up after repeat echo done by cardiology to discuss possible need for ICD and consider stopping amiodarone post CABG
[2019-12-26] MEDS: Metoprolol Tartrate 25 MG TAB PO SCH (20:51)
[2019-12-26] MEDS: Tamsulosin HCl 0.4 MG CAP PO SCH (20:52)
[2019-12-26] MEDS: ALPRAZolam 0.25 MG TAB PO PRN (20:55)
[2019-12-27 05:00] LABS: ALT (SGPT) 145 U/L (8-55); AST (SGOT) 31 U/L (5-34); Albumin 2.7 g/dL (3.4-4.8); Alkaline Phosphatase 80 U/L (40-110); Anion Gap 14 mmol/L (10-20); BUN (Urea Nitrogen) 19 mg/dL (8.4-25.7); Bilirubin, Total 1.2 mg/dL (0.2-1.2); Calc. Creatinine Clearance 69 mL/min (70-130); Carbon Dioxide 20 mmol/L (23-31); Chloride 112 mmol/L (98-107); Estimated GFR-MDRD 61; Globulin 2.3 g/dL (2.4-3.5); Glucose 69 mg/dL (80-115); Potassium 3.8 mmol/L (3.5-5.1); Sodium 142 mmol/L (136-145)
--- NOTE | 2019-12-27 07:05 | EKG ---
Test Reason : Blood Pressure : / mmHG Vent. Rate : 079 BPM Atrial Rate : 079 BPM P-R Int : 138 ms QRS Dur : 090 ms QT Int : 388 ms P-R-T Axes : 045 074 208 degrees QTc Int : 444 ms Normal sinus rhythm T wave abnormality, consider anterolateral ischemia Abnormal ECG Confirmed by CINDY PORTILLO MD ([id number]) on 12/27/2019 7:04:50 AM Referred By: [facility] Confirmed By:CINDY PORTILLO MD
[2019-12-27] MEDS: Mometasone 200 MCG/Formoterol 5 MCG 120 PUFF INHALER INH SCH ×2 (07:53→19:32)
[2019-12-27] MEDS: Metoprolol Tartrate 25 MG TAB PO SCH ×2 (09:29→21:22)
[2019-12-27] MEDS: Digoxin 0.125 MG TAB PO SCH (09:29)
[2019-12-27] MEDS: Aspirin 81 mg Enteric Coated Tablet PO SCH (09:29)
[2019-12-27] MEDS: Fludrocortisone Acetate 0.1 MG TAB PO SCH (09:30)
[2019-12-27] MEDS: Amiodarone 200 MG TAB PO SCH (09:30)
[2019-12-27] MEDS: Midodrine HCl 5 MG TAB PO SCH ×3 (09:30→21:21)
--- NOTE | 2019-12-27 13:13 | PDOC.HOSPP ---
- Subjective Encounter Date: 12/27/19 Encounter Time: 11:10 Subjective: Hypertensive this morning. Awaiting for rehab placement. checked with the case work aide - Objective Vital Signs & Weight: Vital Signs (12 hours) Temp Pulse Pulse Pulse Pulse Resp BP 12/27/19 09:29 72 12/27/19 08:51 78 79 74 158/74 H 12/27/19 08:00 97.7 F 79 18 12/27/19 04:00 99.0 F 72 24 H 12/27/19 01:45 BP BP BP Pulse Ox Pulse Ox Pulse Ox Pulse Ox 12/27/19 09:29 12/27/19 08:51 131/61 151/73 H 95 94 L 92 L 12/27/19 08:00 93 L 12/27/19 04:00 152/67 H 92 L 12/27/19 01:45 94 L Weight Admit Weight 173 lb 6.4 oz Weight 169 lb Most Recent Monitor Data Heart Rate from ECG 73 NIBP 117/59 NIBP BP-Mean 78 Respiration from ECG 20 SpO2 94 I&O: 12/26/19 12/27/19 12/28/19 06:59 06:59 06:59 Intake Total 370 1170 Output Total 650 1150 Balance -280 20 Result Diagrams: 12/25/19 04:07 12/27/19 04:22 Hospitalist ROS - Medication Medications: Active Medications Generic Name Dose Route Start Last Admin Trade Name Freq PRN Reason Stop Dose Admin Acetaminophen 650 mg 12/05/19 10:16 12/21/19 11:35 Acetaminophen 325 Mg Tab PO 650 mg Q6H PRN Administration Headache/Fever Or Mild Pain Albuterol/Ipratropium 3 ml 12/18/19 11:29 12/21/19 19:11 Ipratropium/Albuterol Sulfate 3 Ml Neb NEB 3 ml Q6H PRN Administration Wheezing Alprazolam 0.5 mg 12/18/19 12:05 12/26/19 20:55 Alprazolam 0.25 Mg Tab PO 0.5 mg TIDPRN PRN Administration Anxiety Amiodarone HCl 200 mg 12/25/19 09:00 12/27/19 09:30 Amiodarone 200 Mg Tab PO 200 mg DAILY RENZO Administration Aspirin 81 mg 12/06/19 09:00 12/27/19 09:29 Aspirin 81 Mg Enteric Coated Tablet PO 81 mg DAILY RENZO Administration Bisacodyl 10 mg 12/06/19 07:34 12/16/19 10:47 Bisacodyl 5 Mg Tab PO 10 mg Q12H PRN Administration Constipation Digoxin 0.125 mg 12/24/19 09:00 12/27/19 09:29 Digoxin 0.125 Mg Tab PO 0.125 mg DAILY RENZO Administration Diphenhydramine HCl 25 mg 12/06/19 07:34 12/26/19 20:55 Diphenhydramine 25 Mg Cap PO 25 mg Q6H PRN Administration Itching & Insomnia or Neri Ludin Fludrocortisone Acetate 0.1 mg 12/20/19 09:00 12/27/19 09:30 Fludrocortisone Acetate 0.1 Mg Tab PO 0.1 mg DAILY RENZO Administration Metoprolol Tartrate 6.25 mg 12/26/19 21:00 12/27/19 09:29 Metoprolol Tartrate 25 Mg Tab PO 6.25 mg BID RENZO Administration Midodrine 10 mg 12/19/19 15:00 12/27/19 09:30 Midodrine Hcl 5 Mg Tab PO 10 mg TID RENZO Administration Mometasone Furoate/Formoterol Fumar 2 puff 12/04/19 18:30 12/27/19 07:53 Mometasone 200 Mcg/Formoterol 5 Mcg 120 Puff Inhaler INH 2 puff BID-RT RENZO Administration Ondansetron HCl 4 mg 12/05/19 10:16 12/19/19 06:00 Ondansetron Pf 4 Mg/2 Ml Vial IVP 4 mg Q6H PRN Administration Nausea/Vomiting Pantoprazole Sodium 40 mg 12/06/19 09:00 12/27/19 09:30 Pantoprazole 40 Mg Tab PO 40 mg DAILY RENZO Administration Sodium Chloride 10 ml 12/06/19 07:34 12/19/19 06:00 Flush - Normal Saline 10 Ml Syringe IVF 10 ml PRN PRN Administration Saline Flush Tamsulosin HCl 0.4 mg 12/05/19 21:00 12/26/19 20:52 Tamsulosin Hcl 0.4 Mg Cap PO 0.4 mg HS RENZO Administration - Exam General Appearance: NAD, awake alert Eye: PERRL ENT: normocephalic atraumatic Neck: supple Heart: RRR Respiratory: CTAB, normal chest expansion Gastrointestinal: soft, normal bowel sounds Extremities: no edema Neurological: no focal deficits Psychiatric: A&O x 3 Hosp A/P - Plan 64 years old gentleman, who has significant past medical history of COPD, CKD stage III, hypertension, who presented to ED with complaint of chest pain. He was found to have NSTEMI. Cardiology was consulted, subsequently had a left heart cath, showed two-vessel CAD. He ultimately underwent two-vessel bypass, and tolerated procedure well. However, postoperatively, patient developed atrial fib, and persistent hypotension. Initial presentation of chest pain with NSTEMI coronary artery disease status post two-vessel CABG on December 04 with SULLIVAN to LAD and saphenous graft to diagonal. Ischemic cardiomyopathy with EF of 35% based on the echo of . -LifeVest in place follow-up with the echo in 3 months. Hematoma - in setting of recent CABG --chest CT showed fluid collections along the anterior mediastinum, and also on the lateral of pericardium that exerts its effects on the right ventricle --Status post pericardial window placed - . About 750 mL of serosanguineous fluid removed. Hypotension -secondary to pericardial effusion Pericardial effusion -Status post pericardial window on and removal of about 750 mL of blood. NSTEMI --s/p 2VD bypass --ASA on hold d/t above. BB on hold d/t hypotension. Statin on hold d/t elevated LFT B/L Pleural Effusion -Most likely secondary to pericardial effusion -Seems improved. Chest x-ray showed now only small left pleural effusion noted. Persistent cardiomegaly. MICHELLE/CKD 3 --Cr worsened hypotension, decr renal perfusion --Nephrology is following Metabolic acidosis --Status post sodium bicarb IVF Anemia of CKD and acute blood loss from recent surgery --transfuse 1U to keep Hb>9 AFib with RVR/NSVT Postoperatively A. fib --transitioned to PO Amio. Eliquis on hold for now, SQ for now d/t above acute changes. D/w cardiology. Hold BB d/t recurrent hypotension --EP is following Elevated LFT --? shock liver or ischemic event from episodes of hypotension; however, I would expect that his AST/ALT to be significantly elevated. -hold his statin for now, trend liver enzymes. -Liver ultrasound negative for acute cholecystitis -Transaminases trending down. Alkaline phosphatase in the normal range. - Chronic kidney disease followed by Dr. Spangler. Post operative A. fib -He is currently in sinus rhythm -No beta-milvia or calcium channel milvia,-on aspirin Lipitor Midodrine 3 times daily dose Digoxin added on . Blood culture off as well as showing no growth. Urine culture negative for any growth. -- almost had 7 days of antibiotics I will discontinue the IV. He is clinically improving. -Transaminitis trending down. Proximal atrial fibrillation Ischemic cardiomyopathy EF of 35% based on the echo of 28. -NO lifevest but repeat the echo in 3 months and then evaluation for ICD if the EF remains low. -Now continue with amiodarone digoxin and midodrine -Holding the statin until liver function test almost back to normal range Continue with aspirin daily----- no Plavix or Eliquis, per cardiology. Pending placement.
[2019-12-27] MEDS: Tamsulosin HCl 0.4 MG CAP PO SCH (21:24)
[2019-12-27] MEDS: diphenhydrAMINE 25 MG CAP PO PRN (21:32)
[2019-12-27] MEDS: ALPRAZolam 0.25 MG TAB PO PRN (21:32)
[2019-12-28 04:56] LABS: ALT (SGPT) 114 U/L (8-55); AST (SGOT) 30 U/L (5-34); Albumin 2.7 g/dL (3.4-4.8); Alkaline Phosphatase 80 U/L (40-110); Anion Gap 16 mmol/L (10-20); BUN (Urea Nitrogen) 19 mg/dL (8.4-25.7); Bilirubin, Total 1.2 mg/dL (0.2-1.2); Calc. Creatinine Clearance 66 mL/min (70-130); Carbon Dioxide 20 mmol/L (23-31); Chloride 109 mmol/L (98-107); Estimated GFR-MDRD 60; Globulin 2.4 g/dL (2.4-3.5); Glucose 69 mg/dL (80-115); Potassium 3.8 mmol/L (3.5-5.1); Protein, Total 5.1 g/dL (5.8-8.1); Sodium 141 mmol/L (136-145)
[2019-12-28] MEDS: Mometasone 200 MCG/Formoterol 5 MCG 120 PUFF INHALER INH SCH ×2 (07:04→19:32)
[2019-12-28] MEDS: Midodrine HCl 5 MG TAB PO SCH ×3 (09:55→21:11)
[2019-12-28] MEDS: Digoxin 0.125 MG TAB PO SCH (09:55)
[2019-12-28] MEDS: Aspirin 81 mg Enteric Coated Tablet PO SCH (09:55)
[2019-12-28] MEDS: Metoprolol Tartrate 25 MG TAB PO SCH ×2 (09:55→21:06)
[2019-12-28] MEDS: Amiodarone 200 MG TAB PO SCH (09:55)
[2019-12-28] MEDS: Fludrocortisone Acetate 0.1 MG TAB PO SCH (09:56)
[2019-12-28] MEDS: diphenhydrAMINE 25 MG CAP PO PRN (21:06)
[2019-12-28] MEDS: Tamsulosin HCl 0.4 MG CAP PO SCH (21:08)
--- NOTE | 2019-12-28 21:34 | PDOC.HOSPP ---
- Subjective Encounter Date: 12/28/19 Encounter Time: 18:00 Subjective: F/u: NSTEMI, bypass, pericardial effusion The patient has no complaints other than mild chest pressure near his incision. He states it comes and goes. He denies shortness of breath but is on oxygen. He complains that his wounds haven't been cleaned on his incision in a while - Objective Vital Signs & Weight: Vital Signs (12 hours) Temp Pulse Resp BP BP BP Pulse Ox 12/28/19 20:00 97.8 F 71 18 138/65 93 L 12/28/19 19:34 95 12/28/19 19:32 95 12/28/19 16:00 98.2 F 75 17 128/61 95 12/28/19 12:40 140/70 137/68 12/28/19 12:11 98.7 F 63 20 144/71 H 95 12/28/19 09:55 70 Pulse Ox Pulse Ox 12/28/19 20:00 12/28/19 19:34 12/28/19 19:32 12/28/19 16:00 12/28/19 12:40 97 95 12/28/19 12:11 12/28/19 09:55 Weight Admit Weight 173 lb 6.4 oz Weight 167 lb 8 oz Most Recent Monitor Data Heart Rate from ECG 73 NIBP 117/59 NIBP BP-Mean 78 Respiration from ECG 20 SpO2 94 I&O: 12/27/19 12/28/19 12/29/19 06:59 06:59 06:59 Intake Total 1170 720 480 Output Total 1150 1250 800 Balance 48 -600 -550 Result Diagrams: 12/25/19 04:07 12/28/19 04:02 Hospitalist ROS - Review of Systems Constitutional: denies: fever, chills - Medication Medications: Active Medications Generic Name Dose Route Start Last Admin Trade Name Freq PRN Reason Stop Dose Admin Acetaminophen 650 mg 12/05/19 10:16 12/21/19 11:35 Acetaminophen 325 Mg Tab PO 650 mg Q6H PRN Administration Headache/Fever Or Mild Pain Albuterol/Ipratropium 3 ml 12/18/19 11:29 12/21/19 19:11 Ipratropium/Albuterol Sulfate 3 Ml Neb NEB 3 ml Q6H PRN Administration Wheezing Amiodarone HCl 200 mg 12/25/19 09:00 12/28/19 09:55 Amiodarone 200 Mg Tab PO 200 mg DAILY RENZO Administration Aspirin 81 mg 12/06/19 09:00 12/28/19 09:55 Aspirin 81 Mg Enteric Coated Tablet PO 81 mg DAILY RENZO Administration Bisacodyl 10 mg 12/06/19 07:34 12/16/19 10:47 Bisacodyl 5 Mg Tab PO 10 mg Q12H PRN Administration Constipation Digoxin 0.125 mg 12/24/19 09:00 12/28/19 09:55 Digoxin 0.125 Mg Tab PO 0.125 mg DAILY RENZO Administration Diphenhydramine HCl 25 mg 12/06/19 07:34 12/28/19 21:06 Diphenhydramine 25 Mg Cap PO 25 mg Q6H PRN Administration Itching & Insomnia or Neri Ludin Fludrocortisone Acetate 0.1 mg 12/20/19 09:00 12/28/19 09:56 Fludrocortisone Acetate 0.1 Mg Tab PO 0.1 mg DAILY RENZO Administration Metoprolol Tartrate 6.25 mg 12/26/19 21:00 12/28/19 21:06 Metoprolol Tartrate 25 Mg Tab PO 6.25 mg BID RENZO Administration Midodrine 10 mg 12/19/19 15:00 12/28/19 21:11 Midodrine Hcl 5 Mg Tab PO 10 mg TID RENZO Administration Mometasone Furoate/Formoterol Fumar 2 puff 12/04/19 18:30 12/28/19 19:32 Mometasone 200 Mcg/Formoterol 5 Mcg 120 Puff Inhaler INH 2 puff BID-RT RENZO Administration Ondansetron HCl 4 mg 12/05/19 10:16 12/19/19 06:00 Ondansetron Pf 4 Mg/2 Ml Vial IVP 4 mg Q6H PRN Administration Nausea/Vomiting Pantoprazole Sodium 40 mg 12/06/19 09:00 12/28/19 09:56 Pantoprazole 40 Mg Tab PO 40 mg DAILY RENZO Administration Sodium Chloride 10 ml 12/06/19 07:34 12/19/19 06:00 Flush - Normal Saline 10 Ml Syringe IVF 10 ml PRN PRN Administration Saline Flush Tamsulosin HCl 0.4 mg 12/05/19 21:00 12/28/19 21:08 Tamsulosin Hcl 0.4 Mg Cap PO 0.4 mg HS RENZO Administration - Exam General Appearance: NAD, awake alert Eye: PERRL, anicteric sclera ENT: normocephalic atraumatic, no oropharyngeal lesions Neck: no JVD Heart: RRR, no murmur, no gallops, no rubs Heart - other findings: midline surgical scar appears clean Respiratory: CTAB, no wheezes, no rales, no ronchi Gastrointestinal: soft, non-tender, non-distended, normal bowel sounds Extremities: no cyanosis, no clubbing, no edema Skin: normal turgor, no lesions, no rashes Neurological: cranial nerve grossly intact, normal sensation to touch, no weakness Hosp A/P - Plan ECHO: EF 30-35%, hypokinetic imd to distal AW, apex and mid to distal inferior wall Chest CT: worsening bilateral pleural effusions. Loculated pericardial effusion compressing RA and left ventricle 64 years old gentleman, who has significant past medical history of COPD, CKD stage III, hypertension, who presented to ED with complaint of chest pain. He was found to have NSTEMI. Cardiology was consulted, subsequently had a left heart cath, showed two-vessel CAD. He ultimately underwent two-vessel bypass, and tolerated procedure well. However, postoperatively, patient developed atrial fib, and persistent hypotension. #NSTEMI s/p two vessel CABG #Chest pressure - he is s/p two-vessel CABG on December 04 with SULLIVAN to LAD and saphenous graft to diagonal. - ECHO with EF 30-35%. Life vest is in place, pending placement - continue aspirin 81 mg daily - patient complains of chest pressure. Will repeat EKG and check chest X ray Hematoma - in setting of recent CABG --chest CT showed fluid collections along the anterior mediastinum, and also on the lateral of pericardium that exerts its effects on the right ventricle --Status post pericardial window placed 12/19. About 750 mL of serosanguineous fluid removed. - will repeat chest X ray today Transaminitis - downtrending, ALT still 114. Statin on hold. US negative for acute cholecystitis. Denies abdominal pain Acute hypoxic respiratory failure secondary to pulmonary edema and thoracic hematoma - possibly from pericardial effusion. Will repeat chest Xray today - wean oxygen to maintain sat > 92% Hypotension -resolved - blood cultures negative, off antibiotics MICHELLE/CKD 3 - resolved Anemia of CKD and acute blood loss from recent surgery -Hb 9.8 today, received 1unit PRBC -transfuse 1U to keep Hb>9 #AFib with RVR/NSVT #Postoperatively A. fib -continue digoxin and amiodarone. Eliquis held due to hematoma - Disopo: pending placement and insurance approval . Wean off oxygen
--- NOTE | 2019-12-28 23:41 | RAD ---
Portable frontal chest radiograph: 12/28/2019 COMPARISON: 12/20/2019 HISTORY: Chest tightness FINDINGS: External material overlies the chest, limiting detailed assessment. Cardiac silhouette is e nlarged. Sternotomy wires are noted. Pulmonary vascular congestion is present. There is worsening hazy nonspecific bibasilar interstitial and alveolar opacity with increasing pleur al fluid. IMPRESSION: Interval worsening in pleural and parenchymal opacity within the perihilar regions and jl ng bases suspicious for pulmonary edema. Infectious pneumonitis or aspiration cannot be excluded. Follow-up imaging following treatment advised.
[2019-12-29] MEDS ORDERED: ALPRAZolam 0.5 MG TAB PO SCH (01:00)
[2019-12-29 04:26] LABS: ALT (SGPT) 91 U/L (8-55); AST (SGOT) 28 U/L (5-34); Albumin 2.7 g/dL (3.4-4.8); Alkaline Phosphatase 79 U/L (40-110); Anion Gap 13 mmol/L (10-20); BUN (Urea Nitrogen) 17 mg/dL (8.4-25.7); Bilirubin, Total 1.1 mg/dL (0.2-1.2); Calc. Creatinine Clearance 67 mL/min (70-130); Carbon Dioxide 21 mmol/L (23-31); Chloride 110 mmol/L (98-107); Estimated GFR-MDRD 62; Globulin 2.3 g/dL (2.4-3.5); Glucose 75 mg/dL (80-115); Potassium 3.4 mmol/L (3.5-5.1); Sodium 141 mmol/L (136-145)
[2019-12-29] MEDS: Mometasone 200 MCG/Formoterol 5 MCG 120 PUFF INHALER INH SCH ×2 (06:43→18:57)
[2019-12-29] MEDS: Fludrocortisone Acetate 0.1 MG TAB PO SCH (09:10)
[2019-12-29] MEDS: Midodrine HCl 5 MG TAB PO SCH ×3 (09:11→20:29)
[2019-12-29] MEDS: Metoprolol Tartrate 25 MG TAB PO SCH ×2 (09:11→20:27)
[2019-12-29] MEDS: Digoxin 0.125 MG TAB PO SCH (09:11)
[2019-12-29] MEDS: Amiodarone 200 MG TAB PO SCH (09:11)
[2019-12-29] MEDS: Aspirin 81 mg Enteric Coated Tablet PO SCH (09:11)
[2019-12-29] MEDS: Furosemide 40 MG/4 ML VIAL SLOW IVP SCH ×2 (09:13→11:24)
--- NOTE | 2019-12-29 15:49 | PDOC.HOSPP ---
- Subjective Encounter Date: 12/29/19 Encounter Time: 09:00 Subjective: F/u: pulmonary edema The patient is doing better today. He still gets intermittent chest pressure. Shortness of breath is the same. HE denies cough. He was found to have pulmonary edema. His IV came out and was agreeable to reinserting another one - Objective Vital Signs & Weight: Vital Signs (12 hours) Temp Pulse Pulse Resp BP BP BP 12/29/19 11:39 97.8 F 61 17 127/61 12/29/19 09:50 67 135/65 12/29/19 08:58 98.2 F 70 24 H 136/63 12/29/19 04:00 70 16 133/67 Pulse Ox Pulse Ox 12/29/19 11:39 97 12/29/19 09:50 95 12/29/19 08:58 94 L 12/29/19 04:00 96 Weight Admit Weight 173 lb 6.4 oz Weight 164 lb 1.6 oz Most Recent Monitor Data Heart Rate from ECG 73 NIBP 117/59 NIBP BP-Mean 78 Respiration from ECG 20 SpO2 94 I&O: 12/28/19 12/29/19 12/30/19 06:59 06:59 06:59 Intake Total 720 680 Output Total 1250 1220 Balance -530 -540 Result Diagrams: 12/25/19 04:07 12/29/19 03:17 Hospitalist ROS - Review of Systems Constitutional: denies: fever, chills - Medication Medications: Active Medications Generic Name Dose Route Start Last Admin Trade Name Freq PRN Reason Stop Dose Admin Acetaminophen 650 mg 12/05/19 10:16 12/21/19 11:35 Acetaminophen 325 Mg Tab PO 650 mg Q6H PRN Administration Headache/Fever Or Mild Pain Albuterol/Ipratropium 3 ml 12/18/19 11:29 12/21/19 19:11 Ipratropium/Albuterol Sulfate 3 Ml Neb NEB 3 ml Q6H PRN Administration Wheezing Amiodarone HCl 200 mg 12/25/19 09:00 12/29/19 09:11 Amiodarone 200 Mg Tab PO 200 mg DAILY RENZO Administration Aspirin 81 mg 12/06/19 09:00 12/29/19 09:11 Aspirin 81 Mg Enteric Coated Tablet PO 81 mg DAILY RENZO Administration Bisacodyl 10 mg 12/06/19 07:34 12/16/19 10:47 Bisacodyl 5 Mg Tab PO 10 mg Q12H PRN Administration Constipation Digoxin 0.125 mg 12/24/19 09:00 12/29/19 09:11 Digoxin 0.125 Mg Tab PO 0.125 mg DAILY RENZO Administration Diphenhydramine HCl 25 mg 12/06/19 07:34 12/28/19 21:06 Diphenhydramine 25 Mg Cap PO 25 mg Q6H PRN Administration Itching & Insomnia or Neri Ludin Fludrocortisone Acetate 0.1 mg 12/20/19 09:00 12/29/19 09:10 Fludrocortisone Acetate 0.1 Mg Tab PO 0.1 mg DAILY RENZO Administration Metoprolol Tartrate 6.25 mg 12/26/19 21:00 12/29/19 09:11 Metoprolol Tartrate 25 Mg Tab PO 6.25 mg BID RENZO Administration Midodrine 10 mg 12/19/19 15:00 12/29/19 09:11 Midodrine Hcl 5 Mg Tab PO 10 mg TID RENZO Administration Mometasone Furoate/Formoterol Fumar 2 puff 12/04/19 18:30 12/29/19 06:43 Mometasone 200 Mcg/Formoterol 5 Mcg 120 Puff Inhaler INH 2 puff BID-RT RENZO Administration Ondansetron HCl 4 mg 12/05/19 10:16 12/19/19 06:00 Ondansetron Pf 4 Mg/2 Ml Vial IVP 4 mg Q6H PRN Administration Nausea/Vomiting Pantoprazole Sodium 40 mg 12/06/19 09:00 12/29/19 09:11 Pantoprazole 40 Mg Tab PO 40 mg DAILY RENZO Administration Sodium Chloride 10 ml 12/06/19 07:34 12/19/19 06:00 Flush - Normal Saline 10 Ml Syringe IVF 10 ml PRN PRN Administration Saline Flush Tamsulosin HCl 0.4 mg 12/05/19 21:00 12/28/19 21:08 Tamsulosin Hcl 0.4 Mg Cap PO 0.4 mg HS RENZO Administration - Exam General Appearance: NAD, awake alert Eye: PERRL, anicteric sclera ENT: normocephalic atraumatic, no oropharyngeal lesions Neck: no JVD Heart: RRR, no murmur, no gallops, no rubs Respiratory: CTAB, no wheezes, no rales, no ronchi Gastrointestinal: soft, non-tender, non-distended, normal bowel sounds Extremities: no cyanosis, no clubbing, no edema Skin: normal turgor, no lesions, no rashes Hosp A/P - Plan ECHO: EF 30-35%, hypokinetic imd to distal AW, apex and mid to distal inferior wall Chest CT: worsening bilateral pleural effusions. Loculated pericardial effusion compressing RA and left ventricle 64 years old gentleman, who has significant past medical history of COPD, CKD stage III, hypertension, who presented to ED with complaint of chest pain. He was found to have NSTEMI. Cardiology was consulted, subsequently had a left heart cath, showed two-vessel CAD. He ultimately underwent two-vessel bypass, and tolerated procedure well. However, postoperatively, patient developed atrial fib, and persistent hypotension. #NSTEMI s/p two vessel CABG # Acute hypoxic respiratory failure secondary to pulmonary edema and pericardial effusions - he is s/p two-vessel CABG on December 04 with SULLIVAN to LAD and saphenous graft to diagonal. - ECHO with EF 30-35%. Life vest is in place. He is also s/p pericardial window 12/19 - continue aspirin 81 mg daily - chest Xray 12/27 showed pulmonary edema, started IV diuretics. Wean oxygen to maintain sat >92%. Chest pressure - repeat EKG pending. Chest Xray showed pulmonary edema, ordered 40 mg IV lasix. Ordered troponin Hypokalemia -potassium 3.4, will replace Hematoma - in setting of recent CABG --chest CT showed fluid collections along the anterior mediastinum, and also on the lateral of pericardium that exerts its effects on the right ventricle --Status post pericardial window placed 12/19. About 750 mL of serosanguineous fluid removed. - he had edema on chest X ray 12/27. Will repeat tomorrow after diuretics Transaminitis - downtrending, ALT down to 91. Statin on hold. US negative for acute cholecystitis. Denies abdominal pain Anemia of CKD and acute blood loss from recent surgery -Hb 9.8 today 12/24. Received 1unit PRBC - repeat CBC today Hypotension -resolved - blood cultures negative, off antibiotics #AFib with RVR/NSVT #Postoperatively A. fib -continue digoxin and amiodarone. Eliquis held due to hematoma MICHELLE/CKD 3 - resolved Disopo: pending placement and insurance approval . Wean off oxygen
[2019-12-29] MEDS ORDERED: Potassium Chloride 20 MEQ TAB PO SCH (16:00)
[2019-12-29 19:16] LABS: Hemoglobin 10.9 g/dL (14.0-18.0); Mean Corpuscular HGB CONC 33.4 g/dL (32.0-36.0); Mean Corpuscular Hemoglobin 31.9 pg (27.0-31.0); Mean Corpuscular Volume 95.5 fL (78.0-98.0); Mean Platelet Volume 6.8 fL (7.4-10.4); Platelet Count 185 thou/uL (130-400); RBC Distribution Width 13.1 % (11.5-14.5); Red Blood Cell (RBC) Count 3.41 mill/uL (4.70-6.10)
[2019-12-29 19:59] LABS: CKMB 2.3 ng/mL (0-6.6)
[2019-12-29] MEDS: diphenhydrAMINE 25 MG CAP PO PRN (20:27)
[2019-12-29] MEDS: Tamsulosin HCl 0.4 MG CAP PO SCH (20:27)
[2019-12-30] MEDS ORDERED: Melatonin 3 MG TAB PO PRN (01:51)
[2019-12-30 04:37] LABS: Hemoglobin 9.9 g/dL (14.0-18.0); Mean Corpuscular HGB CONC 32.5 g/dL (32.0-36.0); Mean Corpuscular Hemoglobin 31.3 pg (27.0-31.0); Mean Corpuscular Volume 96.3 fL (78.0-98.0); Platelet Count 186 thou/uL (130-400); Red Blood Cell (RBC) Count 3.15 mill/uL (4.70-6.10); White Blood Cell (WBC) Count 8.8 thou/uL (4.8-10.8)
[2019-12-30 04:57] LABS: Anion Gap 14 mmol/L (10-20); BUN (Urea Nitrogen) 17 mg/dL (8.4-25.7); Calc. Creatinine Clearance 63 mL/min (70-130); Calcium 8.1 mg/dL (7.8-10.44); Carbon Dioxide 23 mmol/L (23-31); Chloride 108 mmol/L (98-107); Estimated GFR-MDRD 59; Glucose 82 mg/dL (80-115); Potassium 3.5 mmol/L (3.5-5.1); Sodium 141 mmol/L (136-145)
[2019-12-30] MEDS: Mometasone 200 MCG/Formoterol 5 MCG 120 PUFF INHALER INH SCH (07:45)
[2019-12-30] MEDS: Metoprolol Tartrate 25 MG TAB PO SCH (09:14)
[2019-12-30] MEDS: Aspirin 81 mg Enteric Coated Tablet PO SCH (09:14)
[2019-12-30] MEDS: Amiodarone 200 MG TAB PO SCH (09:15)
[2019-12-30] MEDS: Midodrine HCl 5 MG TAB PO SCH ×2 (09:15→15:53)
[2019-12-30] MEDS: Digoxin 0.125 MG TAB PO SCH (09:15)
[2019-12-30] MEDS: Fludrocortisone Acetate 0.1 MG TAB PO SCH (09:17)
[2019-12-30] MEDS: Bisacodyl 5 MG TAB PO PRN (09:19)
--- NOTE | 2019-12-30 11:17 | RAD ---
PORTABLE CHEST 1 VIEW: Date; 12/30/2019 Time: 1102 hours HISTORY: Pulmonary edema. COMPARISON: 12/28/2019. FINDINGS/IMPRESSION: Changes of median sternotomy are again seen. The heart size is borderline. There is a left-sided pleu ral effusion with adjacent consolidation/atelectatic change. No pneumothoraces are seen. There is no evidence of carly pulmonary edema. POS: [facility]
[2019-12-30] MEDS ORDERED: Doxycycline 100 MG CAP PO SCH ×2 (12:30→21:00)
[2019-12-30] MEDS ORDERED: Cefdinir 300 MG CAP PO SCH ×2 (12:30→21:00)
--- NOTE | 2019-12-30 14:00 | PDOC.EP ---
- Subjective Date: 12/30/19 Time: 13:57 Interval History: no new cardiac events. Remains unaware of paroxysmal AF events. Pending rehab placement. - Review of Systems Constitutional: reports: weakness. denies: chills, fever Respiratory: denies: cough, pleuritic pain, shortness of breath, SOB with excertion Cardiology: denies: chest pain, edema, heart racing, light headedness, paroxysmal noc. dyspnea, pressure, swelling Gastrointestinal: denies: abdominal pain, constipation, diarrhea - Objective Allergies/Adverse Reactions: Allergies Allergy/AdvReac Type Severity Reaction Status Date / Time No Known Drug Allergies Allergy Verified 04/29/19 06:16 Current Medications Acetaminophen (Acetaminophen 325 Mg Tab) 650 mg PO Q6H PRN PRN Reason: Headache/Fever Or Mild Pain Last Admin: 12/21/19 11:35 Dose: 650 mg Documented by: Al Hydroxide/Mg Hydroxide (Mag-Al 1200 Mg/1200 Mg/30 Ml Udcup) 30 ml PO Q4H PRN PRN Reason: Indigestion Albuterol/Ipratropium (Ipratropium/Albuterol Sulfate 3 Ml Neb) 3 ml NEB Q6H PRN PRN Reason: Wheezing Last Admin: 12/21/19 19:11 Dose: 3 ml Documented by: Amiodarone HCl (Amiodarone 200 Mg Tab) 200 mg PO DAILY [facility] Last Admin: 12/30/19 09:15 Dose: 200 mg Documented by: Aspirin (Aspirin 81 Mg Enteric Coated Tablet) 81 mg PO DAILY [facility] Last Admin: 12/30/19 09:14 Dose: 81 mg Documented by: Bisacodyl (Bisacodyl 5 Mg Tab) 10 mg PO Q12H PRN PRN Reason: Constipation Last Admin: 12/30/19 09:19 Dose: 10 mg Documented by: Bisacodyl (Bisacodyl 10 Mg Supp) 10 mg MI Q12H PRN PRN Reason: Constipation Cefdinir (Cefdinir 300 Mg Cap) 300 mg PO BID [facility] Cefdinir (Cefdinir 300 Mg Cap) 300 mg PO NOW [facility] Stop: 12/30/19 14:30 Digoxin (Digoxin 0.125 Mg Tab) 0.125 mg PO DAILY [facility] Last Admin: 12/30/19 09:15 Dose: 0.125 mg Documented by: Diphenhydramine HCl (Diphenhydramine 25 Mg Cap) 25 mg PO Q6H PRN PRN Reason: Itching & Insomnia or Neri Ludin Last Admin: 12/29/19 20:27 Dose: 25 mg Documented by: Doxycycline Hyclate (Doxycycline 100 Mg Cap) 100 mg PO BID [facility] Doxycycline Hyclate (Doxycycline 100 Mg Cap) 100 mg PO NOW [facility] Stop: 12/30/19 14:30 Fludrocortisone Acetate (Fludrocortisone Acetate 0.1 Mg Tab) 0.1 mg PO DAILY [facility] Last Admin: 12/30/19 09:17 Dose: 0.1 mg Documented by: Guaifenesin/Dextromethorphan (Guaifenesin Dm 100-10/5 Ml Udcup) 15 ml PO Q4H PRN PRN Reason: Cough Last Admin: 12/30/19 09:19 Dose: 15 ml Documented by: Magnesium Hydroxide (Milk Of Magnesia 30 Ml Udcup) 30 ml PO Q12H PRN PRN Reason: Constipation Melatonin (Melatonin 3 Mg Tab) 3 mg PO HSPRN PRN PRN Reason: Insomnia Last Admin: 12/30/19 01:57 Dose: 3 mg Documented by: Metoprolol Tartrate (Metoprolol Tartrate 25 Mg Tab) 6.25 mg PO BID [facility] Last Admin: 12/30/19 09:14 Dose: 6.25 mg Documented by: Midodrine (Midodrine Hcl 5 Mg Tab) 10 mg PO TID [facility] Last Admin: 12/30/19 09:15 Dose: 10 mg Documented by: Mineral Oil (Mineral Oil Enema) 133 ml MI DAILYPRN PRN PRN Reason: Constipation Mometasone Furoate/Formoterol Fumar (Mometasone 200 Mcg/Formoterol 5 Mcg 120 Puff Inhaler) 2 puff INH BID-RT [facility] Last Admin: 12/30/19 07:45 Dose: 2 puff Documented by: Nitroglycerin (Nitroglycerin 0.4 Mg Tab (25 Tab Bottle)) 0.4 mg SL Q5MIN PRN PRN Reason: Chest Pain Ondansetron HCl (Ondansetron Pf 4 Mg/2 Ml Vial) 4 mg IVP Q6H PRN PRN Reason: Nausea/Vomiting Last Admin: 12/19/19 06:00 Dose: 4 mg Documented by: Pantoprazole Sodium (Pantoprazole 40 Mg Tab) 40 mg PO DAILY [facility] Last Admin: 12/30/19 09:15 Dose: 40 mg Documented by: Sodium Chloride (Flush - Normal Saline 10 Ml Syringe) 10 ml IVF PRN PRN PRN Reason: Saline Flush Last Admin: 12/19/19 06:00 Dose: 10 ml Documented by: Tamsulosin HCl (Tamsulosin Hcl 0.4 Mg Cap) 0.4 mg PO HS [facility] Last Admin: 12/29/19 20:27 Dose: 0.4 mg Documented by: Vital Signs & Weight: Vital Signs Temp Pulse Resp BP Pulse Ox 12/30/19 12:30 97.8 F 72 24 H 131/62 93 L 12/30/19 09:15 72 12/30/19 07:00 98.3 F 70 12 122/64 94 L 12/30/19 03:49 98.5 F 69 14 129/68 94 L Admit Weight 173 lb 6.4 oz Weight 166 lb I/O: I/O 12/29/19 12/30/19 12/31/19 06:59 06:59 06:59 Intake Total 680 1120 Output Total 1220 1600 Balance -540 -480 - Quality Measures Condition: Atrial Fibrillation/Flutter (hx or current) CV meds: Aspirin: Yes, Eliquis: No - Medication Contraindications No Anticoagulant reason: Medical contraindication - Physical Exam General: alert & oriented x3, no apparent distress, speech clear, affect appropriate HEENT: mucus membranes moist, normocephaly, EOMI Neck: supple neck, midline trachea, no JVD/HJR Cardiology: regular rate and rhythm, no murmur, regular rate Lungs: clear to auscultation, normal breath sounds, no wheeze, rales, rhonchi Neurology: cranial nerve 2-12 intact, grossly intact, coordination normal - Labs Result Diagrams: 12/30/19 03:59 12/30/19 03:59 - EKG Interpretation EKG Method: Telemetry EKG shows: Sinus rhythm - Assessment/Plan Assessment/Plan: 1. Chest pain with [id number] [place]. a. Left heart catheterization on 12/03/2019, found LAD/diagonal bifurcation disease 2. Coronary artery disease, a. status post coronary artery bypass grafting x2 vessel on 12/05/2019. - SULLIVAN to LAD, saphenous graft to diagonal. 3. History of COPD. 4. Postoperative atrial fibrillation, -prompting amiodarone initiation and oral anticoagulation with Eliquis. - Eliquis stopped 11 d/t anemia effusion - amiodarone stopped 11/12 d/t elevated LFTs. 5. Ischemic cardiomyopathy. a. LVEF 30% to 35% per echo on 12/04/2019. b. life vest in place. Recommend repeat echocardiogram in 3 months time and continued GDMT. consider ICD if LVEF less than 35% after 3 months 6. Chronic kidney disease. 7. Hypotension 8. Tobacco habituation. 9. Anemia 10. Transaminitis -more likely secondary to congestion from pericardial effusion/tamponade process than amiodarone. 11. Pericardial effusion. -s/p pericardial window 12/19 ~750mL blood Paroxysmal AF continues to happen periodically. continue amiodarone 200 mg daily on discharge. cannot take OAC due to recent pericardial effusion. 3 month follow up after repeat echo done by cardiology to discuss possible need for ICD and consider stopping amiodarone post CABG. EP signing off.
[2019-12-30 15:24] VITALS: BMI 25.2
[2019-12-30 15:52] VITALS: BP 144/69; TEMP 97.4
--- NOTE | 2019-12-30 18:58 | PDOC.DS.DS ---
Provider - Provider Date of Admission: 12/02/19 22:16 Date of Discharge: 12/30/19 Admitting Provider: Grzegorz Cummings Consultations: Cardiology (Dr. Soto), Nephrology (Dr. Heather Montalvo), Other (Cardiovascular surgery with Dr. Candelaria, Dr. Kelby Jacob from ) Primary Care Physician: LATRICIA Portillo Course - Hospital Course Hospital Course: Discharge Diagnoses: NSTEMI s/p two vessel CABG Pericardial effusion s/p pericardial window 12/19 Hypotension Systolic heart failure Acute Kidney Injury Anemia Brief HPI: This is a 64 year old male with CKD, COPD, hypertension who presented to the hospital with chest pain, epigastric pain and vomiting. In the ER, it was thought he had ST elevation of his lateral leads, but repeat EKG showed normalization of changes. He was admitted for further workup. Hospital Course: #NSTEMI s/p two vessel CABG #Acute hypoxic respiratory failure secondary to pulmonary edema and pericardial effusion s/p pericardial window 12/19 -Patient presented with a troponin of 0.651 which increased to 14.4. Cardiology was consulted and the patient underwent a cardiac cath but I am unable to see the full report. He was found to have LAD-diagonal bifurcation disease. Cardiothoracic surgery was consulted and the patient underwent two-vessel CABG on 12/04 with left internal mammary artery to mid LAD and reverse saphenous vein to diagonal. The patient initially did well, but did develop some paroxysmal atrial fibrillation postoperatively. EP was consulted and he was started on amiodarone and Eliquis. On 12/16, nohemi brenner was called because the patient felt lightheaded and dizzy and fell and hit his head. CT scan of his head showed no acute disease. CT chest abdomen and pelvis showed mild bilateral effusions. He then developed worsening transaminitis so amiodarone was temporarily discontinued. On 12/18 another nohemi brenner was called due to hypotension with blood pressure 84/54 and lethargy. He was transfused 1 unit PRBC for a hemoglobin of 8.2. Repeat CAT scan of the chest showed worsening bilateral effusions and a loculated pericardial effusion compressing the right atrium. Patient underwent placement of a pericardial window on 12/19. His Eliquis was subsequently discontinued. He received 5 days of IV cefepime empirically for presumed infection. Blood cultures were normal. He has since then done well. His Eliquis will be resumed tomorrow per Dr. Candelaria. He will continue on aspirin and remain off Plavix per Dr. Soto's recommendations. He will follow up with Dr. Soto and Dr. Ramos in a few weeks. He will consider cardiac rehab as an outpatient. Initially there is a plan for the patient to go to [facility], however we were having difficulty getting approval secondary to his LifeVes so he will go home. #Paroxysmal atrial fibrillation The patient did develop atrial fibrillation postoperatively. He was started on amiodarone which was temporarily held due to transaminitis. He was started on metoprolol 6.25 mg twice daily and digoxin. He continues to have paroxysmal atrial fibrillation. EP recommended discharging the patient on amiodarone 200 mg daily. His metoprolol be switched to carvedilol 6.25 mg twice daily. His d igoxin will be discontinued. #Systolic heart failure : Echo showed an EF of 30 to 35%. He did have pulmonary edema while in the hospital and received IV Lasix. Repeat chest x-ray on the time of discharge shows no pulmonary edema. The patient does have a LifeVest. He will be discharged on Lasix 20 mg daily as needed. Lisinopril will be held since the patient developed acute kidney injury while in the hospital and can be restarted as an outpatient. His atorvastatin was were held due to transaminitis. This can be restarted at the discretion of cardiology. He will need to repeat echocardiogram in 3 months. At that time he may be candidate for an ICD Hypotension: the patient was started on midodrine and fludrocortisone for persistently low blood pressures in the 90s. On discharge, he will be transitioned to as needed midodrine and fludrocortisone since his blood pressures have improved to 140s to 150s Transaminitis: the patient developed transaminitis with AST increasing to 690 with the patient on atorvastatin and amiodarone. His LFTs normalized at the time of discharge. However, given that he was restarted on amiodarone, will hold off statin therapy until repeat LFTs are done with cardiology. 'Chest pressure: the patient had some chest pressure on 12/27. REpeat EKG was unremarkable. Troponin has improved to 0.99. THis resolved at the time of discharge. MICHELLE: the patient deevloped acute kidnye injury with creatinine increasing to 3. 44 from admission. This eventually resolved on discharge to 1.24 after discontinuation of antibiotics an resuscitation with IV fluids. Lisinopril will be held until follow up with primary care doctor. Acute blood loss anemia: the patient did receive 2 units of PRBC on 12/18 and 12/20 total. His hemoglobin has remained stable at 9.9 on the day of discharge. Consider follow up as an outpatient. Pertinent Studies: Chest X ray 12/01: no acute finding CT brain 12/16: no acute finding Abd Xray 12/15: no bowel obstruction CT chest/abdomen/pelvis 12/16: Small anterior pericardial hematoma .Bilateral pleural effusions with bibasilar atelectasis Chest X ray 12/18: cardiomegaly Venogram 12/18: no DVT Abd US 12/19: no cholecystitis. Sludge in gallbladder. Pericholecystic fluid. Right sided pleural effusion Chest CT 12/19: worsening bilateral pleural effusions and bibasilar atelectasis. High density loculated pericardial effusion compressing the right atrium Chest X ray 12/19: persistent cardiomegaly. Small left pleural effusion and atelectais. Atelectasis right lung base Chest Xray 12/27: worsening pleural and parenchymal opacity within the perihilar regions and lung bases suspicious for pulmonary edema Chest X ray 12/29: no pulmonary edema. Left sided pleural effusion with consolidation/atelectasis Procedures: Cardiac cath 12/01 CABG 12/04 Pericardial window 12/19 Resuscitation Status: 12/23/19 15:35 Resuscitation Status Routine Co-Sign Provider: Resuscitation Status: DNAR: NO Resuscitation Discussed with: Patient Additional comments: Elected to transition to DNAR - Labs Lab Results: 12/30/19 03:59 12/30/19 03:59 Abnormal Lab Results - Last 48 hrs 12/29/19 03:17: Potassium 3.4 L, Chloride 110 H, Carbon Dioxide 21 L, ALT 91 H, Serum Total Protein 5.0 L, Albumin 2.7 L, Globulin 2.3 L 12/29/19 19:04: Troponin I 0.099 H 12/29/19 19:04: RBC 3.41 L, Hgb 10.9 L, Hct 32.6 L, MCH 31.9 H, MPV 6.8 L 12/30/19 03:59: Chloride 108 H 12/30/19 03:59: RBC 3.15 L, Hgb 9.9 L, Hct 30.4 L, MCH 31.3 H, MPV 7.0 L Microbiology - Entire Visit 12/19/19 14:10 Venous blood - Left Hand Blood Culture - Final NO GROWTH IN 5 DAYS 12/19/19 14:02 Venous blood - Left Arm Blood Culture - Final NO GROWTH IN 5 DAYS 12/21/19 11:47 Urine clean catch Urine Culture - Final NO GROWTH AT 48 HOURS 12/17/19 01:53 Central Line - Right Subclavian Vein Blood Culture - Final NO GROWTH IN 5 DAYS 12/17/19 01:40 Venous blood - Right Arm Blood Culture - Final NO GROWTH IN 5 DAYS 12/17/19 01:44 Venous blood - Left Arm Blood Culture - Final NO GROWTH IN 5 DAYS - Physical Exam Vitals: Vital Signs (12 hours) Temp Pulse Resp BP BP Pulse Ox 12/30/19 15:48 97.4 F L 84 18 144/69 H 94 L 12/30/19 12:30 97.8 F 72 24 H 131/62 93 L 12/30/19 09:15 72 12/30/19 07:00 98.3 F 70 12 122/64 94 L Weight Admit Weight 173 lb 6.4 oz Weight 166 lb Most Recent Monitor Data Heart Rate from ECG 73 NIBP 117/59 NIBP BP-Mean 78 Respiration from ECG 20 SpO2 94 Physical Exam: The patient was seen and examined on the day of discharge. Problem - Discharge Plan Plan of Treatment: With cardiology in 1 to 2 weeks. Follow-up with Dr. Candelaria in 1 to 2 weeks. Get a repeat echocardiogram in 3 months and follow-up with Dr. Jacob for evaluation of ICD placement. Consider repeat LFTs in a week. Consider discontinuing midodrine and fludrocortisone if no longer needed. - Time spent with Patient (mins): 40 Plan - Discharge Medications Prescriptions: Amiodarone [Cordarone] 200 mg PO DAILY #30 tab Carvedilol [Coreg] 6.25 mg PO BID #60 tablet Aspirin [Ecotrin Low Strength] 81 mg PO DAILY #90 tab Apixaban [Eliquis] 5 mg PO BID #60 tab Fludrocortisone Acetate [Florinef] 0.1 mg PO DAILY PRN #30 tab PRN Reason: Hypotension Furosemide 20 mg PO DAILY PRN #30 tablet PRN Reason: Edema Midodrine HCl [ProAmatine] 5 mg PO TID PRN #90 tab PRN Reason: Hypotension Home Medications: Medication Instructions Recorded Confirmed Type Budesonide-Formoterol [Symbicort 2 puff PO Q4HR PRN 12/03/19 12/03/19 History 160-4.5] Gabapentin 600 tab PO TID 12/03/19 12/03/19 History Tamsulosin HCl [Flomax] 0.4 capsule PO DAILY 12/03/19 12/03/19 History Ventolin HFA Inhaler 2 puff PO BID 12/03/19 12/03/19 History Apixaban [Eliquis] 5 mg PO BID #60 tab 12/12/19 Rx Aspirin [Ecotrin Low Strength] 81 mg PO DAILY #90 tab 12/12/19 Rx traMADol HCl [Ultram] 50 mg PO Q12H PRN tab 12/12/19 Rx traMADol HCl [Ultram] 100 mg PO Q12H PRN tab 12/12/19 Rx Amiodarone [Cordarone] 200 mg PO DAILY #30 tab 12/30/19 Rx Carvedilol [Coreg] 6.25 mg PO BID #60 tablet 12/30/19 Rx Fludrocortisone Acetate [Florinef] 0.1 mg PO DAILY PRN #30 tab 12/30/19 Rx Furosemide 20 mg PO DAILY PRN #30 tablet 12/30/19 Rx Midodrine HCl [ProAmatine] 5 mg PO TID PRN #90 tab 12/30/19 Rx Allergies: No Known Drug Allergies Allergy (Verified 04/29/19 06:16) - Discharge Instructions Discharge Instructions:: You presented with a heart attack. You underwent bypass surgery. You developed fluid around the heart which was drained with a pericardial window. You also had fluid in your lungs and were given lasix. You were also treated for pneumonia with five days of antibiotics. You also developed atrial fibrillation. Please take coreg 6.25 mg twice daily, amiodarone 200 mg daily, aspirin, plavix and eliquis ( as a blood thinner). Please follow up with Dr. Soto in 1-2 weeks to see if you can come off the amiodarone at that time. Get a repeat ECHO in 3 months. Follow up with Dr. Kelby Jacob in 3 months to discuss the need for an implantable cardiac defibrillator. Your heart function is only 30%. Take lasix as needed if you develop fluid retention, chest congestion and high blood pressure > 140. Follow up with your primary care doctor in a week. Come back to the hospital if you develop severe chest pain, shortness of breath, dizziness, lightheadedness, you pass out or have palpitations. Activity:: Activity Restrictions (no lifting over 15#. No driving. Shower daily. No pool, hot tub, bath) Nourishment:: Heart Healthy Diet Therapies:: Outpatient Cardiac Rehab Equipment/Supplies:: Not Applicable IV Therapy:: Not Applicable - Follow up Plan Referrals: Cardiac Rehab - [place] [Outside] - 7 Days (Your doctor has ordered outpatient cardiac rehab for you to begin within 1-2 weeks after you go home from the hospital. The location nearest to you is the [facility]. The front office in [place] will call you in 3-5 days to get you scheduled for your evaluation. If you do not receive a call, please reach out to them at [phone] and request an appointment.) [facility] [Outside] (Nursing with physical therapy services.) Ruddy Soto MD [Active] - 3-4 Weeks (Please call to schedule your appt for 3-4 weeks from Discharge!) Sakshi Leggett FNP [Primary Care Provider] - 01/13/20 1:15 pm (HOSPITAL F/U W/ [employer] [facility]T within 7 days of Discharge ) Elpidio Candelaria MD [Active] - 01/20/20 3:15 pm Kelby Jacob MD [Car Shunter] - (3 months after repeat echocardiogram with Dr Soto [phone]-----Dr Jacob's office in [place]) Disposition: HOME HEALTH Quality - Care Measures CORE MEASURES:: HF - Stroke/TIA Did you prescribe antithrombotic therapy?: Yes Did you prescribe anticoagulant for A Fib/Flutter?: Yes Did you prescribe a statin medication?: No Specify reason for no DC statin medication: Statins contraindicated
--- NOTE | 2019-12-31 07:05 | EKG ---
Test Reason : Blood Pressure : / mmHG Vent. Rate : 074 BPM Atrial Rate : 074 BPM P-R Int : 122 ms QRS Dur : 090 ms QT Int : 406 ms P-R-T Axes : 036 061 110 degrees QTc Int : 450 ms Normal sinus rhythm T wave abnormality, consider anterior ischemia Abnormal ECG When compared with ECG of 25-DEC-2019 09:08, (Unconfirmed) No significant change was found Confirmed by CINDY PORTILLO MD ([id number]) on 12/31/2019 7:05:00 AM Referred By: KENZIE Confirmed By:CINDY PORTILLO MD
--- NOTE | 2020-01-01 08:30 | EKG ---
Test Reason : Blood Pressure : / mmHG Vent. Rate : 073 BPM Atrial Rate : 073 BPM P-R Int : 126 ms QRS Dur : 082 ms QT Int : 400 ms P-R-T Axes : 029 060 150 degrees QTc Int : 440 ms Normal sinus rhythm Low voltage QRS Abnormal ECG Confirmed by CINDY PORTILLO MD ([id number]) on 01/01/2020 8:30:14 AM Referred By: [facility] Confirmed By:CINDY PORTILLO MD
--- NOTE | 2020-01-01 09:20 | EKG ---
Test Reason : ROUTINE Blood Pressure : / mmHG Vent. Rate : 068 BPM Atrial Rate : 068 BPM P-R Int : 156 ms QRS Dur : 086 ms QT Int : 404 ms P-R-T Axes : 057 067 250 degrees QTc Int : 429 ms Normal sinus rhythm T wave abnormality, consider anterior ischemia Abnormal ECG When compared with ECG of 27-DEC-2019 07:59, (Unconfirmed) No significant change was found Confirmed by CINDY PORTILLO MD ([id number]) on 01/01/2020 9:19:59 AM Referred By: ROSANNE Confirmed By:CINDY PORTILLO MD
== END 2019-12-30 18:05 | disposition home health service (06) | DRG 233 ==
LOC: ERS 20:44 → IMCU/EMU 22:16 → CCU 12-05 07:24 → 2NO 12-06 19:59 → IMCU/EMU 12-19 13:27 → 2NO 12-23 21:28
PROVIDERS: ADMIT Internal Medicine; ATTEND Internal Medicine
PROC: 4A023N7 Measurement of Cardiac Sampling and Pressure, Left Heart, Percutaneous Approach (ICD-10-PCS; 2019-11-30)
PROC: B2111ZZ Fluoroscopy of Multiple Coronary Arteries using Low Osmolar Contrast (ICD-10-PCS; 2019-11-30)
PROC: B2151ZZ Fluoroscopy of Left Heart using Low Osmolar Contrast (ICD-10-PCS; 2019-11-30)
PROC: 021009W Bypass Coronary Artery, One Artery from Aorta with Autologous Venous Tissue, Open Approach (ICD-10-PCS; principal; 2019-12-05)
PROC: 06BQ0ZZ Excision of Left Saphenous Vein, Open Approach (ICD-10-PCS; 2019-12-05)
PROC: 02100Z9 Bypass Coronary Artery, One Artery from Left Internal Mammary, Open Approach (ICD-10-PCS; 2019-12-05)
PROC: 5A1221Z Performance of Cardiac Output, Continuous (ICD-10-PCS; 2019-12-05)
PROC: 30233N1 Transfusion of Nonautologous Red Blood Cells into Peripheral Vein, Percutaneous Approach (ICD-10-PCS; 2019-12-19)
PROC: 0W9D0ZZ Drainage of Pericardial Cavity, Open Approach (ICD-10-PCS; 2019-12-20)
PROC: 03HY32Z Insertion of Monitoring Device into Upper Artery, Percutaneous Approach (ICD-10-PCS; 2019-12-20)
DX: I21.4 Non-ST elevation (NSTEMI) myocardial infarction (principal); J96.01 Acute respiratory failure with hypoxia; I50.23 Acute on chronic systolic (congestive) heart failure; I31.3 Pericardial effusion (noninflammatory); Z66 Do not resuscitate; Z51.5 Encounter for palliative care; Z20.828 Contact with and (suspected) exposure to other viral communicable diseases; I13.0 Hypertensive heart and chronic kidney disease with heart failure and stage 1 through stage 4 chronic kidney disease, or unspecified chronic kidney disease; N17.9 Acute kidney failure, unspecified; D62 Acute posthemorrhagic anemia; F05 Delirium due to known physiological condition; I48.92 Unspecified atrial flutter; I47.2 Ventricular tachycardia; E87.2 Acidosis; E87.1 Hypo-osmolality and hyponatremia; I48.0 Paroxysmal atrial fibrillation; I95.9 Hypotension, unspecified; D63.1 Anemia in chronic kidney disease; R74.01 Elevation of levels of liver transaminase levels; I25.10 Atherosclerotic heart disease of native coronary artery without angina pectoris; N18.30 Chronic kidney disease, stage 3 unspecified; J44.9 Chronic obstructive pulmonary disease, unspecified; F17.210 Nicotine dependence, cigarettes, uncomplicated; D72.829 Elevated white blood cell count, unspecified; I25.5 Ischemic cardiomyopathy; N40.0 Benign prostatic hyperplasia without lower urinary tract symptoms; R00.1 Bradycardia, unspecified; T41.0X5A Adverse effect of inhaled anesthetics, initial encounter; E86.9 Volume depletion, unspecified; F41.0 Panic disorder [episodic paroxysmal anxiety]; E87.5 Hyperkalemia; Z79.02 Long term (current) use of antithrombotics/antiplatelets; Z79.51 Long term (current) use of inhaled steroids; Z79.899 Other long term (current) drug therapy; Z79.82 Long term (current) use of aspirin
CPT/HCPCS: 36415; 36416; 36430; 36600; 70450; 71045; 71250; 74018; 74177; 76705; 80048; 80053; 80061; 80074; 80076; 80202; 81001; 82533; 82553; 82607; 82728; 82746; 82805; 83036; 83540; 83550; 83605; 83735; 83880; 84100; 84443; 84484; 85007; 85014; 85018; 85025; 85027; 85046; 85049; 85347; 85610; 85730; 86140; 86850; 86900; 86901; 87040; 87086; 93005; 93010; 93306; 93458; 93798; 93970; 94150; 94640; 96365; 97139; J0153; J0171; J0282; J0690; J0692; J1100; J1642; J1644; J1885; J1940; J2001; J2060; J2150; J2250; J2270; J2405; J2440; J2550; J3010; J3370; J3475; J3480; J3490; J7030; J7050; J7070; J7620; J7626; P9016; P9045; P9047; Q0163; Q9967; S0017; S0020; S0028; U0002

== ENCOUNTER 2020-01-06 14:11 | Observation (INO) | payer MEDICARE, MEDICAID ==
--- NOTE | 2020-01-06 15:11 | RAD ---
RADIOGRAPH CHEST 1 VIEW: DATE: 01/06/2020 TIME: 2:57 PM HISTORY: 64-year-old male status post seizure. Follow-up pleural effusion. COMPARISON: 12/30/2019 FINDINGS: There is a left pleural effusion. There is mild haziness in the adjacent left lower lung zone. To ful ly evaluate this pleural effusion, a lateral view would be useful. Sternal wires. No pulmonary edema. Left upper lung zone and visualized portions of right lung, are clear. No pneumothorax. Allowi ng for positional differences, probably no major interval change. IMPRESSION: Left pleural effusion, incompletely evaluated on a single view study.
[2020-01-06 15:59] LABS: #Eosinphils 0.3 thou/uL (0.0-0.7); #Monocytes 0.3 thou/uL (0.11-0.59); #Neutrophils 4.5 thou/uL (1.40-6.50); %Basophils 0.6 % (0.0-1.0); %Eosinophils 4.8 % (0.0-10.0); %Lymphocytes 16.4 % (21.0-51.0); %Neutrophils 73.3 % (42.0-75.0); Hemoglobin 9.4 g/dL (14.0-18.0); Mean Corpuscular HGB CONC 31.5 g/dL (32.0-36.0); Mean Corpuscular Hemoglobin 31.3 pg (27.0-31.0); Mean Corpuscular Volume 99.4 fL (78.0-98.0); Mean Platelet Volume 6.8 fL (7.4-10.4); Platelet Count 196 thou/uL (130-400); RBC Distribution Width 13.7 % (11.5-14.5); Red Blood Cell (RBC) Count 3.02 mill/uL (4.70-6.10); White Blood Cell (WBC) Count 6.1 thou/uL (4.8-10.8)
--- NOTE | 2020-01-06 16:03 | CT ---
EXAM: CT brain without contrast HISTORY: Seizures for 6 days COMPARISON: 12/17/2019 TECHNIQUE: Multiple contiguous axial images were obtained and a CT of the brain without contrast. FINDINGS: There is possibly a small bubble of pneumocephalus seen anterior to the malena. There are sca ttered hypodensities in the subcortical and periventricular white matter consistent with small vessel ischemic disease. There is no evidence of hydrocephalus, intracranial hemorrhage, or extra-axi al fluid collection. The calvarium and overlying soft tissues are unremarkable. The visualized paranasal sinuses and masto id air cells are well aerated. IMPRESSION: Possible bubble of pneumocephalus. The cause for this is uncertain. No definite skull fra cture is seen and no definite disruption of one of the sinuses or mastoid air cells is seen. A temporal bone CT may be helpful for further evaluation of the temporal bones for an area of disruptio n.
[2020-01-06 16:22] LABS: ALT (SGPT) 26 U/L (8-55); AST (SGOT) 14 U/L (5-34); Albumin 3.2 g/dL (3.4-4.8); Alkaline Phosphatase 83 U/L (40-110); Anion Gap 13 mmol/L (10-20); BUN (Urea Nitrogen) 17 mg/dL (8.4-25.7); Bilirubin, Total 0.7 mg/dL (0.2-1.2); Calc. Creatinine Clearance 0 mL/min (70-130); Calcium 8.3 mg/dL (7.8-10.44); Carbon Dioxide 27 mmol/L (23-31); Chloride 105 mmol/L (98-107); Estimated GFR-MDRD 42; Globulin 2.4 g/dL (2.4-3.5); Glucose 102 mg/dL (80-115); Magnesium 1.8 mg/dL (1.6-2.6); Protein, Total 5.6 g/dL (5.8-8.1); Sodium 141 mmol/L (136-145)
[2020-01-06 16:43] LABS: CKMB 1.1 ng/mL (0-6.6)
[2020-01-06] MEDS ORDERED: Acetaminophen 325 MG TAB PO PRN (18:34)
[2020-01-06] MEDS ORDERED: Acetaminophen 650 MG Suppository PR PRN (18:34)
[2020-01-06] MEDS ORDERED: Lorazepam 2 MG/ML VIAL SLOW IVP PRN (18:55)
--- NOTE | 2020-01-06 19:11 | PDOC.HHP ---
Hospitalist HPI - History of Present Illness Syncope History of Present Illness: DATE OF ADMISSION: 01/06/2020 TIME OF ASSESSMENT: 17:30 HPI: Patient brought into the ED with complaints of seizure-like activity for the last few days since recent discharge from the hospital. He was admitted 12/02 to 12/29 with an NSTEMI and underwent a 2-vessel CABG. 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 Post-operative course was complicated by paroxysmal A fib and he was subsequently seen by EP who started him on Eliquis and Amiodarone. Due to transaminitis, amiodarone was held. He had developed hypotension on 12/18 and received a unit of PRBCs for Hgb of 8.2. CT imaging showed worsening bilateral plueral effusions, a loculated pericardial effusion compression the right atrium therefore underwent a pericardial window on 12/19. He was taken off Eliquis and received IV antibiotics with cefepime. Blood cultures were normal and Eliquis was restarted. He was taken off Plavix as Dr. Soto recommended and continued Aspirin. He was discharged on Amiodarone 200 mg daily, his metoprolol was switched to coreg 6.35 mg BID and he was taken off Digoxin. Echo done during admission showed an EF of 30-35%, he received lasix for pulmonary edema. At the time of discharge his CXR was clear. He was discharged on Lasix 20 mg daily prn. Statin discontinued due to transaminitis. Patient on Lifevest and advised repeat Echo in 03/2020 with possible need for ICD. He has been staying with his sister since he was discharged from the hospital who has been caring for him. She sent information with him regarding how he has been do ing since discharge. He has been independent with self-care and able to mobilize on his own. He has been eating well however every day after taking his morning medications he has been shaking uncontrollably including his arms and legs. This is not associated with chills, diaphoresis or fevers. Patient states he is aware of the shaking and it reportedly last up to 15 minutes before it settles on its own. There was concern this was being caused by new medications therefore he saw his primary care physician at [facility] earlier today. After having another episode he was brought into the ED at [facility]. ROS: Patient reports having nose bleeds occasional for the last couple of weeks that resolve on its own. Occurs spontaneously. Denies any fall or trauma. Has not had any headaches. Reports occasional lightheadedness when he stands too quickly. No nausea or vomiting. Some mild constipation but denies any abdominal discomfort or bloating. No blood per rectum. Has not had any diarrhea. No urinary symptoms. Denies any fevers. No shortness of breath, cough or chest pain. All other review of systems are negative. ED COURSE: At initial presentation his BP was 97/51, it appears his BP has been on the low side at home as well. Glucose was 165 with EMS. EKG done showed NSR, HR 60. No ST changes. Nonspecific T wave changes noted. Labs: WBC 6.1 , Hgb 9.4 , HCT 30, platelets 196. Trop 0.058, BNP 342.4, CKMB 1.1, TSH 2.422, Creat 1.65, BUN 17, GFR 42, LFTS normal. CT head showed: Possible bubble of pneumocephalus. The cause for this is uncertain. No definite skull fracture is seen and no definite disruption of one of the sinuses or mastoid air cells is seen. A temporal bone CT may be helpful for further evaluation of the temporal bones for an area of disruption. Chest X-ray: Left pleural effusion, incompletely evaluated on a single view study. PAST MEDICAL HISTORY: CAD Cardiac cath 12/02/2019 NSTEMI s/p two vessel CABG 12/05/2019 Pericardial effusion s/p pericardial window 12/20/2019 Hypotension Systolic heart failure CKD Anemia COPD Hypertension History of CVA/TIA in 2015 SOCIAL HISTORY: History of tobacco use but quit after recent hospitalization. Had smoked 1/2 pack per day x 30 years. No alcohol consumption or drug use. FAMILY HISTORY: Noncontributory. ALLERGIES: No known drug allergies. CURRENT MEDICATIONS: Amiodarone [Cordarone] 200 mg PO DAILY #30 tab Carvedilol [Coreg] 6.25 mg PO BID #60 tablet Aspirin [Ecotrin Low Strength] 81 mg PO DAILY #90 tab Apixaban [Eliquis] 5 mg PO BID #60 tab Fludrocortisone Acetate [Florinef] 0.1 mg PO DAILY PRN #30 tab PRN Reason: Hypotension Furosemide 20 mg PO DAILY PRN #30 tablet PRN Reason: Edema Midodrine HCl [ProAmatine] 5 mg PO TID PRN #90 tab PRN Reason: Hypotension Budesonide-Formoterol [Symbicort 160-4.5] 2 puff PO Q4HR PRN Gabapentin 600 tab PO TID Tamsulosin 0.4 mg PO DAILY Ventolin HFA 2 puff PO BID Tramadol 50-100 mg PO Q12H PRN Hospitalist History - Past Surgical History Past Surgical History: reports: no pertinent history - Social History Alcohol: reports: Occassional Drugs: reports: none - Exam General Appearance: NAD, awake alert General - other findings: VS: temp 97.9, HR 69, RR 16, O2 sat 93% on RA, BP 115/59. Eye: PERRL ENT: normocephalic atraumatic, no oropharyngeal lesions Neck: supple, symmetric, no lymphadenopathy Heart: RRR, no murmur, no gallops, no rubs, normal peripheral pulses Respiratory: CTAB, normal chest expansion Gastrointestinal: soft, non-distended Extremities: no edema Skin: normal turgor, no lesions, no rashes Neurological: cranial nerve grossly intact, normal sensation to touch Musculoskeletal: normal tone, normal strength, no muscle wasting Psychiatric: normal affect, normal behavior, A&O x 3 Hospitalist Results - Labs Result Diagrams: 01/06/20 15:46 01/06/20 15:46 Lab results: WBC 6.1 thou/uL (4.8-10.8) 01/06/20 15:46 Hgb 9.4 g/dL (14.0-18.0) L 01/06/20 15:46 Hct 30.0 % (42.0-52.0) L 01/06/20 15:46 MCV 99.4 fL (78.0-98.0) H 01/06/20 15:46 Plt Count 196 thou/uL (130-400) 01/06/20 15:46 Neutrophils % 73.3 % (42.0-75.0) 01/06/20 15:46 Sodium 141 mmol/L (136-145) 01/06/20 15:46 Potassium 4.0 mmol/L (3.5-5.1) 01/06/20 15:46 Chloride 105 mmol/L (98-107) 01/06/20 15:46 Carbon Dioxide 27 mmol/L (23-31) 01/06/20 15:46 BUN 17 mg/dL (8.4-25.7) 01/06/20 15:46 Creatinine 1.65 mg/dL (0.7-1.3) H 01/06/20 15:46 Glucose 102 mg/dL (80-115) 01/06/20 15:46 Calcium 8.3 mg/dL (7.8-10.44) 01/06/20 15:46 Total Bilirubin 0.7 mg/dL (0.2-1.2) 01/06/20 15:46 AST 14 U/L (5-34) 01/06/20 15:46 ALT 26 U/L (8-55) 01/06/20 15:46 Alkaline Phosphatase 83 U/L (40-110) 01/06/20 15:46 CK-MB (CK-2) 1.1 ng/mL (0-6.6) 01/06/20 15:46 Troponin I 0.058 ng/mL (< 0.028) H 01/06/20 15:46 B-Natriuretic Peptide 342.4 pg/mL (0-100) H 01/06/20 15:46 Serum Total Protein 5.6 g/dL (5.8-8.1) L 01/06/20 15:46 Albumin 3.2 g/dL (3.4-4.8) L 01/06/20 15:46 - Radiology Interpretation CT scan - head Status: report reviewed by sd Hospitalist H&P A/P - Problem (1) Syncope Code(s): R55 - SYNCOPE AND COLLAPSE Status: Acute (2) Witnessed seizure-like activity Code(s): R56.9 - UNSPECIFIED CONVULSIONS Status: Acute (3) Systolic heart failure Code(s): I50.20 - UNSPECIFIED SYSTOLIC (CONGESTIVE) HEART FAILURE Status: Acute (4) Nqaet-pp-[id number] kidney injury Code(s): N17.9 - ACUTE KIDNEY FAILURE, UNSPECIFIED; N18.9 - CHRONIC KIDNEY DISEASE, UNSPECIFIED Status: Acute (5) History of hypertension Code(s): Z86.79 - PERSONAL HISTORY OF OTHER DISEASES OF THE CIRCULATORY SYSTEM Status: Acute (6) Hx of non-ST elevation myocardial infarction (NSTEMI) Code(s): I25.2 - OLD MYOCARDIAL INFARCTION Status: Acute (7) Hx of two vessel coronary artery bypass graft Code(s): Z95.1 - PRESENCE OF AORTOCORONARY BYPASS GRAFT Status: Acute (8) Anemia Code(s): D64.9 - ANEMIA, UNSPECIFIED Status: Acute (9) H/O TIA (transient ischemic attack) and stroke Code(s): Z86.73 - PRSNL HX OF TIA (TIA), AND CEREB INFRC W/O RESID DEFICITS Status: Acute (10) COPD (chronic obstructive pulmonary disease) Status: Chronic - Plan Plan: Syncope- Patient has no recollection of arriving to the ED. States he went to follow-up with PCP due to concern for seizure-like activity occurring daily since discharge. Lethargic with EMS. BP was 103/75. Cardiac monitoring Monitor BP Continue to trend troponins Orthostatic BP Carotid US Echo done recently (EF 30-35%) Seizure-like activity- Occurring daily after morning meds per sister. ?hypoperfusion secondary to hypotension vs. rigors due to infection. Has been afebrile without leukocytosis. No clear sign of underlying infection. No known history of seizures. Patient alert and aware of shaking but with AMS/lethargy following episodes. Check prolactin UA/UCx ordered Rule out underlying infection CXR showed a pleural effusion CT Chest ordered Lactic acid ordered as well MRI Brain ordered Consider EEG/Neuro consult if prolactin elevated Accuchecks, ACHS to ensure not associated with hypoglycemic episodes ? 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 Advised repeat CT head in the morning to assess for resolution. MICHELLE/CKD Gentle hydration given history of HF Continue to monitor renal function CAD s/p recent CABG x 2 Resume home meds as appropriate once verified. Inpatient cardiac rehab Wound care for healing incision (has not been seen by nurse since discharge) CHF Resume lasix CT Chest to further assess effusion noted on CXR Consult HF management Inpatient cardiac rehab given recent CABG COPD Monitor O2 sats Resume inhalers Anemia Iron studies Monitor H/H GI Prophylaxis: Famotidine DVT Prophylaxis: Mechanical SCDs. CODE STATUS: FULL Surrogate decision maker: his son Andrea Quintana Case discussed with Dr. Marquez who agrees with plan as above.
[2020-01-06 19:52] LABS: Lactic Acid 0.8 mmol/L (0.5-2.2)
[2020-01-06 20:18] LABS: CKMB 1.1 ng/mL (0-6.6)
[2020-01-06] MEDS ORDERED: Famotidine 20 MG TAB PO SCH (21:00)
[2020-01-06] MEDS ORDERED: Fludrocortisone Acetate 0.1 MG TAB PO PRN (21:07)
[2020-01-06] MEDS ORDERED: Magnesium 2 GM/50 ML 2 GM in Premix Bag 1 BAG IVPB SCH (21:30)
[2020-01-06] MEDS ORDERED: Sodium Chloride 0.9% 1,000 ML IV SCH (21:30)
[2020-01-06 23:18] LABS: Bacteria/HPF None Seen HPF (None Seen); Bilirubin Negative (Negative); Blood, Urine 2+ (Negative); Clarity Clear (Clear); Glucose, Urine (Dipstick) Normal (Negative); Ketone, Urine Negative (Negative); Leukocyte Negative Leu/uL (Negative); Nitrite Negative (Negative); Protein, Urine (Dipstick) Negative (Neg-Trace); Specific Gravity, Urine 1.007 (1.002-1.036); Squamous Epithelial None Seen HPF (0-3); Urobilinogen Normal mg/dL (Less than 2); WBC/HPF 0-3 HPF (0-3); pH, Urine 6.5 (5.0-9.0)
[2020-01-06 23:20] LABS: Urine Culture Reflex No No
[2020-01-07] MEDS ORDERED: Albuterol Sulfate 2.5 mg/0.5 ml Neb NEB SCH (06:30)
[2020-01-07 06:51] LABS: #Eosinphils 0.3 thou/uL (0.0-0.7); #Lymphocytes 0.8 thou/uL (1.20-3.40); #Monocytes 0.3 thou/uL (0.11-0.59); #Neutrophils 4.4 thou/uL (1.40-6.50); %Basophils 0.5 % (0.0-1.0); %Eosinophils 4.8 % (0.0-10.0); %Lymphocytes 13.3 % (21.0-51.0); %Monocytes 5.3 % (0.0-10.0); %Neutrophils 76.2 % (42.0-75.0); Hemoglobin 10.1 g/dL (14.0-18.0); Mean Corpuscular HGB CONC 32.2 g/dL (32.0-36.0); Mean Corpuscular Hemoglobin 31.7 pg (27.0-31.0); Mean Corpuscular Volume 98.6 fL (78.0-98.0); Mean Platelet Volume 6.8 fL (7.4-10.4); Platelet Count 211 thou/uL (130-400); RBC Distribution Width 13.7 % (11.5-14.5); Red Blood Cell (RBC) Count 3.19 mill/uL (4.70-6.10); White Blood Cell (WBC) Count 5.8 thou/uL (4.8-10.8)
[2020-01-07 07:12] LABS: Anion Gap 13 mmol/L (10-20); BUN (Urea Nitrogen) 17 mg/dL (8.4-25.7); Calc. Creatinine Clearance 0 mL/min (70-130); Calcium 8.6 mg/dL (7.8-10.44); Carbon Dioxide 27 mmol/L (23-31); Chloride 108 mmol/L (98-107); Estimated GFR-MDRD 47; Glucose 92 mg/dL (80-115); Iron Less than 8 ug/dL (65-175); Iron Binding Capacity, Total 179 mcg/dL (261-462); Potassium 3.9 mmol/L (3.5-5.1); Sodium 144 mmol/L (136-145)
[2020-01-07 07:16] LABS: Magnesium 2.4 mg/dL (1.6-2.6)
[2020-01-07 07:38] LABS: Ferritin 598.43 ng/mL (22-322)
--- NOTE | 2020-01-07 07:53 | CT ---
PRELIMINARY REPORT/[facility]/EMERGENCY AFTER HOURS PROCEDURE EXAM: CT Head Without Intravenous Contrast. CLINICAL HISTORY: Re-evaluate possible pneumocephalus TECHNIQUE: Axial computed tomography images of the head/brain without intravenous contrast. COMPARISON: CT - CT BRAIN WO CON - 12/17/2019 12:52 AM [employer] ON [employer] ENGINEER FINDINGS: BRAIN: No acute intraparenchymal hemorrhage. No mass lesion. No CT evidence for acute territorial infarct. N o midline shift or extra-axial collection. Stable chronic infarct in the left basal ganglia. VENTRICLES: No hydrocephalus. ORBITS: The orbits are unremarkable. SINUSES AND MASTOIDS: The paranasal sinuses and mastoid air cells are clear. SOFT TISSUES: No significant facial or scalp soft tissue swelling evident. No radiopaque foreign body is seen. BONES: No acute skull fracture. IMPRESSION: No acute intracranial abnormality. No pneumocephalus. Previously seen focus of gas anterior to the malena is no longer visualized. ELECTRONICALLY SIGNED BY: Melinda Manjarrez MD Jan 07, 2020 5:26:00 AM [employer] ENGINEER This report is intended for review by the ordering physician only, in accordance of law. If you recei ve this report in error, please call [facility] at [phone]. FINAL REPORT EXAM: Brain CTWithout contrast: Emergency after exam 4:43 AM 01/07/2020 COMPARISON: 01/06/2020 exam. FINDINGS/IMPRESSION: Previously noted questionable small focus of pneumocephalus is no longer evident. No new process. This report is in agreement with the preliminary report. Transcribed Date/Time: 01/07/2020 7:57 AM
--- NOTE | 2020-01-07 08:26 | CT ---
PRELIMINARY REPORT/[facility]/EMERGENCY AFTER HOURS PROCEDURE: EXAM: CT Chest Without Intravenous Contrast. CLINICAL HISTORY: Abnormal CXR, pleural effusion? TECHNIQUE: Axial computed tomography images of the chest without intravenous contrast. COMPARISON: CR\SR - XR CHEST 1 VIEW PORTABLE - 01/06/2020 02:[address] - CT CHEST ABD PELVIS WO CON - 12/17/2019 02:11 AM BASEBALL WINDER FINDINGS: LUNGS/PLEURAL SPACES: Left pleural effusion with adjacent consolidation at the left lung base, new compared to 12/17/2019, which may represent atelectasis versus pneumonia. Reticular thickening at the posterior lungs and in the right upper lobe with associated architectural distortion which is new compared to 12/17/2019 and may represent infection, however underlying malig brendan cannot be excluded. HEART AND MEDIASTINUM: Status post median sternotomy and CABG. Trace pericardial effusion. LYMPH NODES: No lymphadenopathy. CHEST WALL AND UPPER ABDOMEN: Hyperdensity within the gallbladder likely represents vicarious excretion of contrast. Diffuse fatty atrophy of the pancreas. Small amount of fluid throughout the visualized esophagus. BONES: Degenerative changes of the thoracic spine. IMPRESSION: Left pleural effusion with adjacent consolidation at the left lung base, new compared to 12/17/2019, which may represent atelectasis versus pneumonia. Reticular thickening at the posterior lungs and in the right upper lobe with associated architectural distortion which is new compared to 12/17/2019 and may represent infection, however underlying malig brendan cannot be excluded. ELECTRONICALLY SIGNED BY: Melinda Manjarrez MD Jan 07, 2020 5:36:26 AM BASEBALL WINDER This report is intended for review by the ordering physician only, in accordance of law. If you recei ve this report in error, please call [facility] at [phone]. FINAL REPORT CT CHEST WITHOUT IV CONTRAST: I agree with the preliminary report given by Dr. Melinda Manjarrez of [facility]. POS: OFF
[2020-01-07] MEDS ORDERED: Amiodarone 200 MG TAB PO SCH (09:00)
[2020-01-07] MEDS ORDERED: Carvedilol 6.25 MG TAB PO SCH (09:00)
--- NOTE | 2020-01-07 10:03 | MRI ---
Exam: Brain MRI without contrast HISTORY: Altered mental status. Speech alteration. Possible seizure. COMPARISON: None FINDINGS: Calvarial marrow signal intensity: Appropriate T1 signal Gradient echo sequence: No hemorrhage Brain parenchyma: No mass, mass effect or midline shift. Brain volume, age-appropriate. Cortical taylor-white matter differentiation: Preserved Restricted diffusion: Central arterial flow voids are maintained. Absent restricted diffusion White matter signal intensities: T2, FLAIR white matter hyperintensities due to chronic small vessel ischemic changes Sinuses: Mild mucosal thickening of the ethmoid air cells. Adequate mastoid air cell aeration. IMPRESSION: 1. Chronic small vessel ischemic changes white matter 2. Absent restricted diffusion. No acute infarct 3. No evidence of mesial temporal sclerosis.
--- NOTE | 2020-01-07 14:35 | CON ---
NEUROLOGICAL CONSULTATION DATE OF CONSULTATION: 01/07/2020 REASON FOR CONSULTATION: Altered mental status/stuttering/shaking. HISTORY OF PRESENT ILLNESS: Mr. Whitten is a 64-year-old male who presented to the emergency room with the complaint of seizure-like activity for the last 2 weeks. He was recently discharged from the hospital. He was admitted from 12/02 to 12/29 with non-ST elevation MD and underwent 2-vessel CABG. The patient also has stuttering of the speech and shaking episodes, and he was concerned about seizures. There is also concern about altered mental status, so it was decided to bring him to the emergency room for further evaluation. The patient denies any focal weakness, focal paresthesias, nausea, vomiting, headache, chest pain, abdominal pain, recent illness, or recent exposure to COVID. He saw his primary care physician who advised him to come to the emergency room for further evaluation. In the emergency room, the blood pressure was 97/51. EKG showed normal sinus rhythm. CT scan showed possible development of pneumocephalus. MRI of the brain was done, which did not reveal any acute intracranial pathology. REVIEW OF SYSTEMS: All systems reviewed and were negative except the pertinent positives and negatives mentioned in the HPI. PAST MEDICAL HISTORY: Coronary artery disease, cardiac catheterization on 12/02/2019; non-ST elevation MD, status post 2-vessel CABG on 12/05/2019; pericardial effusion, status post pericardial window on 12/20/2019; hypertension; systolic heart failure; chronic kidney disease; anemia; COPD; hypertension; history of CVA/TIA in 2015. PAST SURGICAL HISTORY: CABG, cardiac catheterization, status post pericardial window on 12/20/2019. SOCIAL HISTORY: The patient has history of tobacco abuse, but quit after recent hospitalization. He used to smoke half pack per day for the last 30 years. The patient drinks alcohol occasionally. Denies illegal drug use. FAMILY HISTORY: No significant family history. ALLERGIES: NO KNOWN DRUG ALLERGIES. CURRENT MEDICATIONS: 1. Amiodarone 200 mg daily. 2. Carvedilol 6.25 mg p.o. b.i.d. 3. Aspirin 81 mg p.o. daily. 4. Eliquis 5 mg p.o. b.i.d. 5. Fludrocortisone acetate 0.1 p.o. daily p.r.n. hypotension. 6. Furosemide 20 mg p.o. daily p.r.n. edema. 7. Midodrine for hypotension. 8. Gabapentin 600 mg p.o. b.i.d. 9. Tamsulosin 0.4 mg p.o. daily. 10. Ventolin HFA 2 puffs p.o. b.i.d. 11. Tramadol 50-100 p.o. q.12 hours p.r.n. PHYSICAL EXAMINATION: General Appearance: NAD, awake alert VS: temp 97.9, HR 69, RR 16, O2 sat 93% on RA, BP 115/59. Eye: PERRL ENT: normocephalic atraumatic, no oropharyngeal lesions Neck: supple, symmetric, no lymphadenopathy Heart: RRR, no murmur, no gallops, no rubs, normal peripheral pulses Respiratory: CTAB, normal chest expansion Gastrointestinal: soft, non-distended Extremities: no edema Skin: normal turgor, no lesions, no rashes Neurological: Mental status: The patient is alert and oriented to person, place, and time. Speech is clear. Recent and remote memory intact. Fund of knowledge seems appropriate. Cranial nerves 2 through 12 intact. Motor: Muscle tone and bulk are normal. Strength is 5/5 bilaterally. Sensory: Intact. Cerebellar: Finger- nose testing intact. Gait: Deferred due to the patient's safety reason. DATA REVIEWED: I reviewed the labs, which showed hemoglobin of 9.4 and hematocrit of 3. WBC 6.1 thou/uL (4.8-10.8) 01/06/20 15:46 Hgb 9.4 g/dL (14.0-18.0) L 01/06/20 15:46 Hct 30.0 % (42.0-52.0) L 01/06/20 15:46 MCV 99.4 fL (78.0-98.0) H 01/06/20 15:46 Plt Count 196 thou/uL (130-400) 01/06/20 15:46 Neutrophils % 73.3 % (42.0-75.0) 01/06/20 15:46 Sodium 141 mmol/L (136-145) 01/06/20 15:46 Potassium 4.0 mmol/L (3.5-5.1) 01/06/20 15:46 Chloride 105 mmol/L (98-107) 01/06/20 15:46 Carbon Dioxide 27 mmol/L (23-31) 01/06/20 15:46 BUN 17 mg/dL (8.4-25.7) 01/06/20 15:46 Creatinine 1.65 mg/dL (0.7-1.3) H 01/06/20 15:46 Glucose 102 mg/dL (80-115) 01/06/20 15:46 Calcium 8.3 mg/dL (7.8-10.44) 01/06/20 15:46 Total Bilirubin 0.7 mg/dL (0.2-1.2) 01/06/20 15:46 AST 14 U/L (5-34) 01/06/20 15:46 ALT 26 U/L (8-55) 01/06/20 15:46 Alkaline Phosphatase 83 U/L (40-110) 01/06/20 15:46 CK-MB (CK-2) 1.1 ng/mL (0-6.6) 01/06/20 15:46 Troponin I 0.058 ng/mL (< 0.028) H 01/06/20 15:46 B-Natriuretic Peptide 342.4 pg/mL (0-100) H 01/06/20 15:46 Serum Total Protein 5.6 g/dL (5.8-8.1) L 01/06/20 15:46 Albumin 3.2 g/dL (3.4-4.8) L 01/06/20 15:46 - Radiology Interpretation CT scan - head Status: report reviewed by me ASSESSMENT AND PLAN: (1) Syncope Code(s): R55 - SYNCOPE AND COLLAPSE Status: Acute (2) Witnessed seizure-like activity Code(s): R56.9 - UNSPECIFIED CONVULSIONS Status: Acute (3) Systolic heart failure Code(s): I50.20 - UNSPECIFIED SYSTOLIC (CONGESTIVE) HEART FAILURE Status: Acute (4) Lzggk-hk-tiroqnc kidney injury Code(s): N17.9 - ACUTE KIDNEY FAILURE, UNSPECIFIED; N18.9 - CHRONIC KIDNEY DISEASE, UNSPECIFIED Status: Acute (5) History of hypertension Code(s): Z86.79 - PERSONAL HISTORY OF OTHER DISEASES OF THE CIRCULATORY SYSTEM Status: Acute (6) Hx of non-ST elevation myocardial infarction (NSTEMI) Code(s): I25.2 - OLD MYOCARDIAL INFARCTION Status: Acute (7) Hx of two vessel coronary artery bypass graft Code(s): Z95.1 - PRESENCE OF AORTOCORONARY BYPASS GRAFT Status: Acute (8) Anemia Code(s): D64.9 - ANEMIA, UNSPECIFIED Status: Acute (9) H/O TIA (transient ischemic attack) and stroke Code(s): Z86.73 - PRSNL HX OF TIA (TIA), AND CEREB INFRC W/O RESID DEFICITS Status: Acute (10) COPD (chronic obstructive pulmonary disease) Status: Chronic Mr. Whitten is a 64-year-old with extensive medical history, presented with an episode of loss of awareness. There is a concern about seizure-like activity, which seems like shaking episodes on a daily basis since discharge. Consider EEG to rule out cortical irritability. MRI of the brain reviewed, which was negative for acute intracranial pathology. Telemetry to rule out arrhythmias. Strict control of blood pressure and blood glucose. Carotid Dopplers to rule out hemodynamically significant stenosis. The patient had a recent echo with an ejection fraction of 30% to 35%. No need to repeat echo. Consider Cardiology input regarding syncope. Neuro checks every 4 hours. Continue home medications. Continue Eliquis for secondary stroke prevention. Continue high-intensity statin for secondary stroke prevention. Physical Therapy/Occupational Therapy/Speech. Continue medical management per primary team. We will continue to follow. Thank you for the consult. Job ID: [id number] MTDD
--- NOTE | 2020-01-07 15:25 | ULT ---
BILATERAL CAROTID DUPLEX ULTRASOUND: HISTORY: CVA, TIA, syncope TECHNIQUE: Grayscale, color-flow and spectral Doppler ultrasound imaging of the extracranial carotid artery syst ems was performed bilaterally. FINDINGS: There is plaque formation on both sides. The peak systolic velocity in the right ICA measures 57 cm/s with an end-diastolic velocity of 6 cm/s and a systolic ratio of 0.98. The peak systolic velocity in the left ICA measures 64 cm/s with an end-diastolic velocity of 17 cm/s and a systolic ratio of 0.93. Flow in both vertebral arteries remains antegrade. IMPRESSION: No evidence of hemodynamically significant stenosis in either ICA.
--- NOTE | 2020-01-07 15:29 | PDOC.DS.DS ---
Provider - Provider Date of Admission: 01/06/20 18:00 Date of Discharge: 01/07/20 Admitting Provider: Naomi Marquez MD Primary Care Physician: [facility] Course - Hospital Course Hospital Course: HPI: Patient brought into the ED with complaints of seizure-like activity for the last few days since recent discharge from the hospital. He was admitted 12/02 to 12/29 with an NSTEMI and underwent a 2-vessel CABG. 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 Post-operative course was complicated by paroxysmal A fib and he was subsequently seen by EP who started him on Eliquis and Amiodarone. Due to transaminitis, amiodarone was held. He had developed hypotension on 12/18 and received a unit of PRBCs for Hgb of 8.2. CT imaging showed worsening bilateral plueral effusions, a loculated pericardial effusion compression the right atrium therefore underwent a pericardial window on 12/19. He was taken off Eliquis and received IV antibiotics with cefepime. Blood cultures were normal and Eliquis was restarted. He was taken off Plavix as Dr. Soto recommended and continued Aspirin. He was discharged on Amiodarone 200 mg daily, his metoprolol was switched to coreg 6.35 mg BID and he was taken off Digoxin. Echo done during admission showed an EF of 30-35%, he received lasix for pulmonary edema. At the time of discharge his CXR was clear. He was discharged on Lasix 20 mg daily prn. Statin discontinued due to transaminitis. Patient on Lifevest and advised repeat Echo in 03/2020 with possible need for ICD. He has been staying with his sister since he was discharged from the hospital who has been caring for him. She sent information with him regarding how he has been doing since discharge. He has been independent with self-care and able to mobilize on his own. He has been eating well however every day after taking his morning medications he has been shaking uncontrollably including his arms and legs. This is not associated with chills, diaphoresis or fevers. Patient states he is aware of the shaking and it reportedly last up to 15 minutes before it settles on its own. There was concern this was being caused by new medications therefore he saw his primary care physician at [facility] earlier today. After having another episode he was brought into the ED at [place]. MRI of the brain was unremarkable. CT scan of the chest revealed evidence of left lower lobe infiltrate and effusion that could be related to pneumonia. However, the patient does not have any signs of sepsis. He will be treated empirically with antibiotics. Neurology consulted and recommended EEG to rule out seizures. - Labs Lab Results: 01/07/20 06:33 01/07/20 06:33 Abnormal Lab Results - Last 48 hrs 01/06/20 15:46: B-Natriuretic Peptide 342.4 H 01/06/20 15:46: Troponin I 0.058 H 01/06/20 15:46: RBC 3.02 L, Hgb 9.4 L, Hct 30.0 L, MCV 99.4 H, MCH 31.3 H, MCHC 31.5 L, MPV 6.8 L, Lymphocytes % 16.4 L, Lymphocytes # 1.0 L 01/06/20 15:46: Creatinine 1.65 H, Serum Total Protein 5.6 L, Albumin 3.2 L 01/06/20 19:18: Troponin I 0.048 H 01/06/20 19:18: C-Reactive Protein 1.04 H 01/06/20 21:47: Troponin I 0.066 H 01/06/20 22:56: Urine Blood 2+ A, Urine RBC 11-20 A 01/07/20 06:33: Chloride 108 H, Creatinine 1.51 H, Iron Less than 8 L, TIBC 179 L 01/07/20 06:33: RBC 3.19 L, Hgb 10.1 L, Hct 31.4 L, MCV 98.6 H, MCH 31.7 H, MPV 6.8 L, Neutrophils % 76.2 H, Lymphocytes % 13.3 L, Lymphocytes # 0.8 L 01/07/20 06:33: Iron 38 L, TIBC 174 L 01/07/20 06:33: Ferritin 598.43 H, Vitamin B12 922 H - Physical Exam Physical Exam: The patient was seen and examined on the day of discharge. Plan - Discharge Medications Prescriptions: Amoxicillin/Potassium Clav [Augmentin] 875 mg PO Q12HR #10 tab Home Medications: Medication Instructions Recorded Confirmed Type Budesonide-Formoterol [Symbicort 2 puff PO Q4HR PRN 12/03/19 12/03/19 History 160-4.5] Gabapentin 600 tab PO TID 12/03/19 12/03/19 History Tamsulosin HCl [Flomax] 0.4 capsule PO DAILY 12/03/19 12/03/19 History Ventolin HFA Inhaler 2 puff PO BID 12/03/19 12/03/19 History Apixaban [Eliquis] 5 mg PO BID #60 tab 12/12/19 Rx Aspirin [Ecotrin Low Strength] 81 mg PO DAILY #90 tab 12/12/19 Rx traMADol HCl [Ultram] 50 mg PO Q12H PRN tab 12/12/19 Rx traMADol HCl [Ultram] 100 mg PO Q12H PRN tab 12/12/19 Rx Amiodarone [Cordarone] 200 mg PO DAILY #30 tab 12/30/19 Rx Carvedilol [Coreg] 6.25 mg PO BID #60 tablet 12/30/19 Rx Fludrocortisone Acetate [Florinef] 0.1 mg PO DAILY PRN #30 tab 12/30/19 Rx Furosemide 20 mg PO DAILY PRN #30 tablet 12/30/19 Rx Midodrine HCl [ProAmatine] 5 mg PO TID PRN #90 tab 12/30/19 Rx Amoxicillin/Potassium Clav 875 mg PO Q12HR #10 tab 01/07/20 Rx [Augmentin] Allergies: No Known Drug Allergies Allergy (Verified 04/29/19 06:16) - Follow up Plan Referrals: [facility] [Primary Care Provider] - Disposition: HOME Quality - Care Measures CORE MEASURES:: N/A
[2020-01-07 16:20] VITALS: BP 148/75
[2020-01-07 20:04] LABS: SARS-CoV-2 MS2 Positive; SARS-CoV-2 N Gene Negative; SARS-CoV-2 S Gene Negative; SARS-CoV-2 by NAA Not Detected (NotDetected); SARS-CoV-2 orf1ab Negative
[2020-01-07] MEDS ORDERED: Amoxicillin/Potassium Clav 875 MG TAB PO SCH (21:00)
== END 2020-01-07 16:00 | disposition home or self-care (01) ==
LOC: ERS 14:11 → ERHOLD 18:00
PROVIDERS: ADMIT Internal Medicine; ATTEND Internal Medicine
DX: R56.9 Unspecified convulsions (principal); R55 Syncope and collapse; I25.2 Old myocardial infarction; I48.0 Paroxysmal atrial fibrillation; I25.10 Atherosclerotic heart disease of native coronary artery without angina pectoris; I13.2 Hypertensive heart and chronic kidney disease with heart failure and with stage 5 chronic kidney disease, or end stage renal disease; N18.9 Chronic kidney disease, unspecified; I50.21 Acute systolic (congestive) heart failure; N17.9 Acute kidney failure, unspecified; D63.1 Anemia in chronic kidney disease; J44.9 Chronic obstructive pulmonary disease, unspecified; J90 Pleural effusion, not elsewhere classified; Z86.73 Personal history of transient ischemic attack (TIA), and cerebral infarction without residual deficits; Z87.891 Personal history of nicotine dependence; Z79.01 Long term (current) use of anticoagulants; Z79.82 Long term (current) use of aspirin; Z79.899 Other long term (current) drug therapy; Z95.1 Presence of aortocoronary bypass graft; Z20.828 Contact with and (suspected) exposure to other viral communicable diseases
CPT/HCPCS: 70450 ×2; 70551; 71045; 71250; 80048; 81001; 82553; 82607; 82728; 82746; 82962; 83540; 83550; 83605; 83735 ×2; 83880; 84146; 84484 ×2; 85025; 86140; 93005; 93880; 95816; 95819; 97116; 97139 ×2; 99285; U0003; 36415; 36416; 80053; 84443; 87635; 96374; G0378; J3475

== ENCOUNTER 2020-03-30 08:49 | Outpatient (CLI) | payer MEDICARE, MEDICAID ==
--- NOTE | 2020-03-30 09:53 | RAD ---
RADIOGRAPH CERVICAL SPINE 4 VIEWS: DATE: 03/30/2020. HISTORY: A 65-year-old male with cervicalgia. FINDINGS: Severe left-sided facet DJD at C3-4 and C4-5. At C5-6, there is moderate disk space narrowing, end plate osteophytosis, and slight retrolisthesis o f C5 on C6. There is no high-grade disk space narrowing in the rest of the levels. Vertebral body heights are maintained. No prevertebral soft tissue swelling. There is loss of lordosis which may or may not represent muscle spasm. IMPRESSION: Cervical spondylosis consisting of high-grade degenerative disk disease at C5-6 and high-grade left-s ided facet osteoarthrosis at C3-4 and C4-5. PAVEL [] POS: AMMY
== END 2020-03-30 08:50 | disposition home or self-care (01) ==
LOC: RAD-FRANK 08:49
PROVIDERS: ATTEND Nurse Practitioner Family
DX: M54.2 Cervicalgia (principal); M47.812 Spondylosis without myelopathy or radiculopathy, cervical region; M50.322 Other cervical disc degeneration at C5-C6 level
CPT/HCPCS: 72040

== ENCOUNTER 2020-04-10 09:36 | Inpatient (IN) | payer MEDICARE, MEDICAID ==
[2020-04-10 11:15] LABS: #Eosinphils 0.2 thou/uL (0.0-0.7); #Lymphocytes 1.2 thou/uL (1.20-3.40); #Monocytes 0.3 thou/uL (0.11-0.59); #Neutrophils 4.9 thou/uL (1.40-6.50); %Basophils 0.6 % (0.0-1.0); %Eosinophils 3.3 % (0.0-10.0); %Lymphocytes 17.7 % (21.0-51.0); %Monocytes 4.8 % (0.0-10.0); %Neutrophils 73.6 % (42.0-75.0); Hemoglobin 14.1 g/dL (14.0-18.0); Mean Corpuscular HGB CONC 33.3 g/dL (32.0-36.0); Mean Corpuscular Hemoglobin 31.1 pg (27.0-31.0); Mean Corpuscular Volume 93.4 fL (78.0-98.0); Platelet Count 170 thou/uL (130-400); RBC Distribution Width 12.5 % (11.5-14.5); Red Blood Cell (RBC) Count 4.54 mill/uL (4.70-6.10); White Blood Cell (WBC) Count 6.7 thou/uL (4.8-10.8)
[2020-04-10 11:34] LABS: ALT (SGPT) 18 U/L (8-55); AST (SGOT) 24 U/L (5-34); Albumin 3.8 g/dL (3.4-4.8); Alkaline Phosphatase 111 U/L (40-110); Anion Gap 15 mmol/L (10-20); BUN (Urea Nitrogen) 18 mg/dL (8.4-25.7); Bilirubin, Total 0.5 mg/dL (0.2-1.2); Calc. Creatinine Clearance 0 mL/min (70-130); Calcium 9.1 mg/dL (7.8-10.44); Carbon Dioxide 24 mmol/L (23-31); Chloride 108 mmol/L (98-107); Globulin 2.7 g/dL (2.4-3.5); Glucose 92 mg/dL (80-115); Potassium 4.8 mmol/L (3.5-5.1); Protein, Total 6.5 g/dL (5.8-8.1); Sodium 142 mmol/L (136-145)
[2020-04-10 12:05] LABS: CKMB 4.3 ng/mL (0-6.6)
[2020-04-10] MEDS ORDERED: Aspirin Chewable 81 MG TAB ONE (12:20)
[2020-04-10] MEDS ORDERED: Nitroglycerin 2% Ointment 1 INCH/1 GM Packet ONE (12:20)
[2020-04-10 12:27] LABS: PTT 29.9 sec (22.9-36.1); Prothrombin Time 13.8 sec (12.0-14.7)
[2020-04-10 12:29] LABS: D-Dimer Test 2.15 *mcg/mL (0.27-0.43)
[2020-04-10] MEDS ORDERED: Enoxaparin Sodium 80 MG/0.8 ML SYRINGE ONE (12:32)
[2020-04-10] MEDS ORDERED: Clopidogrel Bisulfate 300 MG TAB PO SCH (13:15)
[2020-04-10 15:33] LABS: Troponin I 2.858 ng/mL (< 0.028)
[2020-04-10 17:29] VITALS: BMI 22.4
[2020-04-10] MEDS ORDERED: Calcium Carbonate 500 MG ChewTAB PO PRN (17:37)
[2020-04-10] MEDS ORDERED: Acetaminophen 325 MG TAB PO PRN (17:37)
[2020-04-10] MEDS ORDERED: Nitroglycerin 0.4 MG TAB (25 Tab Bottle) SL PRN (17:41)
[2020-04-10] MEDS ORDERED: Albuterol 200 PUFF (6.7GM INHALER) INH PRN (19:13)
[2020-04-10] MEDS: Atorvastatin Calcium 40 MG TAB PO SCH (22:14)
[2020-04-10] MEDS: Famotidine 20 MG TAB PO SCH (22:14)
[2020-04-11 05:12] LABS: #Eosinphils 0.3 thou/uL (0.0-0.7); #Lymphocytes 1.5 thou/uL (1.20-3.40); #Monocytes 0.4 thou/uL (0.11-0.59); #Neutrophils 3.5 thou/uL (1.40-6.50); %Basophils 0.6 % (0.0-1.0); %Eosinophils 5.4 % (0.0-10.0); %Lymphocytes 26.2 % (21.0-51.0); %Monocytes 6.2 % (0.0-10.0); %Neutrophils 61.6 % (42.0-75.0); Hemoglobin 13.3 g/dL (14.0-18.0); Mean Corpuscular HGB CONC 33.8 g/dL (32.0-36.0); Mean Corpuscular Hemoglobin 30.9 pg (27.0-31.0); Mean Corpuscular Volume 91.3 fL (78.0-98.0); Platelet Count 165 thou/uL (130-400); RBC Distribution Width 12.3 % (11.5-14.5); Red Blood Cell (RBC) Count 4.29 mill/uL (4.70-6.10); White Blood Cell (WBC) Count 5.6 thou/uL (4.8-10.8)
[2020-04-11 05:34] LABS: ALT (SGPT) 17 U/L (8-55); AST (SGOT) 21 U/L (5-34); Albumin 3.5 g/dL (3.4-4.8); Alkaline Phosphatase 104 U/L (40-110); Anion Gap 12 mmol/L (10-20); BUN (Urea Nitrogen) 18 mg/dL (8.4-25.7); Bilirubin, Total 0.6 mg/dL (0.2-1.2); Calc. Creatinine Clearance 37 mL/min (70-130); Calcium 8.8 mg/dL (7.8-10.44); Carbon Dioxide 22 mmol/L (23-31); Cardiac Risk 3.6 (Less than 4.5); Chloride 110 mmol/L (98-107); Cholesterol 145 mg/dl (< 200 Desired); Globulin 2.4 g/dL (2.4-3.5); Glucose 87 mg/dL (80-115); HDL Cholesterol 40 mg/dL (>60 Neg Risk); LDL Cholesterol, Calculated 90 mg/dL; Phosphorus 2.5 mg/dL (2.3-4.7); Potassium 3.8 mmol/L (3.5-5.1); Protein, Total 5.9 g/dL (5.8-8.1); Sodium 140 mmol/L (136-145); Triglycerides 76 mg/dL (Less than 150)
[2020-04-11 06:00] LABS: CKMB 2.4 ng/mL (0-6.6)
[2020-04-11] MEDS ORDERED: FLU VACC QS2020-21(65YR UP)/PF 240 MCG/0.7 ML SYRINGE IM ONE (09:00)
[2020-04-11] MEDS: Folic Acid 1 MG TAB PO SCH (10:19)
[2020-04-11] MEDS: Cholecalciferol 1,000 UNITS (25 MCG) TAB PO SCH (10:19)
[2020-04-11] MEDS: Aspirin 81 mg Enteric Coated Tablet PO SCH (10:19)
[2020-04-11] MEDS: Clopidogrel Bisulfate 75 MG TAB PO SCH (10:19)
[2020-04-11] MEDS: Calcium Carbonate 600 MG + Vit D TAB PO SCH (10:19)
[2020-04-11] MEDS: Fluticasone Propionate Nasal Spray 16 gm Bottle NASAL SCH (10:22)
[2020-04-11] MEDS: Nitroglycerin 2% Ointment 1 INCH/1 GM Packet TOP SCH ×2 (15:31→22:08)
[2020-04-11] MEDS ORDERED: Metoprolol Tartrate 5 MG/5 ML VIAL IVP PRN (15:54)
[2020-04-11] MEDS: Famotidine 20 MG TAB PO SCH (22:08)
[2020-04-11] MEDS: Atorvastatin Calcium 40 MG TAB PO SCH (22:08)
[2020-04-12] MEDS: Nitroglycerin 2% Ointment 1 INCH/1 GM Packet TOP SCH ×3 (05:34→21:24)
[2020-04-12] MEDS: Folic Acid 1 MG TAB PO SCH (09:11)
[2020-04-12] MEDS: Cholecalciferol 1,000 UNITS (25 MCG) TAB PO SCH (09:11)
[2020-04-12] MEDS: Aspirin 81 mg Enteric Coated Tablet PO SCH (09:11)
[2020-04-12] MEDS: Clopidogrel Bisulfate 75 MG TAB PO SCH (09:11)
[2020-04-12] MEDS: Calcium Carbonate 600 MG + Vit D TAB PO SCH (09:11)
[2020-04-12] MEDS: Sulfameth/Trimethoprim DS 800-160mg TAB PO SCH (09:13)
[2020-04-12] MEDS: Fluticasone Propionate Nasal Spray 16 gm Bottle NASAL SCH (09:14)
[2020-04-12 09:26] LABS: Anion Gap 15 mmol/L (10-20); BUN (Urea Nitrogen) 23 mg/dL (8.4-25.7); Calc. Creatinine Clearance 36 mL/min (70-130); Calcium 9.1 mg/dL (7.8-10.44); Carbon Dioxide 23 mmol/L (23-31); Chloride 107 mmol/L (98-107); Glucose 90 mg/dL (80-115); Potassium 4.3 mmol/L (3.5-5.1); Sodium 141 mmol/L (136-145)
[2020-04-12] MEDS: Atorvastatin Calcium 40 MG TAB PO SCH (21:24)
[2020-04-12] MEDS: Midodrine HCl 5 MG TAB PO SCH (21:24)
[2020-04-12] MEDS: Famotidine 20 MG TAB PO SCH (21:24)
[2020-04-13] MEDS: Nitroglycerin 2% Ointment 1 INCH/1 GM Packet TOP SCH ×3 (05:51→22:26)
[2020-04-13] MEDS: Midodrine HCl 5 MG TAB PO SCH ×3 (08:23→14:17)
[2020-04-13] MEDS ORDERED: Midodrine HCl 5 MG TAB PO SCH (09:05)
[2020-04-13] MEDS: Cholecalciferol 1,000 UNITS (25 MCG) TAB PO SCH (09:56)
[2020-04-13] MEDS: Aspirin 81 mg Enteric Coated Tablet PO SCH (09:56)
[2020-04-13] MEDS: Calcium Carbonate 600 MG + Vit D TAB PO SCH (09:56)
[2020-04-13] MEDS: Fluticasone Propionate Nasal Spray 16 gm Bottle NASAL SCH (09:57)
[2020-04-13] MEDS: Folic Acid 1 MG TAB PO SCH (09:57)
[2020-04-13] MEDS: Clopidogrel Bisulfate 75 MG TAB PO SCH (09:57)
[2020-04-13] MEDS: Sulfameth/Trimethoprim DS 800-160mg TAB PO SCH (09:57)
[2020-04-13] MEDS ORDERED: Communication Order-Pharmacy FS SCH (14:15)
[2020-04-13] MEDS: Sodium Chloride 0.9% 1,000 ML IV SCH (15:20)
[2020-04-13] MEDS: Methocarbamol 500 MG TAB PO SCH ×2 (16:49→20:45)
[2020-04-13 17:14] LABS: SARS-CoV-2 PCR NAA for Saliva Not Detected (NotDetected)
[2020-04-13] MEDS ORDERED: Cosyntropin 250 MCG VIAL SLOW IVP SCH ×2 (19:15→22:00)
[2020-04-13] MEDS: Famotidine 20 MG TAB PO SCH (20:44)
[2020-04-13] MEDS: Atorvastatin Calcium 40 MG TAB PO SCH (20:44)
[2020-04-14] MEDS: Sodium Chloride 0.9% 1,000 ML IV SCH ×3 (01:39→20:36)
[2020-04-14] MEDS: Nitroglycerin 2% Ointment 1 INCH/1 GM Packet TOP SCH ×3 (04:50→23:53)
[2020-04-14] MEDS: Sulfameth/Trimethoprim DS 800-160mg TAB PO SCH (05:22)
[2020-04-14] MEDS: Aspirin 81 mg Enteric Coated Tablet PO SCH (05:22)
[2020-04-14] MEDS: Folic Acid 1 MG TAB PO SCH (05:22)
[2020-04-14] MEDS: Cholecalciferol 1,000 UNITS (25 MCG) TAB PO SCH (05:22)
[2020-04-14] MEDS: Methocarbamol 500 MG TAB PO SCH (05:22)
[2020-04-14] MEDS: Clopidogrel Bisulfate 75 MG TAB PO SCH (05:22)
[2020-04-14] MEDS: Calcium Carbonate 600 MG + Vit D TAB PO SCH (05:23)
[2020-04-14 07:44] LABS: #Eosinphils 0.1 thou/uL (0.0-0.7); #Lymphocytes 1.7 thou/uL (1.20-3.40); #Monocytes 0.3 thou/uL (0.11-0.59); #Neutrophils 4.2 thou/uL (1.40-6.50); %Basophils 0.2 % (0.0-1.0); %Lymphocytes 26.9 % (21.0-51.0); %Monocytes 4.1 % (0.0-10.0); %Neutrophils 66.9 % (42.0-75.0); Hemoglobin 13.6 g/dL (14.0-18.0); Mean Corpuscular HGB CONC 33.8 g/dL (32.0-36.0); Mean Corpuscular Hemoglobin 31.2 pg (27.0-31.0); Mean Corpuscular Volume 92.1 fL (78.0-98.0); Mean Platelet Volume 6.8 fL (7.4-10.4); Platelet Count 188 thou/uL (130-400); RBC Distribution Width 12.4 % (11.5-14.5); Red Blood Cell (RBC) Count 4.37 mill/uL (4.70-6.10); White Blood Cell (WBC) Count 6.3 thou/uL (4.8-10.8)
[2020-04-14 08:06] LABS: Anion Gap 15 mmol/L (10-20); BUN (Urea Nitrogen) 28 mg/dL (8.4-25.7); Calc. Creatinine Clearance 30 mL/min (70-130); Calcium 8.8 mg/dL (7.8-10.44); Carbon Dioxide 19 mmol/L (23-31); Chloride 109 mmol/L (98-107); Glucose 97 mg/dL (80-115); Potassium 4.5 mmol/L (3.5-5.1); Sodium 138 mmol/L (136-145)
[2020-04-14] MEDS: Fluticasone Propionate Nasal Spray 16 gm Bottle NASAL SCH (08:30)
[2020-04-14] MEDS ORDERED: Methocarbamol 500 MG TAB PO PRN (08:53)
[2020-04-14 12:38] LABS: Bacteria/HPF None Seen HPF (None Seen); Bilirubin Negative (Negative); Blood, Urine 3+ (Negative); Clarity Clear (Clear); Glucose, Urine (Dipstick) Normal (Negative); Ketone, Urine Negative (Negative); Leukocyte Negative Leu/uL (Negative); Nitrite Negative (Negative); Protein, Urine (Dipstick) 10 mg/dL (Neg-Trace); Specific Gravity, Urine 1.016 (1.002-1.036); Squamous Epithelial None Seen HPF (0-3); Urobilinogen Normal mg/dL (Less than 2); WBC/HPF 0-3 HPF (0-3); pH, Urine 5.5 (5.0-9.0)
[2020-04-14 12:40] LABS: Sperm/HPF Rare HPF (None Seen)
[2020-04-14 12:56] LABS: Creatinine, Urine 105.62 mg/dL (63-166)
[2020-04-14] MEDS: Atorvastatin Calcium 40 MG TAB PO SCH (20:35)
[2020-04-14] MEDS: Famotidine 20 MG TAB PO SCH (20:35)
[2020-04-15] MEDS: Nitroglycerin 2% Ointment 1 INCH/1 GM Packet TOP SCH ×3 (05:17→22:21)
[2020-04-15] MEDS: Sodium Chloride 0.9% 1,000 ML IV SCH ×2 (05:34→16:58)
[2020-04-15] MEDS: Fluticasone Propionate Nasal Spray 16 gm Bottle NASAL SCH (09:06)
[2020-04-15 09:31] LABS: Anion Gap 10 mmol/L (10-20); BUN (Urea Nitrogen) 26 mg/dL (8.4-25.7); Calc. Creatinine Clearance 33 mL/min (70-130); Calcium 8.6 mg/dL (7.8-10.44); Carbon Dioxide 21 mmol/L (23-31); Chloride 113 mmol/L (98-107); Glucose 89 mg/dL (80-115); Sodium 140 mmol/L (136-145)
[2020-04-15] MEDS: Calcium Carbonate 600 MG + Vit D TAB PO SCH (09:59)
[2020-04-15] MEDS: Folic Acid 1 MG TAB PO SCH (10:00)
[2020-04-15] MEDS: Cholecalciferol 1,000 UNITS (25 MCG) TAB PO SCH (10:00)
[2020-04-15] MEDS: Aspirin 81 mg Enteric Coated Tablet PO SCH (10:01)
[2020-04-15] MEDS: Clopidogrel Bisulfate 75 MG TAB PO SCH (10:01)
[2020-04-15] MEDS ORDERED: Regadenoson 0.4 MG/5 ML SYRINGE ONE (10:09)
[2020-04-15] MEDS: Atorvastatin Calcium 40 MG TAB PO SCH (20:28)
[2020-04-15] MEDS: Famotidine 20 MG TAB PO SCH (20:28)
[2020-04-16] MEDS: Sodium Chloride 0.9% 1,000 ML IV SCH ×2 (03:25→12:49)
[2020-04-16 07:30] LABS: Anion Gap 10 mmol/L (10-20); BUN (Urea Nitrogen) 22 mg/dL (8.4-25.7); Calc. Creatinine Clearance 41 mL/min (70-130); Calcium 8.5 mg/dL (7.8-10.44); Carbon Dioxide 22 mmol/L (23-31); Chloride 113 mmol/L (98-107); Glucose 72 mg/dL (80-115); Potassium 4.4 mmol/L (3.5-5.1); Sodium 141 mmol/L (136-145)
[2020-04-16] MEDS: Folic Acid 1 MG TAB PO SCH (08:48)
[2020-04-16] MEDS: Cholecalciferol 1,000 UNITS (25 MCG) TAB PO SCH (08:48)
[2020-04-16] MEDS: Clopidogrel Bisulfate 75 MG TAB PO SCH (08:48)
[2020-04-16] MEDS: Aspirin 81 mg Enteric Coated Tablet PO SCH (08:48)
[2020-04-16] MEDS: Calcium Carbonate 600 MG + Vit D TAB PO SCH (08:48)
[2020-04-16] MEDS: Fluticasone Propionate Nasal Spray 16 gm Bottle NASAL SCH (09:30)
[2020-04-16 15:19] VITALS: BP 156/71; TEMP 97.9
[2020-04-16] MEDS: Nitroglycerin 2% Ointment 1 INCH/1 GM Packet TOP SCH (15:21)
== END 2020-04-16 16:15 | disposition home or self-care (01) | DRG 281 ==
LOC: ERS 09:36 → ERHOLD 12:20 → 2NO 17:25
PROVIDERS: ADMIT Internal Medicine; ATTEND Internal Medicine
DX: I22.2 Subsequent non-ST elevation (NSTEMI) myocardial infarction (principal); N17.9 Acute kidney failure, unspecified; I13.0 Hypertensive heart and chronic kidney disease with heart failure and stage 1 through stage 4 chronic kidney disease, or unspecified chronic kidney disease; I50.22 Chronic systolic (congestive) heart failure; I21.9 Acute myocardial infarction, unspecified; I25.10 Atherosclerotic heart disease of native coronary artery without angina pectoris; I48.0 Paroxysmal atrial fibrillation; N18.30 Chronic kidney disease, stage 3 unspecified; M54.2 Cervicalgia; R25.1 Tremor, unspecified; I95.9 Hypotension, unspecified; J44.9 Chronic obstructive pulmonary disease, unspecified; Z20.822 Contact with and (suspected) exposure to COVID-19; Z95.1 Presence of aortocoronary bypass graft; Z79.82 Long term (current) use of aspirin; I25.2 Old myocardial infarction; Z86.73 Personal history of transient ischemic attack (TIA), and cerebral infarction without residual deficits; Z87.891 Personal history of nicotine dependence
CPT/HCPCS: 36415; 70450; 71045; 72125; 76770; 78452; 80048; 80053; 80061; 80400; 81003; 81015; 82533; 82553; 82570; 83735; 83880; 84100; 84146; 84300; 84443; 84484; 85025; 85379; 85610; 85730; 87635; 93005; 93010; 93017; 93306; 93798; 94760; 95712; 95819; 95957; 96372; A9500; J0834; J1650; J2785; U0003; U0005

== ENCOUNTER 2020-05-18 14:43 | Inpatient (IN) | payer MEDICARE, MEDICAID ==
[2020-05-18 15:28] LABS: #Eosinphils 0.4 thou/uL (0.0-0.7); #Lymphocytes 1.1 thou/uL (1.20-3.40); #Monocytes 0.4 thou/uL (0.11-0.59); #Neutrophils 3.9 thou/uL (1.40-6.50); %Basophils 0.4 % (0.0-1.0); %Eosinophils 6.1 % (0.0-10.0); %Monocytes 6.9 % (0.0-10.0); %Neutrophils 67.6 % (42.0-75.0); Hemoglobin 12.2 g/dL (14.0-18.0); Mean Corpuscular HGB CONC 33.4 g/dL (32.0-36.0); Mean Corpuscular Hemoglobin 31.7 pg (27.0-31.0); Mean Corpuscular Volume 94.9 fL (78.0-98.0); Mean Platelet Volume 6.5 fL (7.4-10.4); Platelet Count 174 thou/uL (130-400); RBC Distribution Width 13.1 % (11.5-14.5); Red Blood Cell (RBC) Count 3.86 mill/uL (4.70-6.10); White Blood Cell (WBC) Count 5.8 thou/uL (4.8-10.8)
[2020-05-18 15:48] LABS: ALT (SGPT) 11 U/L (8-55); AST (SGOT) 14 U/L (5-34); Albumin 3.5 g/dL (3.4-4.8); Alkaline Phosphatase 86 U/L (40-110); Anion Gap 12 mmol/L (10-20); BUN (Urea Nitrogen) 30 mg/dL (8.4-25.7); Bilirubin, Total 0.5 mg/dL (0.2-1.2); Calc. Creatinine Clearance 0 mL/min (70-130); Calcium 8.5 mg/dL (7.8-10.44); Carbon Dioxide 23 mmol/L (23-31); Chloride 110 mmol/L (98-107); Globulin 2.4 g/dL (2.4-3.5); Glucose 89 mg/dL (80-115); Potassium 5.2 mmol/L (3.5-5.1); Protein, Total 5.9 g/dL (5.8-8.1); Sodium 140 mmol/L (136-145)
[2020-05-18] MEDS ORDERED: Nitroglycerin 0.4 MG TAB (25 Tab Bottle) SL PRN (18:28)
[2020-05-18 19:30] LABS: Troponin I 0.019 ng/mL (< 0.028)
[2020-05-18 21:57] LABS: Troponin I 0.013 ng/mL (< 0.028)
[2020-05-18 22:47] VITALS: BMI 26.1
[2020-05-18] MEDS: Sodium Chloride 0.9% 1,000 ML IV SCH (23:58)
[2020-05-19 05:05] LABS: SARS-CoV-2 PCR NAA for Saliva Not Detected (NotDetected)
[2020-05-19 05:24] LABS: #Eosinphils 0.4 thou/uL (0.0-0.7); #Lymphocytes 1.2 thou/uL (1.20-3.40); #Monocytes 0.4 thou/uL (0.11-0.59); #Neutrophils 3.2 thou/uL (1.40-6.50); %Basophils 0.1 % (0.0-1.0); %Eosinophils 8.1 % (0.0-10.0); %Lymphocytes 22.7 % (21.0-51.0); %Monocytes 6.9 % (0.0-10.0); %Neutrophils 62.2 % (42.0-75.0); Hemoglobin 11.4 g/dL (14.0-18.0); Mean Corpuscular HGB CONC 33.3 g/dL (32.0-36.0); Mean Corpuscular Hemoglobin 31.5 pg (27.0-31.0); Mean Corpuscular Volume 94.6 fL (78.0-98.0); Mean Platelet Volume 6.4 fL (7.4-10.4); Platelet Count 165 thou/uL (130-400); RBC Distribution Width 13.1 % (11.5-14.5); Red Blood Cell (RBC) Count 3.62 mill/uL (4.70-6.10); White Blood Cell (WBC) Count 5.2 thou/uL (4.8-10.8)
[2020-05-19 05:34] LABS: Anion Gap 11 mmol/L (10-20); BUN (Urea Nitrogen) 26 mg/dL (8.4-25.7); Calc. Creatinine Clearance 43 mL/min (70-130); Calcium 8.2 mg/dL (7.8-10.44); Carbon Dioxide 22 mmol/L (23-31); Chloride 113 mmol/L (98-107); Glucose 84 mg/dL (80-115); Potassium 4.5 mmol/L (3.5-5.1); Sodium 141 mmol/L (136-145)
[2020-05-19] MEDS ORDERED: Fentanyl 100 MCG/2 ML VIAL ONE (08:34)
[2020-05-19] MEDS ORDERED: Midazolam HCl 2 mg/2 ml Vial ONE (08:34)
[2020-05-19] MEDS ORDERED: Iopamidol 370 76% 100 ML VIAL ONE (08:44)
[2020-05-19] MEDS ORDERED: Acetaminophen/Codeine 30-300mg Tablet PO PRN ×2 (10:03)
[2020-05-19] MEDS ORDERED: Sodium Chloride 0.9% 200 ML IV PRN (10:03)
[2020-05-19] MEDS ORDERED: Nitroglycerin 0.4 MG TAB (25 Tab Bottle) SL PRN (10:03)
[2020-05-19] MEDS: Sodium Chloride 0.9% 1,000 ML IV SCH ×3 (10:16→21:45)
[2020-05-19] MEDS ORDERED: traMADol HCl 50 MG TAB PO PRN (14:49)
[2020-05-19] MEDS ORDERED: Albuterol Sulfate 2.5 mg/3 ml Neb NEB PRN (14:54)
[2020-05-19] MEDS ORDERED: Atorvastatin Calcium 40 MG TAB PO SCH (21:00)
[2020-05-20 04:49] LABS: #Eosinphils 0.3 thou/uL (0.0-0.7); #Lymphocytes 1.1 thou/uL (1.20-3.40); #Monocytes 0.4 thou/uL (0.11-0.59); #Neutrophils 3.3 thou/uL (1.40-6.50); %Basophils 0.1 % (0.0-1.0); %Eosinophils 5.9 % (0.0-10.0); %Lymphocytes 21.1 % (21.0-51.0); Hemoglobin 11.3 g/dL (14.0-18.0); Mean Corpuscular HGB CONC 33.2 g/dL (32.0-36.0); Mean Corpuscular Hemoglobin 31.1 pg (27.0-31.0); Mean Corpuscular Volume 93.9 fL (78.0-98.0); Mean Platelet Volume 6.4 fL (7.4-10.4); Platelet Count 163 thou/uL (130-400); RBC Distribution Width 12.7 % (11.5-14.5); Red Blood Cell (RBC) Count 3.63 mill/uL (4.70-6.10); White Blood Cell (WBC) Count 5.1 thou/uL (4.8-10.8)
[2020-05-20 05:10] LABS: Anion Gap 10 mmol/L (10-20); BUN (Urea Nitrogen) 21 mg/dL (8.4-25.7); Calc. Creatinine Clearance 51 mL/min (70-130); Calcium 8.1 mg/dL (7.8-10.44); Carbon Dioxide 20 mmol/L (23-31); Chloride 115 mmol/L (98-107); Glucose 77 mg/dL (80-115); Potassium 4.2 mmol/L (3.5-5.1); Sodium 141 mmol/L (136-145)
[2020-05-20] MEDS: Fluticasone Propionate Nasal Spray 16 gm Bottle NASAL SCH ×2 (08:56→09:10)
[2020-05-20] MEDS ORDERED: Calcium Carbonate 600 MG + Vit D TAB PO SCH (09:00)
[2020-05-20] MEDS ORDERED: Folic Acid 1 MG TAB PO SCH (09:00)
[2020-05-20] MEDS ORDERED: Aspirin 81 mg Enteric Coated Tablet PO SCH (09:00)
[2020-05-20] MEDS ORDERED: Clopidogrel Bisulfate 75 MG TAB PO SCH (09:00)
[2020-05-20] MEDS ORDERED: Cholecalciferol 1,000 UNITS (25 MCG) TAB PO SCH (09:00)
[2020-05-20 11:04] VITALS: BP 131/69; TEMP 97.6
== END 2020-05-20 12:49 | disposition home or self-care (01) | DRG 286 ==
LOC: ERS 14:43 → 2NO 18:28 → OBSVTOIN 05-20 11:34
PROVIDERS: ADMIT Internal Medicine; ATTEND Internal Medicine
PROC: B2111ZZ Fluoroscopy of Multiple Coronary Arteries using Low Osmolar Contrast (ICD-10-PCS; principal; 2020-05-19)
PROC: B2151ZZ Fluoroscopy of Left Heart using Low Osmolar Contrast (ICD-10-PCS; 2020-05-19)
PROC: 4A023N7 Measurement of Cardiac Sampling and Pressure, Left Heart, Percutaneous Approach (ICD-10-PCS; 2020-05-19)
PROC: B2181ZZ Fluoroscopy of Left Internal Mammary Bypass Graft using Low Osmolar Contrast (ICD-10-PCS; 2020-05-19)
DX: I25.110 Atherosclerotic heart disease of native coronary artery with unstable angina pectoris (principal); I50.23 Acute on chronic systolic (congestive) heart failure; N17.9 Acute kidney failure, unspecified; J44.9 Chronic obstructive pulmonary disease, unspecified; N18.30 Chronic kidney disease, stage 3 unspecified; I48.0 Paroxysmal atrial fibrillation; M19.90 Unspecified osteoarthritis, unspecified site; Z86.73 Personal history of transient ischemic attack (TIA), and cerebral infarction without residual deficits; Z79.82 Long term (current) use of aspirin; Z79.899 Other long term (current) drug therapy; Z90.49 Acquired absence of other specified parts of digestive tract; Z95.1 Presence of aortocoronary bypass graft; Z87.891 Personal history of nicotine dependence
CPT/HCPCS: 36415; 71045; 76942; 80048; 80053; 84484; 85025; 87635; 93005; 93455; 93567; 94760; 99152; 99153; G0378; J2250; J3010; Q9967; U0003; U0005

== ENCOUNTER 2020-06-22 12:45 | Outpatient (CLI) | payer MEDICARE, MEDICAID | END 2020-06-22 12:46 | disposition home or self-care (01) | LOC: BICMRI 12:45 | PROVIDERS: ATTEND Nurse Practitioner Acute Care | DX: M54.2 Cervicalgia (principal); M53.3 Sacrococcygeal disorders, not elsewhere classified; R25.1 Tremor, unspecified; M47.812 Spondylosis without myelopathy or radiculopathy, cervical region; I67.82 Cerebral ischemia; M47.816 Spondylosis without myelopathy or radiculopathy, lumbar region | CPT/HCPCS: 70551; 72141; 72148; 82565 ==

== ENCOUNTER 2020-10-15 14:31 | Outpatient (CLI) | payer MEDICARE, MEDICAID | END 2020-10-15 14:32 | disposition home or self-care (01) | LOC: BICRAD 14:31 | PROVIDERS: ATTEND Internal Medicine Pulmonary Disease | DX: R06.00 Dyspnea, unspecified (principal) | CPT/HCPCS: 71046 ==

== ENCOUNTER 2020-10-26 14:13 | Inpatient (IN) | payer MEDICARE, MEDICAID ==
[2020-10-26 15:23] LABS: #Lymphocytes 0.5 thou/uL (1.20-3.40); #Monocytes 0.1 thou/uL (0.11-0.59); %Eosinophils 0.2 % (0.0-10.0); %Lymphocytes 7.7 % (21.0-51.0); %Neutrophils 90.1 % (42.0-75.0); Hemoglobin 13.4 g/dL (14.0-18.0); Mean Corpuscular HGB CONC 33.9 g/dL (32.0-36.0); Mean Corpuscular Hemoglobin 32.4 pg (27.0-31.0); Mean Corpuscular Volume 95.7 fL (78.0-98.0); Mean Platelet Volume 7.4 fL (7.4-10.4); Platelet Count 138 thou/uL (130-400); Red Blood Cell (RBC) Count 4.13 mill/uL (4.70-6.10); White Blood Cell (WBC) Count 6.7 thou/uL (4.8-10.8)
[2020-10-26 15:49] LABS: ALT (SGPT) 11 U/L (8-55); AST (SGOT) 16 U/L (5-34); Albumin 3.4 g/dL (3.4-4.8); Alkaline Phosphatase 82 U/L (40-110); Anion Gap 14 mmol/L (10-20); BUN (Urea Nitrogen) 34 mg/dL (8.4-25.7); Bilirubin, Total 0.7 mg/dL (0.2-1.2); Calc. Creatinine Clearance 0 mL/min (70-130); Carbon Dioxide 18 mmol/L (23-31); Chloride 110 mmol/L (98-107); Globulin 2.2 g/dL (2.4-3.5); Glucose 115 mg/dL (80-115); Potassium 3.7 mmol/L (3.5-5.1); Protein, Total 5.6 g/dL (5.8-8.1); Sodium 138 mmol/L (136-145)
[2020-10-26] MEDS ORDERED: HYDROcodone/Acetaminophen 5/325 mg Tablet PO PRN (18:36)
[2020-10-26] MEDS ORDERED: Guaifenesin DM 100-10/5 ML UDCUP PO PRN (18:36)
[2020-10-26] MEDS ORDERED: HYDROcodone/Acetaminophen 7.5/325 mg Tablet PO PRN (18:36)
[2020-10-26] MEDS ORDERED: Senokot S 8.6-50 MG TAB PO PRN (18:36)
[2020-10-26] MEDS ORDERED: Acetaminophen 325 MG TAB PO PRN (18:36)
[2020-10-26 18:38] LABS: SARS-CoV-2 NAA Rapid Test DETECTED (NotDetected)
[2020-10-26] MEDS ORDERED: hydrALAZINE 20 MG/ML VIAL SLOW IVP PRN (18:49)
[2020-10-26] MEDS ORDERED: Pharmacy to Dose REMDESIVIR IVPB PRN (18:49)
[2020-10-26] MEDS ORDERED: Albuterol 200 PUFF (6.7GM INHALER) INH PRN (19:32)
[2020-10-26 23:45] VITALS: BMI 28.1
[2020-10-27] MEDS ORDERED: Dexamethasone 4 mg/ml Vial SLOW IVP SCH (02:15)
[2020-10-27] MEDS: cefTRIAXone\\ROCEPHIN 2 GM in Sodium Chloride 0.9% 100 ML IVPB SCH ×2 (02:31→22:04)
[2020-10-27] MEDS: Dexamethasone 4 mg/ml Vial SLOW IVP SCH ×3 (02:32→22:04)
[2020-10-27] MEDS: Albuterol 200 PUFF (6.7GM INHALER) INH SCH ×4 (02:33→17:59)
[2020-10-27] MEDS: Heparin 5,000 UNITS/ML VIAL SC SCH ×3 (02:33→22:05)
[2020-10-27] MEDS: Azithromycin 500 MG in Sodium Chloride 0.9% 250 ML 250 ML IVPB SCH ×2 (02:34→22:04)
[2020-10-27] MEDS: Melatonin 3 MG TAB PO PRN (03:45)
[2020-10-27] MEDS: Ondansetron PF 4 MG/2 ML Vial IVP PRN ×2 (03:46→22:05)
[2020-10-27 07:46] LABS: #Lymphocytes 0.5 thou/uL (1.20-3.40); #Monocytes 0.1 thou/uL (0.11-0.59); %Eosinophils 0.1 % (0.0-10.0); %Lymphocytes 6.7 % (21.0-51.0); %Monocytes 1.3 % (0.0-10.0); %Neutrophils 91.9 % (42.0-75.0); Mean Corpuscular HGB CONC 33.7 g/dL (32.0-36.0); Mean Corpuscular Volume 94.9 fL (78.0-98.0); Mean Platelet Volume 7.3 fL (7.4-10.4); Platelet Count 139 thou/uL (130-400); Red Blood Cell (RBC) Count 4.06 mill/uL (4.70-6.10); White Blood Cell (WBC) Count 7.6 thou/uL (4.8-10.8)
[2020-10-27 07:52] LABS: ALT (SGPT) 13 U/L (8-55); AST (SGOT) 15 U/L (5-34); Albumin 3.3 g/dL (3.4-4.8); Alkaline Phosphatase 74 U/L (40-110); Anion Gap 16 mmol/L (10-20); BUN (Urea Nitrogen) 48 mg/dL (8.4-25.7); Bilirubin, Total 0.3 mg/dL (0.2-1.2); Calc. Creatinine Clearance 24 mL/min (70-130); Calcium 8.2 mg/dL (7.8-10.44); Carbon Dioxide 17 mmol/L (23-31); Chloride 108 mmol/L (98-107); Globulin 2.3 g/dL (2.4-3.5); Glucose 130 mg/dL (80-115); Potassium 4.1 mmol/L (3.5-5.1); Protein, Total 5.6 g/dL (5.8-8.1); Sodium 137 mmol/L (136-145)
[2020-10-27] MEDS: Zinc Sulfate 220 MG CAP PO SCH (08:06)
[2020-10-27] MEDS: Ascorbic Acid 500 mg Chewable Tablet PO SCH (08:06)
[2020-10-27] MEDS ORDERED: Cholecalciferol (Vitamin D3) 400 UNITS TAB PO SCH (09:00)
[2020-10-27] MEDS: Calcium Carbonate 500 MG ChewTAB PO PRN ×2 (11:15→17:55)
[2020-10-27] MEDS ORDERED: Non-Formulary Item 1 EACH (Ventolin Hfa Inhaler [Ventolin Hfa Inhaler] 60 PUFF Aer) PO PRN (18:33)
[2020-10-27] MEDS ORDERED: Albuterol 200 PUFF (6.7GM INHALER) INH PRN (20:34)
[2020-10-27] MEDS: Atorvastatin Calcium 40 MG TAB PO SCH (22:04)
[2020-10-27] MEDS: Primidone 50 MG TAB PO SCH (22:05)
[2020-10-28] MEDS: Albuterol 200 PUFF (6.7GM INHALER) INH SCH ×4 (01:17→21:18)
[2020-10-28] MEDS: Heparin 5,000 UNITS/ML VIAL SC SCH ×2 (07:51→22:23)
[2020-10-28] MEDS: Tamsulosin HCl 0.4 MG CAP PO SCH (07:51)
[2020-10-28] MEDS: Ascorbic Acid 500 mg Chewable Tablet PO SCH (07:51)
[2020-10-28] MEDS: Dexamethasone 4 mg/ml Vial SLOW IVP SCH ×2 (07:51→22:23)
[2020-10-28] MEDS: Aspirin 81 mg Enteric Coated Tablet PO SCH (07:51)
[2020-10-28] MEDS: Clopidogrel Bisulfate 75 MG TAB PO SCH (07:51)
[2020-10-28] MEDS: Folic Acid 1 MG TAB PO SCH (07:51)
[2020-10-28] MEDS: Zinc Sulfate 220 MG CAP PO SCH (07:52)
[2020-10-28] MEDS: Cholecalciferol 1,000 UNITS (25 MCG) TAB PO SCH (07:52)
[2020-10-28] MEDS ORDERED: Gabapentin 300 MG CAP PO SCH (09:30)
[2020-10-28 09:38] LABS: #Lymphocytes 0.4 thou/uL (1.20-3.40); #Monocytes 0.3 thou/uL (0.11-0.59); #Neutrophils 15.8 thou/uL (1.40-6.50); %Basophils 0.1 % (0.0-1.0); %Lymphocytes 2.7 % (21.0-51.0); %Monocytes 1.7 % (0.0-10.0); %Neutrophils 95.5 % (42.0-75.0); Hemoglobin 13.7 g/dL (14.0-18.0); Mean Corpuscular HGB CONC 32.8 g/dL (32.0-36.0); Mean Corpuscular Hemoglobin 31.4 pg (27.0-31.0); Mean Corpuscular Volume 95.8 fL (78.0-98.0); Mean Platelet Volume 7.3 fL (7.4-10.4); Platelet Count 161 thou/uL (130-400); Red Blood Cell (RBC) Count 4.37 mill/uL (4.70-6.10); White Blood Cell (WBC) Count 16.5 thou/uL (4.8-10.8)
[2020-10-28] MEDS: Primidone 50 MG TAB PO SCH ×3 (09:50→22:42)
[2020-10-28 10:16] LABS: Anion Gap 14 mmol/L (10-20); BUN (Urea Nitrogen) 50 mg/dL (8.4-25.7); Calc. Creatinine Clearance 29 mL/min (70-130); Calcium 8.9 mg/dL (7.8-10.44); Carbon Dioxide 20 mmol/L (23-31); Chloride 110 mmol/L (98-107); Glucose 119 mg/dL (80-115); Potassium 4.3 mmol/L (3.5-5.1); Sodium 140 mmol/L (136-145)
[2020-10-28] MEDS: Azithromycin 500 MG in Sodium Chloride 0.9% 250 ML 250 ML IVPB SCH (21:17)
[2020-10-28] MEDS: cefTRIAXone\\ROCEPHIN 2 GM in Sodium Chloride 0.9% 100 ML IVPB SCH (22:22)
[2020-10-28] MEDS: Atorvastatin Calcium 40 MG TAB PO SCH (22:22)
[2020-10-28] MEDS: Melatonin 3 MG TAB PO PRN (22:23)
[2020-10-29] MEDS: Albuterol 200 PUFF (6.7GM INHALER) INH SCH ×2 (02:27→07:29)
[2020-10-29 07:08] LABS: #Lymphocytes 0.5 thou/uL (1.20-3.40); #Monocytes 0.2 thou/uL (0.11-0.59); #Neutrophils 10.5 thou/uL (1.40-6.50); %Eosinophils 0.1 % (0.0-10.0); %Monocytes 1.8 % (0.0-10.0); Hemoglobin 12.8 g/dL (14.0-18.0); Mean Corpuscular HGB CONC 33.1 g/dL (32.0-36.0); Mean Corpuscular Hemoglobin 31.6 pg (27.0-31.0); Mean Corpuscular Volume 95.6 fL (78.0-98.0); Mean Platelet Volume 7.5 fL (7.4-10.4); Platelet Count 165 thou/uL (130-400); Red Blood Cell (RBC) Count 4.05 mill/uL (4.70-6.10); White Blood Cell (WBC) Count 11.2 thou/uL (4.8-10.8)
[2020-10-29 07:33] LABS: Anion Gap 10 mmol/L (10-20); BUN (Urea Nitrogen) 51 mg/dL (8.4-25.7); Calc. Creatinine Clearance 33 mL/min (70-130); Calcium 8.4 mg/dL (7.8-10.44); Carbon Dioxide 23 mmol/L (23-31); Chloride 109 mmol/L (98-107); Glucose 135 mg/dL (80-115); Potassium 4.4 mmol/L (3.5-5.1); Sodium 138 mmol/L (136-145)
[2020-10-29] MEDS: Dexamethasone 4 mg/ml Vial SLOW IVP SCH (07:55)
[2020-10-29] MEDS: Heparin 5,000 UNITS/ML VIAL SC SCH (07:55)
[2020-10-29] MEDS: Ascorbic Acid 500 mg Chewable Tablet PO SCH (07:56)
[2020-10-29] MEDS: Clopidogrel Bisulfate 75 MG TAB PO SCH (07:56)
[2020-10-29] MEDS: Aspirin 81 mg Enteric Coated Tablet PO SCH (07:56)
[2020-10-29] MEDS: Cholecalciferol 1,000 UNITS (25 MCG) TAB PO SCH (07:56)
[2020-10-29] MEDS: Folic Acid 1 MG TAB PO SCH (07:56)
[2020-10-29] MEDS: Zinc Sulfate 220 MG CAP PO SCH (07:56)
[2020-10-29 07:57] VITALS: BP 143/77; TEMP 98
[2020-10-29] MEDS: Tamsulosin HCl 0.4 MG CAP PO SCH (07:57)
[2020-10-29] MEDS ORDERED: Gabapentin 300 MG CAP PO SCH (09:00)
[2020-10-29] MEDS ORDERED: Lantus 1000 UNITS/10 ML VIAL SC SCH (09:00)
[2020-10-29] MEDS: Primidone 50 MG TAB PO SCH (10:10)
== END 2020-10-29 13:08 | disposition home or self-care (01) | DRG 177 ==
LOC: ERS 14:13 → T4-A 18:38 → OBSVTOIN 10-28 13:07
PROVIDERS: ADMIT Internal Medicine; ATTEND Internal Medicine
PROC: 3E0333Z Introduction of Anti-inflammatory into Peripheral Vein, Percutaneous Approach (ICD-10-PCS; 2020-10-27)
PROC: 8E0ZXY6 Isolation (ICD-10-PCS; principal; 2020-10-28)
DX: U07.1 COVID-19 (principal); J12.82 Pneumonia due to coronavirus disease 2019; J96.01 Acute respiratory failure with hypoxia; J44.0 Chronic obstructive pulmonary disease with (acute) lower respiratory infection; J44.1 Chronic obstructive pulmonary disease with (acute) exacerbation; N18.4 Chronic kidney disease, stage 4 (severe); N17.9 Acute kidney failure, unspecified; E87.2 Acidosis; M19.09 Primary osteoarthritis, other specified site; E88.09 Other disorders of plasma-protein metabolism, not elsewhere classified; I12.9 Hypertensive chronic kidney disease with stage 1 through stage 4 chronic kidney disease, or unspecified chronic kidney disease; D63.1 Anemia in chronic kidney disease; Z86.73 Personal history of transient ischemic attack (TIA), and cerebral infarction without residual deficits; Z79.01 Long term (current) use of anticoagulants; Z79.82 Long term (current) use of aspirin; Z79.51 Long term (current) use of inhaled steroids; Z79.899 Other long term (current) drug therapy; Z90.49 Acquired absence of other specified parts of digestive tract; Z95.1 Presence of aortocoronary bypass graft; Z82.49 Family history of ischemic heart disease and other diseases of the circulatory system; Z80.51 Family history of malignant neoplasm of kidney
CPT/HCPCS: 36415; 71045; 80048; 80053; 82728; 83880; 84484; 85025; 85379; 86140; 93005; 96372; 96374; 96375; G0378; J0456; J0696; J1100; J1644; J2405; J3490; J7050; U0002

== ENCOUNTER 2020-11-18 13:10 | Inpatient (IN) | payer OTHER ==
[2020-11-18] MEDS ORDERED: Morphine 4 MG/ML VIAL ONE (13:40)
[2020-11-18] MEDS ORDERED: Lorazepam 2 MG/ML VIAL ONE (13:41)
[2020-11-18] MEDS ORDERED: Morphine 4 MG/ML VIAL SLOW IVP PRN (13:45)
[2020-11-18] MEDS ORDERED: Ondansetron PF 4 MG/2 ML Vial IVP PRN (13:46)
[2020-11-18] MEDS: Lorazepam 2 MG/ML VIAL SLOW IVP SCH ×3 (14:02→22:05)
[2020-11-18] MEDS: Morphine 4 MG/ML VIAL SLOW IVP SCH ×6 (14:02→23:49)
[2020-11-18] MEDS: Lorazepam 2 MG/ML VIAL SLOW IVP PRN (16:42)
[2020-11-18] MEDS ORDERED: Scopolamine 1.5 mg/72 hour Patch TOP PRN (19:14)
[2020-11-19] MEDS: Lorazepam 2 MG/ML VIAL SLOW IVP SCH ×9 (01:29→23:47)
[2020-11-19] MEDS: Morphine 4 MG/ML VIAL SLOW IVP SCH ×12 (01:29→23:47)
[2020-11-19] MEDS: Lorazepam 2 MG/ML VIAL SLOW IVP PRN (11:54)
[2020-11-19] MEDS ORDERED: Furosemide 20 MG/2 ML VIAL SLOW IVP SCH (13:00)
[2020-11-19 19:58] VITALS: TEMP 97.7
[2020-11-20] MEDS: Morphine 4 MG/ML VIAL SLOW IVP SCH ×7 (01:38→13:45)
[2020-11-20] MEDS: Lorazepam 2 MG/ML VIAL SLOW IVP SCH ×7 (01:38→13:44)
[2020-11-20 07:53] VITALS: BP 66/42
== END 2020-11-20 14:20 | disposition expired | DRG 951 ==
LOC: CCU 13:10 → ONC 17:26
PROVIDERS: ADMIT Family Medicine; ATTEND Family Medicine
DX: Z51.5 Encounter for palliative care (principal)
CPT/HCPCS: J1940; J2060; J2270